=== PATIENT | female | born 1975 | race Caucasian/White ===

== ENCOUNTER 2022-12-20 12:16 | Outpatient (OUT) | payer OTHER, SELFPAY ==
--- NOTE | 2022-12-20 12:50 | XR_ITS ---
The [address] [address] Patient Name: CHITRA MICHAELS MRN: [id number] date: 1975 Sex: F Assigned Patient Location: LAB Current Patient Location: LAB Accession/Order Number: [id number] Exam Date: 12/20/2022 12:55 Report Date: 12/20/2022 13:16 At the request of: ILIANA GONZALEZ Procedure: XR chest 2V EXAM: XR chest 2V HISTORY: Fever R50.9 COMPARISON: None. TECHNIQUE: PA and lateral views of the chest. FINDINGS: The cardiomediastinal silhouette is normal. No focal consolidation is identified. There is no pneumothorax. No pleural effusion is noted. The osseous structures are intact. XR/XR chest 2V IMPRESSION: No acute cardiopulmonary process. Electronically authenticated by: HAL NAVARRO Date: 12/20/2022 13:16
[2022-12-20 13:05] LABS: Erythrocyte Sedimentation Rate 106 mm/hr (<=20)
[2022-12-20 13:10] LABS: Basophils Absolute Auto 0.1 10^3/uL (0.0-0.1); Basophils Percent Auto 0.3 % (0.2-2.0); Eosinophils Absolute Auto 0.1 10^3/uL (0.0-0.7); Eosinophils Percent Auto 0.8 % (0.9-7.0); Hematocrit 32.3 % (36.0-48.0); Hemoglobin 9.8 g/dL (12.0-16.0); Immature Granulocytes Abs Auto 0.12 10^3/uL (0.00-0.03); Immature Granulocytes Pct Auto 0.7 % (0.0-0.5); Lymphocytes Percent Auto 6.1 % (20.5-60.0); Mean Corpuscular HGB Conc 30.3 g/dL (29.9-35.2); Mean Corpuscular Hemoglobin 22.4 pg (26.7-34.0); Mean Corpuscular Volume 73.9 fL (81.0-99.0); Mean Platelet Volume 9.6 fL (9.5-13.5); Monocytes Absolute Auto 1.1 10^3/uL (0.3-0.8); Monocytes Percent Auto 6.6 % (1.7-12.0); Neutrophils Absolute Auto 14.2 10^3/uL (1.4-6.5); Neutrophils Percent Auto 85.5 % (43.0-75.0); Platelet Count 597 10^3/uL (150-450); Red Blood Count 4.37 10^6/uL (4.20-5.40); Red Cell Distribution Width 14.6 % (11.0-15.0); White Blood Count 16.6 10^3/uL (4.0-11.0)
[2022-12-20 13:40] LABS: Anion Gap 16.2; BUN Creatinine Ratio 21.7; Calcium 9.7 mg/dL (8.5-10.1); Carbon Dioxide 26.9 mmol/L (21.0-32.0); Chloride 97 mmol/L (98-107); Estimated GFR (African America >60 (>=60); Estimated GFR (Non-African Ame >60 (>=60); Glucose 94 mg/dL (74-106); Potassium 4.1 mmol/L (3.5-5.1); Sodium 136 mmol/L (136-145)
== END 2022-12-20 12:17 | disposition home or self-care (01) ==
LOC: LAB 12:22
PROVIDERS: PCP Family Medicine; Visit Provider Family Medicine
DX: R50.9 Fever, unspecified (principal)
CPT/HCPCS: 36415; 71046; 80048; 85025; 85652; 87040; 87086; 87150; 87186

== ENCOUNTER 2023-01-19 06:28 | Outpatient (OUT) | payer OTHER, SELFPAY ==
[2023-01-19 07:47] LABS: Alanine Aminotransferase 28 U/L (14-59); Aspartate Amino Transferase 16 U/L (15-37); Chol HDL Ratio 7.3; Cholesterol 226 mg/dL (<=200); HDL Cholesterol 31 mg/dL (40-60); Triglycerides 197 mg/dL (<=150); VLDL CHOLESTEROL 39.4 mg/dL
== END 2023-01-19 06:29 | disposition home or self-care (01) ==
LOC: LAB 06:31
PROVIDERS: PCP Family Medicine; Visit Provider Internal Medicine Cardiovascular Disease
DX: E78.5 Hyperlipidemia, unspecified (principal)
CPT/HCPCS: 36415; 80061; 84450; 84460

== ENCOUNTER 2023-02-08 19:51 | Outpatient (REF) | payer OTHER, SELFPAY ==
[2023-02-13 17:09] LABS: Age Gdln ACOG Testing Note (.); HPV Aptima Negative (Negative); IGP, Aptima HPV, rfx 16/18,45 Note (.)
== END 2023-02-08 19:52 | disposition home or self-care (01) ==
LOC: LAB 19:51
PROVIDERS: PCP Family Medicine; Visit Provider Obstetrics & Gynecology
DX: Z01.419 Encounter for gynecological examination (general) (routine) without abnormal findings (principal)
CPT/HCPCS: 87624; G0145

== ENCOUNTER 2024-02-14 20:20 | Outpatient (REF) | payer OTHER, SELFPAY ==
--- OUTSIDE RECORDS SUMMARY | 2024-02-14 20:24 | XMS_ITS | CCD ---
Author Organization [facility] Care Team Providers Care Varnish Dipper Name Role Phone ILIANA GONZALEZ Primary Care Physician [phone] Janeth Champion Unavailable BIANCA Champion Attending Provider DR ILIANA GONZALEZ Primary Care Unavailable BASIA, DR LANDERS Attending Unavailable BASIA, DR LANDERS Consulting Unavailable DR VIJAY MEDLEY Admitting Unavailable Iliana Gonzalez Unavailable Iliana Gonzalez Unavailable Unavailable Unavailable MD ILIANA GONZALEZ Primary Care Unava ilable MD ILIANA GONZALEZ Primary Care Unava ilable Austen, Dr. Emmy Woodson Referring Maggie vailable Austen, Dr. Emmy Woodson Attending Maggie MD ILIANA Casanova Primary Care Unava ilIliana Bergeron MD Primary Care Provider ILIANA GONZALEZ Attending Unavailable ILIANA GONZALEZ Admitting Unavailable PepperEmmy Admitting Unavailable Emmy Pepper Attending Unavailable ILINAA GONZALEZ Attending Unavailable ILIANA GONZALEZ Admitting Unavailable FLORA ELIZALDE Referring Unavailable FLORA ELIZALDE Admitting Unavailable FLORA ELIZALDE Attending Unavailable FLORA ELIZALDE Admitting Unavailable FLORA ELIZALDE Attending Unavailable FLORA ELIZALDE Referring Unavailable Emmy Pepper Admitting Unavailable Emmy Pepper Consulting Unavailable Emmy Pepper Attending Unavailable Austen Booth Referring Unavailable MD Emmy Pepper Consulting Unavailable Pepper, Booth Consulting Unavailable Pepper, Booth Consulting Unavailable Pepper, Booth Consulting Unavailable Pepper, Booth Consulting Unavailable Pepper, Booth Consulting Unavailable Pepper, Booth Consulting Unavailable Pepper, Booth Consulting Unavailable Pepper, Booth Consulting Unavailable FLORA ELIZALDE Referring Unavailable FLORA ELIZALDE Admitting Unavailable FLORA ELIZALDE Attending Unavailable REFERRAL, SELF Admitting Unavailable REFERRAL, SELF Attending Unavailable REFERRAL, SELF Referring Unavailable ILIANA GONZALEZ Consulting Unavailable MD ILIANA GONZALEZ Unavailable JACINDA CHILDS Attending Unavailable PepperEmmy Attending Unavailable Pepper, Emmy Admitting Unavailable ILIANA GONZALEZ Attending Unavailable ILIANA GONZALEZ Admitting Unavailable Iliana Gonzalez MD Primary Care Provider [phone] PEPPEREMMY RASMUSSEN Attending Unavailable ILIANA GONZALEZ Primary Care Unavailable PEPPEREMMY RASMUSSEN Attending Unavailable PEPPEREMMY M Referring Unavailable ILIANA GONZALEZ Primary Care Unavailable Iliana Gonzalez MD Primary Care Provider [phone] David Mayo MD Unavailable ILIANA GONZALEZ Admitting Unavailable ILIANA GONZALEZ Attending Unavailable YANELI ELIZALDE Admitting Unavailable YANELI ELIZALDE Attending Unavailable YANELI ELIZALDE Referring Unavailable Chinyere Domínguez Attending Unavailable REFERRAL, SELF Admitting Unavailable REFERRAL, SELF Attending Unavailable REFERRAL, SELF Referring Unavailable ILIANA GONZALEZ Consulting Unavailable MD ILIANA GONZALEZ Consulting Unavailable ILIANA GONZALEZ Admitting Unavailable ILIANA GONZALEZ Attending Unavailable YANELI ELIZALDE Referring Unavailable Jarred Argueta Admitting Unavailable Jarred Argueta Attending Unavailable ILIANA GONZALEZ Admitting Unavailable ILIANA GONZALEZ Attending Unavailable Dorothybosnicole, Kiah Walker Attending Unavailable NILLFab Attending Unavailable NILLFab Attending Unavailable ILIANA GONZALEZ Referring Unavailable Demboske, Kiah Walker Attending Unavailable Demboske, Kiah Walker Attending Unavailable Demboske, Kiah Walker Attending Unavailable ILIANA GONZALEZ Referring Unavailable NILL, Fab R Admitting Unavailable NILL, Fab Toscano Attending Unavailable NILLFab R Referring Unavailable MD Jarred Argueta Attending Unavailable MD Jarred Argueta Admitting Unavailable YANELI ELIZALDE Attending Unavailable LOWE, YANELI Attending Unavailable BASIAVIJAY Attending Unavailable LOWE, YANELI Referring Unavailable LOWE, YANELI Attending Unavailable LOWE, YANELI Attending Unavailable Demboske, Kiah Walker Attending Unavailable Demboske, Kiah Walker Admitting Unavailable Demboske, Kiah Denise Attending Unavailable Demboske, Kiah Denise Admitting Unavailable Allergies Allergy Classification Reported Allergen(s) Allergy Type Date of Onset Reaction(s) Facility (20 sources) busPIRone; Translations: [buspirone] Drug Allergy 08-08-19 18 Anxiety (finding), Anxiety [facility] (20 sources) Clarithromycin; Translations: [clarithromycin] Drug Allergy 08-23-19 13 Nausea (finding), Nausea Only, GI intolerance, Nausea/vomitin g, Weal (disorder) [facility] (20 sources) Latex; Translations: [Latex] Drug allergy 08-23-19 13 Anaphylaxis (disorder), Anaphylaxis [facility] (20 sources) Meperidine; Translations: [meperidine] Drug Allergy 08-23-19 13 Nausea (finding), GI intolerance, Weal (disorder) [facility] (20 sources) Morphine; Translations: [morphine] Drug Allergy 08-23-19 13 Nausea (finding), Nausea Only, Other, Weal (disorder) [facility] (1 source) busPIRone Drug Allergy [facility] (1 source) Clarithromycin Drug Allergy 08-23-19 13 [facility] (1 source) Meperidine Drug Allergy 08-23-19 13 [facility] (1 source) Morphine Drug Allergy 08-23-19 13 [facility] (14 sources) Metoclopramide Drug Allergy 12-16-19 14 Unknown [facility] Other (1 source) Allergies Reconciled Propensity to adverse reactions Unknown [facility] Other (14 sources) Avonex *PSYCHOTHERAPEUTI C AND NEUROLOGICAL AGENTS Propensity to adverse reactions 08-08-19 18 Unknown [facility] Other (14 sources) Biaxin *MACROLIDES* Propensity to adverse reactions 12-08-19 17 Unknown [facility] Other (1 source) patient allergy list reviewed by nurse or physicia Propensity to adverse reactions 10-13-19 15 Comment:Done [facility] Other (2 sources) Morphine Drug Allergy 12-08-19 17 Unknown [facility] Other (3 sources) Interferon beta-1a; Translations: [INTERFERON BETA-1A] Drug Allergy 02-22-20 16 Other, GI intolerance, Unknown, GI Upset [facility] Work Phone: (3 sources) Meperidine; Translations: [MEPERIDINE (PF)] Drug Allergy 08-23-19 13 Nausea/vomitin g [facility] Work Phone: (6 sources) Avonex *PSYCHOTHERAPEUTI C AND Allergy to substance 06-20-19 24 [facility] (7 sources) Clarithromycin Allergy to substance 08-23-19 13 GI intolerance, Nausea Only, Unknown [facility] (7 sources) Meperidine Drug Allergy 08-11-19 23 GI intolerance, Nausea Only [facility] (7 sources) Interferon Beta-1a Allergy to substance 02-22-20 16 GI intolerance, Other [facility] Medications Current Medications Medication Drug Class(es) Dates Sig (Normalized) Sig (Original) 0.5 ML tirzepatide 10 MG/ML Auto-Injector [Mounjaro] (5 sources) Start: 04-28-2022 Mounjaro 5 MG/0.5ML as directed Subcutaneous weekly for 28 days Apr, Active 0.5 ML tirzepatide 20 MG/ML Auto-Injector [Mounjaro] (3 sources) inject 5 mg by subcutaneous injection every week Mounjaro 10 MG/0.5ML INJECT 5MG (1 PEN) UNDER THE SKIN ONCE WEEKLY for 28 days Active 0.5 ML tirzepatide 25 MG/ML Auto-Injector [Mounjaro] (10 sources) inject 5 mg by subcutaneous injection every week Mounjaro 12.5 MG/0.5ML INJECT 5MG (1 PEN) UNDER THE SKIN ONCE WEEKLY for 90 days Active 0.5 ML tirzepatide 30 MG/ML Auto-Injector [Mounjaro] (1 source) inject 5 mg by subcutaneous injection every week Mounjaro 15 MG/0.5ML INJECT 5MG (1 PEN) UNDER THE SKIN ONCE WEEKLY for 90 days Active 0.5 ML tirzepatide 5 MG/ML Auto-Injector [Mounjaro] (3 sources) Start: 04-28-2022 Mounjaro 2.5 MG/0.5ML as directed Subcutaneous weekly for 28 days Apr, Active 3 ML insulin glargine-yfgn 100 UNT/ML Pen Injector [Semglee] (20 sources) Start: 11-18-2021 inject 50 [IU] by subcutaneous injection at bedtime Semglee (Prefilled Pen) 100 units/mL subcutaneous solution 50 unit(s), SubCutaneous, Bedtime, Blood glucose Start Date: 11/18/21 Status: Ordered inject 50 [IU] by granados bcutaneous injection once daily Semglee (yfgn) 100 UNIT/ML INJECT 50 UNITS UNDER THE SKIN ONCE DAILY for 90 days Active inject 50 [IU] by granados bcutaneous injection once daily Semglee (yfgn) 100 UNIT/ML INJECT 50 UNITS UNDER THE SKIN ONCE DAILY for 28 Active inject 50 [IU] by granados bcutaneous injection once daily Semglee (yfgn) 100 UNIT/ML INJECT 50 UNITS UNDER THE SKIN ONCE DAILY for 30 Active Acidophilus Probiotic Blend (20 sources) Start: 08-18-2020 take 1 capsule by mouth once daily Acidophilus Probiotic Blend 1 cap(s), Oral, Daily, Refill(s) 0, Prophylaxis Start Date: 08/18/20 Status: Ordered [id number] 200 actuat albuterol 0.09 mg/actuat metered dose inhaler (20 sources) beta2-Adrenerg ic Agonist Start: 10-11-2023 take 1 puff(s) by inhalation every four to six hours Albuterol Sulfate Active 2 PUFF INHALATION EVERY 4-6 HOURS 8.5 October 11, 2023 12:00am Start: 11-16-2022 take 2 puff(s) by in halation every four hours as needed Albuterol Sulfate HFA 108 (90 Base) MCG/ACT 2 puffs Inhalation every 4 hrs, as needed for 30 days Nov, Active Start: 11-16-2022 take 2 puff(s) by in halation every four hours as needed Albuterol Sulfate HFA 108 (90 Base) MCG/ACT 2 puffs Inhalation every 4 hrs, as needed for 30 days Nov, Active Start: 11-16-2022 take 2 puff(s) by in halation every four hours as needed Albuterol Sulfate HFA 108 (90 Base) MCG/ACT 2 puffs Inhalation every 4 hrs, as needed for 30 days Nov, Active Start: 11-18-2021 take 2 puff(s) by in halation every six hours Albuterol (Eqv-ProAir HFA) 2 puff(s), Inhalation, q6hr Shortness of breath or wheezing Start Date: 11/18/21 Status: Ordered ALPRAZolam 1 mg oral tablet (20 sources) Benzodiazepine Start: 07-27-2022 End: 06-07-2023 ALPRAZolam (Xanax) 1 MG tablet 07/27/2022 Active Start: 08-17-2020 End: 11-26-2023 take 1 tablet by mouth twice daily as needed for anxiety alprazolam 1 mg Tab 1 mg = 1 tab(s), Oral, BID, PRN for anxiety, Refills(s) 0, Anxiety Start Date: 08/17/20 Status: Ordered Start: 08-17-2020 End: 05-02-2023 take 1 tablet by mouth every six hours as needed for anxiety alprazolam 1 mg Tab 1 mg = 1 tab(s), Oral, q6hr, PRN for anxiety, Refills(s) 0, Anxiety Start Date: 08/17/20 Status: Ordered ALPRAZolam (Nellie vam) 1 mg disintegrating tablet Take 1 tablet (1 mg) by mouth if needed for anxiety. Active Xanax 1 MG 1 tab let Orally QID PRN, usually twice a day Active amphetamine aspartate 2.5 mg / amphetamine sulfate 2.5 mg / dextroamphetamine saccharate 2.5 mg / dextroamphetamine sulfate 2.5 mg oral tablet (20 sources) Central Nervous System Stimulant Start: 06-20-2023 End: 03-07-2024 take 1 tablet by mouth twice daily amphetamine-dextroamphetamine 10 mg oral tablet 10 mg, 1 tab(s), Oral, BID, Refill(s) 0 Start Date: 01/02/24 Status: Ordered take 1 capsule by mo uth once daily in the morning amphetamine-dextroamphetamine XR (Addera ll XR) 10 mg 24 hr capsule Take 1 capsule (10 mg) by mouth once daily in the morning. Do not crush or chew. Active take 1 tablet by mercedes th every twelve hours Adderall 10 MG 1 tablet Orally Twice a d ay Active take 1 tablet by mercedes th once daily Adderall 10 MG Oral Tablet TAKE 1 TABLET DAILY. Quantity: 0 Refills: 0 Ordered: 26-Jul-2022 DO Active atorvastatin 10 mg oral tablet (20 sources) HMG-CoA Reductase Inhibitor Start: 08-18-2020 take 1 tablet by mouth once daily atorvastatin 10 mg Tab 10 mg = 1 tab(s), Oral, Daily, High cholesterol Start Date: 08/18/20 Status: Ordered take 1 tablet by mouth once iesha y Atorvastatin Calcium 40 MG TAKE ONE TABLET BY MOUTH EVERY DAY for 90 Active benzonatate 200 mg oral capsule (3 sources) Non-narcotic Antitussive Start: 10-11-2023 Benzonatate Active 200 MG PO 2-3 TIMES PER DAY October 11, 2023 12:00am carvedilol 25 mg oral tablet (20 sources) alpha-Adrenergic Sena, beta-Adrenergic Sena Start: 07-02-2023 End: 10-09-2023 take 1 tablet by mouth twice daily Carvedilol Active 0 .ROUTE .COMPLEX 180 October 09, 2023 9:53am TAKE ONE TABLET BY MOUTH TWICE A DAY Start: 08-17-2020 End: 07-02-2023 take 1 tablet by mouth twice daily carvedilol 25 mg Tab 25 mg = 1 tab(s), Oral, BID, Refills(s) 0, High blood pressure Start Date: 08/17/20 Status: Ordered cefdinir 300 mg oral capsule (3 sources) Cephalosporin Antibacterial Start: 10-11-2023 take 300 mg by mouth twice daily Cefdinir Active 300 MG PO Twice daily October 11, 2023 12:00am ciprofloxacin 250 mg oral tablet (10 sources) Quinolone Antimicrobial Start: 12-25-2022 take 1 tablet by mouth every twelve hours Ciprofloxacin HCl 250 MG 1 tablet Orally every 12 hrs for 5 day(s) Dec, Active Continuous Blood Gluc Sensor (FreeStyle Daysi 14 Day Sensor) misc (7 sources) Start: 03-01-2022 Continuous Blood Gluc Sensor (FreeStyle Daysi 14 Day Sensor) [facility] 03/01/2022 Active cyanocobalamin/thia mine HCl (VITAMIN X74-OSYWLUG B1 IM) (1 source) inject 1 dose by intramuscular injection every 30 days cyanocobalamin/thi amine HCl (VITAMIN E44-XYIDATG B1 IM) Inject 1 Dose into the muscle every 30 (thirty) days. Active ergocalciferol 1.25 mg oral capsule (20 sources) Provitamin D2 Compound Start: 06-08-2022 take 1 capsule by mouth every week ergocalciferol (Vitamin D2) 1.25 MG (25909 UT) capsule Indications: Multiple sclerosis (CMS/HCC) TAKE 1 CAPSULE BY MOUTH ONCE WEEKLY 12 capsule 3 10/09/2023 Active Start: 08-17-2020 ergocalciferol 50,000 intl units Cap 50,000 International_Unit = 1 cap(s), Oral, Sunday, Refills(s) 0, Prophylaxis Start Date: 08/17/20 Status: Ordered Start: 08-17-2020 ergocalciferol 50,000 intl units Cap 50,000 International_Unit = 1 cap(s), Oral, Sunday, Refills(s) 0, Prophylaxis Start Date: 08/17/20 Status: Ordered Start: 08-17-2020 ergocalciferol 50,000 intl units Cap 50,000 International_Unit = 1 cap(s), Oral, Sunday, Refills(s) 0, Prophylaxis Start Date: 08/17/20 Status: Ordered 1 ml evolocumab 140 mg/ml auto-injector (11 sources) PCSK9 Inhibitor Start: 05-01-2022 inject 140 mg by subcutaneous injection every other week Repatha SureClick 140 MG/ML as directed Subcutaneous every 2 weeks for 28 days Apr, Active famotidine 20 mg oral tablet (20 sources) Histamine-2 Receptor Antagonist Start: 06-20-2023 End: 06-25-2023 take 1 tablet by mouth twice daily as needed Famotidine Discontinued 1 TAB PO Twice daily June 20, 2023 12:00am June 25, 2023 10:42am FreeTextSi TABLET Orally Twice a day prn; Note: Source Status: Not-Taking\PRN; Provider: Lisa Omer ( ) Start: 11-16-2020 take 1 tablet by mercedes th once daily as needed for gastroesophageal reflux disease famotidine (Pepcid) 20 MG tablet Indications: Multiple sclerosis (CMS/HCC) Take 1 tablet (20 mg) by mouth Daily as needed for heartburn for up to 1 day 1 tablet 07/19/2023 Active take 1 tablet by mercedes th twice daily as needed Famotidine 20 MG 1 TABLET Orally Twice a day prn Not-Taking/PRN Fiber (15 sources) take 2 tablets by mouth three times daily as needed Fiber 625 MG 2 tablets as needed Orally Three times a day Active Fish Oils (11 sources) take 1 capsule by mouth once daily Fish Oil 1200 MG 1 capsule Orally Once a day Active fluconazole 150 mg oral tablet (20 sources) Azole Antifungal Start: 09-10-2023 End: 09-24-2023 Fluconazole Active 150 MG PO Q3D September 24, 2023 9:51am Start: 05-22-2023 End: 06-25-2023 Fluconazole Discontinued 150 MG PO Q3D May 22, 2023 12:00am June 25, 2023 10:42am Start: 03-24-2022 take 1 tablet by mercedes th once as needed Fluconazole 150 MG 1 tablet Orally once for 10 day(s) Mar, Not-Taking/PRN FreeStyle Daysi 14 Day Sensor - (13 sources) FreeStyle Daysi 14 Day Sensor - USE DIRECTED for 28 Active Vascepa (20 sources) Start: 01-02-2024 take 2 tablets by mouth twice daily Vascepa = 2 tab(s), Oral, BID, Refills(s) 0 Start Date: 01/02/24 Status: Ordered Start: 07-26-2022 Icosapent Ethy l (Vascepa) 1 g capsule 07/26/2022 Active Start: 07-26-2022 take 2 tablets by mo uth twice daily Icosapent Ethyl Active GM PO June 20, 2023 12:00am FreeTextSi tablets twice a day; Note: Source Status: Taking; Provider: Lisa Omer ( ) take 2 capsules by m outh every twelve hours Icosapent Ethyl 1 GM 2 tablets twice a day Active Insulin Glargine (20 sources) Insulin Analog Lantus Active Insulin Glargine-Yfgn (Semglee(Insulin Glarg-Yfgn)Pen) 100 unit/mL (3 mL) insulin pen (6 sources) Start: 06-20-2023 Insulin Glargi ne-Yfgn (Semglee(Insulin Glarg-Yfgn)Pen) 100 unit/mL (3 mL) insulin pen Active UNIT SUBCUT June 20, 2023 12:00am FreeTextSig: INJECT 50 UNITS UNDER THE SKIN ONCE DAILY; Note: Source Status: Refill; Refills: 3; Provider: Lias Gr 3 ml insulin lispro 100 unt/ml pen injector (20 sources) Insulin Analog Start: 02-26-2022 HumaLOG KWIKPE N 100 UNIT/ML injection 02/26/2022 Active Start: 11-18-2021 Humalog SubCut aneous, TIDAC, Blood glucose Start Date: 11/18/21 Status: Ordered HumaLOG KwikPen 100 UNIT/ML INJECT PER SLIDING SCALE DIRECTED (150-200: 2 UNITS, 201-250: 5 UNITS, 251-300: 8 UNITS, 301-350: 10 UNITS) for 30 Active Humalog U100 1 u nit for every 5 CHO eaten sc with meals Active Insulin Lispro (Humalog Kwikpen Insulin) 100 unit/mL insulin pen (6 sources) Start: 06-20-2023 Insulin Lispro (Humalog Kwikpen Insulin) 100 unit/mL insulin pen Active 1 sliding scale dose SUBCUT June 20, 2023 12:00am FreeTextSig: INJECT PER SLIDING SCALE DIRECTED (150-200: 2 UNITS, 201-250: 5 UNITS, 251-300: 8 UNITS, 301-350: 10 UNITS); Note: Source Status: Start; Refills: 3; Qty: 15 Milliliter; Provider: Lisa Omer ( ) lactobacillus acidophilus [id number] unt oral capsule (1 source) take 1 capsule by mouth once daily Lactobacillus acidophilus (Probacap) 10 billion cell capsule Take 1 capsule by mouth once daily. Active Lactobacillus Combination No.9 (Adult 50 Plus Probiotic) 4 billion cell capsule (6 sources) Start: 06-20-2023 take 4 capsules by mouth once daily Lactobacillus Combination No.9 (Adult 50 Plus Probiotic) 4 billion cell capsule Active 4000 MMU CELLS PO Daily June 20, 2023 12:00am linagliptin 5 mg oral tablet (20 sources) Dipeptidyl Peptidase 4 Inhibitor Start: 08-17-2020 End: 08-07-2023 Tradjenta 5 MG tablet 08/07/2022 Active losartan potassium 50 mg oral tablet (20 sources) Angiotensin 2 Receptor Sena Start: 07-31-2023 take 1 tablet by mouth once daily Losartan Active 0 .ROUTE .COMPLEX 90 July 31, 2023 2:00pm TAKE ONE TABLET BY MOUTH EVERY DAY Start: 10-17-2022 End: 07-31-2023 take 1 tablet by mouth once daily Losartan Discontinued 50 MG PO Daily June 20, 2023 12:00am July 31, 2023 2:00pm FreeTextSi tablet Orally Once a day; Note: Source Status: Taking; Refills: 3; Qty: 90 Tablet; Provider: Lisa Gr Start: 04-18-2022 losartan (Coza ar) 100 MG tablet 04/18/2022 Active Start: 08-17-2020 take 0.5 tablet by m outh once daily losartan 100 mg Tab 0.5 tab, Oral, Daily, Refills(s) 0, High blood pressure Start Date: 08/17/20 Status: Ordered 24 hr metFORMIN hydrochloride 500 mg extended release oral tablet (20 sources) Biguanide Start: 07-02-2023 End: 10-09-2023 take 2 tablets by mouth twice daily Metformin Active 0 .ROUTE .COMPLEX 360 October 09, 2023 9:53am TAKE TWO TABLETS BY MOUTH TWICE A DAY Start: 07-03-2022 metFORMIN XR ( Glucophage-XR) 500 MG 24 hr tablet 07/03/2022 Active Start: 07-03-2022 End: 07-02-2023 take 2 tablets by mouth twice daily Metformin Discontinued MG PO June 20, 2023 12:00am July 02, 2023 1:07pm FreeTextSig: TAKE TWO TABLETS BY MOUTH TWICE A DAY; Note: Source Status: Taking; Refills: 3; Qty: 360 Tablet; Provider: Lisa Omer ( ) Start: 08-17-2020 MetFORMIN (Eqv -Glucophage XR) 500 mg oral tablet, extended release 1,000 mg = 2 tab(s), Oral, BID, Refills(s) 0, High blood sugar Start Date: 08/17/20 Status: Ordered take 2 tablets by [facility] twice daily metFORMIN HCl ER 500 MG TAKE TWO TABLETS BY MOUTH TWICE A DAY for 90 Active take 2 tablets by [facility] every twenty-four hours metFORMIN HCl ER 500 MG 2 tablet with evening meal Orally Once a day Active Mounjaro (7 sources) Start: 01-02-2024 Mounjaro Refil ls(s) 0 Start Date: 01/02/24 Status: Ordered mounjaro 15 mg/0.5ml solution pen-injector (2 sources) inject 5 mg by subcutaneous injection every week Mounjaro 15 MG/0.5ML INJECT 5MG (1 PEN) UNDER THE SKIN ONCE WEEKLY for 90 days Active Mounjaro 2.5 MG/0.5ML solution pen-injector (7 sources) Start: 05-01-2022 inject 12.5 mg by subcutaneous injection every week Mounjaro 2.5 MG/0.5ML solution pen-injector Inject 12.5 mg under the skin 1 (one) time per week 05/01/2022 Active Nirmatrelvir-Ritonavi r (Paxlovid) 300 mg (150 mg x 2)-100 mg tablets,dose pack (3 sources) Start: 10-11-2023 Nirmatrelvir-R itonavir (Paxlovid) 300 mg (150 mg x 2)-100 mg tablets,dose pack Active 0 PO .COMPLEX October 11, 2023 12:00am take TWO 150 mg tablets of nirmatrelvir with ONE 100 mg tablet of ritonavir twice daily for 5 days PO 10 ml ocrelizumab 30 mg/ml injection (20 sources) Start: 06-20-2023 Ocrelizumab (O crevus) 30 mg/mL solution Active MG IV June 20, 2023 12:00am Medication Name: Ocrevus; Note: Source Status: Taking; Provider: Lisa Omer ( ) Start: 11-01-2020 Ocrevus 300 mg , IntraVesical, q6mo, MS, Other (see comment) Start Date: 11/01/20 Status: Ordered Ocrevus (20 sources) Start: 11-01-2020 Ocrevus 300 mg , IntraVesical, q6mo, MS, Other (see comment) Start Date: 11/01/20 Status: Ordered Ocrevus Active PARoxetine hydrochloride 30 mg oral tablet (20 sources) Serotonin Reuptake Inhibitor Start: 06-20-2023 take 1 tablet by mouth once daily Paxil 30 mg Tab 30 mg = 1 tab(s), Oral, Daily, Refills(s) 0 Start Date: 01/07/24 Status: Ordered Start: 08-06-2022 PARoxetine (Pa xil) 20 MG tablet Take 30 mg by mouth in the morning. 08/06/2022 Active Start: 08-17-2020 End: 01-22-2023 take 1 tablet by mouth once daily paroxetine 20 mg Tab 20 mg = 1 tab(s), Oral, Daily, Refills(s) 0, Depression Start Date: 08/17/20 Status: Ordered Start: 08-17-2020 take 1 tablet by mercedes th once daily paroxetine 20 mg Tab 20 mg = 1 tab(s), Oral, Daily, Refills(s) 0, Depression Start Date: 08/17/20 Status: Ordered probiotic (20 sources) probiotic Active Prochlorperazine (20 sources) Phenothiazine Start: 05-02-2023 take 1 tablet by mouth three times daily as needed Prochlorperazine Maleate Active 0 .ROUTE .COMPLEX 90 May 02, 2023 10:46am TAKE ONE TABLET BY MOUTH THREE TIMES A DAY NEEDED Start: 11-18-2021 End: 05-02-2023 take 1 tablet by mouth three times daily as needed for nausea Compazine 10 mg oral tablet 10 mg = 1 tab(s), Oral, TID, PRN Nausea/Vomiting Start Date: 11/18/21 Status: Ordered Compazine 10 MG TABS q6m prn with infusions Quantity: 0 Refills: 0 Ordered: 26-Jul-2022 DO Active promethazine hydrochloride 25 mg oral tablet (20 sources) Phenothiazine Start: 06-20-2023 take 1 tablet by mouth every twelve hours as needed Promethazine Active 25 MG PO Every 12 hours June 20, 2023 12:00am FreeTextSi tablet as needed Orally every 12 hrs; Note: Source Status: Taking; Provider: Lisa Gr Start: 08-17-2020 take 1 tablet by mercedes th every six hours as needed for nausea promethazine 25 mg Tab 25 mg = 1 tab(s), Oral, q6hr, PRN as needed for nausea/vomiting, Refills(s) 0, Nausea/Vomiting Start Date: 08/17/20 Status: Ordered take 1 tablet by mercedes th every twelve hours Promethazine HCl 25 MG 1 tablet as needed Orally every 12 hrs for 30 days Active rosuvastatin calcium 40 mg oral tablet (20 sources) HMG-CoA Reductase Inhibitor Start: 01-02-2024 take 1 tablet by mouth once daily rosuvastatin 40 mg Tab 40 mg = 1 tab(s), Oral, Daily, Refills(s) 0 Start Date: 01/02/24 Status: Ordered Start: 08-04-2023 take 40 mg by mouth once daily Rosuvastatin Active 40 MG PO Daily August 04, 2023 2:09pm Start: 01-22-2023 End: 01-22-2024 take 20 mg by mouth once daily Rosuvastatin Discontinu ed 20 MG PO Daily June 25, 2023 12:00am August 04, 2023 2:10pm Rybelsus (12 sources) Rybelsus Active semaglutide 3 mg oral tablet (17 sources) Start: 11-18-2021 take 1 tablet by mouth once daily semaglutide 3 mg oral tablet 3 mg = 1 tab(s), Oral, Daily, Blood glucose Start Date: 11/18/21 Status: Ordered Start: 10-11-2020 take 1 tablet by mouth once da meli Rybelsus 7 mg oral tablet 7 mg = 1 tab(s), Oral, Daily Start Date: 10/11/20 Status: Ordered semglee (yfgn) 100 unit/ml solution pen-injector (2 sources) inject 50 [IU] by subcutaneous injection once daily Semglee (yfgn) 100 UNIT/ML INJECT 50 UNITS UNDER THE SKIN ONCE DAILY for 90 days Active Semglee, yfgn, 100 UNIT/ML pen (7 sources) Start: 08-03-2022 Semglee, yfgn, 100 UNIT/ML pen 08/03/2022 Active Semglee,insulin glarg-yfgn,Pen 100 unit/mL (3 mL) Pen (2 sources) Start: 08-03-2022 Semglee,insulin glarg-yfgn,Pen 100 unit/mL (3 mL) Pen 08/03/2022 Active Start: 08-03-2022 Semglee,insuli n glarg-yfgn,Pen 100 unit/mL (3 mL) Pen SITagliptin 100 mg oral tablet (16 sources) Dipeptidyl Peptidase 4 Inhibitor Start: 01-02-2024 take 1 tablet by mouth once daily Januvia 100 mg Tab 100 mg = 1 tab(s), Oral, Daily, Refills(s) 0 Start Date: 01/02/24 Status: Ordered Start: 05-07-2023 End: 11-26-2023 take 1 tablet by mouth once daily Sitagliptin Phosphate (Januvia) 100 mg tablet Active 100 MG PO Daily November 26, 2023 4:18pm tacrolimus 0.001 mg/mg topical ointment (20 sources) Calcineurin Inhibitor Immunosuppressant Start: 06-20-2023 Tacrolimus Active APPLIC TOPICAL June 20, 2023 12:00am FreeTextSi application twice a day PRN; Note: Source Status: Taking; Provider: Lisa Omer ( ) Start: 10-05-2022 tacrolimus (Pr otopic) 0.1 % ointment Indications: Other atopic dermatitis Apply to affected areas bid prn when flared for 30 days 60 g 11 10/05/2022 Active temazepam 30 mg oral capsule (20 sources) Benzodiazepine Start: 08-17-2020 End: 12-10-2023 take 1 capsule by mouth once daily at bedtime as needed for sleep temazepam 30 mg Cap 30 mg = 1 cap(s), Oral, Once a day (at bedtime), PRN for sleep, Refills(s) 0 Start Date: 08/17/20 Status: Ordered Tirzepatide (11 sources) Start: 07-31-2023 inject 15 mg by subcutaneous injection every week Tirzepatide (Mounjaro) 15 mg/0.5 mL pen injector Active 0 .ROUTE .COMPLEX July 31, 2023 1:59pm INJECT 15 MG UNDER THE SKIN ONCE WEEKLY Start: 06-20-2023 End: 07-31-2023 inject 5 mg by subcutaneous injection every week Tirzepatide Discontinued 15 MG SUBCUT every week June 20, 2023 12:00am July 31, 2023 2:00pm FreeTextSig: INJECT 5MG (1 PEN) UNDER THE SKIN ONCE WEEKLY; Note: Source Status: Refill; Refills: 1; Provider: Lisa Gr Start: 06-20-2023 inject 5 mg by subcu taneous injection every week Tirzepatide Active 15 MG SUBCUT every week June 20, 2023 12:00am FreeTextSig: INJECT 5MG (1 PEN) UNDER THE SKIN ONCE WEEKLY; Note: Source Status: Refill; Refills: 1; Provider: Lisa Gr tirzepatide (Mounjaro) 15 mg/0.5 mL pen injector (1 source) tirzepatide (Mounjaro) 15 mg/0.5 mL pen injector Inject 15 mg under the skin every 7 days. Active tiZANidine 4 mg oral tablet (20 sources) Central alpha-2 Adrenergic Agonist Start: 4 End: 4 take 1 tablet by mouth in the morning, then take 1 tablet by mouth in the evening, then take 1 tablet by mouth at bedtime tiZANidine (Zanaflex) 4 MG tablet Indications: Cervical spondylosis Take 1 tablet (4 mg) by mouth in the morning and 1 tablet (4 mg) in the evening and 1 tablet (4 mg) before bedtime. 270 tablet 11/26/2023 02/24/2024 Active Start: 05-02-2022 take 1 tablet by mercedes th every eight hours as needed tiZANidine (Zanaflex) 4 mg tablet Take 1 tablet (4 mg) by mouth every 8 hours if needed. 05/02/2022 Active Start: 05-02-2022 take 2 mg by mouth e very eight hours as needed tiZANidine (Zanaflex) 4 mg tablet Take 0.5 tablets (2 mg) by mouth every 8 hours if needed. 0 05/02/2022 Active Start: 08-17-2020 take 1 tablet by mercedes th three times daily tiZANidine 4 mg Tab 4 mg = 1 tab(s), Oral, TID, Refills(s) 0, Muscle pain Start Date: 08/17/20 Status: Ordered take 1 tablet by mercedes th every twelve hours tiZANidine HCl 4 MG 1 tablet Orally twice a day Active triamcinolone acetonide 5 mg/ml topical cream (13 sources) Corticosteroid Start: 07-05-2022 triamcinolone (Kenalog) 0.5 % cream APPLY 1 application TO THE AFFECTED AREA(S) TWICE DAILY FOR 7 DAYS (EXTERNALLY) 07/05/2022 Active Start: 07-05-2022 Triamcinolone Acetonide 0.5 % 1 application Externally Twice a day for 7 days July, Active valACYclovir 1000 mg oral tablet (4 sources) Herpesvirus Nucleoside Analog DNA Polymerase Inhibitor, Herpes Simplex Virus Nucleoside Analog DNA Polymerase Inhibitor, Herpes Zoster Virus Nucleoside Analog DNA Polymerase Inhibitor Start: 08-04-2023 take 1000 mg by mouth three times daily Valacyclovir Active 1000 MG PO Three times daily 22 09August 04, 2023 12:00am Vitamin B-12 1000 mcg/mL injectable solution (20 sources) Start: 11-18-2021 inject 1000 ug by subcutaneous injection every month Vitamin B-12 1000 mcg/mL injectable solution 1,000 mcg = 1 mL, SubCutaneous, qMonth, Prophylaxis Start Date: 11/18/21 Status: Ordered vitamin B12 (20 sources) Vitamin B12 Start: 10-09-2023 inject 1 mL by intramuscular injection every month Cyanocobalamin (Vitamin B-12) Active 0 .ROUTE .COMPLEX 1 October 09, 2023 9:53am INJECT 1ML INTRAMUSCULARLY MONTHLY Start: 06-20-2023 End: 10-09-2023 inject 1 mL by intramuscular injection every month Cyanocobalamin (Vitamin B-12) Discontinued 1000 MCG SUBCUT every month June 20, 2023 12:00am October 09, 2023 9:53am FreeTextSig: INJECT 1ML INTRAMUSCULARLY MONTHLY; Note: Source Status: Taking; Refills: 5; Qty: 1 Milliliter; Provider: Lisa Omer ( ) Start: 08-06-2022 cyanocobalamin (Vitamin B-12) 1000 MCG/ML injection 08/06/2022 Active inject 1 mL by intra muscular injection every month Cyanocobalamin 1000 MCG/ML INJECT 1ML INTRAMUSCULARLY MONTHLY for 30 Active inject 1 mL by intra muscular injection every month Cyanocobalamin 1000 MCG/ML INJECT 1ML INTRAMUSCULARLY MONTHLY for 30 Active Vitamin Deficien cy System-B12 1000 MCG/ML Injection Kit weekly Quantity: 0 Refills: 0 Ordered: 26-Jul-2022 DO Active Vitamin B12 Acti ve Completed/Discontinued Medications Medication Drug Class(es) Dates Sig (Normalized) Sig (Original) calcium polycarbophil 625 mg oral tablet (15 sources) Start: 06-20-2023 End: 06-25-2023 take 2 tablets by mouth three times daily as needed Calcium Polycarbophil (Fiber (Calcium Polycarbophil)) 625 mg tablet Discontinued MG PO June 20, 2023 12:00am June 25, 2023 10:41am FreeTextSi tablets as needed Orally Three times a day; Note: Source Status: Taking; Provider: Lisa Omer ( ) take 2 tablets by mouth every ei ght hours Fiber 625 MG 2 tablets as needed Orally Three times a day Active chlorthalidone 25 mg oral tablet (20 sources) Thiazide-like Diuretic Start: 06-20-2023 End: 06-25-2023 take 1 tablet by mouth once daily at mealtime Chlorthalidone Discontinued 25 MG PO Daily June 20, 2023 12:00am June 25, 2023 10:41am FreeTextSi tablet in the morning with food Orally Once a day; Note: Source Status: Not-Taking\PRN; Provider: Lisa Omer ( ) take 1 tablet by mercedes th every twenty-four hours Chlorthalidone 25 MG 1 tablet in the morning with food Orally Once a day Not-Taking/PRN cholecalciferol 1.25 mg oral capsule (2 sources) Vitamin D take 1 capsule by mouth every week Vitamin D3 1.25 MG (13987 UT) Oral Capsule TAKE 1 CAPSULE BY MOUTH WEEKLY Quantity: 0 Refills: 0 Ordered: 26-Jul-2022 DO Active cloNIDine hydrochloride 0.1 mg oral tablet (20 sources) Central alpha-2 Adrenergic Agonist Start: 06-20-19 End: 06-25-19 take 1 tablet by mouth three times daily as needed Clonidine Hcl Discontinued 0.1 MG PO Three times daily June 20, 2023 12:00am June 25, 2023 10:41am FreeTextSi tablet Orally THREE TIMES A DAY prn; Note: Source Status: Not-Taking\PRNPRN; Provider: Lisa Omer ( ) take 1 tablet by mercedes three times daily as needed cloNIDine HCl 0.1 MG 1 tablet Orally THR EE TIMES A DAY prn PRN Not-Taking/PRN doxycycline monohydrate 100 mg oral capsule (20 sources) Tetracycline-class Drug Start: 06-20-2023 End: 06-25-2023 take 1 capsule by mouth every twelve hours Doxycycline Monohydrate Discontinued 100 MG PO Every 12 hours June 20, 2023 12:00am June 25, 2023 10:42am FreeTextSi capsule Orally every 12 hrs; Note: Source Status: Not-Taking\PRN; Qty: 20 Capsule; Provider: Jaycee Hand Start: 10-17-2021 take 1 capsule by mo [facility] every twelve hours Doxycycline Monohydrate 100 MG 1 capsule Orally every 12 hrs for 10 days Oct, Not-Taking/PRN fenofibrate 145 mg oral tablet (20 sources) Peroxisome Proliferator Receptor alpha Agonist Start: 06-20-2023 End: 06-25-2023 take 1 tablet by mouth every other day at mealtime Fenofibrate Nanocrystallized Discontinued MG PO June 20, 2023 12:00am June 25, 2023 10:42am FreeTextSi tablet with food Orally every other day; Note: Source Status: Taking; Provider: Lisa Omer ( ) Start: 08-17-2020 End: 01-22-2023 take 1 tablet by mouth once daily fenofibrate 145 mg Tab 145 mg = 1 tab(s), Oral, Daily, Refills(s) 0, High cholesterol Start Date: 08/17/20 Status: Ordered take 1 tablet by mercedes every other day at mealtime Fenofibrate 145 MG 1 tablet with food Orally every other day Active glimepiride 4 mg oral tablet (20 sources) Sulfonylurea Start: 06-20-2023 End: 06-25-2023 take 1 tablet by mouth twice daily Glimepiride Discontinued 4 MG PO Twice daily June 20, 2023 12:00am June 25, 2023 10:42am FreeTextSi tablet Orally TWICE A DAY; Note: Source Status: Not-Taking\PRN; Provider: Lisa Omer ( ) take 1 tablet by mercedes th every twelve hours Glimepiride 4 MG 1 tablet Orally TWICE A DAY Not-Taking/PRN Insulin Lispro (Humalog U-100 Insulin) 100 unit/mL solution (6 sources) Start: 06-20-2023 End: 06-25-2023 Insulin Lispro (Humalog U-100 Insulin) 100 unit/mL solution Discontinued 1 sliding scale dose SUBCUT June 20, 2023 12:00am June 25, 2023 10:43am FreeTextSi unit for every 5 CHO eaten sc with meals; Note: Source Status: Taking; Provider: Lisa Omer ( ) levonorgestrel 0.324870 mg/hr intrauterine system (20 sources) Progestin, Progestin-containing Intrauterine Device Start: 08-18-2020 Mirena 52 mg intrauteral device 52 mg = 1 EA, IntraUteral, Once, X 1 dose(s), # 1 EA, Refills(s) 0, control/menstrual regulation Start Date: 08/18/20 Status: Ordered levonorgestrel ( Mirena) 21 mcg/24 hr (8 yrs) 52 mg IUD 52 mg by intrauterine route 1 time. Active Mirena (52 MG) 2 0 MCG/24HR as directed Intrauterine Active Mounjaro 5 mg/0.5 mL pen injector (1 source) Start: 09-21-2022 End: 01-22-2023 Mounjaro 5 mg/0.5 mL pen injector Mounjaro 5 MG/0.5ML Subcutaneous Solution Pen-injector (2 sources) Mounjaro 5 MG/0. 5ML Subcutaneous Solution Pen-injector weekly Quantity: 0 Refills: 0 Ordered: 26-Jul-2022 DO Active mupirocin 0.02 mg/mg topical ointment (20 sources) RNA Synthetase Inhibitor Antibacterial Start: 06-20-2023 End: 06-25-2023 Mupirocin Discontinued 1 APPLIC TOPICAL Twice daily June 20, 2023 12:00am June 25, 2023 10:44am FreeTextSi application to affected area Externally 2 times a day; Note: Source Status: Not-Taking\PRN; Provider: Jaycee Hand Start: 10-17-2021 Mupirocin 2 % 1 application to affected area Externally 2 times a day for 7 days Oct, Not-Taking/PRN Semglee (yfgn) 100 UNIT/ML Subcutaneous Solution Pen-injector (2 sources) inject 50 [IU] by subcutaneous injection once daily Semglee (yfgn) 100 UNIT/ML Subcutaneous Solution Pen-injector 50 units daily Quantity: 0 Refills: 0 Ordered: 26-Jul-2022 DO Active tirzepatide (Mounjaro) 12.5 mg/0.5 mL pen injector (2 sources) End: 08-07-2023 tirzepatide (Mounjaro) 12.5 mg/0.5 mL pen injector Inject 12.5 mg under the skin every 7 days. 08/07/2023 Discontinued (Dose adjustment) tirzepatide (Mercedes njaro) 12.5 mg/0.5 mL pen injector Inject 12.5 mg under the skin every 7 days. 0 Active Problems Active Problems Problem Classification Problem Date Documented Da te Episodic/Chronic Administrative/social admission (1 source) Counseling procedure with explicit context; Translations: [Dietary counseling and surveillance] Episodic Anxiety disorders (20 sources) Mixed anxiety and depressive disorder; Translations: [Generalized anxiety disorder] Onset: 7 10-19-2020 Chronic Attention-deficit, conduct, and disruptive behavior disorders (7 sources) Attention deficit hyperactivity disorder 01-02-2024 Chronic Blindness and vision defects (2 sources) Eye / vision finding; Translations: [Unspecified visual disturbance] 02-04-2024 Episodic Cardiac dysrhythmias (11 sources) Inappropriate sinus tachycardia; Translations: [Inappropriate sinus tachycardia] Onset: 3 01-22-2023 Chronic Cardiac dysrhythmias (2 sources) Sinus tachycardia; Translations: [Other specified cardiac dysrhythmias] Episodic Chronic kidney disease (20 sources) Chronic kidney disease stage 2; Translations: [Chronic kidney disease, stage 2 (mild)] Chronic Contraceptive and procreative management (1 source) Surveillance of intrauterine device contraception; Translations: [Encounter for routine checking of intrauterine contraceptive device] Episodic Deficiency and other anemia (8 sources) Pernicious anemia; Translations: [Vitamin B12 deficiency anemia due to intrinsic factor deficiency] 01-02-2024 Episodic Deficiency and other anemia (9 sources) Iron deficiency anemia; Translations: [Iron deficiency anemia, unspecified] Onset: 4 Episodic Diabetes mellitus with complications (20 sources) Hyperglycemia due to type 2 diabetes mellitus; Translations: [Type 2 diabetes mellitus with hyperglycemia] Resolved: 3 Chronic Diabetes mellitus without complication (20 sources) Diabetes mellitus; Translations: [Type 2 diabetes mellitus] Onset: 3 Resolved: 4 10-19-2020 Chronic Diseases of white blood cells (2 sources) Leukocytosis; Translations: [Elevated white blood cell count, unspecified] Onset: 3 01-19-2023 Chronic Disorders of lipid metabolism (20 sources) Hypertriglyceridemia; Translations: [Pure hyperglyceridemia] Onset: 6 Chronic Esophageal disorders (8 sources) Gastroesophageal reflux disease; Translations: [Gastroesophageal reflux disease without esophagitis] Onset: 8 01-02-2024 Chronic Essential hypertension (20 sources) Hypertensive disorder; Translations: [Benign essential hypertension] Onset: 8 10-19-2020 Chronic Gastritis and duodenitis (1 source) Chronic gastritis; Translations: [Unspecified chronic gastritis without bleeding] Onset: 4 Chronic Headache; including migraine (17 sources) Migraine without aura, not refractory ; Translations: [Migraine, unspecified, not intractable, without status migrainosus] Onset: 4 06-10-2023 Chronic Hypertension with complications and secondary hypertension (20 sources) Chronic kidney disease due to hypertension; Translations: [Hypertensive chronic kidney disease with stage 1 through stage 4 chronic kidney disease, or unspecified chronic kidney disease] 01-02-2024 Chronic Immunity disorders (11 sources) Disorder of immune function; Translations: [Disorder involving the immune mechanism, unspecified] Chronic Immunizations and screening for infectious disease (1 source) Encounter for screening for human papillomavirus (HPV); Translations: [ENC SCREENING HUMAN PAPILLOMAVIRUS] Onset: 2 Episodic Miscellaneous mental health disorders (20 sources) Primary insomnia; Translations: [Primary insomnia] Chronic Mood disorders (9 sources) Depressive disorder; Translations: [Depression] Onset: 3 01-19-2023 Chronic Multiple sclerosis (20 sources) Multiple sclerosis; Translations: [Multiple sclerosis] Onset: 3 10-19-2020 Chronic Nausea and vomiting (15 sources) Nausea and vomiting; Translations: [Nausea with vomiting, unspecified] Onset: 4 Episodic Nutritional deficiencies (20 sources) Vitamin D deficiency; Translations: [Vitamin D deficiency, unspecified] Onset: 4 06-10-2023 Chronic Osteoarthritis (1 source) Osteoarthritis; Translations: [Unspecified osteoarthritis, unspecified site] Chronic Other aftercare (20 sources) Long-term current use of insulin; Translations: [detention (current) use of insulin] Episodic Other aftercare (1 source) Long-term current use of oral hypoglycemic medication; Translations: [detention (current) use of oral hypoglycemic drugs] Episodic Other circulatory disease (1 source) Elevated blood-pressure reading without diagnosis of hypertension; Translations: [Elevated blood-pressure reading, without diagnosis of hypertension] Episodic Other endocrine disorders (7 sources) Disorder of adrenal gland; Translations: [Disorder of adrenal gland, unspecified] Onset: 4 06-10-2023 Chronic Other endocrine disorders (7 sources) Mass of left adrenal gland Onset: 9 01-02-2024 Chronic Other female genital disorders (1 source) Disorder of female genital organs; Translations: [Unspecified condition associated with female genital organs and menstrual cycle] Episodic Other gastrointestinal disorders (12 sources) Food intolerance; Translations: [Food intolerance] Chronic Other non-traumatic joint disorders (1 source) Joint pain; Translations: [Pain in unspecified joint] Episodic Other nutritional; endocrine; and metabolic disorders (20 sources) Hypercalcemia; Translations: [Hypercalcemia] Chronic Other nutritional; endocrine; and metabolic disorders (1 source) Hypercalcemia; Translations: [Hypercalcemia] Chronic Other nutritional; endocrine; and metabolic disorders (3 sources) Obese class I; Translations: [Body mass index (BMI) 34.0-34.9, adult] Chronic Other nutritional; endocrine; and metabolic disorders (1 source) Hypomagnesemia; Translations: [Hypomagnesemia] Onset: 9 Chronic Other nutritional; endocrine; and metabolic disorders (16 sources) Body mass index 30+ - obesity; Translations: [Body mass index 31.0-31.9, adult] Onset: 7 08-07-2023 Chronic Other nutritional; endocrine; and metabolic disorders (2 sources) Body mass index (BMI) 30.0-30.9, adult; Translations: [Body mass index (BMI) 30.0-30.9, adult] Onset: 4 Chronic Other nutritional; endocrine; and metabolic disorders (7 sources) Obesity caused by energy imbalance 01-02-2024 Chronic Other nutritional; endocrine; and metabolic disorders (1 source) Overweight; Translations: [Overweight] 01-22-2023 Episodic Other screening for suspected conditions (not mental disorders or infectious disease) (6 sources) Encounter for screening for malignant neoplasm of cervix; Translations: [Electrocardiogram abnormal] Onset: 2 Episodic Other skin disorders (1 source) Disorder of the skin and subcutaneous tissue, unspecified Episodic Other skin disorders (6 sources) Loss of hair; Translations: [Nonscarring hair loss, unspecified] 06-25-2023 Episodic Other skin disorders (2 sources) Nonscarring hair loss, unspecified; Translations: [Alopecia, unspecified] 06-25-2023 Episodic Other upper respiratory infections (1 source) Chronic sinusitis; Translations: [Chronic sinusitis, unspecified] Chronic Residual codes; unclassified (7 sources) Hypersomnia; Translations: [Hypersomnia, unspecified] Onset: 4 06-10-2023 Chronic Residual codes; unclassified (18 sources) Obstructive sleep apnea syndrome; Translations: [Obstructive sleep apnea (adult) (pediatric)] Onset: 4 06-10-2023 Chronic Residual codes; unclassified (20 sources) Insomnia; Translations: [Insomnia, unspecified] Onset: 4 10-19-2020 Episodic Screening and history of mental health and substance abuse codes (4 sources) Ex-smoker; Translations: [Personal history of nicotine dependence] Onset: 4 08-07-2023 Episodic Spondylosis; intervertebral disc disorders; other back problems (18 sources) Degeneration of cervical intervertebral disc; Translations: [Other cervical disc degeneration, unspecified cervical region] Onset: 6 01-19-2023 Chronic Syncope (2 sources) Syncope; Translations: [Syncope and collapse] 12-05-2023 Episodic Thyroid disorders (10 sources) Hypothyroidism; Translations: [Hypothyroidism, unspecified] Onset: 5 01-19-2023 Chronic Unclassified (1 source) Acute candidiasis of vulva and vagina; Translations: [Acute candidiasis of vulva and vagina] Unclassified (1 source) Inappropriate sinus tachycardia, so stated ([facility] Translations: [Inappropriate sinus tachycardia, so stated ([facility] Onset: 3 Unclassified (1 source) Inappropriate sinus tachycardia, so stated; Translations: [Inappropriate sinus tachycardia, so stated] Onset: 3 Urinary tract infections (1 source) Urinary tract infectious disease; Translations: [Urinary tract infection, site not specified] Episodic Viral infection (16 sources) Condyloma acuminatum of the anogenital region; Translations: [Anogenital (venereal) warts] 08-04-2023 Episodic Viral infection (1 source) Disease caused by 2019-nCoV; Translations: [COVID-19] Past or Other Problems Problem Classification Problem Date Documented Date Episodic/Chronic Acute bronchitis (1 source) Acute bronchitis; Translations: [Acute bronchitis] Onset: 08-24-2014 Episodic Calculus of urinary tract (2 sources) Kidney stone; Translations: [Calculus of kidney] Onset: 01-19-2023 01-19-2023 Episodic Conditions associated with dizziness or vertigo (1 source) Dizziness and giddiness; Translations: [Dizziness and giddiness] Onset: 09-23-2015 Episodic Diabetes mellitus without complication (1 source) Hyperglycemia; Translations: [Hyperglycemia, unspecified] Onset: 01-12-2015 Episodic Genitourinary symptoms and ill-defined conditions (1 source) Dysuria; Translations: [Dysuria] Onset: 01-29-2013 Episodic Malaise and fatigue (11 sources) Fatigue; Translations: [Other fatigue] Onset: 06-10-2023 12-04-2023 Episodic Other connective tissue disease (7 sources) Finding of back; Translations: [Other symptoms and signs involving the musculoskeletal system] Onset: 06-10-2023 06-10-2023 Episodic Other lower respiratory disease (1 source) Cough; Translations: [Cough, unspecified] Onset: 08-24-2014 Episodic Other nervous system disorders (7 sources) Tremor; Translations: [Tremor, unspecified] Onset: 06-10-2023 06-10-2023 Episodic Other nervous system disorders (7 sources) Skin sensation disturbance; Translations: [Unspecified disturbances of skin sensation] Onset: 06-10-2023 06-10-2023 Episodic Other nutritional; endocrine; and metabolic disorders (5 sources) Obesity; Translations: [Obesity, unspecified] Onset: 12-15-2013 Resolved: 08-07-2023 01-19-2023 Chronic Other skin disorders (1 source) Follicular disorder, unspecified Onset: 10-17-2021 Resolved: 10-17-2021 Episodic Other upper respiratory infections (1 source) Acute sinusitis; Translations: [Acute sinusitis, unspecified] Onset: 07-25-2013 Episodic Otitis media and related conditions (1 source) Acute suppurative otitis media without spontaneous rupture of ear drum; Translations: [Acute suppurative otitis media without spontaneous rupture of eardrum] Onset: 07-25-2013 Episodic Residual codes; unclassified (1 source) Sleep disorder; Translations: [Persistent disorder of initiating or maintaining sleep] Onset: 02-28-2017 Episodic Residual codes; unclassified (9 sources) Memory impairment; Translations: [Other amnesia] Onset: 06-10-2023 06-10-2023 Episodic Sprains and strains (1 source) Neck sprain; Translations: [Neck sprain and strain] Onset: 10-12-2014 Episodic Unclassified (2 sources) Never smoked tobacco; Translations: [Never a smoker] Unclassified (1 source) Inappropriate sinus tachycardia, so stated ([facility]); Translations: [Inappropriate sinus tachycardia, so stated (CMS-HCC)] Onset: 08-07-2023 Unclassified (1 source) Inappropriate sinus tachycardia, so stated; Translations: [Inappropriate sinus tachycardia, so stated] Onset: 01-22-2023 Results Test Name Value Interpretation Reference Range Facility CBC w/ Auto Diffon 4 Basophils/100 WBC (Bld) 1.5 % Normal 0.0-2.0 [facility] Comment on above: Performed By: #### [id number] #### [facility] [address] [place] [address] [id number] Basophils/Leukocytes Auto (Bld) [Pure # fraction] 0.2 E9/L Normal 0.0-0.2 [facility] Comment on above: Performed By: #### [id number] #### [facility] [address] [place] [address] [id number] Eosinophils (Bld) [#/Vol] 0.5 E9/L Normal 0.0-0.5 [facility] Comment on above: Performed By: #### 2 [id number] #### [facility] [address] [place] [address] Eosinophils/100 WBC (Bld) 4.6 % Normal 0.0-8.0 [facility] Comment on above: Performed By: #### 2 [id number] #### [facility] [address] [place] [address] [id number] Erythrocyte distribution width (RBC) [Ratio] 23.4 % High 10.9-14.2 [facility] Comment on above: Performed By: #### 2 [id number] #### [facility] [address] [place] [address] Hematocrit (Bld) [Volume fraction] 39.2 % Normal 34.0-46.0 [facility] Comment on above: Performed By: #### 2 [id number] #### [facility] [address] [place] [address] 16880 Hemoglobin (Bld) [Mass/Vol] 13.1 g/dL Normal 12.0-16.0 [facility] Comment on above: Performed By: #### 2 [id number] #### [facility] [address] [place] [address] Lymphocytes (Bld) [#/Vol] 1.4 E9/L Normal 1.0-4.0 [facility] Comment on above: Performed By: #### 2 [id number] #### [facility] [address] [place] [address] 64745 Lymphocytes/100 WBC (Bld) 13.8 % Low 14.0-50.0 [facility] Comment on above: Performed By: #### 2 [id number] #### [facility] [address] [place] [address] MCH (RBC) [Entitic mass] 27.2 pg Normal 27.0-34.0 [facility] Comment on above: Performed By: #### 2 [id number] #### [facility] [address] [place] [address] MCHC (RBC) [Mass/Vol] 33.5 g/dL Normal 31.4-36.0 [facility] Comment on above: Performed By: #### 2 [id number] #### [facility] [address] [place] [address] MCV (RBC) [Entitic vol] 81.2 fL Normal 80.0-100.0 [facility] Comment on above: Performed By: #### 2 [id number] #### [facility] [address] [place] [address] Monocytes (Bld) [#/Vol] 0.8 E9/L Normal 0.2-1.0 [facility] Comment on above: Performed By: #### 2 [id number] #### [facility] [address] [place] [address] Neutrophils (Bld) [#/Vol] 7.5 E9/L Normal 2.0-7.5 [facility] Comment on above: Performed By: #### 2 [id number] #### [facility] [address] [place] [address] Neutrophils/100 WBC (Bld) 72.7 % Normal 36.0-75.0 [facility] Comment on above: Performed By: #### 2 [id number] #### [facility] [address] [place] [address] Platelet mean volume (Bld) [Entitic vol] 8.0 fL Normal 6.4-10.8 [facility] Comment on above: Performed By: #### 2 [id number] #### [facility] [address] [place] [address] Platelets (Bld) [#/Vol] 275.0 E9/L Normal 150. 0-500. 0 [facility] Comment on above: Performed By: #### 2 [id number] #### [facility] [address] [place] [address] RBC (Bld) [#/Vol] 4.8 E12/L Normal 4.3-5.9 [facility] Comment on above: Performed By: #### 2 [id number] #### [facility] [address] [place] [address] WBC corrected for nucl RBC Auto (Bld) [#/Vol] 10.3 E9/L Normal 4.0-11.0 [facility] Comment on above: Performed By: #### 2 [id number] #### [facility] [address] [place] [address] CHEMISTRYOrdered By: SYSTEM SYSTEM on 02-09-2024 Albumin [Mass/Vol] 4.3 g/dL Normal 3.3 - 5.0 gm/dL [facility] Albumin/Globulin [Mass ratio] 1.7 {ratio} Normal 1.1 - 2.2 [facility] ALP [Catalytic activity/Vol] 56 [iU]/d Normal 21 - 98 Int._Unit/ L [facility] ALT No additional P-5'-P [Catalytic activity/Vol] 29 [iU]/d Normal 6 - 46 Int._Unit/ L [facility] Anion gap [Moles/Vol] 11 mmol/L Normal 6 - 16 mEq/L [facility] AST [Catalytic activity/Vol] 22 [iU]/d Normal 5 - 43 Int._Unit/ L [facility] Bilirubin [Mass/Vol] 0.4 mg/dL Normal 0.0 - 1 .1 mg/dL [facility] Calcium [Mass/Vol] 9.1 mg/dL Normal 8.9 - 11. 1 mg/dL [facility] Chloride [Moles/Vol] 103 mmol/L Normal 101 - 1 11 mmol/L [facility] CO2 [Moles/Vol] 26 mmol/L Normal 21 - 31 mmol/L [facility] Creatinine [Mass/Vol] 0.7 mg/dL Normal 0.5 - 1.3 mg/dL [facility] eGFR 108 mL/min/1.73 m2 Normal >=59mL/mi n /1.73 m2 [facility] Ferritin [Mass/Vol] 241 ng/mL Normal 11 - 307 ng/mL [facility] Globulin (S) [Mass/Vol] 2.5 g/dL Normal 1.4 - 4.0 gm/dL [facility] Glucose [Mass/Vol] 150 mg/dL Normal 55 - 199 mg/dL [facility] Iron [Mass/Vol] 94 ug/dL Normal 35 - 153 mcg/dL [facility] Iron binding capacity [Mass/Vol] 409 ug/dL High 250 - 400 mcg/dL [facility] Iron saturation [Mass fraction] 23 % Normal 20 - 50 % [facility] Potassium [Moles/Vol] 4.5 mmol/L Normal 3.5 - 5.3 mmol/L [facility] Protein [Mass/Vol] 6.8 g/dL Normal 6.0 - 7.8 gm/dL [facility] Sodium [Moles/Vol] 135 mmol/L Normal 135 - 145 mmol/L [facility] Transferrin [Mass/Vol] 292 mg/dL Normal 200 - 370 mg/dL [facility] Urea nitrogen [Mass/Vol] 17 mg/dL Normal 5 - 21 mg/dL [facility] Urea nitrogen/Creatinine [Mass ratio] 24 mg/mg High 10 - 20 [facility] CMPon 02-09-2024 Albumin [Mass/Vol] 4.3 g/dL Normal 3.3-5.0 [facility] Comment on above: Performed By: #### 2 [id number] #### [facility] [address] [place] [address] Albumin/Globulin (S) [Mass conc ratio] 1.7 Normal 1.1-2.2 [facility] Comment on above: Performed By: #### 2 [id number] #### [facility] [address] [place] [address] ALP [Catalytic activity/Vol] 56 Int._Unit/L Normal 21-98 [facility] Comment on above: Performed By: #### 2 [id number] #### [facility] [address] [place] [address] ALT No additional P-5'-P [Catalytic activity/Vol] 29 Int._Unit/L Normal 6-46 [facility] Comment on above: Performed By: #### 2 [id number] #### [facility] [address] [place] [address] Anion gap [Moles/Vol] 11 mmol/L Normal 6-16 [facility] Comment on above: Performed By: #### 2 [id number] #### [facility] [address] [place] [address] AST [Catalytic activity/Vol] 22 Int._Unit/L Normal 5-43 [facility] Comment on above: Performed By: #### 2 [id number] #### [facility] [address] [place] [address] Bilirubin [Mass/Vol] 0.4 mg/dL Normal 0.0-1.1 [facility] Comment on above: Performed By: #### 2 [id number] #### [facility] [address] [place] [address] Calcium [Mass/Vol] 9.1 mg/dL Normal 8.9-11.1 [facility] Comment on above: Performed By: #### 2 [id number] #### [facility] [address] [place] [address] Chloride [Moles/Vol] 103 mmol/L Normal 101-111 [facility] Comment on above: Performed By: #### 2 [id number] #### [facility] [address] [place] [address] CO2 [Moles/Vol] 26 mmol/L Normal 21-31 [facility] Comment on above: Performed By: #### 2 [id number] #### [facility] [address] [place] [address] Creatinine [Mass/Vol] 0.7 mg/dL Normal 0.5-1.3 [facility] Comment on above: Performed By: #### 2 [id number] #### [facility] [address] [place] [address] Globulin (S) [Mass/Vol] 2.5 g/dL Normal 1.4-4.0 [facility] Comment on above: Performed By: #### 2 [id number] #### [facility] [address] [place] [address] Glucose [Mass/Vol] 150 mg/dL Normal 55-199 [facility] Comment on above: Performed By: #### 2 [id number] #### [facility] [address] [place] [address] Potassium [Moles/Vol] 4.5 mmol/L Normal 3.5-5.3 [facility] Comment on above: Performed By: #### 2 [id number] #### [facility] [address] [place] [address] Protein [Mass/Vol] 6.8 g/dL Normal 6.0-7.8 [facility] Comment on above: Performed By: #### 2 [id number] #### [facility] [address] [place] [address] Sodium [Moles/Vol] 135 mmol/L Normal 135-145 [facility] Comment on above: Performed By: #### 2 [id number] #### [facility] [address] [place] [address] Urea nitrogen [Mass/Vol] 17 mg/dL Normal 5-21 [facility] Comment on above: Performed By: #### 2 838219 #### [facility] [address] [place] [address] Urea nitrogen/Creatinine [Mass ratio] 24 No Units High 10-20 [facility] Comment on above: Performed By: #### 2 [id number] #### [facility] [address] [place] [address] Ferritinon 02-09-2024 Ferritin [Mass/Vol] 241 ng/mL Normal 11-307 [facility] Comment on above: Performed By: #### 2 [id number] #### [facility] [address] [place] [address] HEMATOLOGYOrdered By: SYSTEM SYSTEM on 02-09-2024 Basophils/100 WBC (Bld) 1.5 % Normal 0.0 - 2.0 % [facility] Basophils/Leukocytes Auto (Bld) [Pure # fraction] 0.2 E9/L Normal 0.0 - 0.2 E9/L [facility] Eosinophils (Bld) [#/Vol] 0.5 E9/L Normal 0.0 - 0.5 E9/L [facility] Eosinophils/100 WBC (Bld) 4.6 % Normal 0.0 - 8.0 % [facility] Erythrocyte distribution width (RBC) [Ratio] 23.4 % High 10.9 - 14.2 % [facility] Hematocrit (Bld) [Volume fraction] 39.2 % Normal 34.0 - 46.0 % [facility] Hemoglobin (Bld) [Mass/Vol] 13.1 g/dL Normal 12.0 - 16.0 gm/dL [facility] Lymphocytes (Bld) [#/Vol] 1.4 E9/L Normal 1.0 - 4.0 E9/L [facility] Lymphocytes/100 WBC (Bld) 13.8 % Low 14.0 - 50.0 % [facility] MCH (RBC) [Entitic mass] 27.2 pg Normal 27. 0 - 34.0 pg [facility] MCHC (RBC) [Mass/Vol] 33.5 g/dL Normal 31.4 - 36.0 gm/dL [facility] MCV (RBC) [Entitic vol] 81.2 fL Normal 80.0 - 100.0 fL [facility] Monocytes (Bld) [#/Vol] 0.8 E9/L Normal 0.2 - 1.0 E9/L [facility] Monocytes/100 WBC (Bld) 7.4 % Normal 4.0 - 14.0 % [facility] Neutrophils (Bld) [#/Vol] 7.5 E9/L Normal 2.0 - 7.5 E9/L [facility] Neutrophils/100 WBC (Bld) 72.7 % Normal 36.0 - 75.0 % [facility] Platelet mean volume (Bld) [Entitic vol] 8.0 fL Normal 6.4 - 10.8 fL [facility] Platelets (Bld) [#/Vol] 275.0 E9/L Normal 150. 0 - 500.0 E9/L [facility] RBC (Bld) [#/Vol] 4.8 E12/L Normal 4.3 - 5.9 E12/L [facility] WBC corrected for nucl RBC Auto (Bld) [#/Vol] 10.3 E9/L Normal 4.0 - 11.0 E9/L [facility] Ironon 02-09-2024 Iron [Mass/Vol] 94 microgram/dL Normal 35-153 [facility] Comment on above: Performed By: #### 2 [id number] #### [facility] [address] [place] [address] Iron Saturationon 02-09-2024 Iron binding capacity [Mass/Vol] 409 microgram/dL High 250-400 [facility] Comment on above: Performed By: #### 2 [id number] #### [facility] [address] [place] [address] Iron saturation [Mass fraction] 23 % Normal 20-50 [facility] Comment on above: Performed By: #### 2 [id number] #### [facility] [address] [place] [address] Transferrinon 02-09-2024 Transferrin [Mass/Vol] 292 mg/dL Normal 200-370 [facility] Comment on above: Performed By: #### 2 [id number] #### [facility] [address] [place] [address] eGFRon 02-09-2024 eGFR 108 mL/min/1.73 m2 Normal >=59 [facility] Comment on above: Performed By: #### 1 [id number] #### [facility] [address] [place] [address] Ambulatory Visit Summaryon 1 03-24-2023 Ambulatory Visit Summary Ambulatory Visi t Summary SAMRA LINDER :1975 Visit Date:01/23/2024 Ambulatory Visit Instructions Your Care Team Attending Physician - JADE GOMEZ, Fab Toscano Primary Care Physician - LISA GOMEZ, ILIANA This Is Your Medications List albuterol (Albuterol (Eqv-ProAir HFA)) alprazolam (alprazolam 1 mg Tab) amphetamine-dextroampheta mine (amphetamine-dextroamphet amine 10 mg oral tablet) carvedilol (carvedilol 25 mg Tab) cyanocobalamin (Vitamin B-12 1000 mcg/mL injectable solution) ergocalciferol (ergocalciferol 50,000 intl units Cap) icosapent (Vascepa) insulin glargine (Semglee (Prefilled Pen) 100 units/mL subcutaneous solution) insulin lispro (Humalog) lactobacillus acidophilus (Acidophilus Probiotic Blend) levonorgestrel (Mirena 52 mg intrauteral device) losartan (losartan 100 mg Tab) metformin (MetFORMIN (Eqv-Glucophage XR) 500 mg oral tablet, extended release) ocrelizumab (Ocrevus) paroxetine (Paxil 30 mg Tab) prochlorperazine (Compazine 10 mg oral tablet) rosuvastatin (rosuvastatin 40 mg Tab) sitagliptin (Januvia 100 mg Tab) temazepam (temazepam 30 mg Cap) tirzepatide (Mounjaro) tizanidine (tiZANidine 4 mg Tab) Procedures Performed Colonoscopy (01/14/2024), Esophagogastroduodenoscop y (01/14/2024), Cholecystectomy, Colonoscopy, EGD - esophagogastroduodenoscop y, Insertion of intrauterine contraceptive device, Kidney stone. What to do next Scheduled Follow-Up Appointments 2023 3:40 PM EST With: Michael BAINS, Kiah Walker Where: [facility] Medications What How Much When Instructions Unchanged albuterol (Albuterol (Eqv-ProAir HFA)) 2 Puffs Inhalation Every 6 hours as needed for Shortness of breath or wheezing Unchanged alprazolam (alprazolam 1 mg Tab) 1 Tablets By Mouth 2 times a day as needed for for anxiety Unchanged amphetamine-dextroampheta mine (amphetamine-dextroamphet amine 10 mg oral tablet) 1 Tablets By Mouth 2 times a day Unchanged carvedilol (carvedilol 25 mg Tab) 1 Tablets By Mouth 2 times a day Unchanged cyanocobalamin (Vitamin B-12 1000 mcg/ mL injectable solution) 1 Milliliter Subcutaneous Once a month Unchanged ergocalciferol (ergocalciferol 50,000 intl units Cap) 1 Capsules By Mouth Sunday Unchanged icosapent (Vascepa) 2 Tablets By Mouth 2 times a day Unchanged insulin glargine (Semglee (Prefilled Pen) 100 units/ mL subcutaneous solution) 50 Units Subcutaneous At bedtime Unchanged insulin lispro (Humalog) Subcutaneous Before meals Unchanged lactobacillus acidophilus (Acidophilus Probiotic Blend) 1 Capsules By Mouth Every day Unchanged levonorgestrel (Mirena 52 mg intrauteral device) 1 Each Intrauteral Once Duration: 1 Doses Unchanged losartan (losartan 100 mg Tab) 0.5 tab By Mouth Every day Unchanged metformin (MetFORMIN (Eqv-Glucophage XR) 500 mg oral tablet, extended release) 2 Tablets By Mouth 2 times a day Unchanged ocrelizumab (Ocrevus) 300 Milligram Intravesical Every 6 months MS Unchanged paroxetine (Paxil 30 mg Tab) 1 Tablets By Mouth Every day Unchanged prochlorperazine (Compazine 10 mg oral tablet) 1 Tablets By Mouth 3 times a day as needed for Nausea/Vomiting Unchanged rosuvastatin (rosuvastatin 40 mg Tab) 1 Tablets By Mouth Every day Unchanged sitagliptin (Januvia 100 mg Tab) 1 Tablets By Mouth Every day Unchanged temazepam (temazepam 30 mg Cap) 1 Capsules By Mouth Once a day (at bedtime) as needed for for sleep Unchanged tirzepatide (Mounjaro) Unchanged tizanidine (tiZANidine 4 mg Tab) 1 Tablets By Mouth 3 times a day Allergies Biaxin (Hives) BuSpar (Anxiety) Demerol (Hives) Latex (Anaphylaxis) morphine (Hives) Problems Ongoing - Any problem that you are currently receiving treatment for. ADHD (attention deficit hyperactivity disorder) BMI 31.0-31.9,adult Cervical spondylosis Chronic kidney disease due to hypertension.. Diabetes Essential hypertension Gastroesophageal reflux disease Hypercholesterolemia Hypertriglyceridemia Hypothyroidism Iron deficiency anemia Mass of left adrenal gland Migraine Mixed anxiety and depressive disorder Multiple sclerosis Obesity due to excess calories Obstructive sleep apnea syndrome Pernicious anemia Supraventricular tachycardia Vitamin D deficiency Patient Survey You may receive a survey via text or e-mail asking about your office visit. Please share your experience with us by completing your survey. We appreciate your feedback and thank you for choosing us for your care. Normal [facility] General Surgery Office/Clini c Noteon 01-23-2024 General Surgery Office/Clinic Note General Surgery Office/Clinic Note Chief Complaint post operative follow up HPI Staff 9 day post operative follow up post EGD with antral biopsies and colonoscopy. History of Present Illness f/u EGD and colonoscopy due to iron deficiency anemia; EGD with chronic gastritis on antral biopsy, negative for H pylori; no ulcerations; normal colon; patient getting iron infusions from Hematology; no abd pain or blood in stools. Review of Systems PHQ Score Initial Depression Screen Score: 0 SCORE ROS - Provider Constitutional: no fever, no sweats, no weight loss. Eyes: no glasses, no blurred vision, no visual loss. ENMT: no dentures, no hoarseness, no swallowing difficulties, no hearing loss, no ear infection(s), no nose bleeds. Cardiovascular: normal blood pressure, no chest pain, regular heartbeat, no heart murmur. Respiratory: no shortness of breath, no cough, no asthma, no wheezing. Gastrointestinal: no nausea, no vomiting, no diarrhea, no constipation, no blood in stool, no change in bowel habits, no abdominal pain, no hepatitis. Genitourinary: no kidney stones, no urine infection, no dysuria. Musculoskeletal: no pain, no weakness. Skin: no changing moles, no rash, no skin lumps. Neurologic: no seizures, no epilepsy, no headache. Psychiatric: no emotional or psychiatric problem. Heme/Lymph: no bleeding problems, no anemia, no blood clots, no transfusions. Allergy/Immunologic: no swollen lymph nodes/glands, no IV drug abuse. Other: Additional ROS info: Except as noted in the above Review of Systems and in the History of Present Illness, all other systems have been reviewed and are negative or noncontributory. Assessment/Plan 1. Iron deficiency anemia (D50.9: Iron deficiency anemia, unspecified) no source identified on EGD/colonoscopy; f/u with Hematology as scheduled, call sooner if problems/questions. Follow-up No qualifying data available Problem List/Past Medical History Ongoing ADHD (attention deficit hyperactivity disorder) BMI 31.0-31.9,adult Cervical spondylosis Chronic kidney disease due to hypertension.. Diabetes Essential hypertension Gastroesophageal reflux disease Hypercholesterolemia Hypertriglyceridemia Hypothyroidism Iron deficiency anemia Mass of left adrenal gland Migraine Mixed anxiety and depressive disorder Multiple sclerosis Obesity due to excess calories Obstructive sleep apnea syndrome Pernicious anemia Supraventricular tachycardia Vitamin D deficiency Historical No qualifying data Procedure/Surgical History Colonoscopy (01/14/2024), Esophagogastroduodenoscop y (01/14/2024), Cholecystectomy, Colonoscopy, EGD - esophagogastroduodenoscop y, Insertion of intrauterine contraceptive device, Kidney stone. Medications Acidophilus Probiotic Blend, 1 cap(s), Oral, Daily Albuterol (Eqv-ProAir HFA), 2 puff(s), Inhalation, q6hr, PRN, Not taking: pt states she used it during covid alprazolam 1 mg Tab, 1 mg= 1 tab(s), Oral, BID, PRN amphetamine-dextroampheta mine 10 mg oral tablet, 10 mg= 1 tab(s), Oral, BID carvedilol 25 mg Tab, 25 mg= 1 tab(s), Oral, BID Compazine 10 mg oral tablet, 10 mg= 1 tab(s), Oral, TID, PRN, Not taking ergocalciferol 50,000 intl units Cap, [address]4726 International_Unit= 1 cap(s), Oral, Sunday Humalog, SubCutaneous, TIDAC, Not taking: pt states she took it 6 months ago while she was getting steriods Januvia 100 mg Tab, 100 mg= 1 tab(s), Oral, Daily losartan 100 mg Tab, 0.5 tab, Oral, Daily MetFORMIN (Eqv-Glucophage XR) 500 mg oral tablet, extended release, 1000 mg= 2 tab(s), Oral, BID Mirena 52 mg intrauteral device, 52 mg= 1 EA, IntraUteral, Once Mounjaro Ocrevus, 300 mg, IntraVesical, q6mo Paxil 30 mg Tab, 30 mg= 1 tab(s), Oral, Daily rosuvastatin 40 mg Tab, 40 mg= 1 tab(s), Oral, Daily Semglee (Prefilled Pen) 100 units/mL subcutaneous solution, 50 unit(s), SubCutaneous, Bedtime Sodium Chloride 0.9% IV Suha 100 mL 100 mL, 100 mL, IV Sodium Chloride 0.9% IV Suha 500 mL 500 mL, 500 mL, IV temazepam 30 mg Cap, 30 mg= 1 cap(s), Oral, Once a day (at bedtime), PRN tiZANidine 4 mg Tab, 4 mg= 1 tab(s), Oral, TID Vascepa, 2 tab(s), Oral, BID Vitamin B-12 1000 mcg/mL injectable solution, 1000 mcg= 1 mL, SubCutaneous, qMonth Zero Hour, None, Day of Tx Zero Hour, None, Day of Tx Allergies Biaxin (Hives) BuSpar (Anxiety) Demerol (Hives) Latex (Anaphylaxis) morphine (Hives) Social History Alcohol Never., 01/07/2024 Substance Abuse Never., 01/07/2024 Tobacco Former smoker, quit more than 30 days ago Tobacco Use:. Never Smokeless Tobacco Use:. Cigarettes, 01/07/2024 Family History Acute myocardial infarction: Father. Diabetes mellitus type 2: Mother, Father and Sister. Heart disease: Father. Hypertension: Father. Primary malignant neoplasm of prostate: Father. TIA: Mother. Immunizations Vaccine Date Status Comments influenza virus vaccine, inactivated 12/31/2023 Recorded SARS-CoV-2 (COVID-19) (more content not included)... Normal [facility] Comment on above: Result Comment: Elec tronically Signed By: JADE GOMEZ, Fab Toscano\.br\Date and Time Signed: 01/23/24 16:15 EST Surgical Pathology Reporton 01-18-2024 Surgical Pathology Report [facility] [address] [place] [address]- Surgical Pathology Report Collected Date/Time: 01/14/2024 09:17 EST Pathologist: Anthony GOMEZ PhD, Katharine Ovalle Received Date/Time: 01/14/2024 11:44 EST JADE GOMEZ, Fab HANSEN MD, Fab Boo Surgical Pathology Report - 01/18/2024 13:23 EST - Auth (Verified) Final Diagnosis ANTRUM, BIOPSY: - GASTRIC ANTRAL MUCOSA WITH MILD CHRONIC GASTRITIS AND HYPERPLASTIC REGENERATIVE CHANGES. - NO INTESTINAL METAPLASIA. - NO H. PYLORI MICROORGANISMS IDENTIFIED WITH IMMUNOSTAIN. (Electronic Signature) Katharine Cruz MD PhD 01/18/2024 13:23 Clinical Information Iron deficiency anemia Pre-Op Diagnosis: Iron deficiency anemia Procedure: EGD Post-Op Diagnosis: Antral gastritis Specimen(s) Received Antral biopsy Gross Description Received in formalin labeled with patient name, number, and antral biopsy are two fragments of castro/pink tissue each measuring 0.3 cm. Specimen is entirely submitted in one cassette. (DC) DC:[place] Microscopic Description Microscopic examination performed unless gross only specified. The use of one or more reagents in the above tests is regulated as an analyte specific reagent (ASR). The test or tests are ordered following initial H&E microscopic examination. The performance characteristics were determined by the Laboratory of [facility]. They have not been cleared or approved by the [place] Food and Drug Administration. The FDA has determined that such clearance or approval is not necessary. These tests are used for clinical purposes. They should not be regarded as investigational or for research. Appropriate positive and negative controls are performed and are acceptable. Normal [facility] Comment on above: Performed By: #### [id number] #### [facility] [address] [place] [address] Main OR Intraoperative Recor don 01-16-2024 Main OR Intraoperative Record Main OR Intraoperative Record IntraOp Document Type FT Summary Primary Physician: Fab HANSEN MD Finalized Date/Time: 01/16/24 12:40:40 Pt. Name: SAMRA LINDER/Sex: 1975 Female Med Rec #: [id number] Physician: Fab HANSEN MD Financial #: [id number] Pt. Type: O Room/Bed: / Admit/Disch: 01/14/24 08:03:44 - 01/14/24 23:59:59 Institution: Case Times FT Entry 1 Patient Times In Room 01/14/24 09:08:00 Out Room 01/14/24 09:37:00 Procedure Times Start 01/14/24 09:12:00 Stop 01/14/24 09:35:00 Anesthesia Times Start 01/14/24 09:08:00 Stop 01/14/24 09:37:00 Time at [facility] 01/14/24 09:25:00 Last Modified By: Jennifer Lopez RN 01/14/24 09:38:17 General Comments: EGD end time at 0916./JASON PRUITT Colonosopy start time at 0917./JASON PRUITT 01/16/24 Chart opened to review and send charges [facility]FA Case Attendance FT Entry 1 Entry 2 Entry 3 Case Attendee Blake EISENBERG, PRINT SUPPORT SPECIALIST, Queen JADE GOMEZ, Gregorio Lala Role Performed PRINT SUPPORT SPECIALIST Surgeon - Primary Scrub - Primary Time In 01/14/24 09:08:00 01/14/24 09:08:00 01/14/24 09:08:00 Time Out 01/14/24 09:37:00 01/14/24 09:37:00 01/14/24 09:37:00 Procedure EGD AND COLONOSCOPY(.) EGD AND COLONOSCOPY(.) EGD AND COLONOSCOPY(.) Comments Dr. Gilbert is supervising Last Modified By: Bobby HARP, Jessy Lopez RN, Jennifer Recio RN 01/16/24 12:40:05 01/14/24 09:38:18 01/14/24 09:38:18 Entry 4 Case Attendee Jennifer Lopez RN Role Performed Balloon Tester - Primary Time In 01/14/24 09:08:00 Time Out 01/14/24 09:37:00 Procedure EGD AND COLONOSCOPY(.) Comments Last Modified By: Jennifer Lopez RN 01/14/24 09:38:18 Perioperative Protocols FT Pre-Care Text: Implements protective measures prior to operative or invasive procedure, confirms identity before the operative or invasive procedure, verifies operative procedure, surgical site, and laterality Entry 1 Procedure(s) EGD AND COLONOSCOPY(.) Patient Identity Birthday, ID Band Verified (select at Check, Patient least 2): Participation Consents / H and P Anesthesia Consent, Operative Site N/A Verified Surgery/Procedure Marking Verified Consent, Transfusion Consent Surgical Site No Laterality Verified n/a Verified Procedure Verified Yes Correct Patient Yes Position Verified Availability Equipment, Medication Prep Dry n/a Verified (If Applicable) PreOp Antibiotic No Time Out Blake EISENBERG, DENNIS, JADE Ku MD, Peewee Hall Micala E, Jennifer Lopez RN Time Out Complete 01/14/24 09:09:00 Outcomes Met? Yes Last Modified By: Jennifer Lopez RN 01/14/24 09:14:04 Post-Care Text: The patient is free from signs and symptoms of injury caused by extraneous objects Allergy Information FT Pre-Care Text: Verifies allergies Entry 1 Allergies Reviewed? Yes Allergies Reviewed Self/Patient With Outcomes Met? Yes Last Modified By: Jennifer Lopez RN 01/14/24 09:14:27 Post-Care Text: The patient received appropriate medication(s) safely administered during the perioperative period Surgical Procedures FT Entry 1 Procedure Description Procedure EGD AND COLONOSCOPY Modifiers . Surgeon Description EGD with antrum biopsy. Colonoscopy Primary Procedure Yes Primary Surgeon Fab HANSEN MD Start 01/14/24 09:12:00 Stop 01/14/24 09:35:00 Anesthesia Type General Surgical Service General Wound Class 2 - Clean-Contaminated Last Modified By: Jennifer Lopez RN 01/14/24 09:36:13 General Case Data FT Pre-Care Text: Classifies surgical wound, implements aseptic technique, initiates traffic control Entry 1 Case Information OR ENDO 2 FT Case Level Level 2 Wound Class 2 - Clean-Contaminated Specialty General ASA Class 3 Preop Diagnosis Iron deficiency anemia Postop Same As Preop No Postop Diagnosis EGD- Mild antral Outcomes Met? Yes gastritis. Colonoscopy- Normal. Last Modified By: Jennifer Lopez RN 01/14/24 09:36:10 Post-Care Text: The patient is free from signs and symptoms of infection Skin Assessment (Pre Procedure) FT Pre-Care Text: Implements protective measures to prevent skin/ tissue injury due to thermal or mechanical sources Evaluates for signs and symptoms of physical injury to skin and tissue Entry 1 Skin Integrity Intact, [place], Warm, & Skin Abnormality No Dry Outcomes Met? Yes Last Modified By: Jennifer Lopez RN 01/14/24 09:15:56 Post-Care Text: The patient is free from signs and symptoms of injury caused by extraneous objects Patient Positioning FT Pre-Care Text: Identifies physical alterations that require additional precautions for procedure-specific positioning, verifies presence of prosthetics or corrective devices, positions the patient, evaluates the patient for signs and symptoms of injury as a result of positioning Entry 1 Procedure EGD AND COLONOSCOPY(.) Body Position Lateral, right side up (more content not included)... Normal [facility] Discharge Instructionson Discharge Instructions Discharge Instruc tions SAMRA LINDER :1975 Visit Date:01/14/2024 Inpatient Discharge Instructions Your Care Team Admitting Physician - Fab HANSEN MD Referring Physician - Fab HANSEN MD Reason for Your Visit IRON DEFICIENCY ANEMIA Your Diagnosis Anemia, iron deficiency Antral gastritis Tests Performed Pathology Tissue Exam -- Results Pending -- Please visit your patient portal for your results or contact your primary care physician. This Is Your Medications List albuterol (Albuterol (Eqv-ProAir HFA)) alprazolam (alprazolam 1 mg Tab) amphetamine-dextroampheta mine (amphetamine-dextroamphet amine 10 mg oral tablet) carvedilol (carvedilol 25 mg Tab) cyanocobalamin (Vitamin B-12 1000 mcg/mL injectable solution) ergocalciferol (ergocalciferol 50,000 intl units Cap) icosapent (Vascepa) insulin glargine (Semglee (Prefilled Pen) 100 units/mL subcutaneous solution) insulin lispro (Humalog) lactobacillus acidophilus (Acidophilus Probiotic Blend) levonorgestrel (Mirena 52 mg intrauteral device) losartan (losartan 100 mg Tab) metformin (MetFORMIN (Eqv-Glucophage XR) 500 mg oral tablet, extended release) ocrelizumab (Ocrevus) paroxetine (Paxil 30 mg Tab) prochlorperazine (Compazine 10 mg oral tablet) rosuvastatin (rosuvastatin 40 mg Tab) sitagliptin (Januvia 100 mg Tab) temazepam (temazepam 30 mg Cap) tirzepatide (Mounjaro) tizanidine (tiZANidine 4 mg Tab) Procedure History Colonoscopy (01/14/2024), Esophagogastroduodenoscop y (01/14/2024), Cholecystectomy, Colonoscopy, EGD - esophagogastroduodenoscop y, Insertion of intrauterine contraceptive device, Kidney stone. What to do next Instructions From Your Doctor Event Name Event Result Discharge Activity Resume normal activities in 24 hours, Arrange for a responsible adult supervision for 24 hours Discharge Restrictions No driving for 24 hrs, Do not operate machinery or tools, Do not make important decisions for 24 hours, Do not drink alcoholic beverages for 24 hours Discharge Diet(s) Regular Call Your Doctor For Persistent or heavy bleeding, Temperature above 101.5 degrees, Severe pain at the operative site, Persistent vomiting Discharge Instructions Discharge Instructions Previously Scheduled Follow-Up Appointments Sunday 1:30 PM EST With: Where: [facility] 2023 3:40 PM EST With: [facility], Kiah Walker Where: [facility] New Follow Up Appointments after Discharge Follow Up with Fab HANSEN When: Within 7 to 10 days Where: [facility] Gael Ulloa, [facility] [address] [phone]- Business (1) Medications What How Much When Instructions Next Dose Unchanged albuterol (Albuterol (Eqv-ProAir HFA)) 2 Puffs Inhalation Every 6 hours as needed for Shortness of breath or wheezing Unchanged alprazolam (alprazolam 1 mg Tab) 1 Tablets By Mouth 2 times a day as needed for for anxiety Unchanged amphetamine-dextroampheta mine (amphetamine-dextroamphet amine 10 mg oral tablet) 1 Tablets By Mouth 2 times a day Unchanged carvedilol (carvedilol 25 mg Tab) 1 Tablets By Mouth 2 times a day Unchanged cyanocobalamin (Vitamin B-12 1000 mcg/ mL injectable solution) 1 Milliliter Subcutaneous Once a month Unchanged ergocalciferol (ergocalciferol 50,000 intl units Cap) 1 Capsules By Mouth Sunday Unchanged icosapent (Vascepa) 2 Tablets By Mouth 2 times a day Unchanged insulin glargine (Semglee (Prefilled Pen) 100 units/ mL subcutaneous solution) 50 Units Subcutaneous At bedtime Unchanged insulin lispro (Humalog) Subcutaneous Before meals Unchanged lactobacillus acidophilus (Acidophilus Probiotic Blend) 1 Capsules By Mouth Every day Unchanged levonorgestrel (Mirena 52 mg intrauteral device) 1 Each Intrauteral Once Duration: 1 Doses Unchanged losartan (losartan 100 mg Tab) 0.5 tab By Mouth Every day Unchanged metformin (MetFORMIN (Eqv-Glucophage XR) 500 mg oral tablet, extended release) 2 Tablets By Mouth 2 times a day Unchanged ocrelizumab (Ocrevus) 300 Milligram Intravesical Every 6 months MS Unchanged paroxetine (Paxil 30 mg Tab) 1 Tablets By Mouth Every day Unchanged prochlorperazine (Compazine 10 mg oral tablet) 1 Tablets By Mouth 3 times a day as needed for Nausea/Vomiting Unchanged rosuvastatin (rosuvastatin 40 mg Tab) 1 Tablets By Mouth Every day Unchanged sitagliptin (Januvia 100 mg Tab) 1 Tablets By Mouth Every day Unchanged temazepam (temazepam 30 mg Cap) 1 Capsules By Mouth Once a day (at bedtime) as needed for for sleep Unchanged tirzepatide (Mounjaro) Unchanged tizanidine (tiZANidine 4 mg Tab) 1 Tablets By Mouth 3 times a day Test Results No qualifying data available. Allergies Biaxin (Hives) BuSpar (Anxiety) Demerol (Hives) Latex (Anaphylaxis) morphine (Hives) Problems Ongoing - Any problem that you are currently receiving treatment for. ADHD (attention deficit hyperact (more content not included)... Normal [facility] Comment on above: Result Comment: Elec tronically Signed By: Hira GOMEZ, Zandra Prado\.br\Date and Time Signed: 01/14/24 09:44 EST EGDon 01-14-2024 Esophagogastroduodenosco py EGD Patient: SAMRA LINDER Age: 48 years Sex: Female : 1975 Associated Diagnoses: None Author: Fab HANSEN MD Pre-Procedure Procedure Date 01/14/2024 09:50:00 . Procedure Type: Esophagogastroduodenoscop y with biopsy. Procedure provider Performed by Fab HANSEN MD. Referred by ILIANA GONZALEZ MD. Current history and physical Documented on chart. Informed Consent After discussing the rationale, risks and benefits, and alternatives to this procedure, the patient provided signed consent for the procedure. Pre-procedure diagnosis: Diagnostic: anemia. ASA Classification: Class III. . Monitoring: See anesthesia record. . Procedure The procedure was performed in the hospital. See anesthesia record for sedation given during procedure. The patient was positioned starting in the left lateral decubitus position. Endoscope type used was an adult-size, introduced orally, advanced to the 2nd portion of the duodenum. No difficulty was encountered during the procedure. Views were excellent. Gastric biopsies were taken of the antrum. The patient tolerated the procedure well. Findings Examination of the esophagus revealed a normal esophagus. The squamocolumnar junction appeared irregular and was located 35 cm from incisors. Gastritis was identified at the antrum. The affected area was erythematous and linear, circumferential. The gastritis is mildly severe. Multiple biopsies were collected. Examination of the duodenum revealed a normal duodenum. Images Procedure images: antral gastritis [id number] ge junction distal esophagus . Post-Procedure Complications: none. Estimated blood loss: 1 milliliters. Specimens: sent to pathology. Devices/ implants: none left in place. Impression and Plan EGD: Diagnosis: Antral gastritis ([id number] K29.50, Discharge, Medical). Course: Progressing as expected. Education and Follow-up: Counseled: Family. Normal [facility] Comment on above: Other Comment: Adriana katz Attachment - attachment storage system not supported [id number] Can be viewed in source system Missing Attachment - attachment storage system not supported [id number] Can be viewed in source system Missing Attachment - attachment storage system not supported [id number] Can be viewed in source system Missing Attachment - attachment storage system not supported [id number] Can be viewed in source system Missing Attachment - attachment storage system not supported [id number] Can be viewed in source system Missing Attachment - attachment storage system not supported [id number] Can be viewed in source system Inpatient Patient Summaryon 01-14-2024 Inpatient Patient Summary Inpatient Patient Summary [place] [id number] [facility] Clinical Discharge Instructions PERSON INFORMATION Name: SAMRA LINDER PHYSICIANS Admitting Physician: Fab HANSEN MD Attending Physician: Fab HANSEN MD PCP: ILIANA GONZALEZ MD Discharge Diagnosis: Anemia, iron deficiency; Antral gastritis Comment: PATIENT EDUCATION INFORMATION Instructions: Medication Leaflets: Follow up: With: Address: When: Fab HANSEN [address], [address], [place] [address] Business (1) Within 7 to 10 days Type Location Start Finish State ONC Injectafer (FT) FT.ONCOLOGY 01/18/2024 1:30 PM 01/18/2024 2:30 PM Confirmed ONC Office Visit 20 (FT) FT.ONCOLOGY 02/14/2024 3:40 PM 02/14/2024 4:00 PM Confirmed MEDICATION LIST Medications to Continue with No Changes Other Medications albuterol (Albuterol (Eqv-ProAir HFA)) 2 Puffs Inhalation every 6 hours as needed Shortness of breath or wheezing. alprazolam (alprazolam 1 mg Tab) 1 Tablets By Mouth 2 times a day as needed for anxiety. amphetamine-dextroampheta mine (amphetamine-dextroamphet amine 10 mg oral tablet) 1 Tablets By Mouth 2 times a day. carvedilol (carvedilol 25 mg Tab) 1 Tablets By Mouth 2 times a day. cyanocobalamin (Vitamin B-12 1000 mcg/mL injectable solution) 1 Milliliter Subcutaneous once a month. ergocalciferol (ergocalciferol 50,000 intl units Cap) 1 Capsules By Mouth Sunday. icosapent (Vascepa) 2 Tablets By Mouth 2 times a day. insulin glargine (Semglee (Prefilled Pen) 100 units/mL subcutaneous solution) 50 Units Subcutaneous at bedtime. insulin lispro (Humalog) Subcutaneous before meals., sliding scale lactobacillus acidophilus (Acidophilus Probiotic Blend) 1 Capsules By Mouth every day. levonorgestrel (Mirena 52 mg intrauteral device) 1 Each Intrauteral Once for 1 Doses. losartan (losartan 100 mg Tab) 0.5 tab By Mouth every day. metformin (MetFORMIN (Eqv-Glucophage XR) 500 mg oral tablet, extended release) 2 Tablets By Mouth 2 times a day. ocrelizumab (Ocrevus) 300 Milligram Intravesical every 6 months. MS. paroxetine (Paxil 30 mg Tab) 1 Tablets By Mouth every day. prochlorperazine (Compazine 10 mg oral tablet) 1 Tablets By Mouth 3 times a day as needed Nausea/Vomiting. rosuvastatin (rosuvastatin 40 mg Tab) 1 Tablets By Mouth every day. sitagliptin (Januvia 100 mg Tab) 1 Tablets By Mouth every day. temazepam (temazepam 30 mg Cap) 1 Capsules By Mouth once a day (at bedtime) as needed for sleep. tirzepatide (Mounjaro) tizanidine (tiZANidine 4 mg Tab) 1 Tablets By Mouth 3 times a day. Comment: [facility] Main OR PACU II Recordon Main OR PACU II Record Main OR PACU II R ecord PACU Phase II Document Type FT Summary Primary Physician: Fab HANSEN MD Finalized Date/Time: 01/14/24 10:33:47 Pt. Name: SAMRA LINDER Bang/Sex: 1975 Female Med Rec #: [id number] Physician: Fab HANSEN MD Financial #: [id number] Pt. Type: O Room/Bed: / Admit/Disch: 01/14/24 08:03:44 - Institution: Case Times PACU II FT Pre-Care Text: Identifies barriers to communication and implements measures to provide psychological support and determines knowledge level Develops individualized plan of care, and ensures continuity of care Maintains patient's dignity and privacy, and maintains patient confidentiality Identifies and reports philosophical, cultural, and spiritual beliefs and values Identifies individual values and wishes concerning care administers prescribed antibiotic therapy and immunizing agents as ordered, Evaluates postoperative tissue perfusion Implements thermoregulation measures, and monitors body temperature Evaluates postoperative respiratory status Evaluates postoperative cardiac status Evaluates postoperative neurological status Assesses pain control, collaborated in initiating patient-controlled analgesia and implements alternative methods of pain control Verifies allergies, administers prescribed medications and solutions, evaluates response to medications Entry 1 In PACU II 01/14/24 09:39:00 Discharge from PACU 01/14/24 10:30:00 II Outcomes Met? Yes Last Modified By: Hira GOMEZ, Zandra Prado 01/14/24 10:33:42 Post-Care Text: The patient demonstrates knowledge of the expected response to the operative or invasive procedure The patient's care is consistent with the individualized perioperative plan of care The patient's right to privacy is maintained The patient's value system, lifestyle, ethnicity, and culture are considered, respected, and incorporated into the perioperative plan of care The patient participates in decisions affecting his or her perioperative plan of care. The patient is free from signs and symptoms of infection The patient has wound/tissue perfusion consistent with or improved from baseline levels established preoperatively The patient is at or returning to normothermia at the conclusion of the immediate postoperative period The patient's respiratory function is consistent with or improved from baseline levels established preoperatively The patient's cardiovascular status is consistent with or improved from baseline levels established preoperatively The patient's neurological status is consistent with or improved from baseline levels established preoperatively The patient demonstrates and/or reports adequate pain control throughout the perioperative period The patient received appropriate medication(s), safely administered during the perioperative period Finalized By: Zandra Iniguez RN Document Signatures Signed By: Zandra Iniguez RN 01/14/24 10:33 Normal [facility] Main OR Preoperative Recordo n 01-14-2024 Main OR Preoperative Record Main OR Preoperative Record Holding Area Document Type FT Summary Primary Physician: Fab HANSEN MD Finalized Date/Time: 01/14/24 08:59:03 Pt. Name: SAMRA LINDER Bang/Sex: 1975 Female Med Rec #: [id number] Physician: Fab HANSEN MD Financial #: [id number] Pt. Type: O Room/Bed: / Admit/Disch: 01/14/24 08:03:44 - Institution: Case Times Holding FT Pre-Care Text: Verifies consent for planned procedure, identifies individual values and wishes concerning care, includes family members in perioperative teaching Secures patient's records' belongings, and valuables, maintains patient's dignity and privacy, and maintains patient confidentiality Entry 1 In Holding 01/14/24 08:27:00 Outcomes Met? Yes Last Modified By: Zandra Iniguez RN 01/14/24 08:33:34 Post-Care Text: The patient participates in decisions affecting his or her perioperative plan of care The patient's right to privacy is maintained Surgery Checklist FT Entry 1 Patient Birthday, ID Band Procedure History and Physical, Identification: Check, Patient Verification: Surgical Consent, With Participation Patient NPO after Midnight: No Date/Time: 01/14/24 03:00:00 Results Reviewed clear/yellow bowel Personal Items: Jewelry Comments: results Personal Items nose ring Limitations: n/a Comment: Complaints of Pain: No Pain Comment: n/a Operative Site n/a Marking: Does Patient Smoke No Patient states Yes Comment - Adult mom Zamzam postop adult Supervision supervision available Case Cancelled in No Holding Area see comments below for reason Last Modified By: Zandra Iniguez RN 01/14/24 08:58:38 [place] Comments: [place] [address]/14/24, clear results, Npo after 29901/14/24 Finalized By: Zandra Iniguez RN Document Signatures Signed By: Zandra Iniguez RN 01/14/24 08:58 Zandra Iniguez RN 01/14/24 08:37 Zandra Iniguez RN 01/14/24 08:59 Normal [facility] Outpatient Surgery Discharge Instructionon 01-14-2024 Outpatient Surgery Discharge Instruction Outpatient Surgery Discharge Instruction [place] [id number] Patient Discharge Instructions PERSON INFORMATION Name: SAMRA LINDER Date of : 1975 Current Date: 01/14/2024 09:38:22 PHYSICIANS Admitting Physician: Fab HANSEN MD Discharge Diagnosis: Anemia, iron deficiency; Antral gastritis SAMRA LINDER has been given the following list of follow-up instructions, prescriptions, and patient education materials: PATIENT FOLLOW-UP INFORMATION Diet: Regular Discharge Activity: Resume normal activities in 24 hours, Arrange for a responsible adult supervision for 24 hours Discharge Restrictions: No driving for 24 hrs, Do not operate machinery or tools, Do not make important decisions for 24 hours, Do not drink alcoholic beverages for 24 hours Call Your Doctor For: Persistent or heavy bleeding, Temperature above 101.5 degrees, Severe pain at the operative site, Persistent vomiting IF UNABLE TO CONTACT YOUR PHYSICIAN AND YOU FEEL IT IS AN EMERGENCY, GO TO THE NEAREST EMERGENCY ROOM OR CALL 911 I, XENIA, SAMRALAVELL LARA, have received the attached patient education materials/instructions and have verbalized understanding: May we do a follow up call? Yes No I was present when discharge instructions were given Patient Signature ___ Date Clinican/Nurse Signature Date Follow up: With: Address: When: Fab Ulloa, [address], [facility] [address] [place] [id number] Business (1) Within 7 to 10 days Type Location Start Finish State ONC Injectafer (FT) FT.ONCOLOGY 01/18/2024 1:30 PM 01/18/2024 2:30 PM Confirmed ONC Office Visit 20 (FT) FT.ONCOLOGY 02/14/2024 3:40 PM 02/14/2024 4:00 PM Confirmed Pharmacy Information: You may receive a survey from [employer] asking you to rate your care experience. Your feedback is important and will help us understand what we do well and how we can improve the quality of care we provide to you, your loved ones and our community. It???s an honor to serve you. Thank you for choosing [facility] HERE ARE THE MEDICATION CHANGES THAT OCCURRED DURING YOUR HOSPITAL STAY Medications to Continue with No Changes Other Medications albuterol (Albuterol (Eqv-ProAir HFA)) 2 Puffs Inhalation every 6 hours as needed Shortness of breath or wheezing. alprazolam (alprazolam 1 mg Tab) 1 Tablets By Mouth 2 times a day as needed for anxiety. amphetamine-dextroampheta mine (amphetamine-dextroamphet amine 10 mg oral tablet) 1 Tablets By Mouth 2 times a day. carvedilol (carvedilol 25 mg Tab) 1 Tablets By Mouth 2 times a day. cyanocobalamin (Vitamin B-12 1000 mcg/mL injectable solution) 1 Milliliter Subcutaneous once a month. ergocalciferol (ergocalciferol 50,000 intl units Cap) 1 Capsules By Mouth Sunday. icosapent (Vascepa) 2 Tablets By Mouth 2 times a day. insulin glargine (Semglee (Prefilled Pen) 100 units/mL subcutaneous solution) 50 Units Subcutaneous at bedtime. insulin lispro (Humalog) Subcutaneous before meals., sliding scale lactobacillus acidophilus (Acidophilus Probiotic Blend) 1 Capsules By Mouth every day. levonorgestrel (Mirena 52 mg intrauteral device) 1 Each Intrauteral Once for 1 Doses. losartan (losartan 100 mg Tab) 0.5 tab By Mouth every day. metformin (MetFORMIN (Eqv-Glucophage XR) 500 mg oral tablet, extended release) 2 Tablets By Mouth 2 times a day. ocrelizumab (Ocrevus) 300 Milligram Intravesical every 6 months. MS. paroxetine (Paxil 30 mg Tab) 1 Tablets By Mouth every day. prochlorperazine (Compazine 10 mg oral tablet) 1 Tablets By Mouth 3 times a day as needed Nausea/Vomiting. rosuvastatin (rosuvastatin 40 mg Tab) 1 Tablets By Mouth every day. sitagliptin (Januvia 100 mg Tab) 1 Tablets By Mouth every day. temazepam (temazepam 30 mg Cap) 1 Capsules By Mouth once a day (at bedtime) as needed for sleep. tirzepatide (Mounjaro) tizanidine (tiZANidine 4 mg Tab) 1 Tablets By Mouth 3 times a day. PATIENT EDUCATION INFORMATION Instructions: Medication Leaflets: Normal [facility] Reminderson 01-14-2024 Reminders Reminders From: Aislinn Brown LPN To: GSN - Clinical; Sent: 01/14/2024 13:46:01 EST Show up: 12/13/2033 07:00:00 EDT Subject: colonoscopy recall Due Date/Time: 01/13/2034 07:00:00 EST Reminder/Recall Patient due for screening colonoscopy 01/13/2034. Normal [facility] Ambulatory Visit Summaryon 1 03-08-2023 Ambulatory Visit Summary Ambulatory Visi t Summary SAMRA LINDER :1975 Visit Date:01/07/2024 Ambulatory Visit Instructions Your Diagnosis Iron deficiency anemia, unspecified Gastroesophageal reflux disease Your Care Team Attending Physician - JADE GOMEZ, Fab Toscano Primary Care Physician - ILIANA GONZALEZ MD Referring Physician - LISA GOMEZ, ILIANA This Is Your Medications List Contact prescribing physician if questions or concerns albuterol (Albuterol (Eqv-ProAir HFA)) alprazolam (alprazolam 1 mg Tab) amphetamine-dextroampheta mine (amphetamine-dextroamphet amine 10 mg oral tablet) carvedilol (carvedilol 25 mg Tab) cyanocobalamin (Vitamin B-12 1000 mcg/mL injectable solution) ergocalciferol (ergocalciferol 50,000 intl units Cap) icosapent (Vascepa) insulin glargine (Semglee (Prefilled Pen) 100 units/mL subcutaneous solution) insulin lispro (Humalog) lactobacillus acidophilus (Acidophilus Probiotic Blend) levonorgestrel (Mirena 52 mg intrauteral device) losartan (losartan 100 mg Tab) metformin (MetFORMIN (Eqv-Glucophage XR) 500 mg oral tablet, extended release) ocrelizumab (Ocrevus) paroxetine (Paxil 30 mg Tab) prochlorperazine (Compazine 10 mg oral tablet) rosuvastatin (rosuvastatin 40 mg Tab) sitagliptin (Januvia 100 mg Tab) temazepam (temazepam 30 mg Cap) tirzepatide (Mounjaro) tizanidine (tiZANidine 4 mg Tab) Procedures Performed Cholecystectomy, Colonoscopy, EGD - esophagogastroduodenoscop y, Insertion of intrauterine contraceptive device, Kidney stone. Discharge Vitals Heart Rate (Peripheral) 111 Respiratory Rate 16 Blood Pressure 148/92 Height 163 cm Height 64 in Weight 83.6 kg Weight 183.92 lb BMI 31.47 What to do next Scheduled Follow-Up Appointments Sunday 1:30 PM EST With: Where: [facility] Sunday 1:30 PM EST With: Where: [facility] 2023 3:40 PM EST With: Michael BAINS, Kiah Walker Where: [facility] Medications What How Much When Instructions Unchanged albuterol (Albuterol (Eqv-ProAir HFA)) 2 Puffs Inhalation Every 6 hours as needed for Shortness of breath or wheezing Contact prescribing physician if questions or concerns Unchanged alprazolam (alprazolam 1 mg Tab) 1 Tablets By Mouth 2 times a day as needed for for anxiety Contact prescribing physician if questions or concerns Unchanged amphetamine-dextroampheta mine (amphetamine-dextroamphet amine 10 mg oral tablet) 1 Tablets By Mouth 2 times a day Contact prescribing physician if questions or concerns Unchanged carvedilol (carvedilol 25 mg Tab) 1 Tablets By Mouth 2 times a day Contact prescribing physician if questions or concerns Unchanged cyanocobalamin (Vitamin B-12 1000 mcg/ mL injectable solution) 1 Milliliter Subcutaneous Once a month Contact prescribing physician if questions or concerns Unchanged ergocalciferol (ergocalciferol 50,000 intl units Cap) 1 Capsules By Mouth Sunday Contact prescribing physician if questions or concerns Unchanged icosapent (Vascepa) 2 Tablets By Mouth 2 times a day Contact prescribing physician if questions or concerns Unchanged insulin glargine (Semglee (Prefilled Pen) 100 units/ mL subcutaneous solution) 50 Units Subcutaneous At bedtime Contact prescribing physician if questions or concerns Unchanged insulin lispro (Humalog) Subcutaneous Before meals Contact prescribing physician if questions or concerns Unchanged lactobacillus acidophilus (Acidophilus Probiotic Blend) 1 Capsules By Mouth Every day Contact prescribing physician if questions or concerns Unchanged levonorgestrel (Mirena 52 mg intrauteral device) 1 Each Intrauteral Once Duration: 1 Doses Contact prescribing physician if questions or concerns Unchanged losartan (losartan 100 mg Tab) 0.5 tab By Mouth Every day Contact prescribing physician if questions or concerns Unchanged metformin (MetFORMIN (Eqv-Glucophage XR) 500 mg oral tablet, extended release) 2 Tablets By Mouth 2 times a day Contact prescribing physician if questions or concerns Unchanged ocrelizumab (Ocrevus) 300 Milligram Intravesical Every 6 months MS Contact prescribing physician if questions or concerns Unchanged paroxetine (Paxil 30 mg Tab) 1 Tablets By Mouth Every day Contact prescribing physician if questions or concerns Unchanged prochlorperazine (Compazine 10 mg oral tablet) 1 Tablets By Mouth 3 times a day as needed for Nausea/Vomiting Contact prescribing physician if questions or concerns Unchanged rosuvastatin (rosuvastatin 40 mg Tab) 1 Tablets By Mouth Every day Contact prescribing physician if questions or concerns Unchanged sitagliptin (Januvia 100 mg Tab) 1 Tablets By Mouth Every day Contact prescribing physician if questions or concerns Unchanged temazepam (temazepam 30 mg Cap) 1 Capsules By Mouth Once a day (at bedtime) as needed for for sleep Contact prescribing physician if questions or concerns Unchanged tirzepatide (Mounjaro) Co (more content not included)... Normal [facility] CBC w/ Auto Diffon 4 Basophils/100 WBC (Bld) 0.7 % Normal 0.0-2.0 [facility] Comment on above: Performed By: #### 2 [id number] ####[address] [place] [address] Basophils/Leukocytes Auto (Bld) [Pure # fraction] 0.1 E9/L Normal 0.0-0.2 [facility] Comment on above: Performed By: #### 2 167895 ####[address] [address] Eosinophils (Bld) [#/Vol] 0.6 E9/L High 0.0-0.5 [facility] Comment on above: Performed By: #### 2 031511 ####[address] [address] Eosinophils/100 WBC (Bld) 4.2 % Normal 0.0-8.0 [facility] Comment on above: Performed By: #### 2 755482 ####[address] [address] Erythrocyte distribution width (RBC) [Ratio] 16.5 % High 10.9-14.2 [facility] Comment on above: Performed By: #### 2 798241 ####[address] [address] Hematocrit (Bld) [Volume fraction] 34.7 % Normal 34.0-46.0 [facility] Comment on above: Performed By: #### 2 749762 ####[address] [address] Hemoglobin (Bld) [Mass/Vol] 10.8 g/dL Low 12.0-16.0 [facility] Comment on above: Performed By: #### 2 682276 ####[facility] [address] [place] [address] Hypochromia Auto Ql (Bld) PRESENT Invalid Interpretation Code [facility] Comment on above: Performed By: #### 2 [id number] ####[address] [address] Lymphocytes (Bld) [#/Vol] 1.5 E9/L Normal 1.0-4.0 [facility] Comment on above: Performed By: #### 2 079525 ####[address] [address] Lymphocytes/100 WBC (Bld) 10.0 % Low 14.0-50.0 [facility] Comment on above: Performed By: #### 2 740613 ####[address] [address] MCH (RBC) [Entitic mass] 23.1 pg Low 27.0-34.0 [facility] Comment on above: Performed By: #### 2 096954 ####[address] [address] MCHC (RBC) [Mass/Vol] 31.1 g/dL Low 31.4-36.0 [facility] Comment on above: Performed By: #### 2 169137 ####[address] [address] MCV (RBC) [Entitic vol] 74.3 fL Low 80.0-100.0 [facility] Comment on above: Performed By: #### 2 674060 ####[address] [address] Microcytes Ql (Bld) PRESENT Invalid Interpretation Code [facility] Comment on above: Performed By: #### 2 268031 ####[address] [address] Monocytes (Bld) [#/Vol] 0.9 E9/L Normal 0.2-1.0 [facility] Comment on above: Performed By: #### 2 089446 ####[facility] [address] [place] [address] Neutrophils (Bld) [#/Vol] 11.6 E9/L High 2.0-7.5 [facility] Comment on above: Performed By: #### 2 424533 ####[facility] [address] [place] [address] Neutrophils/100 WBC (Bld) 79.1 % High 36.0-75.0 [facility] Comment on above: Performed By: #### 2 666878 ####[facility] [address] [place] [address] Ovalocytes LM Ql (Bld) PRESENT Invalid Interpretation Code [facility] Comment on above: Performed By: #### 2 940886 ####[address] [address] Platelet 411.0 E9/L Normal 150.0-500. 0 [facility] Comment on above: Performed By: #### 2 121966 ####[facility] [address] [place] [address] Platelet mean volume (Bld) [Entitic vol] 8.4 fL Normal 6.4-10.8 [facility] Comment on above: Performed By: #### 2 906819 ####[address] [address] RBC (Bld) [#/Vol] 4.7 E12/L Normal 4.3-5.9 [facility] Comment on above: Performed By: #### 2 061933 ####[facility] [address] [place] [address] RBC size Nom (Bld) SEE MORPHOLOGY Invalid Interpretation Code [facility] Comment on above: Performed By: #### 2 691869 ####[address] [place] [address] WBC corrected for nucl RBC Auto (Bld) [#/Vol] 14.6 E9/L High 4.0-11.0 [facility] Comment on above: Performed By: #### 2 877848 ####[facility] [address] [place] [address] CHEMISTRYOrdered By: SYSTEM SYSTEM on 12-27-2023 Albumin [Mass/Vol] 4.4 g/dL Normal 3.3 - 5.0 gm/dL [facility] Albumin/Globulin [Mass ratio] 1.6 {ratio} Normal 1.1 - 2.2 [facility] ALP [Catalytic activity/Vol] 55 [iU]/d Normal 21 - 98 Int._Unit/ L [facility] ALT No additional P-5'-P [Catalytic activity/Vol] 23 [iU]/d Normal 6 - 46 Int._Unit/ L [facility] Anion gap [Moles/Vol] 13 mmol/L Normal 6 - 16 mEq/L [facility] AST [Catalytic activity/Vol] 21 [iU]/d Normal 5 - 43 Int._Unit/ L [facility] Bilirubin [Mass/Vol] 0.4 mg/dL Normal 0.0 - 1 .1 mg/dL [facility] Calcium [Mass/Vol] 9.7 mg/dL Normal 8.9 - 11. 1 mg/dL [facility] Chloride [Moles/Vol] 102 mmol/L Normal 101 - 1 11 mmol/L [facility] CO2 [Moles/Vol] 24 mmol/L Normal 21 - 31 mmol/L [facility] Cobalamin (Vitamin B12) [Mass/Vol] 634 pg/mL Normal 50 - 1500 pg/mL [facility] Creatinine [Mass/Vol] 0.8 mg/dL Normal 0.5 - 1.3 mg/dL [facility] eGFR 92 mL/min/1.73 m2 Normal >=59mL/min /1.73 m2 [facility] Ferritin [Mass/Vol] 6 ng/mL Low 11 - 307 ng/mL [facility] Folate [Mass/Vol] ng/mL Normal >=6.7ng/mL [facility] Globulin (S) [Mass/Vol] 2.7 g/dL Normal 1.4 - 4.0 gm/dL [facility] Glucose [Mass/Vol] 141 mg/dL Normal 55 - 199 mg/dL [facility] Iron [Mass/Vol] 33 ug/dL Low 35 - 153 mcg/dL [facility] Iron binding capacity [Mass/Vol] 568 ug/dL High 250 - 400 mcg/dL [facility] Iron saturation [Mass fraction] 6 % Low 20 - 50 % [facility] Potassium [Moles/Vol] 4.7 mmol/L Normal 3.5 - 5.3 mmol/L [facility] Protein [Mass/Vol] 7.1 g/dL Normal 6.0 - 7.8 gm/dL [facility] Sodium [Moles/Vol] 134 mmol/L Low 135 - 145 mmol/L [facility] Transferrin [Mass/Vol] 406 mg/dL High 200 - 370 mg/dL [facility] Urea nitrogen [Mass/Vol] 25 mg/dL High 5 - 21 mg/dL [facility] Urea nitrogen/Creatinine [Mass ratio] 31 mg/mg High 10 - 20 [facility] CMPon 12-27-2023 Albumin [Mass/Vol] 4.4 g/dL Normal 3.3-5.0 [facility] Comment on above: Performed By: #### 2 [id number] #### [facility] [address] [place] [address] Albumin/Globulin (S) [Mass conc ratio] 1.6 Normal 1.1-2.2 [facility] Comment on above: Performed By: #### 2 045965 #### [facility] [address] [place] [address] ALP [Catalytic activity/Vol] 55 Int._Unit/L Normal 21-98 [facility] Comment on above: Performed By: #### 2 717244 #### [facility] [address] [place] [address] ALT No additional P-5'-P [Catalytic activity/Vol] 23 Int._Unit/L Normal 6-46 [facility] Comment on above: Performed By: #### 2 292590 #### [facility] [address] [place] [address] AST [Catalytic activity/Vol] 21 Int._Unit/L Normal 5-43 [facility] Comment on above: Performed By: #### 2 898777 #### [facility] [address] [place] [address] Bilirubin [Mass/Vol] 0.4 mg/dL Normal 0.0-1.1 [facility] Comment on above: Performed By: #### 2 148377 #### [facility] [address] [facility] [place] [address] Globulin (S) [Mass/Vol] 2.7 g/dL Normal 1.4-4.0 [facility] Comment on above: Performed By: #### 2 958827 #### [facility] [address] [place] [address] Protein [Mass/Vol] 7.1 g/dL Normal 6.0-7.8 [facility] Comment on above: Performed By: #### 2 452237 #### [facility] [address] [place] [address] Anion gap [Moles/Vol] 13 mmol/L Normal 6-16 [facility] Comment on above: Performed By: #### 2 331997 #### [facility] [address] [place] [address] Calcium [Mass/Vol] 9.7 mg/dL Normal 8.9-11.1 [facility] Comment on above: Performed By: #### 2 946875 #### [facility] [address] [place] [address] Chloride [Moles/Vol] 102 mmol/L Normal 101-111 [facility] Comment on above: Performed By: #### 2 639825 #### [facility] [address] [place] [address] CO2 [Moles/Vol] 24 mmol/L Normal 21-31 [facility] Comment on above: Performed By: #### 2 160634 #### [facility] [address] [place] [address] Creatinine [Mass/Vol] 0.8 mg/dL Normal 0.5-1.3 [facility] Comment on above: Performed By: #### 2 427320 #### [facility] [address] [place] [address] Glucose [Mass/Vol] 141 mg/dL Normal 55-199 [facility] Comment on above: Performed By: #### 2 178520 #### [facility] [address] [place] [address] Potassium [Moles/Vol] 4.7 mmol/L Normal 3.5-5.3 [facility] Comment on above: Performed By: #### 2 607205 #### [facility] [address] [place] [address] Sodium [Moles/Vol] 134 mmol/L Low 135-145 [facility] Comment on above: Performed By: #### 2 896877 #### [facility] [address] [place] [address] Urea nitrogen [Mass/Vol] 25 mg/dL High 5-21 [facility] Comment on above: Performed By: #### 2 336654 #### [facility] [address] [place] [address] Urea nitrogen/Creatinine [Mass ratio] 31 No Units High 10-20 [facility] Comment on above: Performed By: #### 2 862346 #### [facility] [address] [place] [address] Ferritinon 12-27-2023 Ferritin [Mass/Vol] 6 ng/mL Low 11-307 [facility] Comment on above: Performed By: #### 2 918916 #### [facility] [address] [place] [address] Folateon 12-27-2023 Folate [Mass/Vol] ng/mL Normal >=6.7 [facility] Comment on above: Performed By: #### 2 084980 #### [facility] [address] [place] [address] HEMATOLOGYOrdered By: SYSTEM SYSTEM on 12-27-2023 Basophils/100 WBC (Bld) 0.7 % Normal 0.0 - 2.0 % [facility] Basophils/Leukocytes Auto (Bld) [Pure # fraction] 0.1 E9/L Normal 0.0 - 0.2 E9/L [facility] Eosinophils (Bld) [#/Vol] 0.6 E9/L High 0.0 - 0.5 E9/L [facility] Eosinophils/100 WBC (Bld) 4.2 % Normal 0.0 - 8.0 % [facility] Erythrocyte distribution width (RBC) [Ratio] 16.5 % High 10.9 - 14.2 % [facility] Hematocrit (Bld) [Volume fraction] 34.7 % Normal 34.0 - 46.0 % [facility] Hemoglobin (Bld) [Mass/Vol] 10.8 g/dL Low 12.0 - 16.0 gm/dL [facility] Hypochromia Auto Ql (Bld) PRESENT *NA* (12/27/23 8:27 AM) Invalid Interpretation Code [facility] Lymphocytes (Bld) [#/Vol] 1.5 E9/L Normal 1.0 - 4.0 E9/L [facility] Lymphocytes/100 WBC (Bld) 10.0 % Low 14.0 - 50.0 % [facility] MCH (RBC) [Entitic mass] 23.1 pg Low 27. 0 - 34.0 pg [facility] MCHC (RBC) [Mass/Vol] 31.1 g/dL Low 31.4 - 36.0 gm/dL [facility] MCV (RBC) [Entitic vol] 74.3 fL Low 80.0 - 100.0 fL [facility] Microcytes Ql (Bld) PRESENT *NA* (12/27/23 8:27 AM) Invalid Interpretation Code [facility] Monocytes (Bld) [#/Vol] 0.9 E9/L Normal 0.2 - 1.0 E9/L [facility] Monocytes/100 WBC (Bld) 6.0 % Normal 4.0 - 14.0 % [facility] Neutrophils (Bld) [#/Vol] 11.6 E9/L High 2.0 - 7.5 E9/L [facility] Neutrophils/100 WBC (Bld) 79.1 % High 36.0 - 75.0 % [facility] Ovalocytes LM Ql (Bld) PRESENT *NA* (12/27/23 8:27 AM) Invalid Interpretation Code [facility] Platelet 411.0 E9/L Normal 150.0 - 500.0 E9/L [facility] Platelet mean volume (Bld) [Entitic vol] 8.4 fL Normal 6.4 - 10.8 fL [facility] RBC (Bld) [#/Vol] 4.7 E12/L Normal 4.3 - 5.9 E12/L [facility] RBC size Nom (Bld) SEE MORPHOLOGY *NA* (12/27/23 8:27 AM) Invalid Interpretation Code [facility] WBC corrected for nucl RBC Auto (Bld) [#/Vol] 14.6 E9/L High 4.0 - 11.0 E9/L [facility] Ironon 12-27-2023 Iron [Mass/Vol] 33 microgram/dL Low 35-153 [facility] Comment on above: Performed By: #### 2 [id number] #### [facility] [address] [place] [address] Iron Saturationon 12-27-2023 Iron binding capacity [Mass/Vol] 568 microgram/dL High 250-400 [facility] Comment on above: Performed By: #### 2 380344 #### [facility] [address] [place] [address] Iron saturation [Mass fraction] 6 % Low 20-50 [facility] Comment on above: Performed By: #### 2 [id number] #### [facility] [address] [place] [address] Transferrinon 12-27-2023 Transferrin [Mass/Vol] 406 mg/dL High 200-370 [facility] Comment on above: Performed By: #### 2 [id number] #### [facility] [address] [place] [address] Vit B12on 12-27-2023 Cobalamin (Vitamin B12) [Mass/Vol] 634 pg/mL Normal 50-1500 [facility] Comment on above: Performed By: #### 2 190163 #### [facility] [address] [place] [address] eGFRon 12-27-2023 eGFR 92 mL/min/1.73 m2 Normal >=59 [facility] Comment on above: Performed By: #### 1 [id number] #### [facility] [address] [place] [address] Automated basophil countOrde red By: SYSTEM SYSTEM on 12-10-2023 Basophils/100 WBC (Bld) 0.8 % 0.0-2.0 [facility] Automated blood monocyte cou ntOrdered By: SYSTEM SYSTEM on 12-10-2023 Monocytes/100 WBC (Bld) 5.6 % 4.0-14.0 [facility] Basophils/100 WBC Auto (Bld) on 12-10-2023 Basophils/100 WBC (Bld) 0.1 E9/L 0.0-0.2 [facility] CBC w/ Auto Diffon Basophils/100 WBC (Bld) 0.8 % Normal 0.0-2.0 [facility] Comment on above: Performed By: #### 2 071631 #### [facility] [address] [place] [address] Basophils/Leukocytes Auto (Bld) [Pure # fraction] 0.1 E9/L Normal 0.0-0.2 [facility] Comment on above: Performed By: #### 2 [id number] #### [facility] [address] [place] [address] Elliptocytes LM Ql (Bld) PRESENT Invalid Interpretation Code [facility] Comment on above: Performed By: #### 2 110924 #### [facility] [address] [place] [address] Eosinophils (Bld) [#/Vol] 0.5 E9/L Normal 0.0-0.5 [facility] Comment on above: Performed By: #### 2 195676 #### [facility] [address] [place] [address] Eosinophils/100 WBC (Bld) 4.9 % Normal 0.0-8.0 [facility] Comment on above: Performed By: #### 2 651454 #### [facility] [address] [place] [address] Erythrocyte distribution width (RBC) [Ratio] 17.0 % High 10.9-14.2 [facility] Comment on above: Performed By: #### 2 645652 #### [facility] [address] [place] [address] Hematocrit (Bld) [Volume fraction] 35.8 % Normal 34.0-46.0 [facility] Comment on above: Performed By: #### 2 601577 #### [facility] [address] [place] [address] Hemoglobin (Bld) [Mass/Vol] 11.2 g/dL Low 12.0-16.0 [facility] Comment on above: Performed By: #### 2 146237 #### [facility] [address] [place] [address] Lymphocytes (Bld) [#/Vol] 1.3 E9/L Normal 1.0-4.0 [facility] Comment on above: Performed By: #### 2 028531 #### [facility] [address] [place] [address] Lymphocytes/100 WBC (Bld) 11.7 % Low 14.0-50.0 [facility] Comment on above: Performed By: #### 2 667854 #### [facility] [address] [place] [address] MCH (RBC) [Entitic mass] 23.2 pg Low 27.0-34.0 [facility] Comment on above: Performed By: #### 2 559845 #### [facility] [address] [place] [address] MCHC (RBC) [Mass/Vol] 31.4 g/dL Normal 31.4-36.0 [facility] Comment on above: Performed By: #### 2 870643 #### [facility] [address] [place] [address] MCV (RBC) [Entitic vol] 74.0 fL Low 80.0-100.0 [facility] Comment on above: Performed By: #### 2 695377 #### [facility] [address] [place] [address] Microcytes Ql (Bld) PRESENT Invalid Interpretation Code [facility] Comment on above: Performed By: #### 2 120451 #### [facility] [address] [place] [address] Monocytes (Bld) [#/Vol] 0.6 E9/L Normal 0.2-1.0 [facility] Comment on above: Performed By: #### 2 997796 #### [facility] [address] [place] [address] Neutrophils (Bld) [#/Vol] 8.6 E9/L High 2.0-7.5 [facility] Comment on above: Performed By: #### 2 472009 #### [facility] [address] [place] [address] Neutrophils/100 WBC (Bld) 77.0 % High 36.0-75.0 [facility] Comment on above: Performed By: #### 2 984263 #### [facility] [address] [place] [address] Platelet mean volume (Bld) [Entitic vol] 8.4 fL Normal 6.4-10.8 [facility] Comment on above: Performed By: #### 2 569192 #### [facility] [address] [place] [address] Platelets (Bld) [#/Vol] 377.0 E9/L Normal 150. 0-500. 0 [facility] Comment on above: Performed By: #### 2 626851 #### [facility] [address] [place] [address] RBC (Bld) [#/Vol] 4.8 E12/L Normal 4.3-5.9 [facility] Comment on above: Performed By: #### 2 950980 #### [facility] [address] [place] [address] RBC size Nom (Bld) SEE MORPHOLOGY Invalid Interpretation Code [facility] Comment on above: Performed By: #### 2 [id number] #### [facility] [address] [place] [address] WBC corrected for nucl RBC Auto (Bld) [#/Vol] 11.2 E9/L High 4.0-11.0 [facility] Comment on above: Performed By: #### 2 [id number] #### [facility] [address] [place] [address] CHEMISTRYOrdered By: SYSTEM SYSTEM on 12-10-2023 25-hydroxyvitamin D3 [Mass/Vol] 60.0 ng/mL Normal 30.0 - 100.0 ng/mL [facility] ALP [Catalytic activity/Vol] 56 [iU]/d Normal 21 - 98 Int._Unit/ L [facility] ALT No additional P-5'-P [Catalytic activity/Vol] 21 [iU]/d Normal 6 - 46 Int._Unit/ L [facility] AST [Catalytic activity/Vol] 19 [iU]/d Normal 5 - 43 Int._Unit/ L [facility] eGFR 112 mL/min/1.73 m2 Normal >=59mL/mi n /1.73 m2 [facility] Iron [Mass/Vol] 24 ug/dL Low 35 - 153 mcg/dL [facility] Iron binding capacity [Mass/Vol] 514 ug/dL High 250 - 400 mcg/dL [facility] Transferrin [Mass/Vol] 367 mg/dL Normal 200 - 370 mg/dL [facility] Urea nitrogen/Creatinine [Mass ratio] 28 mg/mg High 10 - 20 [facility] CMPon 12-10-2023 Albumin [Mass/Vol] 4.2 g/dL Normal 3.3-5.0 [facility] Comment on above: Performed By: #### 2 544113 #### [facility] [address] [place] [address] Albumin/Globulin (S) [Mass conc ratio] 1.6 Normal 1.1-2.2 [facility] Comment on above: Performed By: #### 2 151223 #### [facility] [address] [place] [address] ALP [Catalytic activity/Vol] 56 Int._Unit/L Normal 21-98 [facility] Comment on above: Performed By: #### 2 133734 #### [facility] [address] [place] [address] ALT No additional P-5'-P [Catalytic activity/Vol] 21 Int._Unit/L Normal 6-46 [facility] Comment on above: Performed By: #### 2 289839 #### [facility] [address] [place] [address] AST [Catalytic activity/Vol] 19 Int._Unit/L Normal 5-43 [facility] Comment on above: Performed By: #### 2 884438 #### [facility] [address] [place] [address] Bilirubin [Mass/Vol] 0.3 mg/dL Normal 0.0-1.1 [facility] Comment on above: Performed By: #### 2 318455 #### [facility] [address] [place] [address] Globulin (S) [Mass/Vol] 2.7 g/dL Normal 1.4-4.0 [facility] Comment on above: Performed By: #### 2 058487 #### [facility] [address] [place] [address] Protein [Mass/Vol] 6.9 g/dL Normal 6.0-7.8 [facility] Comment on above: Performed By: #### 2 014498 #### [facility] [address] [place] [address] Anion gap [Moles/Vol] 13 mmol/L Normal 6-16 [facility] Comment on above: Performed By: #### 2 210205 #### [facility] [address] [place] [address] Calcium [Mass/Vol] 8.8 mg/dL Low 8.9-11.1 [facility] Comment on above: Performed By: #### 2 020580 #### [facility] [address] [place] [address] Chloride [Moles/Vol] 105 mmol/L Normal 101-111 [facility] Comment on above: Performed By: #### 2 583186 #### [facility] [address] [place] [address] CO2 [Moles/Vol] 24 mmol/L Normal 21-31 [facility] Comment on above: Performed By: #### 2 149122 #### [facility] [address] [place] [address] Creatinine [Mass/Vol] 0.6 mg/dL Normal 0.5-1.3 [facility] Comment on above: Performed By: #### 2 781900 #### [facility] [address] [place] [address] Glucose [Mass/Vol] 151 mg/dL Normal 55-199 [facility] Comment on above: Performed By: #### 2 551407 #### [facility] [address] [place] [address] Potassium [Moles/Vol] 4.5 mmol/L Normal 3.5-5.3 [facility] Comment on above: Performed By: #### 2 752433 #### [facility] [address] [place] [address] Sodium [Moles/Vol] 137 mmol/L Normal 135-145 [facility] Comment on above: Performed By: #### 2 [id number] #### [facility] [address] [place] [address] Urea nitrogen [Mass/Vol] 17 mg/dL Normal 5-21 [facility] Comment on above: Performed By: #### 2 [id number] #### [facility] [address] [place] [address] Urea nitrogen/Creatinine [Mass ratio] 28 No Units High 10-20 [facility] Comment on above: Performed By: #### 2 [id number] #### [facility] [address] [place] [address] Eosinophils/100 leukocytes i n Blood by Manual countOrdered By: SYSTEM SYSTEM on 12-10-2023 Eosinophils/100 WBC (Bld) 4.9 % 0.0-8.0 Remisol Heme Erythrocyte distribution wid th [Ratio] by Automated countOrdered By: SYSTEM SYSTEM on 12-10-2023 Erythrocyte distribution width (RBC) [Ratio] 17.0 % High 10.9-14.2 Rem[facility] Heme Erythrocytes [#/volume] in B lood by Automated countOrdered By: SYSTEM SYSTEM on 12-10-2023 RBC (Bld) [#/Vol] 4.8 E12/L 4.3-5.9 Remisol Heme Estimated glomerular filtrat ion rate (GFR) non- Americanon 12-10-2023 GFR/1.73 sq M.predicted among non-blacks MDRD (S/P/Bld) [Vol rate/Area] 112 mL/min/1.73 m2 >=59 [facility] HEMATOLOGYOrdered By: SYSTEM SYSTEM on 12-10-2023 Basophils/Leukocytes Auto (Bld) [Pure # fraction] 0.1 E9/L Normal 0.0 - 0.2 E9/L Rem[facility] Heme Elliptocytes LM Ql (Bld) PRESENT *NA* (12/10/23 8:47 AM) Invalid Interpretation Code Remisol Heme Eosinophils (Bld) [#/Vol] 0.5 E9/L Normal 0.0 - 0.5 E9/L [facility]e Lymphocytes (Bld) [#/Vol] 1.3 E9/L Normal 1.0 - 4.0 E9/L [facility] Heme Microcytes Ql (Bld) PRESENT *NA* (12/10/23 8:47 AM) Invalid Interpretation Code Rem[facility] Heme Monocytes (Bld) [#/Vol] 0.6 E9/L Normal 0.2 - 1.0 E9/L [facility] Heme RBC size Nom (Bld) SEE MORPHOLOGY *NA* (12/10/23 8:47 AM) Invalid Interpretation Code Rem[facility] Heme Hematocrit [Volume Fraction] of Blood by Automated countOrdered By: SYSTEM SYSTEM on 12-10-2023 Hematocrit (Bld) [Volume fraction] 35.8 % 34.0-46.0 [facility]e Hemoglobin [Mass/volume] in BloodOrdered By: SYSTEM SYSTEM on 12-10-2023 Hemoglobin (Bld) [Mass/Vol] 11.2 g/dL Low 12.0-16.0 [facility] Heme [id number] 12-10-2023 HbA1c (Bld) [Mass fraction] 7.5 % High <=5.9 [facility] Comment on above: Performed By: #### 7 [id number] #### [facility] [address] [place] [address] Ironon 12-10-2023 Iron [Mass/Vol] 24 microgram/dL Low 35-153 Fish er [facility] Comment on above: Performed By: #### 2 [id number] #### [facility] [address] [place] [address] Laboratory - Chemistry and C hemistry - challengeOrdered By: Zwipe SYSTEM on 12-10-2023 Albumin [Mass/Vol] 4.2 g/dL 3.3-5.0 Remiso l Chem Bilirubin [Mass/Vol] 0.3 mg/dL 0.0-1.1 Prosper su[facility] Chem Calcium [Mass/Vol] 8.8 mg/dL Low 8.9-11.1 Remiso l Chem Chloride [Moles/Vol] 105 mmol/L 101-111 Prosper [facility] Chem CO2 [Moles/Vol] 24 mmol/L 21-31 [facility] Cobalamin (Vitamin B12) [Mass/Vol] 444 pg/mL 50-1500 [facility] Chem Creatinine [Mass/Vol] 0.6 mg/dL 0.5-1.3 Rem isol Chem Glucose [Mass/Vol] 151 mg/dL 55-199 Remiso l Chem Magnesium [Mass/Vol] 1.5 mg/dL 1.3-2.4 Prosper suha Chem Potassium [Moles/Vol] 4.5 mmol/L 3.5-5.3 Rem isol Chem Protein [Mass/Vol] 6.9 g/dL 6.0-7.8 Remiso l Chem Sodium [Moles/Vol] 137 mmol/L 135-145 Remiso l Chem TSH Qn 0.93 m[IU]/L 0.34-5.60 [facility] Chem Urea nitrogen [Mass/Vol] 17 mg/dL 5-21 [facility] Laboratory - Hematology and Cell countsOrdered By: Krystin Licona on 12-10-2023 HbA1c (Bld) [Mass fraction] 7.5 % High <=5.9 [facility]SS Laboratory - Hematology and Cell countsOrdered By: SYSTEM SYSTEM on 12-10-2023 Neutrophils/100 WBC (Bld) 77.0 % High 36.0-75.0 [facility] Heme Leukocytes [#/volume] correc magdalena for nucleated erythrocytes in Blood by Automated counOrdered By: SYSTEM SYSTEM on 12-10-2023 WBC corrected for nucl RBC Auto (Bld) [#/Vol] 11.2 E9/L High 4.0-11.0 [facility]e Lymphocytes [#/volume] in Bl ood by Automated countOrdered By: SYSTEM SYSTEM on 12-10-2023 Lymphocytes/100 WBC (Bld) 11.7 % Low 14.0-50.0 [facility] Heme MCH [Entitic mass] by Automa magdalena countOrdered By: SYSTEM SYSTEM on 12-10-2023 MCH (RBC) [Entitic mass] 23.2 pg Low 27.0-34.0 [facility] Heme MCHC [Mass/volume] by Automa magdalena countOrdered By: SYSTEM SYSTEM on 12-10-2023 MCHC (RBC) [Mass/Vol] 31.4 g/dL 31.4-36.0 Rem isol Heme MCV [Entitic volume] by Auto mated countOrdered By: SYSTEM SYSTEM on 12-10-2023 MCV (RBC) [Entitic vol] 74.0 fL Low 80.0-100.0 R emisol Heme Magnesiumon 12-10-2023 Magnesium [Mass/Vol] 1.5 mg/dL Normal 1.3-2.4 Fish [facility] Comment on above: Performed By: #### 2 [id number] #### Arora [facility] [address] [place] [address] Microcytes LM Ql (Bld)on Microcytes Ql (Bld) [place] Neutrophils [#/volume] in Bl ood by Automated countOrdered By: SYSTEM SYSTEM on 12-10-2023 Neutrophils (Bld) [#/Vol] 8.6 E9/L High 2.0-7.5 [facility] Heme No Panel Informationon 10-07 -2024 25-Hydroxy Vitamin D Total 60.0 ng/mL 30.0-100.0 [facility] Alanine Aminotransferase (ALT/SGPT) 21 Int._Unit/L 6-46 [facility] Alkaline Phosphatase 56 Int._Unit/L 21-98 [facility] Aspartate Amino Transf (AST/SGOT) 19 Int._Unit/L 5-43 [facility] BUN/Creatinine Ratio 28 No Units High 10-20 [facility] Elliptocytes PRESENT [facility] Eosinophils # (Auto) 0.5 E9/L 0.0-0.5 [facility] Lymphocytes # (Manual) 1.3 E9/L 1.0-4.0 [facility] RBC Size SEE MORPHOLOGY [facility] Platelet mean volume [Entiti c volume] in Blood by Automated countOrdered By: SYSTEM SYSTEM on 12-10-2023 Platelet mean volume (Bld) [Entitic vol] 8.4 fL 6.4-10.8 [facility] Platelets [#/volume] in Bloo d by Automated countOrdered By: SYSTEM SYSTEM on 12-10-2023 Platelets (Bld) [#/Vol] 377.0 E9/L 150. 0-500. 0 [facility] Serum globulin measurement b y calculation (mass/volume)Ordered By: SYSTEM SYSTEM on 12-10-2023 Globulin (S) [Mass/Vol] 2.7 g/dL 1.4-4.0 R emisol Chem Serum or plasma albumin/glob ulin mass ratioOrdered By: SYSTEM SYSTEM on 12-10-2023 Albumin/Globulin [Mass ratio] 1.6 {ratio} 1.1-2.2 Rem[facility] Chem Serum or plasma anion gap de terminationOrdered By: SYSTEM SYSTEM on 12-10-2023 Anion gap [Moles/Vol] 13 mmol/L 6-16 Rem isol Chem TIBC Calculatedon 12-10-2023 Iron binding capacity [Mass/Vol] 514 microgram/dL High 250-400 [facility] Comment on above: Performed By: #### 1 [id number] #### [facility] [address] [place] [address] Transferrin [Mass/Vol] 367 mg/dL Normal 200-370 [facility] Comment on above: Performed By: #### 1 [id number] #### [facility] [address] [place] [address] TSHon 12-10-2023 TSH Qn 0.93 m[IU]/L Normal 0.34-5.60 [facility] Comment on above: Performed By: #### 2 [id number] #### [facility] [address] [place] [address] Vit B12on 12-10-2023 Cobalamin (Vitamin B12) [Mass/Vol] 444 pg/mL Normal 50-1500 [facility] Comment on above: Performed By: #### 2 [id number] #### [facility] [address] [place] [address] Vitamin D 25 Hydroxyon 12-09 25-hydroxyvitamin D3 [Mass/Vol] 60.0 ng/mL Normal 30.0-100.0 [facility] Comment on above: Performed By: #### 5 [id number] #### [facility] [address] [place] [address] eGFRon 12-10-2023 eGFR 112 mL/min/1.73 m2 Normal >=59 [facility] Comment on above: Performed By: #### 1 [id number] #### [facility] [address] [place] [address] MA Mamm Screen w/CAD if perf and 3D Bilon 11-02-2023 MA Mamm Screen w/CAD if perf and 3D Heath Exam Date/Time: 11/01/2023 08:54 EDT Reason for Exam: SCREENING Report IMPRESSION: BIRADS 1 NEGATIVE, NORMAL INTERVAL FOLLOW-UP. CLINICAL HISTORY: SCREENING COMPARISON: Priors dating back to 2018. RESULT: Digital mammography and 3D tomosynthesis of bilateral breasts was performed. Category B - Scattered areas of fibroglandular density. There is no suspicious mass, asymmetry, architectural distortion, or calcification. Vascular calcifications: Absent. CAD analysis was performed and used in the interpretation. Dense Breast: No Follow-up: 12 MONTH RECALL. Board Certified Radiologists. Accredited by the ACR and FDA. MAMMOGRAPHY IS VERY IMPORTANT TO YOUR HEALTH. THE [place] [employer] GUIDELINES RECOMMEND THAT WOMEN 40 YEARS OF AGE AND OLDER SHOULD HAVE A MAMMOGRAM EVERY YEAR. A REMINDER LETTER WILL BE SENT AT THE APPROPRIATE TIME. THIS FACILITY UTILIZES A REMINDER SYSTEM TO ENSURE ALL PATIENTS RECEIVE REMINDER NOTIFICATIONS AT THE APPROPRIATE TIME BASED ON THE RECOMMENDATIONS OF THIS EXAM. THIS INCLUDES REMINDERS FOR ROUTINE SCREENING MAMMOGRAMS, DIAGNOSTIC MAMMOGRAMS IN WHICH THE PATIENT IS ASKED TO RETURN FOR ADDITIONAL VIEWS, OR OTHER BREAST IMAGING INTERVENTIONS WHEN APPROPRIATE. THE PATIENT WILL BE PLACED IN THE APPROPRIATE REMINDER SYSTEM INCLUDING A REMINDER AT THE APPROPRIATE TIME FOR ANY PENDING ADDITIONAL VIEWS. Ordering Provider: REFERRAL, SELF FINAL REPORT Dictated: 11/02/2023 2:29 pm Paul Hernandez MD Signed (Electronic Signature): 11/02/2023 2:29 pm Signed by: Paul Hernandez MD Transcribed by: CHRISTIAN Technologist: [facility] Assessment: BI-RADS Category 1-Negative Recommendation: Normal interval follow-up Normal [facility] MRI Brain w/ + w/o Contrasto n 10-03-2023 MRI Brain w/ + w/o Contrast Exam Date/Time: 09/28/2023 19:30 EDT Reason for Exam: G35 Report IMPRESSION: NO ACUTE INTRACRANIAL PROCESS IDENTIFIED. STABLE MULTIPLE SCLEROSIS PLAQUES FROM 09/29/2022. EXAM: MRI Brain w/ + w/o Contrast DATE: 09/28/2023 4:36 PM CLINICAL HISTORY: G35. COMPARISON: 09/29/2022 TECHNIQUE: Multiplanar MR imaging of the head was performed before and after intravenous administration of approximately 6.5 mL of Vueway gadolinium contrast. FINDINGS: Acute Change: There is no evidence of restricted diffusion to suggest an acute infarct. Hemorrhage: No evidence of intracranial hemorrhage. Mass Lesion/ Mass Effect: No evidence of an intracranial mass or extra-axial fluid collection. No significant mass effect. There is no abnormal enhancement identified. Chronic Change: Predominantly periventricular supratentorial white matter lesions consistent with multiple sclerosis plaques, not significantly changed from 09/29/2022. Parenchyma: Mild cerebral volume loss, unchanged. Ventricles: Normal caliber and morphology. Skull Base: Hypothalamic and pituitary region are grossly normal. Craniocervical junction is normal. No significant marrow replacement process. Vasculature: Major intracranial arterial structures, and dural venous sinuses show typical flow void, suggesting patency. Other: Paranasal sinuses and mastoid air cells are essentially clear. The orbits are unremarkable. The extracranial soft tissues are unremarkable. Report Ordering Provider: , FINAL REPORT Dictated: 10/03/2023 10:47 am Sekou Blank MD Signed (Electronic Signature): 10/03/2023 10:47 am Signed by: Sekou Blank MD Transcribed by: CHRISTIAN Technologist: SURESH Technical Comments Vueway Contrast amount in ml's: 6.5 Normal Arora [facility] MRI Spine Cervical w/ + w/o Contraston 10-03-2023 MRI Spine Cervical w/ + w/o Contrast Exam Date/Time: 09/28/2023 19:30 EDT Reason for Exam: G35 Report IMPRESSION: INCREASING DEGENERATIVE DISC DISEASE C5-6 FROM 10/20/2020, WITH MILD TO MODERATE CENTRAL SPINAL STENOSIS, LEFT LATERAL RECESS AND NEURAL FORAMINAL NARROWING. STABLE SMALL VAGUE SPINAL CORD LESIONS AT C5-6. NO ABNORMAL ENHANCEMENT OR OTHER SIGNIFICANT CHANGES IDENTIFIED. CLINICAL HISTORY: G35. COMPARISON: 10/20/2020 TECHNIQUE: Multiplanar MR imaging of the cervical spine was performed before and after intravenous administration of approximately 6.5 mL Vueway gadolinium contrast. FINDINGS: The spine is visualized from the craniovertebral junction through the T1-2 level. Alignment: Mild reversal of the normal cervical lordosis with of the lower levels. Bone marrow signal/fracture: Unremarkable. There is no abnormal enhancement identified. Spinal cord: Up to approximately 3 to 4 mm vague increased T2 signal lesions within the spinal cord at the C5-6 levels probably have not significantly changed from the prior study (images 20 and 23 - T2 axial series 10). The remainder of the visualized spinal cord is normal in signal and caliber. There is no abnormal enhancement identified. Paraspinal soft tissues: Paraspinal soft tissues are unremarkable. There is no abnormal enhancement identified. Craniovertebral junction: Visualized posterior fossa structures and craniovertebral junction are unremarkable. C2-3: Mild hypertrophic facet changes. No central spinal stenosis or neural foraminal narrowing. C3-4: Mild hypertrophic facet changes. No central spinal stenosis or neural foraminal narrowing. C4-5: Mild hypertrophic facet changes. No central spinal stenosis or neural foraminal narrowing. C5-6: Moderate posterolateral endplate osteophytosis with associated broad-based disc protrusion, which results in mild to moderate central spinal stenosis, left lateral recess and neural foraminal narrowing. Report C6-7: Small broad-based central to right subarticular disc protrusion, as mild right lateral recess narrowing. C7-T1 and T1-2: Unremarkable. Ordering Provider: , FINAL REPORT Dictated: 10/03/2023 11:00 am Sekou Blank MD Signed (Electronic Signature): 10/03/2023 11:00 am Signed by: Sekou Blank MD Transcribed by: CHRISTIAN Technologist: SURESH Technical Comments Vueway Contrast amount in ml's: 6.5 Normal [facility] MRI Spine Thoracic w/ + w/o Contraston 10-03-2023 MRI Spine Thoracic w/ + w/o Contrast Exam Date/Time: 09/28/2023 19:30 EDT Reason for Exam: G35 Report IMPRESSION: ESSENTIALLY NEGATIVE THORACIC SPINE MRI. EXAM: MRI Spine Thoracic w/ + w/o Contrast DATE: 09/28/2023 4:36 PM CLINICAL HISTORY: G35. COMPARISON: None available. TECHNIQUE: Multiplanar MR imaging of the thoracic spine was performed before and after intravenous administration of approximately 6.5 mm Vueway gadolinium contrast. FINDINGS: The thoracic spinal cord and conus medullaris are normal in caliber, signal, and position. There is no abnormal enhancement identified. Minimal chronic probably developmental anterior wedging of the T11 vertebral body is noted, with a very small central bone island. The remaining vertebral body heights, alignment, intervertebral disc, facet joints, visualized bone marrow signal and paraspinous soft tissues are otherwise unremarkable. Ordering Provider: , FINAL REPORT Dictated: 10/03/2023 11:08 am Sekou Blank MD Signed (Electronic Signature): 10/03/2023 11:08 am Signed by: Sekou Blank MD Transcribed by: CHRISTIAN Technologist: SURESH Technical Comments Vueway Contrast amount in ml's: 6.5 Normal [facility] CHEMISTRYOrdered By: SYSTEM SYSTEM on 09-28-2023 eGFR 108 mL/min/1.73 m2 Normal >=59mL/mi n /1.73 m2 Rem[facility] Chem Estimated glomerular filtrat ion rate (GFR) non- Americanon 09-28-2023 GFR/1.73 sq M.predicted among non-blacks MDRD (S/P/Bld) [Vol rate/Area] 108 mL/min/1.73 m2 >=59 [facility] Laboratory - Chemistry and C hemistry - challengeOrdered By: SYSTEM SYSTEM on 09-28-2023 Creatinine [Mass/Vol] 0.7 mg/dL 0.5-1.3 Rem isol Chem eGFRon 09-28-2023 eGFR 108 mL/min/1.73 m2 Normal >=59 [facility] Comment on above: Order Comment: Order added by Discern Expert. Performed By: #### 1 [id number] #### [facility] [address] [place] [address] Tatyana 08-03-2023 ALT No additional P-5'-P [Catalytic activity/Vol] 22 Int._Unit/L Normal 6-46 [facility] Comment on above: Performed By: #### 2 [id number] #### [facility] [address] [place] [address] Shira 08-03-2023 AST [Catalytic activity/Vol] 19 Int._Unit/L Normal 5-43 [facility] Comment on above: Performed By: #### 2 [id number] #### [facility] [address] [place] [address] CHEMISTRYOrdered By: SYSTEM SYSTEM on 08-03-2023 ALT No additional P-5'-P [Catalytic activity/Vol] 22 [iU]/d Normal 6 - 46 Int._Unit/ L [facility] Chem AST [Catalytic activity/Vol] 19 [iU]/d Normal 5 - 43 Int._Unit/ L [facility] Cholesterol [Mass/Vol] 90 mg/dL Low 120 - 200 mg/dL [facility] Cholesterol in HDL [Mass/Vol] 29 mg/dL Invalid Interpretation Code [facility] Comment on above: Result Comment: '>= 60 LOW RISK' '<= 40 HIGH RISK' Cholesterol in LDL [Mass/Vol] 43 mg/dL Normal <=129mg/dL [facility] Cholesterol in VLDL [Mass/Vol] 23 mg/dL Normal 7 - 40 mg/dL [facility] Triglyceride [Mass/Vol] 117 mg/dL Normal <=149mg/dL R emisol Chem Laboratory - Chemistry and C hemistry - challengeOrdered By: SYSTEM SYSTEM on 08-03-2023 TSH Qn 1.39 m[IU]/L 0.34-5.60 [facility] Chem Lipid Panelon 08-03-2023 Cholesterol [Mass/Vol] 90 mg/dL Low 120-200 Fi [facility] Comment on above: Performed By: #### 2 [id number] #### [facility] [address] [place] [address] Cholesterol in HDL [Mass/Vol] 29 mg/dL Invalid Interpretation Code [facility] Comment on above: Result Comment: '>= 60 LOW RISK' '<= 40 HIGH RISK' Performed By: #### 2 [id number] #### [facility] [address] [place] [address] Cholesterol in LDL [Mass/Vol] 43 mg/dL Normal <=129 [facility] Comment on above: Performed By: #### 2 [id number] #### [facility] [address] [place] [address] Cholesterol in VLDL [Mass/Vol] 23 mg/dL Normal 7-40 [facility] Comment on above: Performed By: #### 2 [id number] #### [facility] [address] [place] [address] Triglyceride [Mass/Vol] 117 mg/dL Normal <=149 [facility] Comment on above: Performed By: #### 2 [id number] #### [facility] [address] [place] [address] Nurse Consultation Noteon Nurse Consultation Note Reason for Visit Lab Draw Assessment/Plan 1. High cholesterol (E78.00: Pure hypercholesterolemia, unspecified) Medications Acidophilus Probiotic Blend, 1 cap(s), Oral, Daily Albuterol (Eqv-ProAir HFA), 2 puff(s), Inhalation, q6hr, PRN, Not taking alprazolam 1 mg Tab, 1 mg= 1 tab(s), Oral, q6hr, PRN atorvastatin 10 mg Tab, 10 mg= 1 tab(s), Oral, Daily carvedilol 25 mg Tab, 25 mg= 1 tab(s), Oral, BID Compazine 10 mg oral tablet, 10 mg= 1 tab(s), Oral, TID, PRN ergocalciferol 50,000 intl units Cap, 41137 International_Unit= 1 cap(s), Oral, Sunday famotidine 20 mg Tab, 20 mg= 1 tab(s), Oral, Daily fenofibrate 145 mg Tab, 145 mg= 1 tab(s), Oral, Daily Humalog, SubCutaneous, TIDAC losartan 100 mg Tab, 0.5 tab, Oral, Daily MetFORMIN (Eqv-Glucophage XR) 500 mg oral tablet, extended release, 1000 mg= 2 tab(s), Oral, BID Mirena 52 mg intrauteral device, 52 mg= 1 EA, IntraUteral, Once Ocrevus, 300 mg, IntraVesical, q6mo paroxetine 20 mg Tab, 20 mg= 1 tab(s), Oral, Daily semaglutide 3 mg oral tablet, 3 mg= 1 tab(s), Oral, Daily Semglee (Prefilled Pen) 100 units/mL subcutaneous solution, 50 unit(s), SubCutaneous, Bedtime Sodium Chloride 0.9% IV Suha 100 mL 100 mL, 100 mL, IV Sodium Chloride 0.9% IV Suha 500 mL 500 mL, 500 mL, IV temazepam 30 mg Cap, 30 mg= 1 cap(s), Oral, Once a day (at bedtime), PRN tiZANidine 4 mg Tab, 4 mg= 1 tab(s), Oral, TID Tradjenta 5 mg oral tablet, 5 mg= 1 tab(s), Oral, Daily Vitamin B-12 1000 mcg/mL injectable solution, 1000 mcg= 1 mL, SubCutaneous, qMonth Allergies Biaxin (Nausea) BuSpar (Anxiety) Demerol (Nausea) Latex (Anaphylaxis) morphine (Nausea) Immunizations Vaccine Date Status Comments SARS-CoV-2 (COVID-19) [id number] 12/27/2021 Given Prophylaxis influenza virus vaccine, inactivated 12/27/2021 Given Prophylaxis SARS-CoV-2 (COVID-19) mRNA-1273 vaccine 01/05/2021 Given influenza virus vaccine, inactivated 12/08/2020 Given Prophylaxis [facility] Physician Orderon 08-03-2023 Physician Order [id number]#1.00TIFF [facility] Physician Order [id number]#1.00TIFF [facility] TSH With T4fr Reflexon 08-02 TSH Qn 1.39 m[IU]/L Normal 0.34-5.60 [facility] Comment on above: Performed By: #### 1 [id number] #### [facility] [address] [place] [address] Physician Orderon 05-21-2023 Physician Order [id number]#1.00TIFF [facility] Consent for Treatmenton 05-03 Consent for Treatment [id number]#1.00TIFF [facility] Physician Orderon 04-30-2023 Physician Order [id number]#1.00TIFF [facility] Physician Orderon 11-20-2022 Physician Order [id number]#1.00CD:1 27 [facility] Consent for Treatmenton 11-03 Consent for Treatment [id number]#1.00CD:12 7 [facility] MA Mamm Screen w/CAD if perf and 3D Bilon 11-15-2022 MA Mamm Screen w/CAD if perf and 3D Heath Exam Date/Time: 11/15/2022 08:14 EDT Reason for Exam: SCREENING Report IMPRESSION: BIRADS 1 NEGATIVE, NORMAL INTERVAL FOLLOW-UP.12 MONTH RECALL. CLINICAL HISTORY: SCREENING. COMPARISON: 11/18/2021. COMMENT: Routine views and tomosynthesis views of both breasts were obtained. There are scattered areas of fibroglandular density. No dominant breast mass nor neoplastic calcifications are identified in either breast. There has been no significant change from the previous exam. The examination was reviewed with Computer Aided Detection. Breast Density: No Mammography is very important to your health. The current [employer] and National [employer] guidelines recommends annual mammography beginning at age 40. This facility utilizes a reminder system to ensure all patients receive reminder notifications at the appropriate time based on the recommendations of this exam. Board Certified Radiologists. Accredited by the ACR and FDA. Ordering Provider: REFERRAL, SELF FINAL REPORT Dictated: 11/15/2022 1:15 pm Kirk Pacheco M.D. Signed (Electronic Signature): 11/15/2022 1:15 pm Signed by: Kirk Pacheco M.D. Transcribed by: CHRISTIAN Technologist: BRIDGETT Assessment: BI-RADS Category 1-Negative Recommendation: Normal interval follow-up [facility] Insurance Correspondenceon 0 11-01-2022 Insurance Correspondence [id number]#1.00CD:1 27 [facility] Physician Orderon 11-01-2022 Physician Order [id number]#1.00CD:1 27 [facility] CHEMISTRYOrdered By: SYSTEM SYSTEM on 10-09-2022 Cholesterol [Mass/Vol] 289 mg/dL High 120 - 200 mg/dL [facility] Remisol Cholesterol in HDL [Mass/Vol] 36 mg/dL Invalid Interpretation Code [facility] Remisol Cholesterol in LDL [Mass/Vol] 209 mg/dL High <=129mg/dL [facility] Remisol Cholesterol in VLDL [Mass/Vol] 58 mg/dL High 7 - 40 mg/dL [facility] Remisol Triglyceride [Mass/Vol] 290 mg/dL High <=149mg/dL [facility] Remisol CHEMISTRYOrdered By: Krystin Licona on 10-09-2022 HbA1c (Bld) [Mass fraction] 6.8 % High <=5.9% [facility]SS Consent for Treatmenton Consent for Treatment [id number]#1.00CD:12 7 Normal [facility] [id number] 10-09-2022 HbA1c (Bld) [Mass fraction] 6.8 % High <=5.9 [facility] Comment on above: Performed By: #### 7 [id number] ####[facility] [id number] [place] [address] Lipid Panelon 10-09-2022 Cholesterol [Mass/Vol] 289 mg/dL High 120-200 [facility] Comment on above: Performed By: #### 7 [id number], [id number] ####[facility] [address] [place] [address] Cholesterol in HDL [Mass/Vol] 36 mg/dL Invalid Interpretation Code [facility] Comment on above: Result Comment: HDL > or equal to 60 mg/dL: Low cardiovascular risk HDL < 40 mg/dL : High cardiovascular risk Performed By: #### 7 [id number], [id number] ####[facility] [address] [place] [address] Cholesterol in LDL [Mass/Vol] 209 mg/dL High <=129 [facility] Comment on above: Performed By: #### 7 [id number], [id number] ####[facility] [address] [place] [place] [address] Cholesterol in VLDL [Mass/Vol] 58 mg/dL High 7-40 [facility] Comment on above: Performed By: #### 7 [id number], [id number] ####[facility] [address] [place] [place] [address] Triglyceride [Mass/Vol] 290 mg/dL High <=149 [facility] Comment on above: Performed By: #### 7 [id number], [id number] ####[facility] [address] [place] [address] Physician Orderon 10-09-2022 Physician Order [id number]:1 27 Normal [facility] MRA Head w/o Contraston 09-04 MRA Head w/o Contrast Exam Date/Time: 09/29/2022 13:21 EDT Reason for Exam: G35, H53.9 Report IMPRESSION: FINDINGS CONSISTENT WITH DEVELOPMENTAL ASYMMETRY IN SIZE OF SOME OF THE INTRACRANIAL ARTERIES. CLINICAL HISTORY: G35, H53.9. History of MS. Loss of peripheral vision. COMMENT: Unenhanced images were obtained. The distal vertebral arteries bilaterally, the basilar artery, and superior cerebellar arteries bilaterally are unremarkable. The P1 segment of the right posterior cerebral artery is a small diameter vessel, but is patent. Blood supply to the P2 segment of the right posterior cerebral artery also appears to be from the anterior circulation via the right posterior communicating artery. The left posterior cerebral artery is unremarkable. The distal internal carotid arteries bilaterally are unremarkable. The A1 segment of the right anterior cerebral artery is quite small, with some but limited flow demonstrated. The A1 segment of the left anterior cerebral artery is a moderately large vessel and supplies A2 segments of left and right anterior cerebral arteries (the right via the anterior communicating artery). More peripheral anterior cerebral artery branches bilaterally are unremarkable. Visualized central portions of right and left middle cerebral arteries are unremarkable. Other than the developmental variants, the intracranial arteries are unremarkable, without significant stenosis, occlusion, or aneurysm. Ordering Provider: , FINAL REPORT Dictated: 10/02/2022 4:18 pm Kirk Pacheco M.D. Signed (Electronic Signature): 10/02/2022 4:18 pm Signed by: Kirk Pacheco M.D. Transcribed by: CHRISTIAN Technologist: LARRY Technical Comments None Normal [facility] MRA Neck w/o Contraston 09-04 MRA Neck w/o Contrast Exam Date/Time: 09/29/2022 13:21 EDT Reason for Exam: G35, H53.9 Report IMPRESSION: NEGATIVE MRA NECK STUDY. CLINICAL HISTORY: G35, H53.9. COMMENT: Unenhanced images were obtained. The proximal portions of the common carotid arteries and vertebral arteries in the upper chest are not adequately assessed on this study. The common carotid arteries, carotid bifurcations, and internal and external carotid arteries bilaterally in the neck are normal in appearance. The visualized portions of both vertebral arteries in the neck are normal in appearance. No significant stenosis, no occlusion, nor dissection is evident. Estimation of carotid stenosis is based on NASCET criteria. Ordering Provider: , FINAL REPORT Dictated: 10/02/2022 4:25 pm Kirk Pacheco M.D. Signed (Electronic Signature): 10/02/2022 4:25 pm Signed by: Kirk Pacheco M.D. Transcribed by: CHRISTIAN Technologist: LARRY Technical Comments None Normal [facility] MRI Brain w/ + w/o Contrasto n 10-02-2022 MRI Brain w/ + w/o Contrast Exam Date/Time: 09/29/2022 13:21 EDT Reason for Exam: G35, H53.9 Report IMPRESSION: SIGNAL INTENSITY CHANGES CONSISTENT WITH THE CLINICAL HISTORY OF MULTIPLE SCLEROSIS. NO SIGNIFICANT CHANGE IS NOTED WHEN COMPARED TO THE PRIOR EXAM. CLINICAL HISTORY: G35, H53.9. History of MS. Loss of peripheral vision. COMPARISON: 12/09/2021. COMMENT: Unenhanced and intravenous contrast enhanced images were obtained. The lateral ventricles, sylvian fissures, and cortical sulci bilaterally are mildly dilated. There is no mass effect nor midline shift. On T2 weighted and FLAIR images, there are areas of abnormal signal intensity (mainly increased signal intensity) involving cerebral white matter bilaterally, including focal areas of increased signal intensity of periventricular right matter oriented perpendicular to long axes of the lateral ventricles. No contrast-enhancing lesion nor abnormal contrast enhancement within the brain is noted. There is no evidence of recent infarction on the diffusion weighted images. No mass lesion is evident. There has been no significant change when compared to the prior exam. Ordering Provider: , FINAL REPORT Dictated: 10/02/2022 4:06 pm Kirk Pacheco M.D. Signed (Electronic Signature): 10/02/2022 4:06 pm Signed by: Kirk Pacheco M.D. Transcribed by: CHRISTIAN Technologist: LARRY Technical Comments MultiHance Contrast amount in ml's: 17 Normal [facility] Consent for Treatmenton 09-03 Consent for Treatment [id number]#1.00CD:12 7 Normal [facility] Creatinineon 09-29-2022 Creatinine [Mass/Vol] 0.6 mg/dL Normal 0.5-1.3 [facility] Comment on above: Performed By: #### 1 [id number], [id number] ####[facility] [address] [place] [address] RAD - MRI Screening Formon 0 09-29-2022 RAD - MRI Screening Form [id number]#1.00CD:1 27 Normal [facility] eGFRon 09-29-2022 GFR/1.73 sq M.predicted among non-blacks MDRD (S/P/Bld) [Vol rate/Area] 113 mL/min/1.73 m2 Normal >=59 [facility] Comment on above: Order Comment: Order added by Discern Expert. Result Comment: Manager Intranet yisel kidney disease could be indicated at eGFR's of less than 60 mL/min/1.73m2. Kidney failure is indicated at less than 15 mL/min/1.73m2. Performed By: #### 1 [id number], [id number] ####[facility] [address] [place] [address] Physician Orderon 09-25-2022 Physician Order [id number]#1.00CD:12 7 Normal [facility] Physician Order [id number]#1.00CD:12 7 Normal [facility] Physician Order [id number]#1.00CD:12 7 [facility] Consent for Treatmenton 08-04 Consent for Treatment [id number]#[id number]:12 7 Normal [facility] No Panel Informationon 08-30 Normal [facility] Heart-Sandu alok 250 DO Work Phone: PAP ACOG PANEL 2: 30 to 65on 02-07-2022 . . Normal [facility] Comment on above: Result Comment: Perf ormed at: WB Performed By: #### 4 [id number] #### [facility] [address] [place] [address] Dr. Katharine Cruz Age Gdln ACOG Testing 30-65 Normal [facility] Comment on above: Performed By: #### 4 [id number] #### [facility] [address] [place] [address] Dr. Katharine Cruz DIAGNOSIS: Comment Normal [facility] Comment on above: Result Comment: NEGA TIVE FOR INTRAEPITHELIAL LESION OR MALIGNANCY. Performed at: WB Performed By: #### 4 [id number] #### [facility] [address] [place] [address] Dr. Katharine Cruz HPV Aptima Negative Normal Negative [facility] Comment on above: Result Comment: This nucleic acid amplification test detects fourteen high-risk HPV types (16,18,31,33,35,39,45,51,52,56,58,59,66,68) without differentiation. Performed at: =G Performed By: #### 4 [id number] #### [facility] [address] [place] [address] Dr. Katharine Cruz HPV Genotype Reflex Comment Normal [facility] Comment on above: Result Comment: Crit eria not met, HPV Genotype not performed. Performed at: WB Performed By: #### 4 [id number] #### [facility] [address] [place] [address] Dr. Katharine Cruz Methodology: Comment [facility] Comment on above: Result Comment: This liquid based ThinPrep(R) pap test was screened with the use of an image guided system. Performed at: WB Performed By: #### 4 [id number] #### [facility] [address] [place] [address] Dr. Katharine Cruz Note: Comment Normal [facility] Comment on above: Result Comment: The Pap smear is a screening test designed to aid in the detection of premalignant and malignant conditions of the uterine cervix. It is not a diagnostic procedure and should not be used as the sole means of detecting cervical cancer. Both false-positive and false-negative reports do occur. . Performed at: WB Performed By: #### 4 [id number] #### [facility] [address] [place] [address] Dr. Katharine Cruz Performed by: Comment Normal [facility] Comment on above: Result Comment: Beverly Saenz, Water Tender (ASCP) Performed at: WB Performed By: #### 4 [id number] #### [facility] [address] [id number] [address] Katharine Cruz Specimen adequacy: Comment Normal [facility] Comment on above: Result Comment: Sati sfactory for evaluation. Endocervical and/or squamous metaplastic cells (endocervical component) are present. Performed at: WB Performed By: #### 4 [id number] #### [facility] [address] [address] [address] Katharine Cruz CHEMISTRYOrdered By: SYSTEM SYSTEM on 12-14-2021 Albumin [Mass/Vol] 3.9 g/dL Normal 3.3 - 5.0 gm/dL [facility] Albumin/Globulin [Mass ratio] 1.2 {ratio} Normal 1.1 - 2.2 [facility] ALP [Catalytic activity/Vol] 46 [iU]/d Normal 21 - 98 Int._Unit/ L [facility] ALT No additional P-5'-P [Catalytic activity/Vol] 38 [iU]/d Normal 6 - 46 Int._Unit/ L [facility] Anion gap [Moles/Vol] 18 mmol/L High 6 - 16 mEq/L [facility] AST [Catalytic activity/Vol] 41 [iU]/d Normal 5 - 43 Int._Unit/ L [facility] Bilirubin [Mass/Vol] 0.5 mg/dL Normal 0.0 - 1 .1 mg/dL [facility] Calcium [Mass/Vol] 9.5 mg/dL Normal 8.9 - 11. 1 mg/dL [facility] Chloride [Moles/Vol] 99 mmol/L Low 101 - 1 11 mmol/L [facility] Cholesterol [Mass/Vol] 250 mg/dL High 120 - 200 mg/dL [facility] Cholesterol in HDL [Mass/Vol] 29 mg/dL Invalid Interpretation Code [facility] Cholesterol in LDL [Mass/Vol] 117 mg/dL Normal <=129mg/dL [facility] Cholesterol in VLDL [Mass/Vol] Unable to Calculate mg/dL Invalid Interpretation Code 7 - 40 mg/dL [facility] Comment on above: Result Comment: 'Maggie ble to report. Trig >400 mg/dl' CO2 [Moles/Vol] 25 mmol/L Normal 21 - 31 mmol/L [facility] Creatinine [Mass/Vol] 1.1 mg/dL Normal 0.5 - 1.3 mg/dL [facility] GFR/1.73 sq M.predicted among blacks MDRD (S/P/Bld) [Vol rate/Area] mL/min/1.73 m2 Normal >=59mL/min /1.73 m2 [facility] Chem S GFR/1.73 sq M.predicted among non-blacks MDRD (S/P/Bld) [Vol rate/Area] 54 mL/min/1.73 m2 Low >=59mL/min /1.73 m2 [facility] Chem S Globulin (S) [Mass/Vol] 3.2 g/dL Normal 1.4 - 4.0 gm/dL [facility] Glucose [Mass/Vol] 179 mg/dL Normal 55 - 199 mg/dL [facility] Potassium [Moles/Vol] 3.7 mmol/L Normal 3.5 - 5.3 mmol/L [facility] Protein [Mass/Vol] 7.1 g/dL Normal 6.0 - 7.8 gm/dL [facility] Sodium [Moles/Vol] 138 mmol/L Normal 135 - 145 mmol/L [facility] Triglyceride [Mass/Vol] 838 mg/dL High <=149mg/dL F [facility] TSH Qn 3.44 m[IU]/L Normal 0.34 - 5.60 mcIU/mL [facility] Urea nitrogen [Mass/Vol] 18 mg/dL Normal 5 - 21 mg/dL [facility] Urea nitrogen/Creatinine [Mass ratio] 16 mg/mg Normal 10 - 20 [facility] CHEMISTRYOrdered By: Beto Kelley on 12-14-2021 HbA1c (Bld) [Mass fraction] 9.6 % High <=5.9% [facility] HEMATOLOGYOrdered By: SYSTEM SYSTEM on 12-14-2021 Basophils/100 WBC (Bld) 1.2 % Normal 0.0 - 2.0 % [facility] Basophils/Leukocytes Auto (Bld) [Pure # fraction] 0.1 E9/L Normal 0.0 - 0.2 E9/L [facility] Eosinophils/100 WBC (Bld) 4.5 % Normal 0.0 - 8.0 % [facility] Eosinophils/Leukocytes Auto (Bld) [Pure # fraction] 0.4 E9/L Normal 0.0 - 0.5 E9/L [facility] Lymphocytes/100 WBC (Bld) 12.5 % Low 14.0 - 50.0 % [facility] Lymphocytes/Leukocytes Auto (Bld) [Pure # fraction] 1.0 E9/L Normal 1.0 - 4.0 E9/L [facility] Monocytes/100 WBC (Bld) 5.0 % Normal 4.0 - 14.0 % [facility] Monocytes/Leukocytes Auto (Bld) [Pure # fraction] 0.4 E9/L Normal 0.2 - 1.0 E9/L [facility] Neutrophils/100 WBC (Bld) 76.8 % High 36.0 - 75.0 % [facility] Neutrophils/Leukocytes Auto (Bld) [Pure # fraction] 6.1 E9/L Normal 2.0 - 7.5 E9/L [facility] HEMATOLOGYOrdered By: Sisi Hill on 12-14-2021 Erythrocyte distribution width (RBC) [Ratio] 15.5 % High 10.9 - 14.2 % [facility] Hematocrit (Bld) [Volume fraction] 33.3 % Low 34.0 - 46.0 % [facility] Hemoglobin (Bld) [Mass/Vol] 10.9 g/dL Low 12.0 - 16.0 gm/dL [facility] MCH (RBC) [Entitic mass] 23.4 pg Low 27. 0 - 34.0 pg [facility] MCHC (RBC) [Mass/Vol] 32.7 g/dL Normal 31.4 - 36.0 gm/dL [facility] MCV (RBC) [Entitic vol] 71.6 fL Low 80.0 - 100.0 fL [facility] Microcytes Ql (Bld) Present (12/14/21 6:33 AM) Normal [facility] Morphology Cl (Bld) [Interp] See Morphology (12/14/21 6:33 AM) Normal [facility] Platelet mean volume (Bld) [Entitic vol] 8.1 fL Normal 6.4 - 10.8 fL [facility] Platelets (Bld) [#/Vol] 394.0 E9/L Normal 150. 0 - 500.0 E9/L [facility] RBC (Bld) [#/Vol] 4.7 E12/L Normal 4.3 - 5.9 E12/L [facility] WBC corrected for nucl RBC Auto (Bld) [#/Vol] 7.9 E9/L Normal 4.0 - 11.0 E9/L [facility] CHEMISTRYOrdered By: SYSTEM SYSTEM on 12-09-2021 Creatinine [Mass/Vol] 1.0 mg/dL Normal 0.5 - 1.3 mg/dL [facility] GFR/1.73 sq M.predicted among blacks MDRD (S/P/Bld) [Vol rate/Area] mL/min/1.73 m2 Normal >=59mL/min /1.73 m2 [facility] Chem S GFR/1.73 sq M.predicted among non-blacks MDRD (S/P/Bld) [Vol rate/Area] 60 mL/min/1.73 m2 Normal >=59mL/min /1.73 m2 [facility] Chem S Urea nitrogen [Mass/Vol] 20 mg/dL Normal 5 - 21 mg/dL [facility] Bacteria identified Anaer cx Nom (Unsp spec)Ordered By: JANETH CHAMPION on 11-03-2021 Anaerobic Culture Prevotella bivia F [facility] Bacteria identified Aer cx N om (Unsp spec)Ordered By: JANETH CHAMPION on 10-20-2021 Aerobic Culture Strep. agalactiae Grp B [facility] ABO and Rh group post transf usion reaction Nom (Bld)Ordered By: JANETH CHAMPION on 10-18-2021 Microscopic observation Gram stain Nom (Unsp spec) [facility] ANTIMICROBIAL SUSCEPT-ANAERO BEon 10-17-2021 FINAL REPORT SEE NOTE Normal [facility] Comment on above: Order Comment: Speci men Type: MICROBIAL ISOLATE Ordering Facility: [facility] Address: [address] [place] [id number] Result Comment: Prev otella bivia Organism identified by client INTERPRETIVE INFORMATION: Anaerobe Susceptibility Panel Units = ug/mL ANAMIC Meropenem 0.12 None Ampicillin/Sulbactam 4/2 None Piperacillin/Tazobactam <=1/4 None Penicillin 32 None Metronidazole 16 None Clindamycin >=32 None Interpretive Information See Note At the present time there are no CLSI guidelines for performance and/or interpretation of susceptibility testing for anaerobes other than Bacteroides fragilis group by the broth microdilution method. Unable to provide interpretation for SARAH values. Susceptibility performed by non-standardized methodology. Interpret results with caution. Performed by [facility], [address] [place] [id number] [email or web address], Steve Connell MD, PHD, Lab. Director Performed By: #### S [facility] #### [facility] CLIA [id number] [address] [place] [address] Aerobic Cultureon 10-17-2021 Aerobic Culture Reason for Exam Folliculitis Vulva ORGANISM: Strep. agalactiae Grp B (O:B) Quantity of Growth Heavy Growth Reason for Exam Folliculitis Vulva ORGANISM: Prevotella bivia (O:PREBIV) Comments Sent to [facility] for Testing Quantity of Growth Moderate Growth Beta lactamase - Positive Identification performed at [facility] Lab Minimum inhibitory concentration (ug/ml) Meropenem 0.12 None Ampicillin/Sulbactam 4/2 None Piperacillin/Tazobactam <=1/4 None Penicillin 32 None Metronidazole 16 None Clindamycin >=32 None Interpretive information: See Note Note: At the present time there are no CLSI guidelines for performance and/or interpretation of susceptibility testing for anaerobes other than Bacteroides fragilis group by the broth microdilution method. Unable to provide interpretation for the SARAH values. Susceptibility performed by non-standardized methology. Interpret results with caution. Testing performed [facility] Reason for Exam Folliculitis Vulva Gram Stain Result 2+ Gram Positive Cocci in Chains 1+ White Blood Cells 1+ Gram Positive Bacilli PERFORMED BY: [facility] [address] [place] [address] PATHOLOGIST CHICKEN PICKER SADIE WILKERSON M.D. Normal [facility] Comment on above: Performed By: #### G S, AERC #### [facility] [address] [place] [address] Bacterial susceptibility hartman el SARAH (Isol)on 10-17-2021 BLACT Positive Normal [facility] Comment on above: Order Comment: Speci men Type: MICROBIAL ISOLATE Ordering Facility: [facility] Address: [address] [place] [address] Performed By: #### 5 0545-3 #### [facility] CLIA [id number] [address] [place] [address] [place] CULTURE, ORGANISM SARAH RESULT [id number] Abnormal [facility] Comment on above: Order Comment: Speci men Type: MICROBIAL ISOLATE Ordering Facility: [facility] Address: [address] [place] [address] Result Comment: Prev otella bivia Performed By: #### 5 0545-3 #### [facility] CLIA [id number] [address] [place] [address] [place] Gram Stainon 10-17-2021 Microscopic observation Gram stain Nom (Unsp spec) Reason for Exam Folliculitis Vulva Gram Stain Result 2+ Gram Positive Cocci in Chains 1+ White Blood Cells 1+ Gram Positive Bacilli PERFORMED BY: [place] [address] PATHOLOGIST CHICKEN PICKER SADIE WILKERSON M.D. [facility] Comment on above: Performed By: #### G S, AERC #### [facility] [address] [place] [address] Microorganism identified Cx Nom (Unsp spec)on 10-17-2021 CULTURE, ORGANISM ID ANAEROBE [id number] Abnormal [facility] Comment on above: Order Comment: Speci men Type: MICROBIAL ISOLATE Ordering Facility: [facility] Address: [address] [place] [address] Result Comment: Prev otella bivia Performed By: #### 1 1475-1 #### [facility] CLIA [id number] [address] [id number] [place] CHEMISTRYOrdered By: Chava styles on 08-04-2021 HbA1c (Bld) [Mass fraction] 12.3 % High <=5.9% [facility] CHEMISTRYOrdered By: SYSTEM SYSTEM on 08-04-2021 Albumin [Mass/Vol] 3.9 g/dL Normal 3.3 - 5.0 gm/dL [facility] Albumin/Globulin [Mass ratio] 1.1 {ratio} Normal 1.1 - 2.2 [facility] ALP [Catalytic activity/Vol] 52 [iU]/d Normal 21 - 98 Int._Unit/ L [facility] ALT No additional P-5'-P [Catalytic activity/Vol] 35 [iU]/d Normal 6 - 46 Int._Unit/ L [facility] Anion gap [Moles/Vol] 14 mmol/L Normal 6 - 16 mEq/L [facility] AST [Catalytic activity/Vol] 37 [iU]/d Normal 5 - 43 Int._Unit/ L [facility] Bilirubin [Mass/Vol] 0.5 mg/dL Normal 0.0 - 1 .1 mg/dL [facility] Calcium [Mass/Vol] 9.2 mg/dL Normal 8.9 - 11. 1 mg/dL [facility] Chloride [Moles/Vol] 98 mmol/L Low 101 - 1 11 mmol/L [facility] CO2 [Moles/Vol] 25 mmol/L Normal 21 - 31 mmol/L [facility] Cobalamin (Vitamin B12) [Mass/Vol] 388 pg/mL Normal 50 - 1500 pg/mL [facility] Creatinine [Mass/Vol] 0.7 mg/dL Normal 0.5 - 1.3 mg/dL [facility] GFR/1.73 sq M.predicted among blacks MDRD (S/P/Bld) [Vol rate/Area] mL/min/1.73 m2 Normal >=59mL/min /1.73 m2 [facility] GFR/1.73 sq M.predicted among non-blacks MDRD (S/P/Bld) [Vol rate/Area] mL/min/1.73 m2 Normal >=59mL/min /1.73 m2 [facility] Chem S Globulin (S) [Mass/Vol] 3.5 g/dL Normal 1.4 - 4.0 gm/dL [facility] Glucose [Mass/Vol] 224 mg/dL High 55 - 199 mg/dL [facility] Potassium [Moles/Vol] 3.7 mmol/L Normal 3.5 - 5.3 mmol/L [facility] Protein [Mass/Vol] 7.4 g/dL Normal 6.0 - 7.8 gm/dL [facility] Sodium [Moles/Vol] 133 mmol/L Low 135 - 145 mmol/L [facility] Urea nitrogen [Mass/Vol] 20 mg/dL Normal 5 - 21 mg/dL [facility] Urea nitrogen/Creatinine [Mass ratio] 29 mg/mg High 10 - 20 [facility] HEMATOLOGYOrdered By: Naila underwood on 08-04-2021 Anisocytosis Ql (Bld) Present (08/04/21 4:42 PM) Normal [facility] Erythrocyte distribution width (RBC) [Ratio] 16.5 % High 10.9 - 14.2 % [facility] Hematocrit (Bld) [Volume fraction] 35.2 % Normal 34.0 - 46.0 % [facility] Hemoglobin (Bld) [Mass/Vol] 11.0 g/dL Low 12.0 - 16.0 gm/dL [facility] Hypochromia Auto Ql (Bld) Present (08/04/21 4:42 PM) Normal [facility] MCH (RBC) [Entitic mass] 22.8 pg Low 27. 0 - 34.0 pg [facility] MCHC (RBC) [Mass/Vol] 31.2 g/dL Low 31.4 - 36.0 gm/dL [facility] MCV (RBC) [Entitic vol] 73.2 fL Low 80.0 - 100.0 fL [facility] Microcytes Ql (Bld) Present (08/04/21 4:42 PM) Normal [facility] Morphology Cl (Bld) [Interp] See Morphology (08/04/21 4:42 PM) Normal [facility] Platelet mean volume (Bld) [Entitic vol] 8.7 fL Normal 6.4 - 10.8 fL [facility] Platelets (Bld) [#/Vol] 358.0 E9/L Normal 150. 0 - 500.0 E9/L [facility] RBC (Bld) [#/Vol] 4.8 E12/L Normal 4.3 - 5.9 E12/L [facility] WBC corrected for nucl RBC Auto (Bld) [#/Vol] 9.7 E9/L Normal 4.0 - 11.0 E9/L [facility] Comment on above: Result Comment: Marino gr reviewed by jlp. HEMATOLOGYOrdered By: SYSTEM SYSTEM on 08-04-2021 Basophils/100 WBC (Bld) 0.8 % Normal 0.0 - 2.0 % [facility] Basophils/Leukocytes Auto (Bld) [Pure # fraction] 0.1 E9/L Normal 0.0 - 0.2 E9/L [facility] Eosinophils/100 WBC (Bld) 5.2 % Normal 0.0 - 8.0 % [facility] Eosinophils/Leukocytes Auto (Bld) [Pure # fraction] 0.5 E9/L Normal 0.0 - 0.5 E9/L [facility] Lymphocytes/100 WBC (Bld) 10.8 % Low 14.0 - 50.0 % [facility] Lymphocytes/Leukocytes Auto (Bld) [Pure # fraction] 1.0 E9/L Normal 1.0 - 4.0 E9/L [facility] Monocytes/100 WBC (Bld) 5.7 % Normal 4.0 - 14.0 % [facility] Monocytes/Leukocytes Auto (Bld) [Pure # fraction] 0.6 E9/L Normal 0.2 - 1.0 E9/L [facility] Neutrophils/100 WBC (Bld) 77.5 % High 36.0 - 75.0 % [facility] Neutrophils/Leukocytes Auto (Bld) [Pure # fraction] 7.5 E9/L Normal 2.0 - 7.5 E9/L [facility] NM PET CT SKULL-MID THIGH WI TH NETSPOT-INITIALon 08-19-[address] SKULL-MID THIGH WITH NETSPOT-INITIAL [facility] Department of Radiology [address] [place] [address] Patient Name: SAMRA LINDER : 1975 Sex: F Age: Race: White Pt. 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 hepatic steatosis 4.963 mCi Ga68 NETSPOT at 11:12 RT AC QUESTION FOR THE RADIOLOGIST: , Appointment Date: 08/19/2018 , Appointment Date: 08/19/2018 , , , Ordering Provider - ZOHAIB DELGADO MD , PROTOCOL: The patient was injected intravenously with 4.963 millicuries of gallium 68-Dotatate. PET scan and CT data was acquired from the base of the skull to the upper thighs approximately 1 hour following tracer administration. Images were reconstructed in orthogonal projections. Multiplanar reformats were utilized. Attenuation corrected images were constructed using CT data. Fused images were reviewed. RADIOPHARMACEUTICAL: FDG/ 4-40 mCi, 4.963 Millicuries, Intravenous COMPARISON: Abdominal MR April 10, 2018 FINDINGS: Physiologic activity is noted in the spleen, adrenals, liver, salivary glands and tract. Activity in the adrenals appears symmetrical. Additional findings on CT include evidence for cholecystectomy. IMPRESSION: Physiologic activity present in both adrenal glands with no unilaterally increased activity to suggest a neuroendocrine tumor. Electronically signed by:Bobbi Henderson. Transcribed by: [email or web address], User Resident: Electronically Signed by: BOBBI HENDERSON @ 08/19/2018 02:19 PM Normal [facility] Comment on above: Order Comment: , Gabriel ointment Date: 08/19/2018 , Appointment Date: 08/19/2018 , , , Ordering Provider - ZOHAIB DELGADO MD , Vital Signs Date Time Vital Sign Value Performing Clinician Facility 01-29-2024 12:34-0500 Body height 157.5 cm [employer] Work Phone: [facility] 01-29-2024 12:34-0500 Body mass index (BMI) [Ratio] 33.47 kg/m2 [employer] Work Phone: [facility] 01-29-2024 12:34-0500 Body weight 83.01 kg [employer] Work Phone: [facility] 01-29-2024 12:34-0500 Diastolic blood pressure 82 mm[Hg] Yaneli Gameyolae PA Work Phone: [facility] 01-29-2024 12:34-0500 Systolic blood pressure 126 mm[Hg] Yaneli Gameyolae PA Work Phone: [phone] [place] [address] 01-18-2024 13:32-0500 Blood Pressure Location Kiah Rodriguez [facility] 01-18-2024 13:32-0500 Body temperature 97.34 [degF] Kiah Rodriguez [facility] 01-18-2024 13:32-0500 Diastolic blood pressure 93 mm[Hg] Kiah Rodriguez [facility] 01-18-2024 13:32-0500 Heart rate 94 /min Kiah Rodriguez [facility] 01-18-2024 13:32-0500 Mean blood pressure 114 mm[Hg] Kiah Rodriguez [facility] 01-18-2024 13:32-0500 Respiratory rate 16 /min Kiah Rodriguez [facility] 01-18-2024 13:32-0500 SaO2% (BldA) [Mass fraction] 100 % Kiah Rodriguez [facility] 01-18-2024 13:32-0500 Systolic blood pressure 155 mm[Hg] Kiah Rodriguez [facility] 01-14-2024 10:25-0500 Diastolic blood pressure 89 mm[Hg] Fab NILL [facility] 01-14-2024 10:25-0500 Heart rate 92 /min Fab NILL [facility] 01-14-2024 10:25-0500 Respiratory rate 17 /min Fab NILL [facility] 01-14-2024 10:25-0500 SaO2% (BldA) [Mass fraction] 97 % Fab NILL [facility] 01-14-2024 10:25-0500 Systolic blood pressure 125 mm[Hg] Fab NILL [facility] 01-14-2024 10:15-0500 Diastolic blood pressure 92 mm[Hg] Fab NILL [facility] 01-14-2024 10:15-0500 Heart rate 93 /min Fab NILL [facility] 01-14-2024 10:15-0500 Respiratory rate 15 /min Fab NILL [facility] 01-14-2024 10:15-0500 SaO2% (BldA) [Mass fraction] 97 % Fab NILL [facility] 01-14-2024 10:15-0500 Systolic blood pressure 130 mm[Hg] Fab NILL [facility] 01-14-2024 10:00-0500 Diastolic blood pressure 71 mm[Hg] Fab NILL [facility] 01-14-2024 10:00-0500 Heart rate 89 /min Fab NILL [facility] 01-14-2024 10:00-0500 Respiratory rate 16 /min Fab NILL [facility] 01-14-2024 10:00-0500 SaO2% (BldA) [Mass fraction] 96 % Fab NILL [facility] 01-14-2024 10:00-0500 Systolic blood pressure 115 mm[Hg] Fab NILL [facility] 01-14-2024 09:39-0500 Body temperature 97.88 [degF] Fab NILL [facility] 01-11-2024 13:00-0500 Blood Pressure Location Kiah Rodriguez [facility] 01-11-2024 13:00-0500 Body temperature 98.06 [degF] Kiah Rodriguez [facility] 01-11-2024 13:00-0500 Diastolic blood pressure 85 mm[Hg] Kiah Rodriguez [facility] 01-11-2024 13:00-0500 Heart rate 108 /min Kiah Rodriguez [facility] 01-11-2024 13:00-0500 Mean blood pressure 97 mm[Hg] Kiah Rodriguez [facility] 01-11-2024 13:00-0500 Respiratory rate 18 /min Kiah Rodriguez [facility] 01-11-2024 13:00-0500 SaO2% (BldA) [Mass fraction] 100 % Kiah Rodriguez [facility] 01-11-2024 13:00-0500 Systolic blood pressure 122 mm[Hg] Kiah Rodriguez [facility] 01-07-2024 14:25-0500 Blood Pressure Location Fab NILL [facility] 01-07-2024 14:25-0500 Diastolic blood pressure 92 mm[Hg] Fab NILL [facility] 01-07-2024 14:25-0500 Heart rate 111 /min Fab NILL [facility] 01-07-2024 14:25-0500 Respiratory rate 16 /min Fab NILL [facility] 01-07-2024 14:25-0500 Systolic blood pressure 148 mm[Hg] Fab NILL [facility] 01-03-2024 13:17-0400 Body temperature 98.42 [degF] Kiah Rodriguez [facility] 01-03-2024 13:17-0400 Diastolic blood pressure 89 mm[Hg] Kiah Rodriguez [facility] 01-03-2024 13:17-0400 Heart rate 95 /min Kiah Rodriguez [facility] 01-03-2024 13:17-0400 Mean blood pressure 105 mm[Hg] Kiah Rodriguez [facility] 01-03-2024 13:17-0400 Respiratory rate 16 /min Kiah Rodriguez [facility] 01-03-2024 13:17-0400 SaO2% (BldA) [Mass fraction] 97 % Kiah Rodriguez [facility] 01-03-2024 13:17-0400 Systolic blood pressure 136 mm[Hg] Kiah Rodriguez [facility] 12-20-2023 14:54-0400 Body height 157.48 cm [facility] 12-20-2023 14:54-0400 Body mass index (BMI) [Ratio] 33 kg/m2 [facility] 12-20-2023 14:54-0400 Body weight 82.1 kg [facility] 12-20-2023 14:54-0400 Diastolic blood pressure 72 mm[Hg] [facility] 12-20-2023 14:54-0400 Heart rate 109 /min [facility] 12-20-2023 14:54-0400 Systolic blood pressure 113 mm[Hg] [facility] 12-04-2023 11:05-0400 Body height 157.5 cm Yaneli HINES Work Phone: [facility] 12-04-2023 11:05-0400 Body mass index (BMI) [Ratio] 32.19 kg/m2 Yaneli HINES Work Phone: [facility] 12-04-2023 11:05-0400 Body weight 79.83 kg Yaneli Lowe PA Work Phone: [facility] 12-04-2023 11:05-0400 Diastolic blood pressure 88 mm[Hg] Yaneli Lowe PA Work Phone: [facility] 12-04-2023 11:05-0400 Systolic blood pressure 138 mm[Hg] Yaneli Lowe PA Work Phone: [facility] 12-04-2023 08:38-0400 Body height 157.48 cm [facility] 12-04-2023 08:38-0400 Body mass index (BMI) [Ratio] 31.8 kg/m2 [facility] 12-04-2023 08:38-0400 Body weight 78.92 kg [facility] 12-04-2023 08:38-0400 Diastolic blood pressure 85 mm[Hg] [facility] 12-04-2023 08:38-0400 Heart rate 112 /min [facility] 12-04-2023 08:38-0400 Systolic blood pressure 135 mm[Hg] [facility] 11-16-2023 13:23-0400 Heart rate 94 /min YANELI LOWE [facility] 11-16-2023 13:23-0400 SaO2% (BldA) [Mass fraction] 98 % YANELI LOWE [facility] 11-16-2023 13:22-0400 Blood Pressure Location YANELI LOWE [facility] 11-16-2023 13:22-0400 Diastolic blood pressure 76 mm[Hg] YANELI LOWE [facility] 11-16-2023 13:22-0400 Mean blood pressure 91 mm[Hg] YANELI LOWE [facility] 11-16-2023 13:22-0400 Systolic blood pressure 119 mm[Hg] YANELI LOWE [facility] 11-16-2023 13:22-0400 Respiratory rate 16 /min YANELI LOWE [facility] 11-16-2023 12:17-0400 Heart rate 98 /min YANELI LOWE [facility] 11-16-2023 12:17-0400 SaO2% (BldA) [Mass fraction] 96 % YANELI LOWE [facility] 11-16-2023 12:17-0400 Respiratory rate 15 /min YANELI LOWE [facility] 11-16-2023 12:17-0400 Diastolic blood pressure 59 mm[Hg] YANELI LOWE [facility] 11-16-2023 12:17-0400 Mean blood pressure 73 mm[Hg] YANELI LOWE [facility] 11-16-2023 12:17-0400 Systolic blood pressure 101 mm[Hg] YANELI LOWE [facility] 11-16-2023 10:05-0400 Heart rate 109 /min YANELI LOWE [facility] 11-16-2023 10:05-0400 SaO2% (BldA) [Mass fraction] 100 % YANELI LOWE [facility] 11-16-2023 10:05-0400 Respiratory rate 20 /min YANELI LOWE [facility] 11-16-2023 10:04-0400 Body temperature 97.52 [degF] YANELI LOWE [facility] 11-16-2023 10:03-0400 Blood Pressure Location YANELI LOWE [facility] 11-16-2023 10:03-0400 Diastolic blood pressure 76 mm[Hg] YANELI SANTIAGOE [facility] 11-16-2023 10:03-0400 Mean blood pressure 90 mm[Hg] YANELI LOWE [facility] 11-16-2023 10:03-0400 Systolic blood pressure 117 mm[Hg] YANELI LOWE [facility] 09-24-2023 09:28-0400 Body height 157.48 cm [facility] 09-24-2023 09:28-0400 Body mass index (BMI) [Ratio] 29 kg/m2 [facility] 09-24-2023 09:28-0400 Body weight 72.12 kg [facility] 09-24-2023 09:28-0400 Diastolic blood pressure 69 mm[Hg] [facility] 09-24-2023 09:28-0400 Heart rate 103 /min [facility] 09-24-2023 09:28-0400 Systolic blood pressure 101 mm[Hg] [facility] 08-07-2023 15:39-0400 Heart rate 92 /min Emmy Pepper MD Work Phone: [facility] 08-07-2023 15:24-0400 Body height 157.5 cm Emmy Pepper MD Work Phone: [facility] 08-07-2023 15:24-0400 Body mass index (BMI) [Ratio] 30 kg/m2 Emmy Pepper MD Work Phone: [facility] 08-07-2023 15:24-0400 Body weight 74.39 kg Emmy Pepper MD Work Phone: [facility] 08-07-2023 15:24-0400 Diastolic blood pressure 62 mm[Hg] Emmy Pepper MD Work Phone: [facility] 08-07-2023 15:24-0400 Systolic blood pressure 100 mm[Hg] Emmy Pepper MD Work Phone: [facility] 08-04-2023 13:58-0400 Body height 157.48 cm [facility] 08-04-2023 13:58-0400 Body mass index (BMI) [Ratio] 29.8 kg/m2 [facility] 08-04-2023 13:58-0400 Body temperature 98.7 [degF] [facility] 08-04-2023 13:58-0400 Body weight 73.93 kg [facility] 08-04-2023 13:58-0400 Diastolic blood pressure 72 mm[Hg] [facility] 08-04-2023 13:58-0400 Heart rate 102 /min [facility] 08-04-2023 13:58-0400 SaO2% (BldA) [Mass fraction] 99 % [facility] 08-04-2023 13:58-0400 Systolic blood pressure 114 mm[Hg] [facility] 06-25-2023 10:29-0400 Body height 157.48 cm [facility] 06-25-2023 10:29-0400 Body mass index (BMI) [Ratio] 31.1 kg/m2 [facility] 06-25-2023 10:29-0400 Body weight 77.16 kg [facility] 06-25-2023 10:29-0400 Diastolic blood pressure 70 mm[Hg] [facility] 06-25-2023 10:29-0400 Heart rate 88 /min [facility] 06-25-2023 10:29-0400 Systolic blood pressure 107 mm[Hg] [facility] 05-18-2023 12:39-0400 Heart rate 94 /min YANELI ELIZALDE [facility] 05-18-2023 12:39-0400 SaO2% (BldA) [Mass fraction] 100 % YANELI PAMELAE [facility] 05-18-2023 12:39-0400 Diastolic blood pressure 80 mm[Hg] YANELI LOWE [facility] 05-18-2023 12:39-0400 Mean blood pressure 96 mm[Hg] YANELI LOWE [facility] 05-18-2023 12:39-0400 Systolic blood pressure 128 mm[Hg] YANELI LOWE [facility] 05-18-2023 11:37-0400 Heart rate 101 /min YANELI LOWE [facility] 05-18-2023 11:37-0400 SaO2% (BldA) [Mass fraction] 97 % YANELI LOWE [facility] 05-18-2023 11:36-0400 Respiratory rate 16 /min YANELI LOWE [facility] 05-18-2023 11:36-0400 Diastolic blood pressure 81 mm[Hg] YANELI LOWE [facility] 05-18-2023 11:36-0400 Mean blood pressure 96 mm[Hg] YANELI LOWE [facility] 05-18-2023 11:36-0400 Systolic blood pressure 126 mm[Hg] YANELI LOWE [facility] 05-18-2023 09:11-0400 Respiratory rate 20 /min YANELI LOWE [facility] 05-18-2023 09:11-0400 Body temperature 97.88 [degF] YANELI LOWE [facility] 05-18-2023 09:11-0400 Blood Pressure Location YANEIL LOWE [facility] 01-22-2023 14:23-0500 Diastolic blood pressure 86 mm[Hg] Emmy Pepper MD Work Phone: [facility] 01-22-2023 14:23-0500 Systolic blood pressure 120 mm[Hg] Emmy Pepper MD Work Phone: [facility] 01-22-2023 14:05-0500 Body height 157.5 cm Emmy Pepper MD Work Phone: [facility] 01-22-2023 14:05-0500 Body mass index (BMI) [Ratio] 29.26 kg/m2 Emmy Pepper MD Work Phone: [facility] 01-22-2023 14:05-0500 Body weight 72.58 kg Emmy Pepper MD Work Phone: [facility] 01-22-2023 14:05-0500 Heart rate 98 /min Emmy Pepper MD Work Phone: [facility] 11-17-2022 15:40-0400 Heart rate 120 /min YANELI LOWE [facility] 11-17-2022 15:40-0400 SaO2% (BldA) [Mass fraction] 98 % YANELI LOWE [facility] 11-17-2022 15:39-0400 Diastolic blood pressure 66 mm[Hg] YANELI LOWE [facility] 11-17-2022 15:39-0400 Mean blood pressure 78 mm[Hg] YANELI LOWE [facility] 11-17-2022 15:39-0400 Systolic blood pressure 101 mm[Hg] YANELI LOWE [facility] 11-17-2022 10:01-0400 Heart rate 95 /min YANELI LOWE [facility] 11-17-2022 10:01-0400 SaO2% (BldA) [Mass fraction] 99 % YANELI LOWE [facility] 11-17-2022 10:01-0400 Respiratory rate 20 /min YANELI LOWE [facility] 11-17-2022 10:00-0400 Blood Pressure Location YANELI LOWE [facility] 11-17-2022 10:00-0400 Diastolic blood pressure 78 mm[Hg] YANELI LOWE [facility] 11-17-2022 10:00-0400 Mean blood pressure 93 mm[Hg] YANELI LOWE [facility] 11-17-2022 10:00-0400 Systolic blood pressure 124 mm[Hg] YANELI LOWE [facility] 11-17-2022 10:00-0400 Body temperature 97.88 [degF] YANELI LOWE [facility] 10-30-2022 14:00-0400 Body height 157.48 cm Iliana Gonzalez Other [facility] [employer] Other 10-30-2022 14:00-0400 Body mass index (BMI) [Ratio] 31.27 kg/m2 Iliana Gonzalez Other [facility] [employer] Other 10-30-2022 14:00-0400 Body weight 77.57 kg Iliana Gonzalez Other [facility] [employer] Other 10-30-2022 14:00-0400 Diastolic blood pressure 78 mm[Hg] Iliana Gonzalez Other [facility] [employer] Other 10-30-2022 14:00-0400 Systolic blood pressure 122 mm[Hg] Iliana Gonzalez Other [facility] [employer] Other 08-30-2022 00:00-0400 60 1 Iliana Gonzalez Work Phone: [facility] 250 DO Work Phone: Comment on above: [id number] 11-18-2021 14:33-0400 Blood Pressure Location David Maldonadodict [facility] 11-18-2021 14:33-0400 Body temperature 98.24 [degF] David Arapaho [facility] 11-18-2021 14:33-0400 BP/Pulse Patient Position David Arapaho [facility] 11-18-2021 14:33-0400 Diastolic blood pressure 77 mm[Hg] David Arapaho [facility] 11-18-2021 14:33-0400 Heart rate 116 /min David Arapaho [facility] 11-18-2021 14:33-0400 Mean blood pressure 91 mm[Hg] David Arapaho [facility] 11-18-2021 14:33-0400 Respiratory rate 18 /min David Maldonadodict [facility] 11-18-2021 14:33-0400 SaO2% (BldA) [Mass fraction] 95 % David Arapaho [facility] 11-18-2021 14:33-0400 Systolic blood pressure 118 mm[Hg] David Arapaho [facility] 11-18-2021 13:41-0400 Blood Pressure Location David Maldonadodict [facility] 11-18-2021 13:41-0400 Body temperature 97.88 [degF] David Arapaho [facility] 11-18-2021 13:41-0400 BP/Pulse Patient Position David Arapaho [facility] 11-18-2021 13:41-0400 Diastolic blood pressure 61 mm[Hg] David Arapaho [facility] 11-18-2021 13:41-0400 Heart rate 109 /min David Arapaho [facility] 11-18-2021 13:41-0400 Mean blood pressure 73 mm[Hg] David Arapaho [facility] 11-18-2021 13:41-0400 Respiratory rate 18 /min Davidmarya MaldonadoArapaho [facility] 11-18-2021 13:41-0400 SaO2% (BldA) [Mass fraction] 96 % David Arapaho [facility] 11-18-2021 13:41-0400 Systolic blood pressure 95 mm[Hg] David Arapaho [facility] 11-18-2021 12:10-0400 Blood Pressure Location David Maldonadodict [facility] 11-18-2021 12:10-0400 Body temperature 97.7 [degF] David Maldonadodict [facility] 11-18-2021 12:10-0400 BP/Pulse Patient Position Davidmarya MaldonadoArapaho [facility] 11-18-2021 12:10-0400 Diastolic blood pressure 65 mm[Hg] David Maldonadodict [facility] 11-18-2021 12:10-0400 Heart rate 100 /min David Arapaho [facility] 11-18-2021 12:10-0400 Mean blood pressure 77 mm[Hg] David Arapaho [facility] 11-18-2021 12:10-0400 Respiratory rate 18 /min David Maldonadodict [facility] 11-18-2021 12:10-0400 SaO2% (BldA) [Mass fraction] 96 % David Mayo [facility] 11-18-2021 12:10-0400 Systolic blood pressure 100 mm[Hg] David Mayo [facility] 10-17-2021 10:15-0400 Body height 157.48 cm Janeth Limaault Other [employer] Other 10-17-2021 10:15-0400 Body mass index (BMI) [Ratio] 33.83 kg/m2 Janeth Limaault Other [employer] Other 10-17-2021 10:15-0400 Body temperature 98 [degF] Janeth Jaycee Other [employer] Other 10-17-2021 10:15-0400 Body weight 83.92 kg Janeth Champion Other [employer] Other 10-17-2021 10:15-0400 Diastolic blood pressure 80 mm[Hg] Janeth Limaault Other [employer] Other 10-17-2021 10:15-0400 Respiratory rate 18 /min Janeth Jaycee Other [employer] Other 10-17-2021 10:15-0400 SaO2% (BldA) [Mass fraction] 99 % Janeth Jaycee Other [employer] Other 10-17-2021 10:15-0400 Systolic blood pressure 124 mm[Hg] Janeth Jaycee Other [employer] Other 09-02-2021 14:02-0400 Body temperature 98.78 [degF] ILIANA GONZALEZ [facility] 09-02-2021 14:02-0400 Diastolic blood pressure 73 mm[Hg] ILIANA GONZALEZ [facility] 09-02-2021 14:02-0400 Heart rate 100 /min ILIANA GONZALEZ [facility] 09-02-2021 14:02-0400 Mean blood pressure 85 mm[Hg] ILIANA GONZALEZ [facility] 09-02-2021 14:02-0400 Respiratory rate 18 /min ILIANA GONZALEZ [facility] 09-02-2021 14:02-0400 SaO2% (BldA) [Mass fraction] 95 % ILIANA GONZALEZ [facility] 09-02-2021 14:02-0400 Systolic blood pressure 109 mm[Hg] ILIANA GONZALEZ [facility] 09-02-2021 12:52-0400 Blood Pressure Location ILIANA GONZALEZ [facility] 09-02-2021 12:52-0400 Body temperature 98.6 [degF] ILIANA GONZALEZ [facility] 09-02-2021 12:52-0400 BP/Pulse Patient Position ILIANA GONZALEZ [facility] 09-02-2021 12:52-0400 Diastolic blood pressure 78 mm[Hg] ILIANA GONZALEZ [facility] 09-02-2021 12:52-0400 Heart rate 102 /min ILIANA GONZALEZ [facility] 09-02-2021 12:52-0400 Mean blood pressure 91 mm[Hg] ILIANA GONZALEZ [facility] 09-02-2021 12:52-0400 Respiratory rate 18 /min ILIANA LISA [facility] 09-02-2021 12:52-0400 SaO2% (BldA) [Mass fraction] 98 % ILIANA LISA [facility] 09-02-2021 12:52-0400 Systolic blood pressure 118 mm[Hg] ILIANA LISA [facility] Encounters Encounter Date Encounter Type Care Provider Facility Start: 02-09-2024 End: 02-09-2024 ambulatory Kiah Rodriguez Facility[facility] Start: 02-09-2024 End: 02-09-2024 Patient encounter procedure Kiah Rodriguez [facility] Start: 02-05-2024 End: 02-06-2024 Refill Teofilo Payton [facility] Comment on above: Multiple sclerosis ( CMS/HCC) Start: 01-29-2024 End: 01-29-2024 ambulatory YANELI ELIZALDE Not Available Start: 01-29-2024 End: 01-29-2024 Office outpatient visit 15 minutes Yaneli HINES Work Phone: [facility] Comment on above: Anxiety (Primary Dx) ; Multiple sclerosis (CMS/HCC); Visual changes; TISH (obstructive sleep apnea); Insomnia, unspecified type; Memory change Start: 01-23-2024 End: 01-23-2024 ambulatory Fab Everton JADE Facility:[facility] Start: 01-23-2024 End: 01-23-2024 Patient encounter procedure Fab Everton JADE [facility] Start: 01-18-2024 End: 01-18-2024 ambulatory Kiah Rodriguez Facility:[facility] Start: 01-18-2024 End: 01-18-2024 Patient encounter procedure Kiah Rodriguez [facility] Start: 01-14-2024 End: 01-14-2024 ambulatory Fab R NILL Facility:[facility] Start: 01-14-2024 End: 01-14-2024 Patient encounter procedure Fab R NILL [facility] Start: 01-11-2024 End: 01-11-2024 ambulatory Kiah Rodriguez Facility:[facility] Start: 01-11-2024 End: 01-11-2024 Patient encounter procedure Kiah Rodriguez [facility] Start: 01-10-2024 End: 01-10-2024 Ref[address] Teofilo [facility] Comment on above: Multiple sclerosis ( [facility] Start: 01-07-2024 End: 01-07-2024 ambulatory Fab R NILL Facility: [facility] Start: 01-07-2024 End: 01-07-2024 Patient encounter procedure Fab R NILL [facility] Start: 01-03-2024 End: 01-03-2024 ambulatory Kiah Rodriguez Facility[facility] Start: 01-03-2024 End: 01-03-2024 Patient encounter procedure Kiah Rodriguez [facility] Start: 12-28-2023 ambulatory Fab NILL Facility:[facility] Start: 12-28-2023 ambulatory Fab NILL Facility:[facility] Start: 12-27-2023 End: 12-27-2023 Lab Drop off Jarred Argueta [facility] Start: 12-27-2023 End: 12-27-2023 ambulatory Kiah Rodriguez Facility[facility] Karen castrejon Start: 12-21-2023 ambulatory Jarred Argueta Facility:[facility] Start: 12-20-2023 End: 12-20-2023 ambulatory [facility] Work Phone: Start: 12-20-2023 End: 12-20-2023 Patient encounter procedure [facility] Work Phone: Start: 12-10-2023 Non-patient / Non-visit [facility] Work Phone: Start: 12-10-2023 End: 12-10-2023 Lab Drop off ILIANA GONZALEZ [facility] Start: 12-10-2023 End: 12-10-2023 ambulatory Chinyere Domínguez Facility:[facility] Clifton lucía Start: 12-04-2023 End: 12-04-2023 Bamboo flowsheet Yaneli Lowe PA Work Phone: [employer] [address] Start: 12-04-2023 End: 12-04-2023 Bamboo flowsheet Yaneli Lowe PA Work Phone: [employer] [address] Start: 12-04-2023 End: 12-04-2023 Office outpatient visit 25 minutes Yaneli Lowe PA Work Phone: [address] [address] Comment on above: Cervical spondylosis (Primary Dx); Multiple sclerosis (CMS/HCC); Other migraine without status migrainosus, not intractable (CMS/HCC); TISH (obstructive sleep apnea); Anxiety; Syncope, unspecified syncope type Start: 12-04-2023 End: 12-04-2023 ambulatory YANELI LOWE Not Available Start: 12-04-2023 Patient encounter status [facility] Start: 12-04-2023 End: 12-04-2023 ambulatory [facility] Work Phone: Start: 12-04-2023 End: 12-04-2023 Encounter for general adult medical examination without abnormal findings [facility] Start: 12-04-2023 End: 12-04-2023 Patient encounter procedure [facility] Work Phone: Start: 11-16-2023 End: 11-16-2023 ambulatory YANELI ELIZALDE Facility:[facility] Start: 11-16-2023 End: 11-16-2023 Patient encounter procedure YANELI ELIZALDE [facility] Start: 11-01-2023 End: 11-01-2023 ambulatory SELF REFERRAL Facility:[facility] Start: 11-01-2023 End: 11-01-2023 Patient encounter procedure SELF REFERRAL [facility] Start: 10-26-2023 End: 10-26-2023 ambulatory [facility] Work Phone: Start: 10-26-2023 End: 10-26-2023 Patient encounter procedure [facility] Work Phone: Start: 09-28-2023 Non-patient / Non-visit [facility] Work Phone: Start: 09-28-2023 End: 09-28-2023 ambulatory ILIANA GONZALEZ Facility:[facility] Start: 09-28-2023 End: 09-28-2023 Patient encounter procedure ILIANA GONZALEZ [facility] Start: 09-27-2023 End: 09-27-2023 ambulatory YANELI LOWE Not Available Start: 09-24-2023 End: 09-24-2023 ambulatory [facility] Work Phone: Start: 09-24-2023 End: 09-24-2023 Patient encounter procedure [facility] Work Phone: Start: 09-18-2023 End: 09-18-2023 ambulatory YANELI LOWE Not Available Start: 08-07-2023 End: 08-07-2023 Office outpatient visit 25 minutes Emmy Pepper MD Work Phone: [facility] Comment on above: Dyslipidemia (Primar y Dx); Hypertension, unspecified type; Inappropriate sinus tachycardia (CMS-HCC); High cholesterol; BMI 30.0-30.9,adult; Former smoker Start: 08-07-2023 End: 08-07-2023 ambulatory [facility] Start: 08-04-2023 End: 08-04-2023 ambulatory [facility] Work Phone: Start: 08-04-2023 End: 08-04-2023 Patient encounter procedure [facility] Work Phone: Start: 08-03-2023 End: 08-03-2023 ambulatory ILIANA GONZALEZ Facility:[facility] Start: 08-03-2023 End: 08-03-2023 Lab Drop off ILIANA GONZALEZ [facility] Start: 08-03-2023 Non-patient / Non-visit [facility] [employer] Work Phone: Start: 08-03-2023 End: 08-03-2023 Lab Drop off [facility] Start: 08-03-2023 End: 08-03-2023 ambulatory JACINDA CHILDS Facility:[facility] Karen castrejon Start: 06-27-2023 End: 06-27-2023 ambulatory YANELI EVAN Not Available Start: 06-25-2023 End: 06-25-2023 ambulatory [facility] Work Phone: Start: 06-25-2023 End: 06-25-2023 Patient encounter procedure [facility] Work Phone: Start: 05-29-2023 End: 05-29-2023 ambulatory Iliana Gonzalez Other [facility] [employer] Other Start: 05-29-2023 Telephone encounter Iliana Gonzalez [facility] Start: 05-18-2023 End: 05-18-2023 ambulatory FLORA ELIZALDE Facility:[facility] Start: 05-18-2023 End: 05-18-2023 Patient encounter procedure YANELI ELIZALDE [facility] Start: 05-02-2023 Non-patient / Non-visit [facility] [employer] Work Phone: Start: 02-28-2023 End: 02-28-2023 ambulatory Iliana Gonzalez Other [employer] Other Start: 02-28-2023 Telephone encounter Iliana Lisa [facility] Start: 02-08-2023 End: 02-08-2023 ambulatory VIJAY SRTEETERZIO Not Available Start: 01-31-2023 End: 01-31-2023 ambulatory Iliana Gonzalez Other [employer] Other Start: 01-31-2023 Telephone encounter Iliana Gonzalez [facility] Start: 01-29-2023 End: 01-29-2023 ambulatory Iliana Lisa Other [employer] Other Start: 01-29-2023 Telephone encounter Iliana Gonzalez [facility] Start: 01-24-2023 End: 01-24-2023 ambulatory Iliana Lias Other [employer] Other Start: 01-24-2023 Telephone encounter Iliana Gonzalez [facility] Start: 01-22-2023 End: 01-22-2023 Office outpatient visit 25 minutes Emmy Pepper MD Work Phone: [facility] Comment on above: Hypertension, unspec ified type (Primary Dx); Inappropriate sinus tachycardia; High cholesterol; Diabetes mellitus type II, non insulin dependent (CMS/HCC); Overweight Start: 01-22-2023 End: 01-22-2023 ambulatory EMMY PEPPER [facility] Start: 01-17-2023 End: 01-17-2023 ambulatory Iliana Gonzalez Other [employer] Other Start: 01-17-2023 Telephone encounter Iliana Gonzalez [facility] Start: 01-12-2023 End: 01-12-2023 ambulatory Iliana Gonzalez Other [employer] Other Start: 01-12-2023 Telephone encounter Iliana Gonzalez [facility] Start: 12-27-2022 End: 12-27-2022 ambulatory Iliana Gonzalez Other [employer] Other Start: 12-27-2022 Telephone encounter Iliana Gonzalez [facility] Start: 12-25-2022 End: 12-25-2022 ambulatory Iliana Gonzalez Other [employer] Other Start: 12-25-2022 Telephone encounter Iliana Gonzalez [facility] Start: 11-28-2022 End: 11-28-2022 ambulatory Iliana Gonzalez Other [employer] Other Start: 11-28-2022 Telephone encounter Iliana Gonzalez [facility] Start: 11-17-2022 End: 11-17-2022 ambulatory FLORA ELIZALDE Facility:[facility] Start: 11-17-2022 End: 11-17-2022 Patient encounter procedure YANELI ELIZALDE [facility] Start: 11-16-2022 End: 11-16-2022 ambulatory Iliana Gonzalez Other [employer] Other Start: 11-16-2022 Telephone encounter Iliana Gonzalez [facility] Start: 11-15-2022 End: 11-15-2022 ambulatory SELF REFERRAL Facility:[facility] Start: 10-30-2022 End: 10-30-2022 ambulatory Iliana Gonzalez Other [employer] Other Start: 10-30-2022 Encounter for genera l adult medical examination without abnormal findings Iliana Gonzalez [facility] Start: 10-30-2022 Periodic preventive med est patient 40-64yrs Iliana Gonzalez [facility] Start: 10-10-2022 End: 10-10-2022 ambulatory Iliana Gonzalez Other [employer] Other Start: 10-10-2022 Telephone encounter Iliana Gonzalez [facility] Start: 10-09-2022 End: 10-09-2022 ambulatory ILIANA GONZALEZ Facility:[facility] Start: 10-09-2022 End: 10-09-2022 Patient encounter procedure ILIANA GONZALEZ [facility] Start: 09-29-2022 End: 09-29-2022 ambulatory FLORA ELIZALDE Facility:[facility] Start: 09-20-2022 End: 09-20-2022 ambulatory Iliana Gonzalez Other [employer] Other Start: 09-20-2022 Telephone encounter Iliana Gonzalez [facility] Start: 08-31-2022 Chart Update Iliana Gonzalez Work Phone: [facility] [address] DO Work Phone: Start: 08-30-2022 ambulatory MD ILIANA GONZALEZ Facility: Start: 08-30-2022 End: 08-30-2022 ambulatory Emmy Pepper Facility:[facility] Start: 08-01-2022 End: 08-01-2022 ambulatory Iliana Gonzalez Other [employer] Other Start: 08-01-2022 Telephone encounter Iliana Gonzalez [facility] Start: 07-26-2022 ambulatory MD ILIANA GONZALEZ Facility: Start: 07-26-2022 Office consultation new/estab patient 60 min Iliana Gonzalez Work Phone: [facility] Work Phone: Start: 07-14-2022 End: 07-14-2022 ambulatory Iliana Gonzalez Other [employer] Other Start: 07-14-2022 Telephone encounter Iliana Gonzalez [facility] Start: 07-05-2022 End: 07-05-2022 ambulatory Iliana Gonzalez Other [employer] Other Start: 07-05-2022 Telephone encounter Iliana Gonzalez [facility] Start: 07-03-2022 ambulatory MD ILIANA GONZALEZ Facility:[facility] Start: 06-20-2022 End: 06-20-2022 ambulatory Iliana Gonzalez Other [employer] Other Start: 06-20-2022 Telephone encounter Iliana Gonzalez [facility] Start: 06-02-2022 End: 06-02-2022 ambulatory Iliana Gonzalez Other [employer] Other Start: 06-02-2022 Telephone encounter Iliana Gonzalez [facility] Start: 05-29-2022 End: 05-29-2022 ambulatory Iliana Gonzalez Other [employer] Other Start: 05-29-2022 Telephone encounter Iliana Gonzalez [facility] Start: 03-24-2022 End: 03-24-2022 ambulatory Iliana Gonzalez Other [employer] Other Start: 03-24-2022 Telephone encounter Iliana Gonzalez [facility] Start: 01-31-2022 End: 01-31-[address] ILIANA GONZALEZ Facility: Start: 01-24-2022 Adult health examination Keyla Gonzalez Other [employer] Other Start: 01-24-2022 Gynecological examination normal Iliana Gonzalez Other [employer] Other Start: 12-14-2021 End: 12-14-2021 Patient encounter procedure ILIANA GONZALEZ [facility] Start: 12-09-2021 End: 12-09-2021 Patient encounter procedure YANELI ELIZALDE [facility] Start: 11-18-2021 End: 11-18-2021 Patient encounter procedure David Gael [facility] Start: 10-17-2021 End: 10-17-2021 ambulatory Janeth Champion Other [employer] Other Start: 10-17-2021 Office outpatient vi sit 15 minutes Janeth Champion [facility] Start: 10-17-2021 End: 10-17-2021 Departed Referred NAIL MACHINE OPERATOR-C Janeth Champion Work Phone: [facility] [place] Start: 09-02-2021 End: 09-02-2021 Patient encounter procedure ILIANA GONZALEZ [facility] Start: 08-04-2021 End: 08-04-2021 Patient encounter procedure YANELI ELIZALDE [facility] Start: 06-06-2021 End: 09-11-2021 Recurring ILIANA BETH [facility] Procedures Date Procedure Procedure Detail Performing Clinician Start: 01-14-2024 Colonoscopy Yaneli HINES Work Phone: Start: 01-14-2024 Colonoscopy Fab HANSEN Start: 01-14-2024 Esophagogastroduodenoscopy Fab HANSEN Start: 11-20-2023 Alanine aminotransferase [Enzymatic activity/volume] in Serum or Plasma EMMY PEPPER Start: 01-22-2023 Aspartate aminotransferase [Enzymatic activity/volume] in Serum or Plasma EMMY PEPPER Start: 01-22-2023 Lipid panel EMMY PEPPER Start: 01-31-2022 Mammography Emmy Pepper MD Work Phone: Start: 12-15-2013 General examination of patient Iliana Jeny osorio Other Aerobic microbial culture FN P-C Janeth Champion Work Phone: Anaerobic microbial culture NAIL MACHINE OPERATOR-C Janeth Jaycee Work Phone: Cholecystectomy LORENZA Ovalle Colonoscopy Kiah Rodriguez Contraception care education Iliana Gonzalez Other Esophagogastroduodenoscopy Nereida Logannicole Insertion of intraut erine contraceptive device Kiah Rodriguez Insertion of intraut erine contraceptive device Iliana Gonzalez Other Investigation of tra nsfusion reaction NAIL MACHINE OPERATOR-Arnie MercadoJaneth Jaycee Work Phone: Kidney operation Iliana Gr Jeny osorio Work Phone: Comment on above: stent placement and removal; Kidney stone (disorder) PRISCA AGUILAR Comment on above: stent placement stent placement Laparoscopic cholecystectomy Iliana Gonzalez Work Phone: Screening for malign ant neoplasm of breast Iliana Gonzalez Other Total colonoscopy Iliana chen Work Phone: Plan of Treatment Date Care Activity Detail Author Start: 01-13-2034 Screening for malignant neoplasm of colon [facility] Start: 09-04-2027 Zoster Vaccines (1 of 2) Zoster Vaccines (1 of 2) [facility] Start: 05-21-2024 End: 05-21-2024 Patient encounter procedure 05/21/2024 11:00 AM EDT Office Visit [facility] [address] [place] [phone] Yaneli Elizalde PA [address] [place], [place] [id number] [facility] [address] Start: 03-13-2024 End: 03-13-2024 Patient encounter procedure 03/13/2024 10:30 AM EST Office Visit [facility] [address] [place] [phone] Emmy Pepper MD [address] [place] [address] [facility] Start: 02-14-2024 End: 02-14-2024 Patient encounter procedure 02/14/2024 8:30 AM EST Office Visit [facility] [address] [place] [phone] Vijay Medley DO [address] [place] [address] [facility] Start: 01-29-2024 End: 01-29-2024 Patient encounter procedure 01/29/2024 10:00 AM EST Office Visit [facility] [place] [facility] [address] [place] [phone] Yaneli Elizalde PA [address] [place], [facility] [address] Start: 12-04-2023 End: 12-03-2024 CBC W Auto Differential panel - Blood CBC and differential Lab Routine Multiple sclerosis (CMS/HCC) Expected: 12/04/2023 (Approximate), Expires: 12/03/2024 [facility] Work Phone: Comment on above: Expected: 12/04/2023 (Approximate), Expi res: 12/03/2024 Start: 12-04-2023 End: 12-03-2024 Comprehensive metabolic 2000 panel - Serum or Plasma Comprehensive metabolic panel Lab Routine Multiple sclerosis ([facility]) Expected: 12/04/2023 (Approximate), Expires: 12/03/2024 [facility] Comment on above: Expected: 12/04/2023 (Approximate), Expi res: 12/03/2024 Start: 12-04-2023 End: 12-03-2024 Iron + transferrin + TIBC Iron + transferrin + TIBC Lab Routine Multiple sclerosis ([facility]) Expected: 12/04/2023 (Approximate), Expires: 12/03/2024 [facility] Comment on above: Expected: 12/04/2023 (Approximate), Expi res: 12/03/2024 Start: 12-04-2023 End: 12-03-2024 Magnesium [Mass/volume] in Serum or Plasma Magnesium Lab Routine Multiple sclerosis ([facility]) Expected: 12/04/2023 (Approximate), Expires: 12/03/2024 [facility] Comment on above: Expected: 12/04/2023 (Approximate), Expi res: 12/03/2024 Start: 12-04-2023 End: 12-04-2023 Patient encounter procedure 12/04/2023 11:00 AM EDT Office Visit [facility] [address] [place] [phone] Yaneli Elizalde PA [address] [place] [phone] Arrived [facility] Comment on above: Arrived Start: 11-04-2023 Influenza vaccination Influenza Vaccine (#1) [facility] Start: 08-07-2023 End: 08-07-2023 Patient encounter procedure 08/07/2023 10:20 AM EDT Office Visit [facility] [address] [facility] [address] [place] [phone] Emmy Pepper MD [address] [facility] [address] [place] [address] [facility] Start: 06-25-2023 Patient referral [facility] Work Phone: Start: 04-24-2023 End: 01-23-2024 Aspartate aminotransferase [Enzymatic activity/volume] in Serum or Plasma by With P-5'-P Aspartate Aminotransferase Lab Routine High cholesterol Expected: 04/24/2023 (Approximate), Expires: 01/23/2024 [facility] Work Phone: Comment on above: Expected: 04/24/2023 (Approximate), Expi res: 01/23/2024 Start: 04-11-2023 COVID-19 Vaccine () COVID-19 Vaccine () [facility] Start: 03-24-2023 End: 01-23-2024 Alanine aminotransferase [Enzymatic activity/volume] in Serum or Plasma by With P-5'-P [place]ine Aminotransferase Lab Routine High cholesterol Expected: 03/24/2023 (Approximate), Expires: 01/23/2024 [facility] Work Phone: Comment on above: Expected: 03/24/2023 (Approximate), Expi res: 01/23/2024 Start: 03-24-2023 End: 01-23-2024 Lipid 1996 panel - Serum or Plasma Lipid Panel Lab Routine High cholesterol Expected: 03/24/2023 (Approximate), Expires: 01/23/2024 [facility] Service Area Work Phone: Comment on above: Expected: 03/24/2023 (Approximate), Expi res: 01/23/2024 Start: 01-31-2023 Screening for malignant neoplasm of breast Mammogram [facility] Start: 01-24-2023 FUV, Provider: Emmy Pepper, Status: Pen, Time: 9:50 AM FUV, Provider: Emmy Pepper, Status: Pen, Time: 9:[address] Work Phone: Start: 11-03-2022 Influenza vaccination Influenza Vaccine (#1) [facility] Start: 02-21-2022 COVID-19 Vaccine (4 - Moderna series) COVID-19 Vaccine (4 - Moderna series) [facility] Start: 09-04-2007 Screening for malignant neoplasm of cervix [facility] Start: 1998 Screening for malignant neoplasm of cervix [facility] Start: 10-22-1997 DTaP/Tdap/Td Vaccines (2 - Tdap) DTaP/Tdap/Td Vaccines (2 - Tdap) [facility] Start: 1996 Urine screening for protein Diabetes: Urine Protein Screening [facility] Start: 09-04-1995 Hepatitis C screening Hepatitis C Screening [facility] Start: 09-04-1987 Diabetic foot examination Diabetes: Foot Exam [facility] Start: 09-04-1987 Glaucoma screening Diabetes: Retinopathy Screening [facility] Start: 09-04-1983 Pneumococcal Vaccine: Pediatrics (0 to 5 Years) and At-Risk Patients (6 to 64 Years) (1 - PCV) Pneumococcal Vaccine: Pediatrics (0 to 5 Years) and At-Risk Patients (6 to 64 Years) (1 - PCV) [facility] Start: 09-04-1983 Pneumococcal Vaccine: Pediatrics (0 to 5 Years) and At-Risk Patients (6 to 64 Years) (1 of 2 - PCV) Pneumococcal Vaccine: Pediatrics (0 to 5 Years) and At-Risk Patients (6 to 64 Years) (1 of 2 - PCV) [facility] Start: 1977 Hemoglobin A1c measurement Diabetes: Hemoglobin A1C [facility] Start: 1977 HIV screening HIV Screening [facility] Start: 1977 Lipid panel Lipid Panel [facility] Start: 1977 Screening for malignant neoplasm of colon [facility] Start: 1977 Thyroid stimulating hormone measurement TSH Level [facility] Start: 1977 Yearly Adult Physical Yearly Adult Physical [facility] Patient referral [facility] Work Phone: [facility] Immunizations Immunization Date Immunization Notes Care Provider Wilbur donaldson 12-31-2023 influenza virus vaccine, unspecified formulation Kiah Rodriguez [facility] [place] 02-14-2023 influenza virus vaccine, unspecified formulation Yaneli HINES Work Phone: [facility] 12-27-2021 influenza virus vaccine, unspecified formulation ILIANA GONZALEZ [facility] Comment on above: Reason for Medicatio n: Prophylaxis 12-27-2021 influenza, injectabl e, quadrivalent, preservative free Iliana E Gonzalez Work Phone: [place] [address] DO Work Phone: 12-27-2021 Moderna COVID-19 Biv al Booster 50 MCG/0.5ML Intramuscular Suspension Iliana E Gonzalez Work Phone: [facility] Comment on above: Reason for Medicatio n: Prophylaxis 01-05-2021 COVID-19, mRNA, LNP- S, PF, 100 mcg or 50 mcg dose; Translations: [SARS-CoV-2 (COVID-19) mRNA-1273 vaccine] LORENZA AGUILAR [facility] 12-08-2020 influenza, injectabl e, quadrivalent, preservative free Iliana E Gonzalez Work Phone: [place] [address] DO Work Phone: 12-08-2020 influenza virus vaccine, unspecified formulation; Translations: [Fluzone PF Quadrivalent ] LORENZA AGUILAR [facility] Comment on above: Reason for Medicatio n: Prophylaxis Reason for Medicatio n: Prophylaxis 03-29-2020 Moderna COVID-19 Vaccine 100 MCG/0.5ML Intramuscular Suspension Iliana E Gonzalez Work Phone: [facility] 03-01-2020 Moderna COVID-19 Vaccine 100 MCG/0.5ML Intramuscular Suspension Iliana E Gonzalez Work Phone: [facility] 02-23-2020 Hepatitis B vaccine (recombinant), CpG adjuvanted Iliana E Gonzalez Work Phone: [facility] [address] DO Work Phone: 01-22-2020 Hepatitis B vaccine (recombinant), CpG adjuvanted Iliana Gonzalez Work Phone: [facility] 250 DO Work Phone: 12-29-2008 novel [id number], preservative-free, injectable Iliana Gonzalez Work Phone: [facility] [address] DO Work Phone: 11-19-1997 measles, mumps and rubella virus vaccine Iliana Gonzalez Work Phone: [place] [address] DO Work Phone: 10-21-1997 TD(adult) unspecifie d formulation Iliana Gonzalez Work Phone: [place] [address] DO Work Phone: Payers Date Payer Category Payer Private Health Insurance [employer] [id number] 2021 Unknown 2019 Unknown [id number] 1977 Unknown [id number] [id number]. 593 1977 Unknown [id number] 2.16.840.1.689186.3.579.2. 356 1977 Unknown [id number] 2.16.840.1.628698.3.579.2. 356 1977 Unknown [id number] 2.16.840.1.179107.3.579.2. 1977 Unknown [id number] 2.16.840.1.661037.3.579.2 1977 Unknown [id number] 2.16.840.1.557508.3.579.2 1977 Unknown [id number] 2.16.840.1.848145.3.579.2 1977 Unknown [id number] 2.16.840.1.177729.3.579.2 1977 Unknown [id number] 2.16.840.1.969668.3.579.2 1977 Unknown [id number] 2.16.840.1.317584.3.579.2 1977 Unknown [id number] 2.840.1.901333.3.579.2 1977 Unknown [id number] 2.16.840.1.297586.3.579.2 1977 Unknown [id number] 2.16.840.1.231555.3.579.2. 1243 1977 Unknown [id number] 2.16.840.1.626916.3.579.2. 1243 1977 Unknown [id number] 2.16840.1.891885.3.579.2 1975 Unknown [id number] 2.16.840.1.952283.3.579.2 1975 Unknown [id number] 2.16.840.1.208919.3.579.2 1975 Unknown [id number] 2.16.840.1.934101.3.579.2 1975 Unknown [id number] 2.16.840.1.762715.3.579.2 1975 Unknown [id number] 2.16.840.1.698970.3.579.2. 7 1975 Unknown [id number] 2.16.840.1.019654.3.579.2. 1975 Unknown [id number] 2.16.840.1.224149.3.579.2. 1975 Unknown [id number] 2.16.840.1.599474.3.579.2. 1975 Unknown [id number] 2.16.840.1.337984.3.579.2. 1975 Unknown [id number] 2.16.840.1.767440.3.579.2. 1975 Unknown [id number] 2.16.840.1.233780.3.579.2. 1975 Unknown [id number] 2.16.840.1.676647.3.579.2. 1258 1975 Unknown [id number] 2.16.840.1.742221.3.579.2. 1258 1975 Unknown [id number] 2.16.840.1.769068.3.579.2. 1258 1975 Unknown [id number] 2.16.840.1.846287.3.579.2. 1258 1975 Unknown [id number] 2.16.840.1.605902.3.579.2. 1258 1975 Unknown [id number] 2.16.840.1.752122.3.579.2. 1258 1975 Unknown [id number] 2.16.840.1.466291.3.579.2. 7 Self-pay Self Pay [id number] Unknown O [employer] [id number] Social History Date Type Detail Facility [facility] Comment on above: denies denies Start: 01-19-2023 End: 01-29-2024 Sex Assigned At Female [facility] Start: 1975 Sex Assigned At Female F [facility] Tobacco smoking status No Smoking Status Entered [facility] Start: 01-19-2023 End: 01-29-2024 Social alcohol use Social alcohol use -[facility] DO Work Phone: Start: 01-22-2023 End: 01-07-2024 Tobacco smoking status NHIS Ex-smoker [facility] Work Phone: Comment on above: denies History of tobacco use Current smoker [facility] Work Phone: History of tobacco use Cigarette Smoker [facility] Work Phone: Start: 08-10-2022 End: 01-22-2023 Tobacco use and exposure Smokeless tobacco non-user [facility] Work Phone: Start: 01-22-2023 End: 01-29-2024 Alcohol intake Current drinker of alcohol (finding) [facility] Work Phone: Start: 01-19-2023 Alcohol Comment social [facility] Work Phone: Start: 1975 Sex Assigned At Not on file [facility] Work Phone: Start: 01-12-2023 End: 08-07-2023 Exposure to SARS-CoV-2 (event) Not sure [facility] Start: 08-10-2022 Tobacco smoking status NHIS Never smoked tobacco [facility] How often to you hav e a drink containing alcohol? Monthly or less [facility] How many standard drinks containing alcohol do you have on a typical day? 1 or 2 [facility] How often do you hav e 6 or more drinks on 1 occasion? Never [facility] Start: 06-10-2023 Alcohol Comment caffeine: 1-2 cups per day [facility] Tobacco smoking status Never [facility] [place] Comment on above: denies NEGATED: Highlighted row [facility] Medical Equipment Procedure Code Equipment Code Equipment Origin al Text Equipment Identifier Dates Start: 08-15-2021 Functional Status Date Assessment Result Facility 01-23-2024 Functional Status N/A [facility] [place] 01-07-2024 Functional Status N/A [facility] Clinical Notes 08-04-2021 to 02-05-2024 Telephone Encounter - Teofilo Payton MA - 02/05/2024 1:49 PM ESTTelephone Encounter - Teofilo Payton MA - 02/05/2024 1:49 PM EST Note Date & Type Note Facility 02-05-2024 Telephone encounter Note [facility]arrs Reviewed. Due on 02/09/2024 [facility] 02-05-2024 Miscellaneous Notes Oarrs Reviewed. Due on 02/09/2024 documented in this encounter [facility] 01-14-2024 Note Progress Note-Huyen knox Patient: SAMRA LINDER Age: 48 years Sex: Female : 1975 Associated Diagnoses: None Author: Vladimir GOMEZ, Aleks Claudio Postoperative Information Postoperative disposition: Postoperative disposition: To PACU. Optimetrix number: Optimetrix number [id number]. Anesthetic utilized: General. Health Status Allergies: Allergic Reactions (Selected) Severity Not Documented Biaxin- Hives. Demerol- Hives. Latex- Anaphylaxis. Morphine- Hives. Nonallergic Reactions (Selected) Severity Not Documented BuSpar- Anxiety. Physical Examination Vital Signs 01/14/2024 10:25 EST Heart Rate Monitored 92 bpm Respiratory Rate 17 br/min Systolic Blood Pressure 125 mmHg Diastolic Blood Pressure 89 mmHg SpO2 97 % 01/14/2024 10:15 EST Heart Rate Monitored 93 bpm Respiratory Rate 15 br/min Systolic Blood Pressure 130 mmHg Diastolic Blood Pressure 92 mmHg HI SpO2 97 % 01/14/2024 10:00 EST Heart Rate Monitored 89 bpm Respiratory Rate 16 br/min Systolic Blood Pressure 115 mmHg Diastolic Blood Pressure 71 mmHg SpO2 96 % 01/14/2024 9:45 EST Heart Rate Monitored 103 bpm HI Respiratory Rate 17 br/min Systolic Blood Pressure 125 mmHg Diastolic Blood Pressure 77 mmHg SpO2 97 % 01/14/2024 9:39 EST Temperature Temporal Artery 36.6 DegC Heart Rate Monitored 105 bpm HI Respiratory Rate 15 br/min Systolic Blood Pressure 116 mmHg Diastolic Blood Pressure 55 mmHg LOW SpO2 98 % Pain Assessment: Controlled. General: Awake, Appropriate. Respiratory: Adequate air exchange. Cardiovascular: Stable. Neurological Assessment Anesthetic outcome No anesthetic complications noted. Adequate pain relief. Review / Management Condition: Stable. Plan Transfer/Discharge: Transfer/Discharge Discharge when meets criteria ( To home ). [facility] Comment on above: Result Comment: Elec tronically Signed By: Aleks Gilbert MD\.br\Date and Time Signed: 01/14/24 16:07 EST 01-14-2024 Evaluation + Plan note Extrac magdalena from: Title:ANES Post-operative Note---General Author: Aleks Gilbert MD Date:01/14/24 Plan Transfer/Discharge: Transfer/Discharge Discharge when meets criteria ( To home ). Extracted from: Title:ANES Pre-operative Note 2022 Author:Aleks Waldron Date:01/14/24 Plan [employer]esthesiologists (ASA) physical status classification: Class III. Anesthetic Preoperative Plan: Anesthesia General. Future Appointments Appointment Date:01/18/2024 01:30:00 PM Scheduled Provider: Location:.ONCOLOGY Appointment Type:ONC Injectafer (FT) Appointment Date:02/14/2024 03:40:00 PM Scheduled Provider:Kiah Masters Location:.ONCOLOGY Appointment Type:ONC Office Visit 20 (FT) Future Scheduled Tests Laboratory* CBC w/ Auto Diff 02/14/24 * Comprehensive Metabolic Panel 02/14/24 * Ferritin 02/14/24 * Iron Level 02/14/24 * Iron Percent Saturation 02/14/24 * Transferrin 02/14/24 [facility] 11-11-2024 Hospital Discharge instructions Patient Education 01/14/2024 09:43:47 Colonoscopy, Care After Surgery [facility] (CUSTOM) Colonoscopy Care After Surgery Please read the instructions outlined below and refer to this sheet in the next few weeks. These discharge instructions provide you with general information on caring for yourself after you leave thehospital. Your doctor may also give you specific instructions. While your treatment has been planned according to the most current medical practices available, unavoidable complications occasionally occur. If you have any problems or questions after discharge, please call your doctor. ACTIVITY You may resume your regular activity, but move at a slower pace for the next 24 hours. Take frequent rest periods for the next 24 hours. Walking will help get rid of the air and reduce the bloated feeling in your abdomen (belly). No driving for 24 hours (because of the anesthesia (medicine) used during the test). You may shower. Do not sign any important legal documents or operate any machinery for 24 hours (because of the anesthesia used during the test). NUTRITION Drink plenty of fluids. You may resume your normal diet as instructed by your doctor. Begin with a light meal and progress to your normal diet. Heavy or fried foods are harder to digestand may make you feel nauseated (sick to your stomach). Avoid alcoholic beverages for 24 hours or as instructed. MEDICATIONS You may resume your normal medications unless your doctor tells you otherwise. WHAT YOU CAN EXPECT TODAY Some feelings of bloating in the abdomen. Passage of more gas than usual. Spotting of blood in your stool or on the toilet paper. FOLLOW-UP Your doctor will discuss the results of your test with you. SEEK IMMEDIATE MEDICAL ATTENTION IF: There is more than a spotting of blood in your stool. There is abdominal distention (your abdomen is swollen). There is vomiting. You have a temperature over 101.5 F. There is abdominal pain or discomfort that is severe or gets worse throughout the day. 01/14/2024 09:43:43 Endoscopy, Care After Procedure [facility] Endoscopy Care After Procedure Please read the instructions outlined below and refer to this sheet in the next few weeks. These discharge instructions provide you with general information on caring for yourself after you leave thehospital. Your doctor may also give you specific instructions. While your treatment has been planned according to the most current medical practices available, unavoidable complications occasionally occur. If you have any problems or questions after discharge, please call your doctor. ACTIVITY You may resume your regular activity but move at a slower pace for the next 24 hours. Take frequent rest periods for the next 24 hours. Walking will help expel (get rid of) the air and reduce the bloated feeling in your abdomen. No driving for 24 hours (because of the anesthesia (medicine) used during the test). You may shower. Do not sign any important legal documents or operate any machinery for 24 hours (because of the anesthesia used during the test). NUTRITION Drink plenty of fluids. You may resume your normal diet. Begin with a light meal and progress to your normal diet. Avoid alcoholic beverages for 24 hours or as instructed by your caregiver. MEDICATIONS You may resume your normal medications unless your caregiver tells you otherwise. WHAT YOU CAN EXPECT TODAY You may experience abdominal discomfort such as a feeling of fullness or gas pains. FOLLOW-UP Your doctor will discuss the results of your test with you. SEEK IMMEDIATE MEDICAL ATTENTION IF ANY OF THE FOLLOWING OCCUR: Excessive nausea (feeling sick to your stomach) and/or vomiting. Severe abdominal pain and distention (swelling). Trouble swallowing. Temperature over 100 F (37.8 C). Rectal bleeding or vomiting of blood. Document Released: 10/03/2004 Document Re-Released: 08/13/2006 [employer] Patient Information [employer]. 01/14/2024 09:43:38 Gastritis, Adult Gastritis, Adult Gastritis is inflammation of the stomach. There are two kinds of gastritis: Acute gastritis. This kind develops suddenly. Chronic gastritis. This kind is much more common. It develops slowly and lasts for a long time. Gastritis happens when the lining of the stomach becomes weak or gets damaged. Without treatment, gastritis can lead to stomach bleeding and ulcers. What are the causes? This condition may be caused by: An infection. Drinking too much alcohol. Certain medicines. These include steroids, antibiotics, and some xbjz-cwn-oclfgya medicines, such as aspirin or ibuprofen. Having too much acid in the stomach. Having a disease of the stomach. Other causes may include: An allergic reaction. Some cancer treatments (radiation). Smoking cigarettes or the use of products that contain nicotine or tobacco. In some cases, the cause of this condition is not known. What increases the risk? Having a disease of the intestines. Having a disease in which the body's immune system attacks the body (autoimmune disease), such as Crohn's disease. Using aspirin or ibuprofen and other NSAIDs to treat other conditions, such as heart disease or chronic pain. Stress. What are the signs or symptoms? Symptoms of this condition include: Pain or a burning sensation in the upper abdomen. Nausea. Vomiting. An uncomfortable feeling of fullness after eating. Weight loss. Bad breath. Blood in your vomit or stool (feces). In some cases, there are no symptoms. How is this diagnosed? This condition may be diagnosed based on your medical history, a physical exam, and tests. Tests may include: Your medical history and a description of your symptoms. A physical exam. Tests. These can include: ?Blood tests. ?Stool tests. ?A test in which a thin, flexible instrument with a light and a camera is passed down the esophagusand into the stomach (upper endoscopy). ?A test in which a tissue sample is removed to look at it under a microscope (biopsy). How is this treated? This condition may be treated with medicines. The medicines that are used vary depending on the cause of the gastritis. If the condition is caused by a bacterial infection, you may be given antibiotic medicines. If the condition is caused by too much acid in the stomach, you may be given medicines called H2 blockers, proton pump inhibitors, or antacids. Treatment may also involve stopping the use of certain medicines such as aspirin or ibuprofen and other NSAIDs. Follow these instructions at home: Medicines Take lzqv-amq-ifqjndj and prescription medicines only as told by your health care provider. If you were prescribed an antibiotic medicine, take it as told by your health care provider. Do notstop taking the antibiotic even if you start to feel better. Alcohol use Do not drink alcohol if: ?Your health care provider tells you not to drink. ?You are , may be , or are planning to become . If you drink alcohol: ?Limit your use to: ?0 1 drink a day for women. ?0 2 drinks a day for men. ?Know how much alcohol is in your drink. In the [place] one drink equals one 12 oz bottle of beer (355 mL), one 5 oz glass of wine (148 mL), or one 1 oz glass of hard liquor (44 mL). General instructions Eat small, frequent meals instead of large meals. Avoid foods and drinks that make your symptoms worse. Talk with your health care provider about ways to manage stress, such as getting regular exercise or practicing deep breathing, meditation, or yoga. Do not use any products that contain nicotine or tobacco. These products include cigarettes, chewing tobacco, and vaping devices, such as e-cigarettes. If you need help quitting, ask your health careprovider. Drink enough fluid to keep your urine pale yellow. Keep all follow-up visits. This is important. Contact a health care provider if: Your symptoms get worse. Your abdominal pain gets worse. Your symptoms return after treatment. You have a fever. Get help right away if: You vomit blood or a substance that looks like coffee grounds. You have black or dark red stools. You are unable to keep fluids down. These symptoms may represent a serious problem that is an emergency. Do not wait to see if the symptoms will go away. Get medical help right away. Call your local emergency services (911 in the [place] Do not drive yourself to the hospital. Summary Gastritis is inflammation of the lining of the stomach that can occur suddenly (acute) or develop slowly over time (chronic). This condition is diagnosed with a medical history, a physical exam, or tests. This condition may be treated with medicines to treat infection or medicines to reduce the amount of acid in your stomach. Follow your health care provider's instructions about taking medicines, making changes to your diet, and knowing when to call for help. This information is not intended to replace advice given to you by your health care provider. Make sure you discuss any questions you have with your health care provider. Document Revised: 06/25/2021 Document Reviewed: 06/25/2021 [employer] Patient Education 2023 [employer]. Follow Up Care 01/07/2024 15:01:01 With:Fab HANSEN Address: [facility] [address], [address] [place] [id number]- Business (1) When:7 to 10 days [facility] 11-11-2024 NoteColonoscopy Procedure Report Patient: SAMRA LINDER Age: 48 years Sex: Female : 1975 Associated Diagnoses: None Author: Fab HANSEN MD Pre-Procedure Procedure Date 01/14/2024 09:45:00 . Procedure Type: Colonoscopy. Procedure provider Performed by Fab HANSEN MD. Referred by ILIANA GONZALEZ MD. Current history and physical Documented on chart. Colorectal neoplasm risk assessment Average risk. Informed Consent After discussing the rationale, risks and benefits, and alternatives to this procedure, the patient provided signed consent for the procedure. Pre-procedure diagnosis: Iron deficiency anemia, unexplained. ASA Classification: Class III. . Monitoring: See anesthesia record. . Procedure The procedure was performed in the hospital. See anesthesia record for sedation given during procedure. Rectal exam was performed and was normal. The patient was positioned starting in the left lateral decubitus position. Endoscope type used was an adult-size. The endoscope was lubricated then introduced through the anus. The scope was advanced to the cecum verified by photographing the appendiceal orifice, verified by photographing the ileocecal valve. No difficulties encountered during the procedure. The bowel preparation quality was good and was adequate (see polyps greater than or equal to 6 millimeters). The patient tolerated the procedure well. Images Procedure images: [id number] ileocecal valve [id number] ileocecal valve appendiceal orifice . Post-Procedure Complications: none. Estimated blood loss: none. Specimens: none. Devices/ implants: none left in place. Impression and Plan Diagnosis: Anemia, iron deficiency ([id number]-GD D50.9, Discharge, Medical). Course: Progressing as expected. Recommendations: Repeat colonoscopy:: In 10 years. Follow-up:: Await biopsy results in 3-5 days. Diet:: Regular diet. Medication resumption:: Continue current medications. Return to activities:: After 24 hours. Education and Follow-up: Counseled: [facility]Other Comment: Missing Attachment - attachment storage system not supported [id number] Can be viewed in source system Missing Attachment - attachment storage system not supported [id number] Can be viewed in source systemMissing Attachment - attachment storage system not supported [id number] Can be viewed in source systemMissing Attachment - attachment storage system not supported [id number] Can be viewed in source systemMissing Attachment - attachment storage system not supported [id number] Can be viewed in source systemMissing Attachment - attachment storage system not supported [id number] Can be viewed in source [id number] NotePatient Education - Text Colonoscopy Care After Surgery Please read the instructions outlined below and refer to this sheet in the next few weeks. These discharge instructions provide you with general information on caring for yourself after you leave thespital. Your doctor may also give you specific instructions. While your treatment has been planned according to the most current medical practices available, unavoidable complications occasionally occur. If you have any problems or questions after discharge, please call your doctor. ACTIVITY You may resume your regular activity, but move at a slower pace for the next 24 hours. Take frequent rest periods for the next 24 hours. Walking will help get rid of the air and reduce the bloated feeling in your abdomen (belly). No driving for 24 hours (because of the anesthesia (medicine) used during the test). You may shower. Do not sign any important legal documents or operate any machinery for 24 hours (because of the anesthesia used during the test). NUTRITION Drink plenty of fluids. You may resume your normal diet as instructed by your doctor. Begin with a light meal and progress to your normal diet. Heavy or fried foods are harder to digestand may make you feel nauseated (sick to your stomach). Avoid alcoholic beverages for 24 hours or as instructed. MEDICATIONS You may resume your normal medications unless your doctor tells you otherwise. WHAT YOU CAN EXPECT TODAY Some feelings of bloating in the abdomen. Passage of more gas than usual. Spotting of blood in your stool or on the toilet paper. FOLLOW-UP Your doctor will discuss the results of your test with you. SEEK IMMEDIATE MEDICAL ATTENTION IF: There is more than a spotting of blood in your stool. There is abdominal distention (your abdomen is swollen). There is vomiting. You have a temperature over 101.5 F. There is abdominal pain or discomfort that is severe or gets worse throughout the day. Endoscopy Care After Procedure Please read the instructions outlined below and refer to this sheet in the next few weeks. These discharge instructions provide you with general information [facility] Your doctor may also give you specific instructions. While your treatment has been planned according to the most current medical practices available, unavoidable complications occasionally occur. If you have any problems or questions after discharge, please call your doctor. ACTIVITY ??? You may resume your regular activity but move at a slower pace for the next 24 hours. ??? Take frequent rest periods for the next 24 hours. ??? Walking will help expel (get rid of) the air and reduce the bloated feeling in your abdomen. ??? No driving for 24 hours (because of the anesthesia (medicine) used during the test). ??? You may shower. ??? Do not sign any important legal documents or operate any machinery for 24 hours (because of theanesthesia used during the test). NUTRITION ??? Drink plenty of fluids. ??? You may resume your normal diet. ??? Begin with a light meal and progress to your normal diet. ??? Avoid alcoholic beverages for 24 hours or as instructed by your caregiver. MEDICATIONS ??? You may resume your normal medications unless your caregiver tells you otherwise. WHAT YOU CAN EXPECT TODAY ??? You may experience abdominal discomfort such as a feeling of fullness or ???gas??? pains. FOLLOW-UP ??? Your doctor will discuss the results of your test with you. seek immediate medical attention if any of the following occur: ??? Excessive nausea (feeling sick to your stomach) and/or vomiting. ??? Severe abdominal pain and distention (swelling). ??? Trouble swallowing. ??? Temperature over 100 F (37.8??? C). ??? Rectal bleeding or vomiting of blood. Document Released: 10/03/2004 Document Re-Released: 08/13/2006 [employer]??? Patient Information ???2009 [employer]. Infectious Disease Gastritis, Adult Gastritis is inflammation of the stomach. There are two kinds of gastritis: ??? Acute gastritis. This kind develops suddenly. ??? Chronic gastritis. This kind is much more common. It develops slowly and lasts for a long time. Gastritis happens when the lining of the stomach becomes weak or gets damaged. Without treatment, gastritis can lead to stomach bleeding and ulcers. What are the causes? This condition may be caused by: ??? An infection. ??? Drinking too much alcohol. ??? Certain medicines. These include steroids, antibiotics, and some peme-kpi-kcpyjbl medicines, such as aspirin or ibuprofen. ??? Having too much acid in the stomach. ??? Having a disease of the stomach. Other causes may include: ??? An allergic reaction. ??? Some cancer treatments (radiation). ??? Smoking cigarettes or the use of products that contain nicotine or tobacco. In some cases, the cause of this condition is not known. Wha (more content not included)...[facility]11[facility] Note Progress Note-Physician Patient: SAMRA LINDER Age: 48 years Sex: Female : 1975 Associated Diagnoses: None Author: Vladimir GOMEZ, Aleks Claudio Preoperative Information Anesthesia Preop Info: Time patient last ate or drank 01/14/2024 00:00:00. Anesthesia history: Patient history: None. Family history+: None. Informed consent: Signed by patient. Re-evaluation prior to induction: Initial evaluation reviewed: No significant change. Review of Systems Eye Ear/Nose/Mouth/Throat Respiratory: No shortness of breath, No cough. Cardiovascular: Syncope, syncope early 2023; denies cardiac symptoms or hx SVT, No chest pain, No palpitations, No tachycardia. Gastrointestinal: No heartburn. Musculoskeletal Neurologic Health Status Allergies: Allergic Reactions (Selected) Severity Not Documented Biaxin- Hives. Demerol- Hives. Latex- Anaphylaxis. Morphine- Hives. Nonallergic Reactions (Selected) Severity Not Documented BuSpar- Anxiety., Allergies (5) Active Severity Reaction BuSpar Anxiety Latex Anaphylaxis Biaxin Hives morphine Hives Demerol Hives Current medications: (Selected) Inpatient Medications Ordered Lactated Ringers IV Suha 1000 mL 1,000 mL: 1,000 mL, IV, 100 mL/hr, Routine, Start date 01/14/24 9:28:00 EST, 10 hour(s), Total volume (mL): 1,000, 83.6 kg, 1.95, m2 Sodium Chloride 0.9% IV Suha 100 mL 100 mL: 100 mL, IV, 20 mL/hr, Other (see comment), Routine, Start date 05/19/22 9:00:00 EDT, 5 hour(s), Total volume (mL): 100 Sodium Chloride 0.9% IV Suha 1000 mL 1,000 mL: 1,000 mL, IV, 20 mL/hr, Routine, Start date 01/14/24 6:37:00 EST, 50 hour(s), Total volume (mL): 1,000, 83.6 kg, 1.95, m2 Sodium Chloride 0.9% IV Suha 500 mL 500 mL: 500 mL, IV, 500 mL/hr, Routine, Start date 05/19/22 9:00:00 EDT, 1 hour(s), Total volume (mL): 500 Zero Hour: Day of Tx Future Sodium Chloride 0.9% Maintenance (DoT) 100 mL: 100 mL, IV, 20 mL/hr, for 12 hour(s), Stop date 01/19/24 1:29:00 EST, Routine, Start date 01/18/24 13:30:00 EST, 5 hour(s), Total volume (mL): 100, 81.3kg, 1.92, m2, Days 8 Zero Hour: Day of Tx ferric carboxymaltose (DoT): 750 mg = 15 mL, Injection, IV Push, Day of Tx, Routine, Start date 01/18/24, 90 mL/hr, Infuse over 10 minute(s) heparin lock flush 100 units/mL (DoT): 500 unit(s) = 5 mL, Soln-IV, IV Push, REGIMEN As Directed PRN Other (see comment) for 12 hour(s), Stop date 01/19/24 1:29:00 EST, Routine, Start date 01/18/24 13:30:00 EST, 0 Documented Medications Documented Acidophilus Probiotic Blend: 1 cap(s), Oral, Daily, Refill(s) 0, Prophylaxis Albuterol (Eqv-ProAir HFA): 2 puff(s), Inhalation, q6hr Shortness of breath or wheezing Compazine 10 mg oral tablet: 10 mg = 1 tab(s), Oral, TID, PRN Nausea/Vomiting Humalog: SubCutaneous, TIDAC, Blood glucose Januvia 100 mg Tab: 100 mg = 1 tab(s), Oral, Daily, Refills(s) 0 MetFORMIN (Eqv-Glucophage XR) 500 mg oral tablet, extended release: 1,000 mg = 2 tab(s), Oral, BID,Refills(s) 0, High blood sugar Mirena 52 mg intrauteral device: 52 mg = 1 EA, IntraUteral, Once, X 1 dose(s), # 1 EA, Refills(s) 0, control/menstrual regulation Mounjaro: Refills(s) 0 Ocrevus: 300 mg, IntraVesical, q6mo, MS, Other (see comment) Paxil 30 mg Tab: 30 mg = 1 tab(s), Oral, Daily, Refills(s) 0 Semglee (Prefilled Pen) 100 units/mL subcutaneous solution: 50 unit(s), SubCutaneous, Bedtime, Blood glucose Vascepa: = 2 tab(s), Oral, BID, Refills(s) 0 Vitamin B-12 1000 mcg/mL injectable solution: 1,000 mcg = 1 mL, SubCutaneous, qMonth, Prophylaxis alprazolam 1 mg Tab: 1 mg = 1 tab(s), Oral, BID, PRN for anxiety, Refills(s) 0, Anxiety amphetamine-dextroamphetamine 10 mg oral tablet: 10 mg, 1 tab(s), Oral, BID, Refill(s) 0 carvedilol 25 mg Tab: 25 mg = 1 tab(s), Oral, BID, Refills(s) 0, High blood pressure ergocalciferol 50,000 intl units Cap: 50,000 International_Unit = 1 cap(s), Oral, Sunday, Refills(s) 0, Prophylaxis losartan 100 mg Tab: 0.5 tab, Oral, Daily, Refills(s) 0, High blood pressure rosuvastatin 40 mg Tab: 40 mg = 1 tab(s), Oral, Daily, Refills(s) 0 temazepam 30 mg Cap: 30 mg = 1 cap(s), Oral, Once a day (at bedtime), PRN for sleep, Refills(s) 0 tiZANidine 4 mg Tab: 4 mg = 1 tab(s), Oral, TID, Refills(s) 0, Muscle pain, Home Medications (21) Active Acidophilus Probiotic Blend 1 cap(s), Oral, Daily Albuterol (Eqv-ProAir HFA) 2 puff(s), PRN, Inhalation, q6hr alprazolam 1 mg Tab 1 mg = 1 tab(s), PRN, Oral, BID amphetamine-dextroamphetamine 10 mg oral tablet 10 mg = 1 tab(s), Oral, BID carvedilol 25 mg Tab 25 mg = 1 tab(s), Oral, BID Compazine 10 mg oral tablet 10 mg = 1 tab(s), PRN, Oral, TID ergocalciferol 50,000 intl units Cap 50,000 International_Unit = 1 cap(s), Oral, Sunday Humalog , SubCutaneous, TIDAC Januvia 100 mg Tab 100 mg = 1 tab(s), Oral, Daily losartan 100 mg Tab 0.5 tab, Oral, Daily MetFORMIN (Eqv-Glucophage XR) 500 mg oral tablet, extended release 1,000 mg = 2 tab(s (more contentnot included)...[facility] HospitalComment on above: Result Comment: Electronically Signed By: Aleks Gilbert MD\Date and Time Signed: 01/14/24 09:31 [id number] NoteHistory and Physical Patient: SAMRA LINDER Age: 48 years Sex: Female : 1975 Associated Diagnoses: None Author: Fab HANSEN MD Subjective no change to H & PFProtestant HospitalComment on above:Result Comment: Electronically Signed By: Fab HANSEN MD\.jeny\Date and Time Signed: 01/14/24 09:07 [id number] Telephone encounter Note* Telephone Encounter - Teofilo Payton MA - 01/10/2024 10:42 AM EST OARRS Reviewed DUE NOW NOMS [id number] Miscellaneous Notes* Telephone Encounter - Teofilo Payton MA - 01/10/2024 10:42 AM EST OARRS Reviewed DUE NOW documented in this encounterMissouri Southern [id number] NoteGeneral Surgery Office/Clinic Note Chief Complaint consultation for anemia HPI Staff 48 year old female presents on consultation from Dr. Gonzalez for anemia. Labs completed 12/09- H/H 11.2 and 35.8, iron 24. Labs completed 1024- H/H 10.8 and 34.7, Iron 33, Ferritin 6. Patient with normal transferrin, TIBC, B12 and Folate. Previous colonoscopy completed- report could not be found. Denies abdominal or rectal pain. No rectal bleeding or change in bowel habits. Denies nausea or vomiting. No unexplained weight loss. Reports significant fatigue and SOB. History of Present Illness 48 yo female with h/o htn, DMII, hypercholesterolemia, CKD, hypothyroidism, multiple sclerosis, TISH, ADHD, cervical spondylosis, migraines, pernicious anemia, referred for iron deficiency anemia; recent h/h 10.8/34.7, low iron and ferritin; normal B12 and folate; no change in bms or blood in stools, no abd complaints; long h/o intermittent GERD, no dysphagia or early satiety; abd operations significant for cholecystectomy; last colonoscopy over 10 years ago, report unavailable; no asa or NSAID use; no tobacco use; no fmhx of GI malignancy or IBD. Review of Systems PHQ Score Initial Depression Screen Score: 0 SCORE ROS - Provider Constitutional: no fever, no sweats, no weight loss. Eyes: no glasses, no blurred vision, no visual loss. ENMT: no dentures, no hoarseness, no swallowing difficulties, no hearing loss, no ear infection(s),no nose bleeds. Cardiovascular: normal blood pressure, no chest pain, regular heartbeat, no heart murmur. Respiratory: no shortness of breath, no cough, no asthma, no wheezing. Gastrointestinal: no nausea, no vomiting, no diarrhea, no constipation, no blood in stool, no change in bowel habits, no abdominal pain, no hepatitis. Genitourinary: no kidney stones, no urine infection, no dysuria. Musculoskeletal: no pain, no weakness. Skin: no changing moles, no rash, no skin lumps. Neurologic: no seizures, no epilepsy, no headache. Psychiatric: no emotional or psychiatric problem. Heme/Lymph: no bleeding problems, no anemia, no blood clots, no transfusions. Allergy/Immunologic: no swollen lymph nodes/glands, no IV drug abuse. Other: Additional ROS info: Except as noted in the above Review of Systems and in the History of Present Illness, all other systems have been reviewed and are negative or noncontributory. Physical Exam Vitals & Measurements HR: 111(Peripheral) RR: 16 BP: 148/92 HT: 64 in HT: 163 cm WT: 83.6 kg WT: 183.92 lb BMI: 31.47 HEENT: normal conjunctiva, sclera clear, no scleral icterus, EOM intact, PERRLA, oral mucosa moist without lesions. Neck: trachea midline, no mass, symmetric, no thyromegaly or nodules, no adenopathy Respiratory: lungs CTA, respirations non labored. Cardiovascular: regular rate and rhythm, no murmur, no pedal edema or varicosities. Gastrointestinal: obese,soft, non distended, no tenderness, no masses, no palpable hernias, diastasis recti no, no hepatosplenomegaly; normal bs Lymphatic: no cervical adenopathy, no supraclavicular adenopathy. Musculoskeletal: normal gait, digits and nails without infection, nodes, cyanosis, clubbing. Skin: no rashes, no lesions, no ulcers, no subcutaneous nodules, induration. Psychiatric/Neuro: oriented to time, place, person, judgement normal, affect appropriate for age, insight intact, no focal deficits. Tests: labs reviewed,, review of old records completed , Discussed surgical options, risks, and possible complications with patient. Assessment/Plan 1. Iron deficiency anemia, unspecified (D50.9: Iron deficiency anemia, unspecified) plan EGD and colonoscopy under anesthesia for further evaluation, informed consent obtained. 2. Gastroesophageal reflux disease (K21.9: Gastro-esophageal reflux disease without esophagitis) see # 1 Follow-up No qualifying data available Problem List/Past Medical History Ongoing ADHD (attention deficit hyperactivity disorder) BMI 31.0-31.9,adult Cervical spondylosis Chronic kidney disease due to hypertension.. Diabetes Essential hypertension Gastroesophageal reflux disease Hypercholesterolemia Hypertriglyceridemia Hypothyroidism Iron deficiency anemia Mass of left adrenal gland Migraine Mixed anxiety and depressive disorder Multiple sclerosis Obesity due to excess calories Obstructive sleep apnea syndrome Pernicious anemia Supraventricular tachycardia Vitamin D deficiency Historical No qualifying data Procedure/Surgical History Cholecystectomy, Colonoscopy, EGD - esophagogastroduodenoscopy, Insertion of intrauterine contraceptive device, Kidney stone. Medications Acidophilus Probiotic Blend, 1 cap(s), Oral, Daily Albuterol (Eqv-ProAir HFA), 2 puff(s), Inhalation, q6hr, PRN alprazolam 1 mg Tab, 1 mg= 1 tab(s), Oral, BID, PRN amphetamine-dextroamphetamine 10 mg oral tablet, 10 mg= 1 tab(s), Oral, BID carvedilol 25 mg Tab, 25 mg= 1 tab(s), Oral, BID Compazine 10 mg (more content not included)...[facility] HospitalComment on above:Result Comment: Electronically Signed By: JADE GOMEZ, Fab Downey\Date and Time Signed: 01/07/24 15:06 [id number] NoteOncology Progress Note Chief Complaint New pt for iron def, no questions or concerns today. Diagnoses 1. Iron deficiency anemia (D50.9: Iron deficiency anemia, unspecified) 2. Leukocytosis (D72.829: Elevated white blood cell count, unspecified) 3. Malabsorption (K90.9: Intestinal malabsorption, unspecified) Orders: ferric carboxymaltose, 750 mg = 15 mL, Injection, IV Piggyback, Day of Tx, Routine, Start date 01/11/24, 460 mL/hr, Infuse over 15 minute(s), 01/11/24 8:45:00 EST ferric carboxymaltose, 750 mg = 15 mL, Injection, IV Piggyback, Day of Tx, Routine, Start date 01/18/24, 460 mL/hr, Infuse over 15 minute(s), 01/18/24 8:45:00 EST heparin flush, 500 unit(s) = 5 mL, Soln-IV, IV Push, REGIMEN As Directed PRN Other (see comment) for 12 hour(s), Stop date 01/12/24 1:29:00 EST, Routine, Start date 01/11/24 13:30:00 EST, 01/11/24 8:00:00 EST heparin flush, 500 unit(s) = 5 mL, Soln-IV, IV Push, REGIMEN As Directed PRN Other (see comment) for 12 hour(s), Stop date 01/19/24 1:29:00 EST, Routine, Start date 01/18/24 13:30:00 EST, 0, :00:00 EST Sodium Chloride 0.9% intravenous solution 250 mL, 250 mL, IV, 20 mL/hr, for 12 hour(s), Stop date 01/12/24 1:29:00 EST, Routine, Start date 01/11/24 13:30:00 EST, 12.5 hour(s), Total volume (mL): 250, 81.3 kg, 1.92, m2, Days 1 Sodium Chloride 0.9% intravenous solution 250 mL, 250 mL, IV, 20 mL/hr, for 12 hour(s), Stop date 01/19/24 1:29:00 EST, Routine, Start date 01/18/24 13:30:00 EST, 12.5 hour(s), Total volume (mL): 250, 81.3 kg, 1.92, m2, Days 8 Zero Hour, Day of Tx Zero Hour, Day of Tx Adult Chemotherapy Hypersensitivity Management Adult Chemotherapy Hypersensitivity Management Chemo Infusion Visit 60 Minutes Chemo Infusion Visit 60 Minutes Oncological History/ROS/PE/Assessment and Plan Samra is a 48yr old female with a history of ADHD, iron deficiency anemia, cervical spondylosis, CKD, diabetes, essential HTN, GERD, hypercholesterolemia, hypertriglyceridemia, hypothyroidism, leftadrenal gland mass, migraine, anxiety, depression, MS, TISH, pernicious anemia, SVT, and vitamin D deficiency. Surgical history includes cholecystectomy, IUD insertion, and kidney stone surgery. Medications include albuterol, alprazolam, amphetamine-dextroamphetamine, carvedilol, vitamin B12 injections, vitamin D, icosapent, Semglee, Humalog, acidophilus probiotic, Mirena, losartan, metformin, Ocrevus, paroxetine, Compazine, rosuvastatin, Januvia, temazepam, Mounjaro, and tizanidine. She denies any personal history of cancer. Family cancer history includes her father with prostate cancer. She is referred by Dr. Iliana Gonzalez for iron deficiency anemia. Recent labs reveal hemoglobin 10.8 with low MCV and MCH. Wbc count is elevated at 14.6 primarily neutrophils. Platelets WNL. Iron saturation is 6% with ferritin 6. B12 and folate ok. Initial Exam 01/03/24: has a lot of hair thinning is absolutely exhausted, cannot make it thru a day without taking a nap has gained weight again bc she is unable to go workout like she used to hiked 20mi in October, got covid on her trip and then since then really started noticing has dyspnea on exertion. Does get palpitations off and on, which this isn't really new for her and more anxiety related eating and drinking well. Has nausea more days than not, has vomiting maybe a few times per month. This is not new for her. Possibly more related to her anxiety denies s/s of bleeding. Sometimes stools can be loose more related to medications normal MS neuropathies, have not been any worse has occasional headaches, chronic for her she feels like her vision isn't great, but is told her vision is good. Things seem more blurry has muscle cramps, denies any real restless legs used to be hot all of the time, but now is cold quite a bit denies significant bone pain denies fevers, chills, night sweats, or unintentional weight loss craves grapes. Used to eat a lot of ice but cracked a tooth gets Ocrevus every 6 months for her MS, has been on it for about 3yrs now Physical Exam General: No acute distress. Eye: Pupils are equal, round and reactive to light, Normal conjunctiva. HENT: Normocephalic, Normal hearing. Respiratory: Lungs are CTA, Respirations are non-labored, Symmetrical chest wall expansion Cardiovascular: Normal rate and rhythm. No murmurs noted. No edema Gastrointestinal: Soft, Non-tender, Normal bowel sounds, no guarding Neurologic: Alert, Oriented, Normal sensory Cognition and Speech: Oriented, Speech clear and coherent, Functional cognition intact. Psychiatric: Cooperative, Appropriate mood & affect. Integumentary: Warm, Dry, No rash. Impression and Plan Iron deficiency anemia malabsorption intolerable to oral iron supplementation d/t severe nausea and vomiting planning screening endoscopy first week of January B12, folate ok at consult Given her malabsorption and intolerance to oral iron, we will plan to replete with IV iron. Follow-up wi (more content not included)...[facility] NoteNurse Consultation Note Reason for Visit Lab draw Medications Acidophilus Probiotic Blend, 1 cap(s), Oral, Daily Albuterol (Eqv-ProAir HFA), 2 puff(s), Inhalation, q6hr, PRN, Not taking alprazolam 1 mg Tab, 1 mg= 1 tab(s), Oral, q6hr, PRN atorvastatin 10 mg Tab, 10 mg= 1 tab(s), Oral, Daily carvedilol 25 mg Tab, 25 mg= 1 tab(s), Oral, BID Compazine 10 mg oral tablet, 10 mg= 1 tab(s), Oral, TID, PRN ergocalciferol 50,000 intl units Cap, 83408 International_Unit= 1 cap(s), Oral, Sunday famotidine 20 mg Tab, 20 mg= 1 tab(s), Oral, Daily fenofibrate 145 mg Tab, 145 mg= 1 tab(s), Oral, Daily Humalog, SubCutaneous, TIDAC losartan 100 mg Tab, 0.5 tab, Oral, Daily MetFORMIN (Eqv-Glucophage XR) 500 mg oral tablet, extended release, 1000 mg= 2 tab(s), Oral, BID Mirena 52 mg intrauteral device, 52 mg= 1 EA, IntraUteral, Once Ocrevus, 300 mg, IntraVesical, q6mo paroxetine 20 mg Tab, 20 mg= 1 tab(s), Oral, Daily semaglutide 3 mg oral tablet, 3 mg= 1 tab(s), Oral, Daily Semglee (Prefilled Pen) 100 units/mL subcutaneous solution, 50 unit(s), SubCutaneous, Bedtime Sodium Chloride 0.9% IV Suha 100 mL 100 mL, 100 mL, IV Sodium Chloride 0.9% IV Suha 500 mL 500 mL, 500 mL, IV temazepam 30 mg Cap, 30 mg= 1 cap(s), Oral, Once a day (at bedtime), PRN tiZANidine 4 mg Tab, 4 mg= 1 tab(s), Oral, TID Tradjenta 5 mg oral tablet, 5 mg= 1 tab(s), Oral, Daily Vitamin B-12 1000 mcg/mL injectable solution, 1000 mcg= 1 mL, SubCutaneous, qMonth Allergies Biaxin (Nausea) BuSpar (Anxiety) Demerol (Nausea) Latex (Anaphylaxis) morphine (Nausea) Immunizations Vaccine Date Status Comments SARS-CoV-2 (COVID-19) [id number] 12/27/2021 Given Prophylaxis influenza virus vaccine, inactivated 12/27/2021 Given Prophylaxis SARS-CoV-2 (COVID-19) mRNA-1273 vaccine 01/05/2021 Given influenza virus vaccine, inactivated 12/08/2020 [facility] Discharge instructions Follow Up Care 12/26/2023 13:34:24 With:Michael BAINS, Kiah Walker, ONC Address: [facility] [address] [place] [address] [place] [address]- [phone] When: Unknown Comments:IV ironcbc, cmp, iron studies in 6wksfollow-up in 6wks [facility] 10-07-2024 NoteNurse Consultation Note Reason for Visit Pt here for lab draw. Medications Acidophilus Probiotic Blend, 1 cap(s), Oral, Daily Albuterol (Eqv-ProAir HFA), 2 puff(s), Inhalation, q6hr, PRN, Not taking alprazolam 1 mg Tab, 1 mg= 1 tab(s), Oral, q6hr, PRN atorvastatin 10 mg Tab, 10 mg= 1 tab(s), Oral, Daily carvedilol 25 mg Tab, 25 mg= 1 tab(s), Oral, BID Compazine 10 mg oral tablet, 10 mg= 1 tab(s), Oral, TID, PRN ergocalciferol 50,000 intl units Cap, 05602 International_Unit= 1 cap(s), Oral, Sunday famotidine 20 mg Tab, 20 mg= 1 tab(s), Oral, Daily fenofibrate 145 mg Tab, 145 mg= 1 tab(s), Oral, Daily Humalog, SubCutaneous, TIDAC losartan 100 mg Tab, 0.5 tab, Oral, Daily MetFORMIN (Eqv-Glucophage XR) 500 mg oral tablet, extended release, 1000 mg= 2 tab(s), Oral, BID Mirena 52 mg intrauteral device, 52 mg= 1 EA, IntraUteral, Once Ocrevus, 300 mg, IntraVesical, q6mo paroxetine 20 mg Tab, 20 mg= 1 tab(s), Oral, Daily semaglutide 3 mg oral tablet, 3 mg= 1 tab(s), Oral, Daily Semglee (Prefilled Pen) 100 units/mL subcutaneous solution, 50 unit(s), SubCutaneous, Bedtime Sodium Chloride 0.9% IV Suha 100 mL 100 mL, 100 mL, IV Sodium Chloride 0.9% IV Suha 500 mL 500 mL, 500 mL, IV temazepam 30 mg Cap, 30 mg= 1 cap(s), Oral, Once a day (at bedtime), PRN tiZANidine 4 mg Tab, 4 mg= 1 tab(s), Oral, TID Tradjenta 5 mg oral tablet, 5 mg= 1 tab(s), Oral, Daily Vitamin B-12 1000 mcg/mL injectable solution, 1000 mcg= 1 mL, SubCutaneous, qMonth Allergies Biaxin (Nausea) BuSpar (Anxiety) Demerol (Nausea) Latex (Anaphylaxis) morphine (Nausea) Immunizations Vaccine Date Status Comments SARS-CoV-2 (COVID-19) [id number] 12/27/2021 Given Prophylaxis influenza virus vaccine, inactivated 12/27/2021 Given Prophylaxis SARS-CoV-2 (COVID-19) mRNA-1273 vaccine 01/05/2021 Given influenza virus vaccine, inactivated 12/08/2020 [facility]06[facility] History of Present illness Narrative* Emmy Pepper MD - 08/07/2023 3:00 PM EDT Subjective Samra Linder is a 47 y.o. female Chief Complaint Follow-up HPI Patient is in the office for follow-up for the problems noted below. Since her last visit she has had no cardiac events whatsoever. Recent lipid profile demonstrated excellent LDL cholesterol triglyceride and the whole lipid profile was on target while she is taken rosuvastatin and Vascepa with no side effects and with normal liver functions. Her MS is quiet at the present time managed by neurology. Examination reveals only borderline obesity. Medical therapy was reviewed and presently she has no side effects. Heart rate remains in the upper normal range on 25 mg twice daily of carvedilol. Blood pressure though is on the soft side. Assessment/recommendations: 1-severe combined mixed dyslipidemia. Successfully treated with a combination of rosuvastatin and Vascepa with normal LFTs 2-history of sinus tachycardia treated on beta-sena therapy and has been effectively under control, echocardiogram in 2022 was normal 3-diabetes on multiple medications managed by her PCP seems to be under control 4-essential hypertension, currently on losartan and Coreg under control 5-class I obesity, patient is making an effort to lose weight. 6-multiple sclerosis under the care of Dr. Mayo on twice yearly injections and seems to be stable. Review of Systems All other systems reviewed and are negative. Vitals: 08/07/23 1524 08/07/23 1539 BP: 100/62 BP Location: Left arm Patient Position: Sitting Pulse: 76 92 Weight: 74.4 kg (164 lb) Height: 1.575 m (5' 2 ) Objective Physical Exam Constitutional: Appearance: Normal appearance. HENT: Nose: Nose normal. Neck: Vascular: No carotid bruit. Cardiovascular: Rate and Rhythm: Normal rate. Pulses: Normal pulses. Heart sounds: Normal heart sounds. Pulmonary: Effort: Pulmonary effort is normal. Abdominal: General: Bowel sounds are normal. Palpations: Abdomen is soft. Musculoskeletal: General: Normal range of motion. Cervical back: Normal range of motion. Right lower leg: No edema. Left lower leg: No edema. Skin: General: Skin is warm and dry. Neurological: General: No focal deficit present. Mental Status: She is alert. Psychiatric: Mood and Affect: Mood normal. Behavior: Behavior normal. Thought Content: Thought content normal. Judgment: Judgment normal. Allergies Interferon beta-1a, Latex, Clarithromycin, Meperidine (pf), Morphine, and Buspirone Current Medications Current Outpatient Medications: ALPRAZolam (Niravam) 1 mg disintegrating tablet, Take 1 tablet (1 mg) by mouth if needed for anxiety., Disp: , Rfl: amphetamine-dextroamphetamine XR (Adderall XR) 10 mg 24 hr capsule, Take 1 capsule (10 mg) by mouthonce daily in the morning. Do not crush or chew., Disp: , Rfl: carvedilol (Coreg) 25 mg tablet, Take 1 tablet (25 mg) by mouth 2 times daily (morning and late afternoon)., Disp: , Rfl: cyanocobalamin/thiamine HCl (VITAMIN [id number] B1 IM), Inject 1 Dose into the muscle every 30 (thirty) days., Disp: , Rfl: ergocalciferol (Vitamin D-2) 1.25 MG (49270 UT) capsule, Take 1 capsule (50,000 Units) by mouth 1 (one) time per week., Disp: , Rfl: icosapent ethyL (Vascepa) 1 gram capsule, Take 2 capsules (2 g) by mouth 2 times daily (morning andlate afternoon)., Disp: , Rfl: Lactobacillus acidophilus (Probacap) 10 billion cell capsule, Take 1 capsule by mouth once daily., Disp: , Rfl: levonorgestrel (Mirena) 21 mcg/24 hr (8 yrs) 52 mg IUD, 52 mg by intrauterine route 1 time., Disp: , Rfl: losartan (Cozaar) 50 mg tablet, Take 1 tablet (50 mg) by mouth once daily., Disp: , Rfl: metFORMIN XR 500 mg 24 hr tablet, Take 2 tablets (1,000 mg) by mouth 2 times daily (morning and late afternoon)., Disp: , Rfl: ocrelizumab (Ocrevus) 30 mg/mL, Infuse 1 mL (30 mg total) into a venous catheter every 6 months., Disp: , Rfl: PARoxetine (Paxil) 30 mg tablet, Take 1 tablet (30 mg) by mouth once daily in the morning., Disp: ,Rfl: rosuvastatin (Crestor) 20 mg tablet, Take 1 tablet (20 mg) by mouth once daily., Disp: 90 tablet, Rfl: 3 Semglee,insulin glarg-yfgn,Pen 100 unit/mL (3 mL) Pen, , Disp: , Rfl: SITagliptin phosphate (Januvia) 100 mg tablet, Take 1 tablet (100 mg) by mouth once daily., Disp: ,Rfl: temazepam (RestoriL) 30 mg capsule, Take 1 capsule (30 mg) by mouth as needed at bedtime for sleep., Disp: , Rfl: tirzepatide (Mounjaro) 15 mg/0.5 mL pen injector, Inject 15 mg under the skin every 7 days., Disp: , Rfl: tiZANidine (Zanaflex) 4 mg tablet, Take 1 tablet (4 mg) by mouth every 8 hours if needed., Disp: , Rfl: Assessment/Plan 1. Hypertension, unspecified type Follow Up In Cardiology Follow Up In Cardiology 2. Inappropriate sinus tachycardia (CMS-HCC) Follow Up In Cardiology 3. High cholesterol Follow Up In Cardiology Follow Up In Cardiology 4. BMI 30.0-30.9,adult 5. Former smoker Scribe Attestation By signing my name below, IErica LPN , Scribe attest that this documentation has been prepared under the direction and in the presence of Emmy Pepper MD. Provider Attestation - Scribe documentation All medical record entries made by the Scribe were at my direction and personally dictated by me. Ihave reviewed the chart and agree that the record accurately reflects my personal performance of the history, physical exam, discussion and plan. [facility] Work Phone: 1(520) 428-212206-04-2024 Instructions* Patient Instructions* Erica Kapoor LPN - 08/07/2023 3:00 PM EDT Please bring all medicines, vitamins, and herbal supplements with you when you come to the office. Prescriptions will not be filled unless you are compliant with your follow up appointments or have a follow up appointment scheduled as per instruction of your physician. Refills should be requested at the time of your visit. BMI was above normal measurement. Current weight: 74.4 kg (164 lb) Weight change since last visit (-) denotes wt loss 4 lbs Weight loss needed to achieve BMI 25: 27.6 Lbs Weight loss needed to achieve BMI 30: 0.3 Lbs Provided instructions on dietary changes Provided instructions on exercise. [facility] Work Phone: [phone]) 382-678612-27-2023 Evaluation note* Encounter Date Diagnosis Assessment Notes Treatment Notes Treatment Clinical Notes Feb, Primary insomnia (ICD-10 - F51.01) [employer] Other 11-29-2023 Evaluation note* Encounter Date Diagnosis Assessment Notes Treatment Notes Treatment Clinical Notes Jan, Diabetes mellitus with chronic kidney disease (ICD-10 - E11.22) [employer] Other 11-27-2023 Evaluation note* Encounter Date Diagnosis Assessment Notes Treatment Notes Treatment Clinical Notes Jan, Primary insomnia (ICD-10 - F51.01) [employer] Other 11-22-2023 Evaluation note* Encounter Date Diagnosis Assessment Notes Treatment Notes Treatment Clinical Notes Jan, Diabetes mellitus with chronic kidney disease (ICD-10 - E11.22) [employer] Other 11-20-2023 History of Present illness Narrative* Emmy Pepper MD - 01/22/2023 2:00 PM EST Subjective Samra Linder is a 47 y.o. female Chief Complaint Follow-up HPI Patient is in the office for follow-up for the problems noted below. She lost 15 pounds since her last visit and her A1c is getting a lot better. She is exercising highly motivated. Her pressure is under control. Her recent lab data demonstrated improvement of the triglyceride below 200 mg/dL but LDL cholesterol at 158 mg/dL on no statin. Liver function test is normal. Assessment/recommendations: 1-severe combined mixed dyslipidemia. She was taken off of the atorvastatin previously due to elevated transaminases. Her triglyceride improved significantly on Vascepa which we will continue but thefibrate will be discontinued and in order to bring the LDL cholesterol down we will add rosuvastatin 20 mg daily and follow her labs. 2-history of sinus tachycardia treated on beta-sena therapy and has been effectively under control, echocardiogram in 2022 was normal 3-diabetes on multiple medications managed by her PCP seems to be under control 4-hypertension, currently on losartan and Coreg under control 5-overweight, she dropped 15 pounds from last visit, encourage the patient to lose weight with dietand exercise 6-multiple sclerosis under the care of Dr. Mayo on twice yearly injections and seems to be stable. Review of Systems All other systems reviewed and are negative. Visit Vitals BP 120/86 Pulse 98 Ht 1.575 m (5' 2 ) Wt 72.6 kg (160 lb) BMI 29.26 kg/m Smoking Status Former BSA 1.78 m Objective Physical Exam Constitutional: Appearance: Normal appearance. She is normal weight. HENT: Nose: Nose normal. Neck: Vascular: No carotid bruit. Cardiovascular: Rate and Rhythm: Normal rate. Pulses: Normal pulses. Heart sounds: Normal heart sounds. Pulmonary: Effort: Pulmonary effort is normal. Abdominal: General: Bowel sounds are normal. Palpations: Abdomen is soft. Genitourinary: Rectum: Normal. Musculoskeletal: General: Normal range of motion. Cervical back: Normal range of motion. Right lower leg: No edema. Left lower leg: No edema. Skin: General: Skin is warm and dry. Neurological: General: No focal deficit present. Mental Status: She is alert. Psychiatric: Mood and Affect: Mood normal. Behavior: Behavior normal. Thought Content: Thought content normal. Judgment: Judgment normal. Current Medications Current Outpatient Medications: carvedilol (Coreg) 25 mg tablet, Take 1 tablet (25 mg) by mouth 2 times a day with meals., Disp: , Rfl: ergocalciferol (Vitamin D-2) 1.25 MG (82871 UT) capsule, Take 1 capsule (50,000 Units) by mouth 1 (one) time per week., Disp: , Rfl: icosapent ethyL (Vascepa) 1 gram capsule, Take 2 capsules (2 g) by mouth 2 times a day with meals.,Disp: , Rfl: losartan (Cozaar) 50 mg tablet, Take 1 tablet (50 mg) by mouth once daily., Disp: , Rfl: metFORMIN XR 500 mg 24 hr tablet, Take 2 tablets (1,000 mg) by mouth 2 times a day with meals., Disp: , Rfl: PARoxetine (Paxil) 30 mg tablet, Take 1 tablet (30 mg) by mouth once daily in the morning., Disp: ,Rfl: Semglee,insulin glarg-yfgn,Pen 100 unit/mL (3 mL) Pen, , Disp: , Rfl: tirzepatide (Mounjaro) 12.5 mg/0.5 mL pen injector, Inject 12.5 mg under the skin every 7 days., Disp: , Rfl: tiZANidine (Zanaflex) 4 mg tablet, Take 0.5 tablets (2 mg) by mouth every 8 hours if needed., Disp:, Rfl: Tradjenta 5 mg tablet, Take 1 tablet (5 mg) by mouth once daily., Disp: , Rfl: rosuvastatin (Crestor) 20 mg tablet, Take 1 tablet (20 mg) by mouth once daily., Disp: 90 tablet, Rfl: 3 Assessment/Plan 1. Hypertension, unspecified type Follow Up In Cardiology 2. Inappropriate sinus tachycardia Follow Up In Cardiology 3. High cholesterol Lipid Panel Alanine Aminotransferase Aspartate Aminotransferase rosuvastatin (Crestor) 20 mg tablet Follow Up In Cardiology Lipid Panel Alanine Aminotransferase Aspartate Aminotransferase documented in this encounterL[facility] Work Phone: 1(296) 772-253411-20-2023 Instructions* Patient Instructions* Alejandrina Anaya LPN - 01/22/2023 2:00 PM EST Please bring all medicines, vitamins, and herbal supplements with you when you come to the office. Prescriptions will not be filled unless you are compliant with your follow up appointments or have a follow up appointment scheduled as per instruction of your physician. Refills should be requested at the time of your visit. Stop Tricor Start Crestor Follow up 6 m documented in [facility] encounterL[facility] Work Phone: [phone]) 627-136710-25-2023 Evaluation note* Encounter Date Diagnosis Assessment Notes Treatment Notes Treatment Clinical Notes Dec, Primary insomnia (ICD-10 - F51.01) [employer] Other 09-26-2023 Evaluation note* Encounter Date Diagnosis Assessment Notes Treatment Notes Treatment Clinical Notes Nov, Primary insomnia (ICD-10 - F51.01) [employer] Other 08-28-2023 Evaluation note* Encounter Date Diagnosis Assessment Notes Treatment Notes Treatment Clinical Notes Oct, Well adult exam (ICD-10 - Z00.00) We have discussed the necessity of following up with PCP regularly as well as specialists, as needed. Discussed F/U with dentistry and optometry at least yearly. Discussed all preventative measures/ cancer screenings as applicable to this patient. Emphasized the importance of a reduced fat, low carb diet to promote heart health and controlled blood sugars. Reviewed social history and ensured patient is safe within the home today. Pt denies any abuse of alcohol, nicotine, caffeine or recreational drugs. I have ensured patient is of stable mental and physical health today. We have discussed appropriate F/U schedule as well as blood work and vaccinations that apply. All questions answered and patient is sent home pleased, without concerns. Oct, Primary insomnia (ICD-10 - F51.01) Oct, Diabetes mellitus with chronic kidney disease (ICD-10 - E11.22) Oct, Nausea (ICD-10 - R11.0) [employer] Other 07-19-2023 Evaluation note* Encounter Date Diagnosis Assessment Notes Treatment Notes Treatment Clinical Notes Sep, Mixed hyperlipidemia (ICD-10 - E78.2) Sep, Type 2 diabetes mellitus with hyperglycemia, unspecified whether superintendent terminal insulin use (ICD-10 - E11.65) [employer] Other 06-29-2023 NoteEchocardiology Procedure Exam Date/Time Accession # Ordering Echo Transthoracic 08/30/2022 15:41 EDT [id number] Emmy Pepper MD Complete CPT code 73601 Reason for Exam (Echo Transthoracic Complete) Abnormal ECG R94.31, I10, R00.0 [place] [address] Adult Echocardiogram Report Name: SAMRA LINDER Study Date: 08/30/2022 03:07 PM BP: 119/83 mmHg Patient Location: [facility] HR: 81 : 1975 Gender: Female Height: 62 in Age: 46 yrs Ethnicity: [facility] Weight: 175 lb Reason For Study: Abnormal ECG R94.31, I10, R00.0 BSA: 1.8 m2 History: Hypertension, DM, Multiple Sclerosis Ordering Physician: Emmy Pepper Referring Physician: Emmy Pepper Performed By: Jennifer Ch, [facility] Interpretation Summary Ejection Fraction = 55-60%. Procedure A complete two-dimensional transthoracic echocardiogram was performed (2D, M- mode, spectral and color flow Doppler). Study quality is good. Left Ventricle The left ventricle is normal in size. mild left ventricular hypertrophy. Ejection Fraction = 55-60%. Normal diastolic function. No evidence of thrombus seen on this study. Left Atrium The left atrial size is normal. There is no atrial septal defect. Right Atrium Right atrial size is normal. Right Ventricle The right ventricular systolic function is normal. Echocardiology Report Aortic Valve The trileaflet aortic valve opening is normal. Mitral Valve The mitral valve is normal in structure and function. Tricuspid Valve Structurally normal tricuspid valve. There is trace tricuspid regurgitation. Pulmonic Valve The pulmonic valve is normal. Arteries The aortic root is normal in size. Normal ascending aorta. Venous The inferior vena cava is normal in size, and collapses normally with respiration. Effusion There is no pericardial effusion. There is no pleural effusion noted on this exam. MMode/2D Measurements & Calculations RVDd: 2.8 cm LVIDd: 4.3 cm FS: 31.4 % Ao root diam: 3.2 cm IVSd: 1.2 cm LVIDs: 3.0 cm EDV(Teich): 84.9 ml Ao root area: 7.8 cm2 LVPWd: 1.1 cm ESV(Teich): 34.4 ml LA dimension: 3.9 cm EF(Teich): 59.6 % asc Aorta Diam: 3.2 cm LVLd ap4: 7.8 cm EDV(MOD-sp2): 99.6 ml SV(MOD-sp4): 58.0 ml EDV(MOD-sp4): 95.4 ml ESV(MOD-sp2): 39.4 ml LVLs ap4: 6.4 cm EF(MOD-sp2): 60.4 % ESV(MOD-sp4): 37.4 ml EF(MOD-sp4): 60.8 % TAPSE: 2.1 cm IVC Diam: 1.6 cm RVIDd/LVIDd: 0.65 EF (MOD-bp): 60.7 % LA Vol Index: 27.6 ml/m2 Doppler Measurements & Calculations MV E max mickey: 81.9 cm/sec Ao V2 max: 177.4 cm/sec LV V1 max P.1 mmHg MV A max mickey: 63.8 cm/sec MV dec slope: 500.4 cm/sec2 Ao max P.6 mmHg LV V1 mean P.5 mmHg MV E/A: 1.3 MV dec time: 0.16 sec Ao V2 mean: 112.8 cm/sec LV V1 max: 132.9 cm/sec Lat Peak E' Mickey: 9.1 cm/sec Ao mean P.9 mmHg LV V1 mean: 83.0 cm/sec E/E' Lat: 9.0 Ao V2 VTI: 31.3 cm LV V1 VTI: 25.4 cm Med Peak E' Mickey: 5.7 cm/sec E/E' Med: 14.5 Echocardiology Report TR max mickey: 223.0 cm/sec RAP systole: 3.0 mmHg AV VR: 0.75 MV P1/2t-pr_phl: 48.0 msec TR max P.9 mmHg RVSP(TR): 22.9 mmHg FINAL REPORT Dictated: 08/30/2022 3:07 pm Kirk Griffin MD Signed (Electronic Signature): 08/31/2022 7:55 am Signed by: Kirk Griffin MD Transcribed by: [facility] Technologist: [facility]05-30-2023 Evaluation note* Encounter Date Diagnosis Assessment Notes Treatment Notes Treatment Clinical Notes July, Primary insomnia (ICD-10 - F51.01) [employer] Other 04-18-2023 Evaluation note* Encounter Date Diagnosis Assessment Notes Treatment Notes Treatment Clinical Notes Jun, Other hyperlipidemia (ICD-10 - E78.49) Jun, Hypertriglyceridemia (ICD-10 - E78.1) Jun, Skin lesion (ICD-10 - L98.9) [employer] Other 03-31-2023 Evaluation note* Encounter Date Diagnosis Assessment Notes Treatment Notes Treatment Clinical Notes May, Type 2 diabetes mellitus with hyperglycemia (ICD-10 - E11.65) [employer] Other 03-27-2023 Evaluation note* Encounter Date Diagnosis Assessment Notes Treatment Notes Treatment Clinical Notes May, Primary insomnia (ICD-10 - F51.01) [employer] Other 08-15-2022 Evaluation note* Encounter Date Diagnosis Assessment Notes Treatment Notes Treatment Clinical Notes Oct, Folliculitis (ICD-10 - L73.9) Use medications as directed. Culture was obtained and will be sent to lab. May use gently cleanser to area between daily application as instructed. Will call results of culture if one was obtained as medication changes are necessary. Follow up with primary care provider if no improvement of symptoms or if symptoms worsen. [employer] Other 06-02-2022 Evaluation + Plan note Diagnostic Tests Pending * [facility]malonic [facility] Appointment Date:01/03/2024 01:00:00 PM Scheduled Provider:Kiah Masters Location:.ONCOLOGY Appointment Type:ONC Office Visit New 40 (FT) [facility] Evaluation + Plan note Future Appointments Appointment Date:01/07/2024 02:20:00 PM Scheduled Provider:Fab HANSEN MD Location:[facility] Appointment Type: Appointment Date:02/14/2024 03:40:00 PM Scheduled Provider:Kiah Masters Location:FT.ONCOLOGY Appointment Type:ONC Office Visit 20 (FT) Future Scheduled Tests Laboratory* CBC w/ Auto Diff 02/14/24 * Comprehensive Metabolic Panel 02/14/24 * Ferritin 02/14/24 * Iron Level 02/14/24 * Iron Percent Saturation 02/14/24 * Transferrin 02/14/24 [facility] Evaluation + Plan note Future Appointments Appointment Date:01/11/2024 01:30:00 PM Scheduled [facility] Type:[facility] Injectafer (FT) Appointment Date:01/14/2024 09:00:00 AM Scheduled Provider: Location:[facility] Appointment Type:Surgery FT Appointment Date:01/18/2024 01:30:00 PM Scheduled Provider: [facility] Appoint[facility] Type:ONC Injectafer (FT) Appointment Date:02/14/2024 03:40:00 PM Scheduled Provider:Kiah Masters Location:FT.ONCOLOGY Appointment Type:ONC Office Visit 20 (FT) Future Scheduled Tests Laboratory* CBC w/ Auto Diff 02/14/24 * Comprehensive Metabolic Panel 02/14/24 * Ferritin 02/14/24 * Iron Level 02/14/24 * Iron Percent Saturation 02/14/24 * Transferrin 02/14/24 [facility] evaluation + Plan note Future Appointments Appointment Date:01/14/2024 09:00:00 AM Scheduled Provider: Location:[facility] Appointment Type:Surgery FT Appointment Date:01/18/2024 01:30:00 PM Scheduled Provider: [facility] Appointment Type:ONC Injectafer (FT) Appointment Date:02/14/2024 03:40:00 PM Scheduled Provider:Kiah Masters Location:.ONCOLOGY Appointment Type:ONC Office Visit 20 (FT) Future Scheduled Tests Laboratory* CBC w/ Auto Diff 02/14/24 * Comprehensive Metabolic Panel 02/14/24 * Ferritin 02/14/24 * Iron Level 02/14/24 * Iron Percent Saturation 02/14/24 * Transferrin 02/14/24 [facility] evaluation + Plan note Future Appointments Appointment Date:01/23/2024 04:00:00 PM Scheduled Provider:Fab HANSEN MD Location:[facility] Appointment Type: Post Op 15 Appointment Date:02/14/2024 03:40:00 PM Scheduled Provider:Kiah Masters Location:.ONCOLOGY Appointment Type:ONC Office Visit 20 (FT) Future Scheduled Tests Laboratory* CBC w/ Auto Diff 02/14/24 * Comprehensive Metabolic Panel 02/14/24 * Ferritin 02/14/24 * Iron Level 02/14/24 * Iron Percent Saturation 02/14/24 * Transferrin 02/14/24 [facility] evaluation + Plan note Future Appointments Appointment Date:02/14/2024 03:40:00 PM Scheduled Provider:Kiah Masters Location:.ONCOLOGY Appointment Type:ONC Office Visit 20 (FT) Future Scheduled Tests Laboratory* CBC w/ Auto Diff 02/14/24 * Comprehensive Metabolic Panel 02/14/24 * Ferritin 02/14/24 * Iron Level 02/14/24 * Iron Percent Saturation 02/14/24 * Transferrin 02/14/24 [facility] evaluation + Plan note Future Appointments Appointment Date:02/14/2024 03:40:00 PM Scheduled Provider:Michael BAINS, Kiah Walker Location:FT.ONCOLOGY Appointment Type:ONC Office Visit 20 (FT) [facility] evaluation noteNo assessment information available [facility] Work Phone: evaluation noteNo InformationNort [employer] Other Evznntbyxi note* Diagnosis Hypertension, unspecified type- Primary Inappropriate sinus tachycardia High cholesterol Pure hypercholesterolemia Diabetes mellitus type II, non insulin dependent (CMS/HCC) Type II or unspecified type diabetes mellitus without mention of complication, not stated as uncontrolled Overweight documented in this encounter [facility] Work Phone: Evaluation note* Diagnosis Onset Date Resolution Status Anxiety acute Hair loss acute [facility] Work Phone: Evaluation note* Diagnosis Dyslipidemia- Primary Other and unspecified hyperlipidemia Hypertension, unspecified type Inappropriate sinus tachycardia (CMS-HCC) High cholesterol Pure hypercholesterolemia BMI 30.0-30.9,adult Former smoker Personal history of tobacco use, presenting hazards to health documented in this encounter [facility] Work Phone: Evaluation note* Diagnosis Onset Date Resolution Status Shingles acute [facility] Work Phone: Evaluation note* Diagnosis Onset Date Resolution Status Shingles acute Anxiety acute Diabetes mellitus type II, controlled acute Multiple sclerosis acute Shingles acute COVID-19 acute Multiple sclerosis acute [facility] Work Phone: Evaluation note* Diagnosis Onset Date Resolution Status Anxiety acute Diabetes mellitus type II, controlled acute Multiple sclerosis acute Shingles acute COVID-19 acute Multiple sclerosis acute Anxiety acute Diabetes mellitus type II, controlled acute Fatigue acute Multiple sclerosis acute Wellness examination acute [facility] Work Phone: Evaluation note* Diagnosis Cervical spondylosis- Primary Cervical spondylosis without myelopathy Multiple sclerosis ([facility]/HCC) Multiple sclerosis Other migraine without status migrainosus, not intractable (CMS/HCC) TISH (obstructive sleep apnea) Obstructive sleep apnea (adult) (pediatric) Anxiety Anxiety state, unspecified Syncope, unspecified syncope type [facility] Multiple [facility] ([facility]/HCC) Multiple sclerosis [facility] Diagnosis Anxiety- Primary Anxiety state, unspecified Multiple sclerosis (CMS/HCC) Multiple sclerosis Visual changes TISH (obstructive sleep apnea) Obstructive sleep apnea (adult) (pediatric) Insomnia, unspecified type Memory change Memory loss [facility] Narrative - Reported* Type Description Date Medical History HYPERTENSION Medical History MIXED HYPERLIPIDEMIA Medical History VITAMIN D DEFICIENCY Medical History CHRONIC KIDNEY DISEASE STAGE 3 Medical History TYPE 2 DIABETES INDIRA ITUS WITH OTHER DIABETIC KIDNEY COMPLICATION Medical History BENIGN NEOPLASM OF LEFT ADRENAL GLAND Medical History CHRONIC KIDNEY DISEASE STAGE 4 Medical History MULTIPLE SCLEROSIS Medical History DM II Surgical History EGD X2 Surgical History GALL BLADDER REMOVED Surgical History KIDNEY STONES WITH STENT PLACEM ENT AND REMOVED Surgical History COLONOSCOPY Hospitalization History MULTIPLY SCLEROSIS Hospitalization History GALL BLADDER Hospitalization History HYPERTENSIVE CRISIS [employer] Other Hisccew general Narrative - Reported* Type Description Date Medical History HYPERTENSION Medical History MIXED HYPERLIPIDEMIA Medical History VITAMIN D DEFICIENCY Medical History CHRONIC KIDNEY DISEASE STAGE 3 Medical History TYPE 2 DIABETES INDIRA ITUS WITH OTHER DIABETIC KIDNEY COMPLICATION Medical History BENIGN NEOPLASM OF LEFT ADRENAL GLAND Medical History CHRONIC KIDNEY DISEASE STAGE 4 Medical History MULTIPLE SCLEROSIS Medical History DM II Surgical History EGD X2 Surgical History GALL BLADDER REMOVED Surgical History KIDNEY STONES WITH STENT PLACEM ENT AND REMOVED Surgical History COLONOSCOPY Hospitalization History MULTIPLE SCLEROSIS Hospitalization History GALL BLADDER Hospitalization History HYPERTENSIVE CRISIS [employer] Other Hospital course Narrative No data available for this section [facility] No data available for this section [facility] Discharge instructionsAmbulatory Orders* Referral to Psychiatry Time Frame: 06/25/23, Location: None [facility] Work Phone: Progress note No data available for this section [facility] (narrative)* Consultation (Routine) - Authorized Specialty Diagnoses / Procedures Referred By Contac t Referred To Contact Cardiology Diagnoses Hypertension, unspecified type Inappropriate sinus tachycardia High cholesterol Procedures Follow Up In Cardiology Emmy Pepper MD [address] [facility] 2, [place] [address] [place] [id number] Emmy Pepper MD [facility] [facility], [place] [address] [place] [address] Referral ID Status Reason Start Date Expiration Date V isits Requested Visits Authorized [id number] Authorized 01/22/2023 01/22/2024 1 1 [facility] Work Phone: Reason for referral (narrative)* Consultation (Routine) - Authorized Specialty Diagnoses / Procedures Referred By Contac t Referred To Contact Cardiology Diagnoses Hypertension, unspecified type High cholesterol Procedures Follow Up In Cardiology Emmy Pepper MD [facility], [place] [address] [place] [id number] Emmy Pepper MD [address] [place] [address] [address], [address] [address] Referral ID Status Reason Start Date Expiration Date V isits Requested Visits Authorized [id number] Authorized 08/07/2023 08/06/2024 1 1 [facility] Work Phone: Summary Purpose Family History Unknown Family Member Name Dates Details Family history of hypertensi on: Mother, Father(V17.49, Z82.49) Status:Active Family history of hyperlipid emia: Mother, Father, Sister(V18.19, Z83.438) Status:Active Family history of diabetes m ellitus: Mother, Father, Sister(V18.0, Z83.3) Status:Active History of PTCA: Father(V45. 82, Z98.61) Status:Active Family history of coronary a rtery disease: Father(V17.3, Z82.49) Status:Active Myocardial infarct, old: Fat her Status:Active Family history of aortic ane urysm: Father(V17.49, Z82.49) Status:Active Unknown Family Member Name Dates Details Family history of hypertensi on: Mother, Father(V17.49, Z82.49) Status:Active Family history of hyperlipid emia: Mother, Father, Sister(V18.19, Z83.438) Status:Active Family history of diabetes m ellitus: Mother, Father, Sister(V18.0, Z83.3) Status:Active History of PTCA: Father(V45. 82, Z98.61) Status:Active Family history of coronary a rtery disease: Father(V17.3, Z82.49) Status:Active Myocardial infarct, old: Fat her Status:Active Family history of aortic ane urysm: Father(V17.49, Z82.49) Status:Active Relationship Condition Age at Onset Recorded Date/T tony father Hypertension Unknown Diabetes mellitus Unknown Malignant neoplasm Unknown Heart disease Unknown Not Specified Diabetes mellitus Unknown sister Diabetes mellitus Unknown Relationship Condition Age at Onset Recorded Date/T tony father Hypertension Unknown Diabetes mellitus Unknown Malignant neoplasm Unknown Heart disease Unknown mother Diabetes mellitus Unknown sister Diabetes mellitus Unknown Advance Directives Advance Directive Response Recorded Date/ Time Advance Directives No October 23, 2019 10:51am Chief Complaint and Reason for Visit Chief Complaint Folliculitis L73.9 Chief Complaint Amb Documentation medication discussion Reason for Visit Anxiety Hair loss Chief Complaint medication discussio n possible shingles Reason for Visit Anxiety Hair loss Chief Complaint possible shingles 3 month follo wup Reason for Visit Shingles Chief Complaint possible shingles 3 month follo wup Covid + fever sinus congestion Reason for Visit Shingles Anxiety Diabetes mellitus type II, controlled Multiple sclerosis Shingles COVID-19 Multiple sclerosis Chief Complaint 3 month follo wup Covid + fever sinus congestion wellness Reason for Visit Anxiety Diabetes mellitus type II, controlled Multiple sclerosis Shingles COVID-19 Multiple sclerosis Anxiety Diabetes mellitus type II, controlled Fatigue Multiple sclerosis Wellness examination Chief Complaint 3 month follo wup Covid + fever sinus congestion wellness follow up Reason for Visit Anxiety Diabetes mellitus type II, controlled Multiple sclerosis Shingles COVID-19 Multiple sclerosis Anxiety Diabetes mellitus type II, controlled Fatigue Multiple sclerosis Wellness examination Reason for Referral Reason *07/10 Choleste rol concerns- interested in injections. - see phone note and last 2 OV notes. Diagnosis 1 Other hyperlipidemia (E78.49) Referral Organization [facility] Referring Provider First Name Iliana Referring Provider Last Name Lisa Referring Provider Specialty [facility] Referred Organization [facility] enter Referred Provider Emmy Pepper Referred Address [address],[place], [place],[address] Referred Provider Specialty Cardiac Surg konstantin Referral Priority Routine General Notes Tori Wilde 08:28:39 AM >received today, pt requested Dr. Pepper per note. Attachments made, referral faxed Reason *07/10 see phon e note Diagnosis 1 Skin lesion (L98.9) Referral Organization [facility] Referring Provider First Name Iliana Referring Provider Last Name Lisa Referring Provider Specialty [facility] Arieso Referred Organization [facility] Referred Provider Ester Desai Referred Address ,[place], [place],[address] Referred Provider Specialty Physician As sistant Referral Priority Routine General Notes Tori Wilde 08:30:17 AM >received today, attachments made, notes locked referral faxed P2P Additional Source Comments INFORMATION SOURCE (unrecogn ized section and content) DATE CREATED AUTHOR 06/12/2019 [facility] DATE CREATED AUTHOR AUTHOR'S ORGANIZ ATION 11/04/2021 [facility] DATE CREATED AUTHOR AUTHOR'S ORGANIZ ATION 11/04/2021 [facility] DATE CREATED AUTHOR AUTHOR'S ORGANIZ ATION 02/08/2022 [facility] DATE CREATED AUTHOR AUTHOR'S ORGANIZ ATION 09/16/2022 [facility] DATE CREATED AUTHOR AUTHOR'S ORGANIZ ATION 08/04/2023 [facility] DATE CREATED AUTHOR AUTHOR'S ORGANIZ ATION 09/20/2023 [facility] DATE CREATED AUTHOR AUTHOR'S ORGANIZ ATION 12/12/2023 [facility] DATE CREATED AUTHOR AUTHOR'S ORGANIZ ATION 12/28/2023 [facility] DATE CREATED AUTHOR AUTHOR'S ORGANIZ ATION 12/29/2023 [facility] DATE CREATED AUTHOR AUTHOR'S ORGANIZ ATION 01/21/2024 [facility] DATE CREATED AUTHOR AUTHOR'S ORGANIZ ATION 01/26/2024 [facility] DATE CREATED AUTHOR AUTHOR'S ORGANIZ ATION 02/01/2024 [facility] DATE CREATED AUTHOR AUTHOR'S ORGANIZ ATION 02/12/2024 [facility] Care Team (unrecognized sect ion and content) Personnel Name: ILIANA GONZALEZ MD Address: Address: [address] [place] [address] Team Status: Active Member Role Status Dates Iliana Gonzalez MD Primary Care Provider Active Team Status: Inactive Member Role Status Dates Iliana Gonzalez MD Primary Care Provide r, Attending Provider Active Start: September 24, 2023 End: September 24, 2023 Team Status: Active Member Role Status Dates Iliana Gonzalez MD Primary Care Provide r, Attending Provider Active Start: September 28, 2023 Team Status: Inactive Member Role Status Dates Iliana Gonzalez MD Primary Care Provide r, Attending Provider Active Start: October 26, 2023 End: October 26, 2023 Team Status: Inactive Member Role Status Dates Iliana Gonzalez MD Primary Care Provide r, Attending Provider Active Start: December 04, 2023 End: December 04, 2023 Team Status: Active Member Role Status Dates Iliana Gonzalez MD Primary Care Provide r, Attending Provider Active Start: August 03, 2023 Team Status: Inactive Member Role Status Dates Iliana Gonzalez MD Primary Care Provider Active Start: August 04, 2023 End: August 04, 2023 Funmilayo Nassar APRN Attending Provider Active Start: August 04, 2023 End: August 04, 2023 Team Status: Inactive Member Role Status Dates Iliana Gonzalez MD Primary Care Provide r, Attending Provider Active Start: June 25, 2023 End: June 25, 2023 Team Status: Inactive Member Role Status Dates BIANCA Moctezuma Attending Provider Active Varnish Dipper Relationship Specialty Start Date End Date Iliana Gonzalez MD [address] [place] [address] [address] [place] [address] PCP - General 07/03/22 Team Status: Active Member Role Status Dates Iliana Gonzalez MD Primary Care Provider Active Start: May 02, 2023 LEONIE Henao Attending Provider Active Start : May 02, 2023 Varnish Dipper Relationship Specialty Start Date End Date Iliana Gonzalez MD [address], [place] [id number] PCP - General 07/03/22 Varnish Dipper Relationship Specialty Start Date End Date Iliana Gonzalez MD [address] [place] [phone] PCP - General Family Medicine 02/08/23 David Mayo MD [address] [id number] Referring Physician Neurology 05/23/23 Varnish Dipper Relationship Specialty Start Date End Date Iliana Gonzalez MD [address] [place] [phone] PCP - General Family Medicine 02/08/23 David Mayo MD [address] [id number] Referring Physician Neurology 05/23/23 Team Status: Active Member Role Status Dates Iliana Gonzalez MD Primary Care Provide r, Attending Provider Active Start: December 10, 2023 Team Status: Inactive Member Role Status Dates Iliana Gonzalez MD Primary Care Provide r, Attending Provider Active Start: December 20, 2023 End: December 20, 2023 Varnish Dipper Relationship Specialty Start Date End Date Iliana Gonzalez MD [address] [place] [phone] PCP - General Family Medicine 02/08/23 David Mayo MD [address] [place] [address] Referring Physician Neurology 05/23/23 Varnish Dipper Relationship Specialty Start Date End Date Iliana Gonzalez MD [address] [facility] [place] [address] PCP - General Family Medicine 02/08/23 David Mayo MD [address] [place] [address] Referring Physician Neurology 05/23/23 REASON FOR VISIT (unrecogniz ed section and content) Reason Comments Follow-up 6m Reason Comments Follow-up 6 months Specialty Diagnoses / Procedures Referred By Contac t Referred To Contact Cardiology Diagnoses Hypertension, unspecified type Inappropriate sinus tachycardia ([facility]) High cholesterol Procedures Follow Up In Cardiology Emmy Pepper MD [address] [place] [address] 2, [place] [phone] Emmy Pepper MD [address] [place] [address] 2, [place] [id number] Referral ID Status Reason Start Date Expiration Date V isits Requested Visits Authorized [id number] Authorized 01/22/2023 01/22/2024 1 1 Reason Comments Multiple Sclerosis Goals (unrecognized section and content) Goals may be documented in a n alternate section FOR RECORDS PERTAINING TO PATIENTS WHO ARE OR HAVE BEEN ENROLLED IN A CHEMICAL DEPENDENCY/SUBSTANCEABUSE PROGRAM, SOME INFORMATION MAY BE OMITTED. This clinical summary was aggregated from multiple sources. Caution should be exercised in using it in the provision of clinical care. This summary normalizes information from multiple sources, and as a consequence, information in this document may materially change the coding, format and clinical context of patient data. In addition, data may be omitted in some cases. CLINICAL DECISIONS SHOULD BE BASED ON THE PRIMARY CLINICAL RECORDS. [facility]. provides no warranty or guarantee of the accuracy or completeness of information in this document.
== END 2024-02-14 20:21 | disposition home or self-care (01) ==
LOC: LAB 20:20
PROVIDERS: PCP Family Medicine; Visit Provider Obstetrics & Gynecology
DX: Z01.419 Encounter for gynecological examination (general) (routine) without abnormal findings (principal)
CPT/HCPCS: 87624; 88175

== ENCOUNTER 2024-03-18 11:02 | Outpatient (REF) | payer OTHER, SELFPAY | END 2024-03-18 11:03 | disposition home or self-care (01) | LOC: LAB 11:02 | PROVIDERS: PCP Family Medicine; Visit Provider Obstetrics & Gynecology | DX: A63.0 Anogenital (venereal) warts (principal) | CPT/HCPCS: 88305 ==

== ENCOUNTER 2024-09-15 12:22 | Outpatient (REF) | payer OTHER, SELFPAY ==
--- OUTSIDE RECORDS SUMMARY | 2024-09-04 04:00 | XMS_ITS ---
Author Organization [facility] Address [address] [place] [address] Care Team Providers Care Motion Picture Operator Name Role Phone Duran Janeth Primary Care Provider [phone] Cristiane Waite [phone] REASON FOR VISIT F/U Encounters Encounter Location Date Provider Diagnosis [facility] [address] [place] [address] 09/04/2024 Janeth Garzon Plan Of Treatment Next Appt Details Provider Name:Sergio Moura, 09/15/2024 04:30:00 PM, [address] [place], [address], Provider Name:Janeth Garzon , 09/19/2024 08:00:00 AM, [address] [place], [address], Provider Name:Janeth Garzon , 09/26/2024 08:00:00 AM, [place], [address], Provider Name:Janeth Garzon , 10/03/2024 08:00:00 AM, [place], [address], Progress Notes * CHITRA MICHAELS MDOB:1975 (49 yo F)Acc No.[id number]:09/04/2024 F/U - Patient Patient: CHITRA NAVARRETE Provider: CINDI Pendleton :1975 A ge:49 Y S ex:Female Date:09/04/2024 Address:[address] [place], [place] [id number] Subjective: * Chief Complaints: * 1 . F/U. Objective: Therapeutic Interventions: Assessment: Plan: * Images: Care Plan Details* * Electronic signature of CINDI Yi on 09/15/2024 at 09:18 AM EDT Sign off status: Pending * Provider: CINDI Pendleton Date: 09/04/2024 Generated for Simon katz/Zaria/Fredrick on: 09/15/2024 09:18 AM EDT
--- OUTSIDE RECORDS SUMMARY | 2024-09-10 10:00 | XMS_ITS | Encounter Summary ---
Author Organization [facility] Address [address] [place] [address] Care Team Providers Care Veterinary Toxicologist Name Role Phone Negra Condon MD Primary Care Provider [phone] David Mayo MD Unavailable [phone] Leonor Cordova Unavailable Reason for Visit * Reason Comments Skin Check Encounter Details Date Type Department Care Team (Late st Contact Info) Description 09/10/2024 10:00 AM EDT Office Visit [facility] [address] [place] [address] Ester Desai PA [address] [place] [address] Seborrheic keratosis (Primary Dx); Melanocytic nevus of trunk; Granuloma annulare; Inflamed seborrheic keratosis Social History Tobacco Use Types Packs/Day Years Used Date Smoking Tobacco: Never Smokeless Tobacco: Never Alcohol Use Standard Drinks/Week Comments Yes 0 (1 standard drink = 0.6 oz pur e alcohol) caffeine: 1-2 cups per day AUDIT-C Answer Date Recorded Q1: How often do you have a drink containing alc ohol? Monthly or less 06/10/2023 Q2: How many drinks containi ng alcohol do you have on a typical day when you are drinking? 1 or 2 06/10/2023 Q3: How often do you have si x or more drinks on one occasion? Never 06/10/2023 Comments Unknown Sex and Gender Information Value Date Recorded Sex Assigned at Not on file Legal Sex Female 11:39 PM EDT Gender Identity Not on file Sexual Orientation Not on file documented as of this encounter Progress Notes * FLORA Jauregui - 09/10/2024 10:00 AM EDT Skin Check Location: Patient requests a full body skin examination Dermatologic history: no history of skin cancer, no history of atypical moles Last visit: last skin check 2022 EP Established patient Lesions: Location: trunk, legs Duration: years Quality: itchy Modifying factors: aggravated by picking Associated symptoms: rough Treatments: none All pertinent medical history, medications, and allergies were reviewed. General Exam: alert, oriented to person, place, and time, normal affect, well appearing Unaccompanied Scalp, Examined Right leg Examined Head, Face Examined Left leg Examined Neck Examined Right foot Examined Chest Examined off Left foot Examined Back Examined Buttocks Examined Patient kept underwear on Abdomen Examined Digits,nails: Examined Right arm Examined Patient wearing nail uzbek, Denies dark streaks under finger nails, Denies darkstreaks on toenails Left arm Examined Lymphatics: Not examined Hands Examined Skin Exam 1. SEBORRHEIC KERATOSIS Generalized Stuck on verrucous, variably pigmented papules and plaques. Patient was counseled regarding these benign growths. Removal is normally not necessary, but they may be removed if they are symptomatic or for cosmetic reasons. 2. MELANOCYTIC NEVUS OF TRUNK Generalized Scattered benign appearing, regular brown to light brown melanocytic papules and macules with similar morphology Counseled regarding these benign growths. Rarely, a nevus can develop into malignant melanoma, so any changing nevi should be promptly re-evaluated. 3. GRANULOMA ANNULARE Left Dorsal Hand, Left Foot - Anterior, Left Lower Leg - Anterior, Right Foot - Anterior, Right Lower Leg - Anterior [place] indurated annular plaques with raised borders on the hands and thigh, flat on the feet and ankles, improved from last visit. Discussed that GA is a benign condition that often self-resolves in 1-2 years but in some patients can become a more chronic issue. Discussed the cause of this condition is unknown and treatment can be difficult. Discussed treatment options including topical steroids and ILK. No treatment necessaryat this time. 4. INFLAMED SEBORRHEIC KERATOSIS (14) Left Abdomen (side) - Lower, Left Abdomen (side) - Upper, Left Flank, Left Lower Back (2), Mid Back, Right Abdomen (side) - Upper (2), Right Flank (3), Right Lower Back (2), Right Upper Back Inflamed seborrheic keratoses: pink and brown stuck on verrucous scaly papule with surrounding erythema and bloody crust. The patient was informed that symptomatic seborrheic keratoses are benign growths that become inflamed, itchy, tender, traumatized, caught on clothing, or bleed. Symptomatic lesions can be treated with cryotherapy or curretage. Thicker lesions treated with cryotherapy may require more than one treatment. The patient was instructed to notify the office if abnormal redness or tenderness develops atthe treatment site. Cryotherapy today, see procedure note. Diagnosis: Inflamed seborrheic keratosis Indication: Inflamed Consent: Verbal consent was obtained and risks were discussed, including, but not limited to risks of scarring, darker or lead systems analyst pigmentary changes, recurrence, incomplete removal and infection. Method: Liquid nitrogen was used to treat the lesion(s) with two 5-10 second freeze-thaw cycles Number of lesions treated: 14 Post-procedure instructions: Instructions were given orally and in writing. The office will be contacted if the lesion fails to resolve despite treatment, or if a side effect develops such as abnormal crusting, scabbing, redness or tenderness Cryotherapy, skin lesion - Left Abdomen (side) - Lower, Left Abdomen (side) - Upper, Left Flank, Left Lower Back (2), Mid Back, Right Abdomen (side) - Upper (2), Right Flank (3), Right Lower Back (2), Right Upper Back Next Visit: 1 year documented in this encounter Plan of Treatment Upcoming Encounters Date Type Department Care Team (Late st Contact Info) Description 11/14/2024 12:20 PM EDT Office Visit [facility] [address] [place] [phone] Ester Desai PA [address] [place] [address] 03/25/2025 2:00 PM EST Procedure Visit [facility] OB [address] [place] [address] Vijay Medley DO [address] [place] [place], [place] [phone] 09/14/2025 3:20 PM EDT Office Visit [facility] [address] [place] [address] Ester Desai, PA [address] [place] [address] documented as of this encounter Procedures Procedure Name Priority Date/Time Associated Diagnosis Comments CRYOTHERAPY SKIN LESION Routine 09/11/19 10:12 AM EDT Inflamed seborrheic keratosis documented in this encounter Results * Cryotherapy, skin lesion (09/10/2024 10:12 AM EDT) Ester HINES DERM PROCEDURE ORDERABLES Fin al Result documented in this encounter Visit Diagnoses Diagnosis Seborrheic keratosis- Primary Melanocytic nevus of trunk Benign neoplasm of skin of trunk, except scrotum Granuloma annulare Other specified erythematous condition Inflamed seborrheic keratosis documented in this encounter Care Teams Veterinary Toxicologist Relationship Specialty Start Date End Date Negra Condon MD PCP - General Family Medicine 02/08/23 David Mayo MD Referring Physician Neurology 05/23/23 Leonor Cordova PA Physician Braille Typist Neurology 05/21/24 documented as of this encounter
--- OUTSIDE RECORDS SUMMARY | 2024-09-15 09:20 | XMS_ITS | Encounter Summary ---
Author Organization [facility] Address [address] [place] [address] Care Team Providers Care Country Printer Name Role Phone Negra Condon MD Primary Care Provider [phone] David Mayo MD Unavailable [phone] Leonor Cordova Unavailable Reason for Visit * Reason Comments Abnormal Pap Smear Pt present for a 6 m [facility] repeat pap smear Ascus HPV+. Pt had a Colposcopy done on 03/18/2024 w/Atypia consistent w/HPV. Encounter Details Date Type Department Care Team (Late st Contact Info) Description 09/15/2024 9:20 AM EDT Procedure Visit [facility] OB [address] [place] [address] Vijay Medley, DO [address] [place], [place] [phone] ASCUS with positive high risk HPV cervical; Pap smear to confirm normal after abnormal result Social History Tobacco Use Types Packs/Day Years [...] drinks on one occasion? Never 06/10/2023 Comments No Sex and Gender Information Value Date Recorded Sex Assigned at Not on file Legal Sex Female 11:39 PM EDT Gender Identity Not on file Sexual Orientation Not on file documented as of this encounter Last Filed Vital Signs Vital Sign Reading Time Taken Comments Blood Pressure 128/78 09/15/2024 9:34 AM EDT Pulse - - Temperature - - Respiratory Rate - - Oxygen Saturation - - Inhaled Oxygen Concentration - - Weight 87.1 kg (192 lb) 09/15/2024 9:34 AM EDT Height 160 cm (5' 3 ) 09/15/2024 9:34 AM EDT Body Mass Index 34.01 09/15/2024 9:34 AM EDT documented in this encounter Plan of Treatment Upcoming Encounters Date Type Department Care Team (Late st Contact Info) Description 11/14/2024 12:20 PM EDT Office Visit [facility] [address] [place] [address] Ester Desai PA [address] [place] [address] 03/25/2025 2:00 PM EST Procedure Visit [facility] OB [address] [place] [phone] Vijay Medley, DO [address] [place], [place] [phone] 09/14/2025 3:20 PM EDT Office Visit [facility] [address] [place] [phone] Ester Desai PA [address] [place] [address] Scheduled Orders Name Type Priority Associated Diagnoses Orde r Schedule THIN PREP TIS PAP AND HR HPV DNA Pathology and Cytology Routine ASCUS with positive high risk HPV cervical Pap smear to confirm normal after abnormal result Ordered: 09/15/2024 documented as of this encounter Visit Diagnoses Diagnosis ASCUS with positive high risk HPV cervical Pap smear to confirm normal after abnormal result Encounter for Papanicolaou cervical smear to confirm findings of recent normal smear following initial abnormal smear documented in this encounter Care Teams Country Printer Relationship Specialty Start Date End Date Negra Condon MD PCP - General Family Medicine 02/08/23 David Mayo MD Referring Physician Neurology 05/23/23 Leonor Cordova PA Physician Stock Turner Neurology 05/21/24 documented as of this encounter
--- OUTSIDE RECORDS SUMMARY | 2024-09-15 12:25 | XMS_ITS | Encounter Summary ---
Author Organization [facility] Address [address] [place] [address] Care Team Providers Care Director Radiation Oncology Name Role Phone Negra Condon MD Primary Care Provider [phone] David Mayo MD Unavailable [phone] Leonor Cordova Unavailable Encounter Details Date Type Department Care Team (Late st Contact Info) Description 07/14/2024 Results Follow-Up [facility] [address] [place] [address] Ester Desai PA [address] [place] [address] Social History Tobacco Use Types Packs/Day Years [...] on file documented as of this encounter Miscellaneous Notes * Result Encounter Note - FLORA Jauregui - 07/14/2024 3:42 PM EDT Biopsy confirmed GA which we discussed in the office and I believe I gave her an AAD handout. Can do ILK injections to any raised borders but cannot do it if they are flat. Most areas will fizzle outin 5 years. documented in this encounter Plan of Treatment Upcoming Encounters Date Type Department Care Team (Late st Contact Info) Description 11/14/2024 12:20 PM EDT Office Visit [facility] [address] [place] [address] Ester Desai PA [address] [place], [place] [phone] 03/25/2025 2:00 PM EST Procedure Visit [facility] OB [address] [place] [address] Vijay Medley, DO [address] [place] [address] 09/14/2025 3:20 PM EDT Office Visit [facility] [address] [place] [address] Ester Desai PA [address] [place] [address] documented as of this encounter Visit Diagnoses Not on filedocumented in this encounter Care Teams Director Radiation Oncology Relationship Specialty Start Date End Date Negra Condon MD PCP - General Family Medicine 02/08/23 David Mayo MD Referring Physician Neurology 05/23/23 Leonor Cordova PA Physician Slp Neurology 05/21/24 documented as of this encounter
--- OUTSIDE RECORDS SUMMARY | 2024-09-15 12:25 | XMS_ITS | Encounter Summary ---
Author Organization [facility] Address [address] [place] [address] Phone Care Team Providers Care Test And Balance Engineer Name Role Phone Negra Condon MD Primary Care Provider [phone] Encounter Details Date Type Department Care Team (Late st Contact Info) Description 04/02/2024 Scanned Document [facility] [address] [place] [phone] Scanning, Generic Provider Social History Tobacco Use Types Packs/Day Years Used Date Smoking Tobacco: Former Cigarettes Smokeless Tobacco: Never Alcohol Use Standard Drinks/Week Comments Yes 0 (1 standard drink = 0.6 oz pur e alcohol) social Comments Unknown Sex and Gender Information Value Date Recorded Sex Assigned at Not on file Legal Sex Female 11:14 AM EDT Gender Identity Not on file Sexual Orientation Not on file COVID-19 Exposure Response Date Recorded In the last 10 days, have yo u been in contact with someone who was confirmed or suspected to have Coronavirus/COVID-19? No / Unsure 03/13/2024 10:24 AM EST documented as of this encounter Plan of Treatment Upcoming Encounters Date Type Department Care Team (Late st Contact Info) Description 11/11/2024 9:20 AM EDT Office Visit [facility] [address] [facility] [address] [place] [address] Emmy Boyce MD [address] [facility] [address] [place] [address] documented as of this encounter Procedures Procedure Name Priority Date/Time Associated Diagnosis Comments ECHOCARDIOGRAM 04/02/2024 documented in this encounter Results * Echocardiogram (04/02/2024) Narrative 04/02/2024 Ordered by an unspecified provider. us Generic Provider Scanning CV ECHO PROCEDURES Fin al Result documented in this encounter Visit Diagnoses Not on filedocumented in this encounter Care Teams Test And Balance Engineer Relationship Specialty Start Date End Date Negra Condon MD [address] [place] [address] [address] [place] [address] PCP - General 07/03/22 documented as of this encounter
--- OUTSIDE RECORDS SUMMARY | 2024-09-15 12:25 | XMS_ITS | Encounter Summary ---
Author Organization [facility] Address [address] [place] [address] Phone Care Team Providers Care Hose Mender Name Role Phone Negra Condon MD Primary Care Provider [phone] Encounter Details Date Type Department Care Team (Late st Contact Info) Description 12/10/2023 Scanned Document [facility] [address] [place] [address] Scanning, Generic Provider Social History Tobacco Use [...] on file documented as of this encounter Plan of Treatment Upcoming Encounters Date Type Department Care Team (Late st Contact Info) Description 11/11/2024 9:20 AM EDT Office Visit [facility] [address] [facility] [address] [place] [address] Emmy Boyce MD [address] [facility] [address] [place], [place] [phone] documented as of this encounter Visit Diagnoses Not on filedocumented in this encounter Care Teams Hose Mender Relationship Specialty Start Date End Date Negra Condon MD [address] [place] [address] [place] [address] PCP - General 07/03/22 documented as of this encounter
--- OUTSIDE RECORDS SUMMARY | 2024-09-15 12:25 | XMS_ITS | Clinical Summary ---
Author Organization [facility] Address [address] [place] [address] Phone Care Team Providers Care Hot Bread Baker Name Role Phone Negra Condon MD Primary Care Provider Allergies Active Allergy Reactions Criticality Noted Date Comments Buspirone Anxiety Low 08/10/2022 Other Reaction(s): increased anxiety Clarithromycin Nausea Only,GI intolerance,Nausea/vomi ting Medium 08/22/2012 Interferon Beta-1a Other,GI intolerance,Unknown,GI Upset High 02/22/2016 hypokalemia Latex Anaphylaxis High 08/10/2022 Meperidine (Pf) Nausea/vomiting Medium 08/22/2012 Morphine Nausea Only,Other Medium 08/22/2012 Other Reaction(s): nausea and vomiting Medications carvedilol (Coreg) 25 mg tablet Take 1 tablet (25 mg) by mouth 2 times daily (morning and late afternoon). 07/04/19 Active ergocalciferol (Vitamin D-2) 1.25 MG (56280 UT) capsule Take 1 capsule (50,000 Units) by mouth 1 (one) time per week. 06/09/19 23 Active Semglee,insulin glarg-yfgn,Pen 100 unit/mL (3 mL) Pen 08/04/19 23 Active losartan (Cozaar) 50 mg tablet Take 1 tablet (50 mg) by mouth once daily. 10/18/19 23 Active metFORMIN XR 500 mg 24 hr tablet Take 2 tablets (1,000 mg) by mouth 2 times daily (morning and late afternoon). 07/04/19 Active tiZANidine (Zanaflex) 4 mg tablet Take 1 tablet (4 mg) by mouth every 8 hours if needed. 05/02/19 Active PARoxetine (Paxil) 30 mg tablet Take 1 tablet (30 mg) by mouth once daily in the morning. Active tirzepatide (Mounjaro) 15 mg/0.5 mL pen injector Inject 15 mg under the skin every 7 days. Active SITagliptin phosphate (Januvia) 100 mg tablet Take 1 tablet (100 mg) by mouth once daily. Active Lactobacillus acidophilus (Probacap) 10 billion cell capsule Take 1 capsule by mouth once daily. Active ocrelizumab (Ocrevus) 30 mg/mL Infuse 1 mL (30 mg total) into a venous catheter every 6 months. 06/20/19 24 Active temazepam (RestoriL) 30 mg capsule Take 1 capsule (30 mg) by mouth as needed at bedtime for sleep. Active ALPRAZolam (Niravam) 1 mg disintegrating tablet Dissolve 1 tablet (1 mg) in the mouth if needed for anxiety. Active amphetamine-dextro amphetamine XR (Adderall XR) 10 mg 24 hr capsule Take 1 capsule (10 mg) by mouth once daily in the morning. Do not crush or chew. Active cyanocobalamin/thi amine HCl (VITAMIN U20-JWZMPEZ B1 IM) Inject 1 Dose into the muscle every 30 (thirty) days. Active levonorgestrel (Mirena) 21 mcg/24 hr (8 yrs) 52 mg IUD 52 mg by intrauterine route 1 time. Active icosapent ethyL (Vascepa) 1 gram capsuleIndications :High cholesterol Take 2 capsules (2 g) by mouth 2 times daily (morning and late afternoon). 360 capsule 3 09/12/19 24 Active rosuvastatin (Crestor) 20 mg tabletIndications: High cholesterol Take 1 tablet (20 mg) by mouth once daily. 90 tablet 3 02/06/20 24 025 Active Additional Information Patient taking differently: 40 mgoral Daily, Reported on 03/13/2024 Active Problems Problem Noted Date Diagnosed Date BMI 33.0-33.9,adult 08/07/2023 Former smoker 08/07/2023 Diabetes mellitus type II, non insulin dependent (Multi) 01/22/2023 Anxiety 01/19/2023 Depression 01/19/2023 High cholesterol 01/19/2023 Hypertension 01/19/2023 Hypothyroid 01/19/2023 Inappropriate sinus tachycardia 01/19/2023 Kidney stone 01/19/2023 DDD (degenerative disc disease), cervical 12/20/ 2016 Multiple sclerosis (Multi) 12/02/2012 Leukocytosis 08/12/2012 Resolved Problems Problem Noted Date Diagnosed Date Resolved Date Diabetes mellitus (Multi) 01/19/2023 Obesity 01/19/2023 08/07/2023 Family History Medical History Relation Name Comments Aortic aneurysm Father Coronary artery disease Father Diabetes Father Heart attack Father Hyperlipidemia Father Hypertension Father PTCA Father Diabetes Mother Hyperlipidemia Mother Hypertension Mother Diabetes Sister Hyperlipidemia Sister Relation Name Status Comments Father Mother Sister Social History Tobacco Use Types Packs/Day Years Used Date Smoking Tobacco: Former Cigarettes Smokeless Tobacco: Never Tobacco Cessation:Counseling Given: Yes Alcohol Use Standard Drinks/Week Comments Yes 0 (1 standard drink = 0.6 oz pur e alcohol) social Comments Unknown Sex and Gender Information Value Date Recorded Sex Assigned at Not on file Legal Sex Female 11:14 AM EDT Gender Identity Not on file Sexual Orientation Not on file Last Filed Vital Signs Vital Sign Reading Time Taken Comments Blood Pressure 130/88 03/13/2024 11:02 AM EST Pulse 96 03/13/2024 11:02 AM EST Temperature - - Respiratory Rate - - Oxygen Saturation - - Inhaled Oxygen Concentration - - Weight 85.7 kg (189 lb) 03/13/2024 11:02 AM EST Height 160 cm (5' 3 ) 03/13/2024 11:02 AM EST Body Mass Index 33.48 03/13/2024 11:02 AM EST Plan of Treatment Upcoming Encounters Date Type Department Care Team (Late st Contact Info) Description 11/11/2024 9:20 AM EDT Office Visit [facility] [address] [facility] [address] [place] [address] Emmy Boyce MD [address] [facility] [address], [address] [place] [address] Health Maintenance Due Date Last Done Comments CT Colonography 1977 Diabetes: Hemoglobin A1C 1977 Diabetes: Urine Protein Screening 1977 FIT-DNA (Cologuard) 1977 FIT 1977 HIV Screening 1977 Lipid Panel 1977 Sigmoidoscopy 1977 TSH Level 1977 Diabetes: Retinopathy Screening 09/04/1987 Hepatitis C Screening 09/04/1995 Pneumococcal Vaccine: Pediatrics and At-Risk Adult Patients (1 of 2 - PCV) 1996 DTaP/Tdap/Td Vaccines (2 - Tdap) 10/22/1997 10/21/1997 HPV/Cotest 1998 Mammogram 01/31/2023 01/31/2022, 01/31/2022 COVID-19 Vaccine ( season) 2023 02/14/2023, 12/27/2021, 01/05/2021, Additional history exists Influenza Vaccine (#1) 2024 , 02/14/2023, 12/27/2021, Additional history exists Yearly Adult Physical 02/14/2025 02/14/2024, 023 Cervical Cancer Screening 02/13/2027 Pap Smear 02/13/2027 02/14/2024 Zoster Vaccines (1 of 2) 09/04/2027 Colonoscopy 01/13/2034 01/14/2024 Colorectal Cancer Screening 01/13/2034 MMR Vaccines Completed 11/19/1997 Hepatitis B Vaccines Completed 02/23/2020, 01/22/20 20 HIB Vaccines Aged Out No longer eligi ble based on patient's age to complete this topic HPV Vaccines (No Doses Required) Completed Hepatitis A Vaccines Aged Out No long er eligible based on patient's age to complete this topic IPV Vaccines Aged Out No longer eligi ble based on patient's age to complete this topic Meningococcal Vaccine Aged Out No lefty maximilian eligible based on patient's age to complete this topic Rotavirus Vaccines Aged Out No longer eligible based on patient's age to complete this topic Insurance [facility] Care Teams Hot Bread Baker Relationship Specialty Start Date End Date Negra Condon MD [address] [place] [address] [place] [address] PCP - General 07/03/22
--- OUTSIDE RECORDS SUMMARY | 2024-09-15 12:26 | XMS_ITS | Encounter Summary ---
Author Organization [facility] Address [facility] [place] [address] Care Team Providers Care Pattern Carrier Name Role Phone David Mayo MD Primary Care Provider [phone] Source Comments In the event this information is protected by the Federal Confidentiality of Alcohol and Drug AbusePatient Records regulations: The Federal rules restrict any use of the information to criminally investigate or prosecute any alcohol or drug abuse patient.[facility] Encounter Details Date Type Department Care Team (Late st Contact Info) Description 10/21/2021 Lab Requisition [facility] [address] [place], [place] [id number] Janeth Champion, CHARTERED FINANCIAL ANALYST [address] [place] [address] Social History Tobacco Use Types Packs/Day Years Used Date Smoking Tobacco: Former Cigarettes 1 12 0 12/02/1990 - 12/02/2002 Smokeless Tobacco: Never Alcohol Use Standard Drinks/Week Comments Yes 0 (1 standard drink = 0.6 oz pur e alcohol) frequent Comments No Sex and Gender Information Value Date Recorded Sex Assigned at Not on file Legal Sex Female 10:12 AM EST Gender Identity Not on file Sexual Orientation Not on file 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 Not on file Not on file documented as of this encounter Plan of Treatment Not on file documented as of this encounter Procedures Procedure Name Priority Date/Time Associated Diagnosis Comments ANTIMICROBIAL SUSCEPT-ANAEROBE Routine 10/17/2021 10:15 AM EDT ORGANISM SARAH Routine 10/17/2021 10:15 AM EDT ORGANISM ID ANAEROBE Routine 10/17/2021 10:15 AM EDT documented in this encounter Results * ANTIMICROBIAL SUSCEPT-ANAEROBE (10/17/2021 10:15 AM EDT) Final Report SEE NOTE 11/02/2021 2:47 PM EDT [facility] Comment: Prevotella bivia Organism identified by client INTERPRETIVE INFORMATION: [...] methodology. Interpret results with caution. Performed by [facility], [address] [place] [address] [email or web address], Steve Connell MD, PHD, Lab. Director Micro Specimen VULVAL STRUCTURE / Unknown 10/17/2021 10:15 AM EDT 10/28/2021 3:57 AM EDT Janeth Champion [facility] Final Resu lt [facility] [address] [place] [address] * (ABNORMAL) ORGANISM SARAH (10/17/2021 10:15 AM EDT) Culture, Organism SARAH Result Prevotella bivia(A) MINIMUM INHIBITORY CONCENTRATION ([place]) 11/04/2021 9:00 AM EDT [facility] Beta Lactamase Positive 11/04/2021 9:00 AM EDT [facility] Micro Specimen VULVAL STRUCTURE / Unknown 10/17/2021 10:15 AM EDT 10/21/2021 11:44 PM EDT Narrative [facility] - 11/04/2021 9:00 AM EDT Susceptibility results have been completed by [facility]. See [id number]. Janeth Champion [facility] Final Resu lt Performing Organization Address [facility] Co de Phone Number [facility] [address] [place] [address], [place] * (ABNORMAL) ORGANISM ID ANAEROBE (10/17/2021 10:15 AM EDT) Culture, Organism ID Anaerobe Prevotella bivia(A) 11/02/2021 9:01 AM EDT [facility] Micro Specimen VULVAL STRUCTURE / Unknown 10/17/2021 10:15 AM EDT 10/21/2021 11:44 PM EDT Janeth Champion [facility] Final Resu lt Performing Organization Address City/[facility] Co de Phone Number [facility] [address] [place] [address], documented in this encounter Visit Diagnoses Not on filedocumented in this encounter Care Teams Pattern Carrier Relationship Specialty Start Date End Date David Mayo MD PCP - General Neurology 01/20/11 documented as of this encounter
--- OUTSIDE RECORDS SUMMARY | 2024-09-15 12:26 | XMS_ITS | Encounter Summary ---
Author Organization [facility] Address [address] [place] [address] Care Team Providers Care Non Licensed Nuclear Equipment Operator Name Role Phone Negra Condon MD Primary Care Provider [phone] David Mayo MD Unavailable [phone] Leonor Cordova Unavailable Encounter Details Date Type Department Care Team ([facility] Contact Info) Description 02/29/2024 Orders Only [facility] [address] [facility] [place] [address] Arianna Wilkerson MA [address] [place] [address] Social History Tobacco Use Types Packs/Day Years [...] Upcoming Encounters Date Type Department Care Team ([facility] Contact Info) Description 11/14/2024 12:20 PM EDT Office Visit [facility] [address] [place] [address] Ester Desai, FLORA [address] [place] [address] 03/25/2025 2:00 PM EST Procedure Visit [facility] [address] [place] [address] Vijay Medley DO [address] [place] [address] 09/14/2025 3:20 PM EDT Office Visit [facility] [address] [place] [phone] Ester Desai PA [address] [place], [place] [phone] documented as of this encounter Procedures Procedure Name Priority Date/Time Associated Diagnosis Comments PAP SMEAR Routine 02/14/2024 12:00 AM EST documented in this encounter Results * Pap Smear (02/14/2024 12:00 AM EST) Swab Cervical swab / Unknown us Vijay Medley DO LAB CYTOLOGY ORDERABLES Final Re sult EXTERNAL LAB documented in this encounter Visit Diagnoses Not on filedocumented in this encounter Care Teams Non Licensed Nuclear Equipment Operator Relationship Specialty Start Date End Date Nerga Condon MD PCP - General Family Medicine 02/08/23 David Mayo MD Referring Physician Neurology 05/23/23 Leonor Cordova PA Physician Supervisor Payroll Neurology 05/21/24 documented as of this encounter
--- OUTSIDE RECORDS SUMMARY | 2024-09-15 12:26 | XMS_ITS | Encounter Summary ---
Author Organization [facility] Address [address] [place] [address] Care Team Providers Care Faucet Polisher Name Role Phone Negra Condon MD Primary Care Provider [phone] David Mayo MD Unavailable [phone] Leonor Cordova Unavailable Encounter Details Date Type Department Care Team ([facility] Contact Info) Description 09/10/2024 Bamboo flowsheet [facility] [address] [place] [address] Ester Desai PA [address] [facility] [address] [place] [address] Social History Tobacco Use Types Packs/Day Years [...] [facility] [address] [place] [address] Ester Desai PA [address] [place], [place] [phone] 03/25/2025 2:00 PM EST Procedure Visit [facility] [address] [place] [address] Vijay Medley, DO [address] [place] [address] 09/14/2025 3:20 PM EDT Office Visit [facility] [address] [place] [address] Ester Desai PA [address] [place], [place] [phone] documented as of this encounter Visit Diagnoses Not on filedocumented in this encounter Care Teams Faucet Polisher Relationship Specialty Start Date End Date Negra Condon MD PCP - General Family Medicine 02/08/23 David Mayo MD Referring Physician Neurology 05/23/23 Leonor Cordova PA Physician Acid Plant Helper Neurology 05/21/24 documented as of this encounter
--- OUTSIDE RECORDS SUMMARY | 2024-09-15 12:26 | XMS_ITS | Encounter Summary ---
Author Organization [facility] Address [address] [place] [address] Care Team Providers Care Oven Stripper Name Role Phone Negra Condon MD Primary Care Provider [phone] Daivd Mayo MD Unavailable [phone] Leonor Cordova Unavailable Encounter Details Date Type Department Care Team (Late Contact Info) Description 09/28/2023 Clinisync Result Encounter [facility] External Department Unsolicited Yaneli Elizalde PA [address] [place] [phone] Social History Tobacco Use Types Packs/Day Years [...] Upcoming Encounters Date Type Department Care Team ([facility] Contact Info) Description 11/14/2024 12:20 PM EDT Office Visit [facility] [address] [place] [address] Ester Desai PA [address] [place] [address] 03/25/2025 2:00 PM EST Procedure Visit [facility] [address] [facility] [place] [address] Vijay Medley, DO [address] [facility] [place] [address] 09/14/2025 3:20 PM EDT Office Visit [facility] [address] [place] [address] Ester Desai PA [address] [place] [address] documented as of this encounter Procedures Procedure Name Priority Date/Time Associated Diagnosis Comments MRI : CERVICAL WITH AND WITHOUT CONTRAST 09/28/2023 4:36 PM EDT documented in this encounter Results * MRI : CERVICAL WITH AND WITHOUT CONTRAST (09/28/2023 4:36 PM EDT) Anatomical Region Laterality Modality Radiographic Cindy ging 09/28/2023 4:36 PM EDT Narrative 10/03/2023 11:03 AM EDT Exam Date/Time: 09/28/2023 19:30 EDT Reason for [...] Comments [employer] Contrast amount in ml's: 6.5 Procedure Note Radiology, Radiologist, - 10/03/2023 Exam Date/Time: 09/28/2023 19:30 EDT Reason for Exam: G35 Report IMPRESSION: INCREASING DEGENERATIVE DISC DISEASE C5-6 FROM 10/20/2020, WITHMILD TO MODERATE CENTRAL SPINAL STENOSIS, LEFT LATERAL RECESS AND NEURAL FORAMINALNARROWING. STABLE SMALL VAGUE SPINAL CORD LESIONS AT C5-6. NO ABNORMAL ENHANCEMENT OROTHER SIGNIFICANT CHANGES IDENTIFIED. CLINICAL HISTORY: G35. COMPARISON: 10/20/2020 TECHNIQUE: Multiplanar MR imaging of the cervical spine was performedbefore and after intravenous administration of approximately 6.5 mL Vueway gadoliniumcontrast. FINDINGS: The spine is visualized from the craniovertebral junction through the T1-2level. Alignment: Mild reversal of the normal cervical lordosis with of the lowerlevels. Bone marrow signal/fracture: Unremarkable. There is no abnormalenhancement identified. Spinal cord: Up to approximately 3 to 4 mm vague increased T2 signallesions within the spinal cord at the C5-6 levels probably have not significantly changedfrom the prior study (images 20 and 23 - T2 axial series 10). The remainder of thevisualized spinal cord is normal in signal and caliber. There is no abnormalenhancement identified. Paraspinal soft tissues: Paraspinal soft tissues are unremarkable. Thereis no abnormal enhancement identified. Craniovertebral junction: Visualized posterior fossa structures andcraniovertebral junction are unremarkable. C2-3: Mild hypertrophic facet changes. No central spinal stenosis orneural foraminal narrowing. C3-4: Mild hypertrophic facet changes. No central spinal stenosis orneural foraminal narrowing. C4-5: Mild hypertrophic facet changes. No central spinal stenosis orneural foraminal narrowing. C5-6: Moderate posterolateral endplate osteophytosis with associatedbroad-based disc protrusion, which results in mild to moderate central spinal stenosis,left lateral recess and neural foraminal narrowing. Report C6-7: Small broad-based central to right subarticular disc protrusion, asmild right lateral recess narrowing. C7-T1 and T1-2: Unremarkable. Ordering Provider: , FINAL REPORT Dictated: 10/03/2023 11:00 am Sekou Blank MD Signed (Electronic Signature): 10/03/2023 11:00 am Signed by: Sekou Blank MD Transcribed by: CHRISTIAN Technologist: SURESH Technical Comments [employer] Contrast amount in ml's: 6.5 us Yaneli HINES IMG XR PROCEDURES Final Result documented in this encounter Visit Diagnoses Not on filedocumented in this encounter Care Teams Oven Stripper Relationship Specialty Start Date End Date Negra Condon MD PCP - General Family Medicine 02/08/23 David Mayo MD Referring Physician Neurology 05/23/23 Leonor Cordova PA Physician Technology Coach Neurology 05/21/24 documented as of this encounter
--- OUTSIDE RECORDS SUMMARY | 2024-09-15 12:26 | XMS_ITS | Encounter Summary ---
Author Organization [facility] Address [address] [place] [address] Care Team Providers Care Credit Card Specialist Name Role Phone Negra Condon MD Primary Care Provider [phone] David Mayo MD Unavailable [phone] Leonor Cordova Unavailable Encounter Details Date Type Department Care Team (Late Contact Info) Description 09/28/2023 Clinisync Result Encounter [facility] External Department Unsolicited Yaneli Elizalde PA [address] [place] [id number] Social History Tobacco Use Types Packs/Day Years [...] Upcoming Encounters Date Type Department Care Team ([facility] Contact Info) Description 11/14/2024 12:20 PM EDT Office Visit [facility] [address] [place] [address] Ester Desai PA [address] [place] [address] 03/25/2025 2:00 PM EST Procedure Visit [facility] [address] [place] [address] Vijay Medley, DO [address] [place] [address] 09/14/2025 3:20 PM EDT Office Visit [facility] [address] [place] [address] Ester Desai PA [address] [place] [address] documented as of this encounter Procedures Procedure Name Priority Date/Time Associated Diagnosis Comments MRI SPINE THORACIC W/ + W/O CONTRAST 09/28/2023 4:36 PM EDT documented in this encounter Results * MRI SPINE THORACIC W/ + W/O CONTRAST (09/28/2023 4:36 PM EDT) Anatomical Region Laterality Modality Other 09/28/2023 4:36 PM EDT Narrative 10/03/2023 11:11 AM EDT Exam Date/Time: 09/28/2023 19:30 EDT [...] in ml's: 6.5 Procedure Note Radiology, Radiologist, MD - 10/03/2023 Exam Date/Time: 09/28/2023 19:30 EDT Reason for Exam: G35 Report IMPRESSION: ESSENTIALLY NEGATIVE THORACIC SPINE MRI. EXAM: MRI Spine Thoracic w/ + w/o Contrast DATE: 09/28/2023 4:36 PM CLINICAL HISTORY: G35. COMPARISON: None available. TECHNIQUE: Multiplanar MR imaging of the thoracic spine was performedbefore and after intravenous administration of approximately 6.5 mm Vueway gadoliniumcontrast. FINDINGS: The thoracic spinal cord and conus medullaris are normal in caliber,signal, and position. There is no abnormal enhancement identified. Minimal chronic probably developmental anterior wedging of the [id number] body is noted, with a very small central bone island. The remaining vertebral bodyheights, alignment, intervertebral disc, facet joints, visualized bone marrowsignal and paraspinous soft tissues are otherwise unremarkable. Ordering Provider: , FINAL REPORT Dictated: 10/03/2023 11:08 am Sekou Blank MD Signed (Electronic Signature): 10/03/2023 11:08 am Signed by: Sekou Blank MD Transcribed by: CHRISTIAN Technologist: SURESH Technical Comments Vueway Contrast amount in ml's: 6.5 us [facility] Final Result documented in this encounter Visit Diagnoses Not on filedocumented in this encounter Care Teams Credit Card Specialist Relationship Specialty Start Date End Date Negra Condon MD PCP - General Family Medicine 02/08/23 David Mayo MD Referring Physician Neurology 05/23/23 Leonor Cordova PA Physician Animal Care Provider Neurology 05/21/24 documented as of this encounter
--- OUTSIDE RECORDS SUMMARY | 2024-09-15 12:26 | XMS_ITS | Encounter Summary ---
Author Organization [facility] Address [address] [place] [address] Care Team Providers Care Court Advocate Name Role Phone Negra Condon MD Primary Care Provider [phone] David Mayo MD Unavailable [phone] Leonor Cordova Unavailable Encounter Details Date Type Department Care Team (Late Contact Info) Description 03/24/2024 Abstract [facility] [address] [place] [phone] Vijay Medley, DO [address] [place], [place] [id number] Social History Tobacco Use Types Packs/Day Years [...] Encounters Date Type Department Care Team (Late Contact Info) Description 11/14/2024 12:20 PM EDT Office Visit [facility] [address] [place] [address] Ester Desai PA [address] [place] [address] 03/25/2025 2:00 PM EST Procedure Visit [facility] [address] [place] [address] Vijay Medley, DO [address] [place] [address] 09/14/2025 3:20 PM EDT Office Visit [facility] [address] [place] [address] Ester Desai PA [address] [place], [place] [id number] documented as of this encounter Visit Diagnoses Not on filedocumented in this encounter Care Teams Court Advocate Relationship Specialty Start Date End Date Negra Condon MD PCP - General Family Medicine 02/08/23 David Mayo MD Referring Physician Neurology 05/23/23 Leonor Cordova PA Physician Continuous Miner Operator Neurology 05/21/24 documented as of this encounter
--- OUTSIDE RECORDS SUMMARY | 2024-09-15 12:26 | XMS_ITS | Patient Health Record ---
Author Organization [facility] es Address [address] [facility] [place] [address] Care Team Providers Care Mud Trucker Name Role Phone DuranJaneth Primary Care Provider [phone] Cristiane Waite Unavailable [phone] Sergio Moura Unavailable [phone] Allergies Allergen (clinical drug ingredient) Drug/Non Drug Allergy documented on EMR Reaction Allergy Type Onset Date Status meperidine Demerol Unknown Drug Allergy Active buspirone Buspirone Unknown Drug Allergy Active fentanyl Fentanyl Unknown Drug Allergy Active Latex Latex anaphylaxis Allergy Active morphine Morphine Unknown Drug Allergy Active Reason For Referral Reason Pt is seeing a arlene e for mental health meds and would like an overall check due to still just not feeling better/numb. Pt has MS low iron and low serotonin(blood test results) Talked about Sergio as a provider. Diagnosis 1 Other specified epis odic mood disorder (F39) Diagnosis 2 PTSD (post-traumatic stress disorder) (F43.10) Referral Organization [facility] Referring Provider First Name Janeth Referring Provider Last Name Duran Referring Provider Speciality Licensed [facility] [employer] Referred Organization [facility] [place] Referred Provider Sergio Moura Referred Address [address] [place],[address], Referred Provider Specialty [facility]al [facility] Referral Priority Routine Medications Medication SIG (Take, Route, Frequency, Duration) Notes Start Date End Date Status metFORMIN HCl 1000 MG 2 tablets with a meal Orally twice a day Active Mirena Active Icosapent Ethyl 1 GM 2 capsules with meals Orally Twice a day Active Paliperidone ER 3 MG 1 tablet in the morning Orally Once a day; Duration: 30 day(s) 05/27/2024 Not-Taking Hair Skin & Nails Ac tive Coreg 25 MG 1 tablet with food Orally Twice a day Active Active Vitamin D 50 MCG (1999 UT) 1 tablet Orally Once a week Active Xanax 1 MG 1 tablet Orally three times a day as needed Active Vyvanse 40 MG 1 capsule in the morning Orally Once a day; Duration: 30 days 09/02/2024 Active Vitamin B12 1000 mcg once a month Active QUEtiapine Fumarate 100 MG 1 tablet Orally; Duration: 30 days 04/25/2024 Active Rosuvastatin Calcium 20 MG 1 tablet Orally Once a day Active Probiotic Active Ocrevus 300 MG/10ML as directed Intravenous every 6 months Active Restoril 30 MG 1 capsule at bedtime as needed Orally Once a day Active Lantus 100 UNIT/ML 50 units Subcutaneous daily Active Paxil 20 MG 1 tablet in the morning Orally Once a day; Duration: 30 days Active Cozaar 50 MG 1 tablet Orally Once a day Active Adderall 10 MG 1 tablet Orally once a day Not-Taking Zanaflex 4 MG 1 tablet Orally three times a day Active Vraylar 1.5 MG 1 capsule Orally Once a day; Duration: 30 days 04/25/2024 Active Mounjaro 15 MG/0.5ML as directed Subcutaneous Active Social History Tobacco Use: Social History Observation Description Date Details (start date - stop date) Never Smoker NA - NA AUDIT-C (Standard) Question Answer Notes Did you have a drink contain ing alcohol in the past year? Yes How often did you have a dri nk containing alcohol in the past year? Monthly or less (1 point) How many drinks did you have on a typical day when you were drinking in the past year? 1 or 2 drinks (0 point) How often did you have six o r more drinks on one occasion in the past year? Less than monthly (1 point) Points 2 Interpretation Negative Tobacco Control (Standard) Question Answer Notes Tobacco use: Nonsmoker Problems Problem Type SNOMED Code ICD Code Onset Dates Problem Status W/U Status Risk Notes Problem Posttraumatic stress disorder (25396154) PTSD (post-traumatic stress disorder) (F43.10) Active confirmed Problem Attention deficit hyperactivity disorder (045627325) Attention deficit hyperactivity disorder (ADHD), combined type (F90.2) Active confirmed Problem Episodic mood disorder (81333904571467) Other specified episodic mood disorder (F39) Active confirmed Vital Signs Heart Rate 9888 /min 07/16/2024 + Temperature 97.7 degrees Fahrenheit 04/25/2024 Oximetry 95 % 07/16/2024 + Blood pressure diastolic 89 mm Hg 07/16/2024 + Height 63 in 07/16/2024 + Blood pressure systolic 133 mm Hg 07/16/2024 + Weight 188 lbs 07/16/2024 + BMI 33.3 kg/m2 07/16/2024 + Encounters Encounter Location Date Provider Diagnosis [facility] [address] [place] [address] 08/01/2024 Janeth Duran PTSD (post-traumatic stress disorder) F43.10 [facility] [address] [place] [address] 08/15/2024 Janeth Duran PTSD (post-traumatic stress disorder) F43.10 [facility] [address] [place] [address] 08/22/2024 Janeth Garzon PTSD (post-traumatic stress disorder) F43.10 [facility] [address] [place] [address] 09/02/2024 Janeth Duran PTSD (post-traumatic stress disorder) F43.10 and Other specified episodic mood disorder F39 [facility] [address] [place] [address] 06/13/2024 Janeth Duran PTSD (post-traumatic stress disorder) F43.10 and Other specified episodic mood disorder F39 [facility] [address] [place] [address] 06/19/2024 Janeth Duran PTSD (post-traumatic stress disorder) F43.10 and Other specified episodic mood disorder F39 [facility] [address] [place] [address] 06/26/2024 Janeth Garzon PTSD (post-traumatic stress disorder) F43.10 [facility] [address] [place] [address] 07/04/2024 Janethmariaelena Garzon PTSD (post-traumatic stress disorder) F43.10 [facility] [address] [place] [address] 07/11/2024 Janethmariaelena Garzon PTSD (post-traumatic stress disorder) F43.10 and Other specified episodic mood disorder F39 [facility] [address] [place] [address] 07/25/2024 Janethmariaelena Garzon PTSD (post-traumatic stress disorder) F43.10 and Other specified episodic mood disorder F39 [facility] [address] [place] [address] 04/18/2024 Janeth Garzon PTSD (post-traumatic stress disorder) F43.10 and Other specified episodic mood disorder F39 [facility] [address] [place] [address] 05/02/2024 Janeth Garzon PTSD (post-traumatic stress disorder) F43.10 and Other specified episodic mood disorder F39 [facility] [address] [place] [address] 05/09/2024 Janeth Garzon PTSD (post-traumatic stress disorder) F43.10 [facility] [address] [place] [address] 05/23/2024 Janeth Garzon PTSD (post-traumatic stress disorder) F43.10 [facility] [address] [place] [address] 05/30/2024 Janeth Garzon PTSD (post-traumatic stress disorder) F43.10 and Other specified episodic mood disorder F39 [facility] [address] [place] [address] 06/05/2024 Janeth Garzon PTSD (post-traumatic stress disorder) F43.10 and Other specified episodic mood disorder F39 [facility] [address] [place] [address] 02/26/2024 Janethmariaelena Garzon PTSD (post-traumatic stress disorder) F43.10 [facility] [address] [place] [address] 03/04/2024 Janethmariaelena Garzon PTSD (post-traumatic stress disorder) F43.10 [facility] [address] [place] [address] 03/14/2024 Janeth Garzon PTSD (post-traumatic stress disorder) F43.10 [facility] [address] [place] [address] 03/28/2024 Janeth Garzon PTSD (post-traumatic stress disorder) F43.10 and Other specified episodic mood disorder F39 [facility] [address] [place] [address] 04/04/2024 Janeth Garzon PTSD (post-traumatic stress disorder) F43.10 and Other specified episodic mood disorder F39 [facility] [address] [place] [address] 04/11/2024 Janeth Garzon PTSD (post-traumatic stress disorder) F43.10 [facility] [address] [place] [address] 01/04/2024 Janeth Garzon Other specified episodic mood disorder F39 and PTSD (post-traumatic stress disorder) F43.10 [facility] [address] [place] [address] 01/11/2024 Janeth Garzon Other specified episodic mood disorder F39 [facility] [address] [place] [address] 01/21/2024 Janeth Garzon Other specified episodic mood disorder F39 [facility] [address] [place] [address] 01/28/2024 Janeth Garzon Other specified episodic mood disorder F39 and PTSD (post-traumatic stress disorder) F43.10 [facility] [address] [place] [address] 02/08/2024 Janeth Garzon PTSD (post-traumatic stress disorder) F43.10 [facility] [address] [place] [address] 02/15/2024 Janeth Garzon PTSD (post-traumatic stress disorder) F43.10 [facility] [address] [place] [address] 11/09/2023 Janeth Garzon Other specified episodic mood disorder F39 and PTSD (post-traumatic stress disorder) F43.10 [facility] [address] [place] [address] 11/16/2023 Janeth Garzon PTSD (post-traumatic stress disorder) F43.10 and Other specified episodic mood disorder F39 [facility] [address] [place] [address] 11/29/2023 Janeth Garzon PTSD (post-traumatic stress disorder) F43.10 and Other specified episodic mood disorder F39 [facility] [address] [place] [address] 12/07/2023 Janeth Garzon PTSD (post-traumatic stress disorder) F43.10 and Other specified episodic mood disorder F39 [facility] [address] [place] [address] 12/14/2023 Janeth Garzon PTSD (post-traumatic stress disorder) F43.10 [facility] [address] [place] [address] 12/21/2023 Janeth Garzon PTSD (post-traumatic stress disorder) F43.10 and Other specified episodic mood disorder F39 [facility] [address] [place] [address] 09/28/2023 Janeth Garzon PTSD (post-traumatic stress disorder) F43.10 and Other specified episodic mood disorder F39 [facility] [address] [place] [address] 10/26/2023 Janeht Garzon Other specified episodic mood disorder F39 and PTSD (post-traumatic stress disorder) F43.10 [facility] [address] [place] [address] 09/12/2024 Janeth Garzon [facility] [address] [place] [address] 10/12/2023 Janeth Garzon PTSD (post-traumatic stress disorder) F43.10 and Other specified episodic mood disorder F39 [facility] [address] [place] [address] 04/25/2024 Kip Soviak Other specified episodic mood disorder F39 [facility] [address] [place] [address] 05/21/2024 Kip Soviak Other specified episodic mood disorder F39 [facility] [address] [place] [address] 06/18/2024 Ki Soviak Other specified episodic mood disorder F39 and Attention deficit hyperactivity disorder (ADHD), combined type F90.2 [facility] [address] [place] [address] 07/16/2024 Ki Soviak Other specified episodic mood disorder F39 ; PTSD (post-traumatic stress disorder) F43.10 and Attention deficit hyperactivity disorder (ADHD), combined type F90.2 [facility] [place] [address] [place] [address] 05/21/2024 Ki Sovimiguel [address] [place] [address] 05/23/2024 [facility] [address] [place] [address] 05/30/2024 [facility] Soviak [facility] [address] [place] [address] 06/18/2024 Janeth [facility] [address] [place] [address] 07/29/2024 Ki Soviak Attention deficit hyperactivity disorder (ADHD), combined type F90.2 [facility] [address] [place] [address] 08/29/2024 [facility] Soviak Attention deficit hyperactivity disorder (ADHD), combined type F90.2 Assessments Encounter Date Diagnosis (ICD Code) Assessment Notes Treatment Notes Treatment Clinical Notes Section Notes 04/25/2024 Other specified episodic mood disorder (ICD-10 - F39) Patient will add Vraylar 1.5 mg to her current treatment plan. Samples provided for 1 month. Seroquel 25 mg taper dose added for increased sleep hygiene. Follow up in 30 days to discuss and evaluate. Patient verbally acknowledges understanding instructions including medication education and has no further questions comments or concerns at this time. Based on DSM V, this patient meets the criteria for the diagnosis of: _ . Bipolar 1 Disorder . Recommended treatment is: _ Recommended treatment for Bipolar disorder includes FDA approved and OFF label medications: second generation antipsychotics and mood stabilizers. Discussed life threatening side effect of Lamotrigine. Pt is to monitor for new skin rashes or sensation of a sunburn or itchiness or redness, mouth sores or sores in mucus membranes, and call provider immediately and or go to ER, and stop the medication. Second generation antipsychotic medications can cause headache, drowsiness, agitation, dizziness, nausea, or extrapyramidal symptoms such as tremors, muscle spasms, slowness of movement or jerking of muscles. . The patient verbalizes understanding with all questions answered thoroughly and is in agreement with treatment plan. . . Continue current treatment Tolerating meds well, compliant Call for problems . GOALS: . Maintain medication regimen _Improve mood stability _Improve anxiety control _Improve social and interpersonal functioning . Informed consent obtained: YES, we discussed the diagnosis/diagnos es, the treatment options, treatment(s) recommended vs. no treatment. We discussed risks and benefits of treatment options, treatment recommendations vs. no treatment. . Currently at low risk for self harm. Denies ongoing feelings of hopelessness. Denies ongoing suicidal ideation, intent or plan in session. . 05/02/2024 PTSD (post-traumatic stress disorder) (ICD-10 - F43.10) 06/05/2024 PTSD (post-traumatic stress disorder) (ICD-10 - F43.10) 06/18/2024 Attention deficit hyperactivity disorder (ADHD), combined type (ICD-10 - F90.2) Increase Vyvanse to 40 mg. OARRS reviewed . Informed consent obtained: YES, we discussed the diagnosis/diagnos es, the treatment options, treatment(s) recommended vs. no treatment. We discussed risks and benefits of treatment options, treatment recommendations vs. no treatment. . . Patient continues to meet criteria for attention deficit hyperactivity disorder. Pt does not meet criteria for bipolar disorder, major depressive disorder, or other persistent mood disorders. Will continue to monitor the patient for presentation of new symptoms or behaviors. . . FDA approved stimulant medication for this age group. Discussed/Denies adverse effects from medication including HTN, tachycardia, insomnia, irritability, headache, or decreased appetite. . . Discussed lifestyle/diet changes to help improve BMI. Recommend increasing activity, reducing portion sizes, limiting carbohydrates, increasing protein as appropriate. Discussed referral to museum guide if problem persists. . . Continue current treatment plan, tolerating meds well, compliant; call for problems . GOALS: Maintain medication regimen Maintain mood stability Maintain anxiety stability Maintain social and interpersonal functioning Maintain attention and hyperactivity . . Currently at low risk for self harm. Denies ongoing feelings of hopelessness. Denies ongoing suicidal ideation, intent or plan in session. . 06/18/2024 Other specified episodic mood disorder (ICD-10 - F39) Decrease Paxil to 20 mg. Informed consent obtained: YES, we discussed the diagnosis/diagnos es, the treatment options, treatment(s) recommendations vs. no treatment. We discussed risks and benefits of treatment options, treatment recommendations vs. no treatment. Currently at low risk for self harm. Denies ongoing feelings of hopelessness. Denies ongoing suicidal ideation, intent or plan in session. Pharmacological management: Alternative medication plans were discussed with the patient and or guardian. All relevant and serious adverse effects were discussed. Standard precautions and potential benefits were discussed. Patient/Guardian consented to begin medication/ continue treatment plan. questions answered satisfactorily, agreeable to treatment plan Cont current treatment Tolerating meds well, compliant Call for problems Follow up 3 months Patient/Guardian will call sooner if symptoms worsen. Patient understands to go to the ER if needed if symptoms become severe. Crisis intervention plan was discussed and agreed upon. Patient/Guardian will call 911 in case of emergency. Emergency contact information was provided to the patient/guardian. 06/19/2024 PTSD (post-traumatic stress disorder) (ICD-10 - F43.10) 06/26/2024 PTSD (post-traumatic stress disorder) (ICD-10 - F43.10) 07/04/2024 PTSD (post-traumatic stress disorder) (ICD-10 - F43.10) 07/11/2024 PTSD (post-traumatic stress disorder) (ICD-10 - F43.10) 06/13/2024 PTSD (post-traumatic stress disorder) (ICD-10 - F43.10) 07/16/2024 Other specified episodic mood disorder (ICD-10 - F39) Patient will continue current treatment plan. Patient verbally acknowledges understanding instructions including medication education and has no further questions comments or concerns at this time. . Follow in 3 Month . Recommended treatment for Bipolar disorder includes FDA approved and OFF label medications: second generation antipsychotics and mood stabilizers. Discussed life threatening side effect of Lamotrigine. Pt is to monitor for new skin rashes or sensation of a sunburn or itchiness or redness, mouth sores or sores in mucus membranes, and call provider immediately and or go to ER, and stop the medication. Second generation antipsychotic medications can cause headache, drowsiness, agitation, dizziness, nausea, or extrapyramidal symptoms such as tremors, muscle spasms, slowness of movement or jerking of muscles. . Stable . The patient verbalizes understanding with all questions answered thoroughly and is in agreement with treatment plan. . Continue current treatment. Call for problems . GOALS: . Maintain medication regimen . _Improve mood stability . _Improve anxiety control . _Improve social and interpersonal functioning . Patient/Guardian will call sooner if symptoms worsen. Patient understands to go to ER if needed if symptoms become severe. . Crisis Intervention plan was discussed and agreed upon. Patient/Guardian will call 911 in case of emergency. Emergency contact information was provided to the patient/guardian. . Pharmacological management: . Alternative medication plans were discussed with the patient/guardian. All relevant side effects and potential adverse effects were discussed with the patient/guardian. Standard cautions and potential benefits were discussed. Patient/Guardian consented to the start/continuatio n of the treatment. 07/25/2024 PTSD (post-traumatic stress disorder) (ICD-10 - F43.10) 01/28/2024 Other specified episodic mood disorder (ICD-10 - F39) 02/08/2024 PTSD (post-traumatic stress disorder) (ICD-10 - F43.10) 02/15/2024 PTSD (post-traumatic stress disorder) (ICD-10 - F43.10) 02/26/2024 PTSD (post-traumatic stress disorder) (ICD-10 - F43.10) 03/04/2024 PTSD (post-traumatic stress disorder) (ICD-10 - F43.10) 03/14/2024 PTSD (post-traumatic stress disorder) (ICD-10 - F43.10) 03/28/2024 PTSD (post-traumatic stress disorder) (ICD-10 - F43.10) 04/04/2024 PTSD (post-traumatic stress disorder) (ICD-10 - F43.10) 04/11/2024 PTSD (post-traumatic stress disorder) (ICD-10 - F43.10) 04/18/2024 PTSD (post-traumatic stress disorder) (ICD-10 - F43.10) 05/09/2024 PTSD (post-traumatic stress disorder) (ICD-10 - F43.10) 05/21/2024 Other specified episodic mood disorder (ICD-10 - F39) Informed consent obtained: YES, we discussed the diagnosis/diagnos es, the treatment options, treatment(s) recommendations vs. no treatment. We discussed risks and benefits of treatment options, treatment recommendations vs. no treatment. Currently at low risk for self harm. Denies ongoing feelings of hopelessness. Denies ongoing suicidal ideation, intent or plan in session. Pharmacological management: Alternative medication plans were discussed with the patient and or guardian. All relevant and serious adverse effects were discussed. Standard precautions and potential benefits were discussed. Patient/Guardian consented to begin medication/ continue treatment plan. questions answered satisfactorily, agreeable to treatment plan Cont current treatment Tolerating meds well, compliant Call for problems Follow up 3 months Patient/Guardian will call sooner if symptoms worsen. Patient understands to go to the ER if needed if symptoms become severe. Crisis intervention plan was discussed and agreed upon. Patient/Guardian will call 911 in case of emergency. Emergency contact information was provided to the patient/guardian. 05/23/2024 PTSD (post-traumatic stress disorder) (ICD-10 - F43.10) 05/30/2024 PTSD (post-traumatic stress disorder) (ICD-10 - F43.10) 09/28/2023 PTSD (post-traumatic stress disorder) (ICD-10 - F43.10) 10/12/2023 PTSD (post-traumatic stress disorder) (ICD-10 - F43.10) 10/26/2023 Other specified episodic mood disorder (ICD-10 - F39) 11/09/2023 Other specified episodic mood disorder (ICD-10 - F39) 11/16/2023 PTSD (post-traumatic stress disorder) (ICD-10 - F43.10) 11/29/2023 PTSD (post-traumatic stress disorder) (ICD-10 - F43.10) 12/07/2023 PTSD (post-traumatic stress disorder) (ICD-10 - F43.10) 12/14/2023 PTSD (post-traumatic stress disorder) (ICD-10 - F43.10) 12/21/2023 PTSD (post-traumatic stress disorder) (ICD-10 - F43.10) 01/04/2024 Other specified episodic mood disorder (ICD-10 - F39) 01/11/2024 Other specified episodic mood disorder (ICD-10 - F39) 01/21/2024 Other specified episodic mood disorder (ICD-10 - F39) 07/29/2024 Attention deficit hyperactivity disorder (ADHD), combined type (ICD-10 - F90.2) 08/01/2024 PTSD (post-traumatic stress disorder) (ICD-10 - F43.10) 08/15/2024 PTSD (post-traumatic stress disorder) (ICD-10 - F43.10) 08/22/2024 PTSD (post-traumatic stress disorder) (ICD-10 - F43.10) 08/29/2024 Attention deficit hyperactivity disorder (ADHD), combined type (ICD-10 - F90.2) 09/02/2024 PTSD (post-traumatic stress disorder) (ICD-10 - F43.10) 09/02/2024 Other specified episodic mood disorder (ICD-10 - F39) 01/28/2024 PTSD (post-traumatic stress disorder) (ICD-10 - F43.10) 12/21/2023 Other specified episodic mood disorder (ICD-10 - F39) 01/04/2024 PTSD (post-traumatic stress disorder) (ICD-10 - F43.10) 12/07/2023 Other specified episodic mood disorder (ICD-10 - F39) 11/29/2023 Other specified episodic mood disorder (ICD-10 - F39) 11/16/2023 Other specified episodic mood disorder (ICD-10 - F39) 11/09/2023 PTSD (post-traumatic stress disorder) (ICD-10 - F43.10) 10/12/2023 Other specified episodic mood disorder (ICD-10 - F39) 10/26/2023 PTSD (post-traumatic stress disorder) (ICD-10 - F43.10) 09/28/2023 Other specified episodic mood disorder (ICD-10 - F39) 05/30/2024 Other specified episodic mood disorder (ICD-10 - F39) 04/18/2024 Other specified episodic mood disorder (ICD-10 - F39) 04/04/2024 Other specified episodic mood disorder (ICD-10 - F39) 03/28/2024 Other specified episodic mood disorder (ICD-10 - F39) 07/25/2024 Other specified episodic mood disorder (ICD-10 - F39) 06/13/2024 Other specified episodic mood disorder (ICD-10 - F39) 07/11/2024 Other specified episodic mood disorder (ICD-10 - F39) 07/16/2024 PTSD (post-traumatic stress disorder) (ICD-10 - F43.10) Informed consent obtained: YES, we discussed the diagnosis/diagnose s, the treatment options, treatment(s) recommendations vs. no treatment. We discussed risks and benefits of treatment options, treatment recommendations vs. no treatment. Currently at low risk for self harm. Denies ongoing feelings of hopelessness. Denies ongoing suicidal ideation, intent or plan in session. Pharmacological management: Alternative medication plans were discussed with the patient and or guardian. All relevant and serious adverse effects were discussed. Standard precautions and potential benefits were discussed. Patient/Guardian consented to begin medication/ continue treatment plan. questions answered satisfactorily, agreeable to treatment plan Cont current treatment Tolerating meds well, compliant Call for problems Follow up 3 months Patient/Guardian will call sooner if symptoms worsen. Patient understands to go to the ER if needed if symptoms become severe. Crisis intervention plan was discussed and agreed upon. Patient/Guardian will call 911 in case of emergency. Emergency contact information was provided to the patient/guardian. 06/19/2024 Other specified episodic mood disorder (ICD-10 - F39) 06/05/2024 Other specified episodic mood disorder (ICD-10 - F39) 05/02/2024 Other specified episodic mood disorder (ICD-10 - F39) 07/16/2024 Attention deficit hyperactivity disorder (ADHD), combined type (ICD-10 - F90.2) . FDA approved stimulant medication for this age group. Discussed/Denies adverse effects from medication including HTN, tachycardia, insomnia, irritability, headache, or decreased appetite. . All relevant and serious adverse effects were discussed. Standard precautions and potential benefits were discussed. Patient/Guardian consented to begin medication/ continue treatment plan . Patient continues to meet criteria for attention deficit hyperactivity disorder. Pt does not meet criteria for bipolar disorder, major depressive disorder, or other persistent mood disorders. Will continue to monitor the patient for presentation of new symptoms or behaviors. . Continue current treatment; tolerating meds well, compliant; call for problems; questions answered satisfactorily, agreeable to treatment plan . GOALS: . Maintain medication regimen _Improve social and interpersonal functioning _Improve attention and or hyperactivity . follow up 3 months . Crisis Intervention plan was discussed and agreed upon. Patient/Guardian will call 911 in case of emergency. Emergency contact information was provided to the patient/guardian. . OARRS reviewed . Plan Of Treatment Next Appt Details Provider Name:Sergio Moura, 09/15/2024 04:30:00 PM, [address] [place], [address], Provider Name:Janeth Garzon , 09/19/2024 08:00:00 AM, [address], [place], [address], Provider Name:Janeth Garzon , 09/26/2024 08:00:00 AM, [address], [place], [address], Provider Name:Janeth Garzon , 10/03/2024 08:00:00 AM, [address], [place], [address], Insurance Providers Payer Name Payer Address Payer Phone Subscriber Number Group Number Insured Name Patient Relationship to Insured Coverage Start Date Coverage End Date [employer] Super[employer] [address] [address] [place] [phone] [id number] CHITRA MICHAELS Self - patient is the insured 4 Medical (General) History Medical History History ICD Code MS Diabetes Hypertension High Cholesterol Granuloma Annulare Surgical History Surgery Date(Month/Year) Cholecystectomy EGD x2 Colonoscopy Liver biopsy Hospitalization History Reason Date(Month/Year) MS (multiple times) Hypertension
--- OUTSIDE RECORDS SUMMARY | 2024-09-15 12:26 | XMS_ITS | Encounter Summary ---
Author Organization [facility] Address [address] [place] [address] Care Team Providers Care Dining Car Steward Name Role Phone Negra Condon MD Primary Care Provider [phone] David Mayo MD Unavailable [phone] Leonor Cordova Unavailable Encounter Details Date Type Department Care Team (Latest Contact Info) Description 09/10/2024 Travel Social History Tobacco Use Types Packs/Day Years [...] [facility] [address] [place] [phone] Ester Desai, PA [address] [place] [address] 03/25/2025 2:00 PM EST Procedure Visit [facility] [address] [place] [address] Vijay Medley, DO [address] [facility] [address] [place], [place] [id number] 09/14/2025 3:20 PM EDT Office Visit [facility] [address] [place] [address] Ester Desai PA [address] [facility] [address] [place] [address] documented as of this encounter Visit Diagnoses Not on filedocumented in this encounter Care Teams Dining Car Steward Relationship Specialty Start Date End Date Negra Condon MD PCP - General Family Medicine 02/08/23 David Mayo MD Referring Physician Neurology 05/23/23 Leonor Cordova PA Physician Hand Sander Neurology 05/21/24 documented as of this encounter
--- OUTSIDE RECORDS SUMMARY | 2024-09-15 12:26 | XMS_ITS | Encounter Summary ---
Author Organization [facility] Address [address] [place] [address] Care Team Providers Care Manufacturing Automation Engineer Name Role Phone Negra Condon MD Primary Care Provider [phone] David Mayo MD Unavailable Leonor Cordova Unavailable Encounter Details Date Type Department Care Team (Late Contact Info) Description 09/04/2022 Abstract [facility] [address] [facility] [address] [place] [address] Catie Casillas MD [address] [facility] [address] [place] [address] Social History Tobacco Use Types Packs/Day Years Used Date Smoking Tobacco: Never Smokeless Tobacco: Never Comments Unknown Sex and Gender Information Value [...] [facility] [address] [place] [address] Ester Desai PA [address] [place] [address] 03/25/2025 2:00 PM EST Procedure Visit [facility] [address] [place] [address] Vijay Medley, DO [address] [place] [address] 09/14/2025 3:20 PM EDT Office Visit [facility] [address] [place] [address] Ester Desai, PA [address] [place], [place] [id number] documented as of this encounter Visit Diagnoses Not on filedocumented in this encounter Care Teams Manufacturing Automation Engineer Relationship Specialty Start Date End Date Negra Condon MD PCP - General Family Medicine 02/08/23 David Mayo MD Referring Physician Neurology 05/23/23 Leonor Cordova PA Physician Transitional Kindergarten Teacher Neurology 05/21/24 documented as of this encounter
--- OUTSIDE RECORDS SUMMARY | 2024-09-15 12:26 | XMS_ITS | Encounter Summary ---
Author Organization [facility] Address [address] [place] [address] Care Team Providers Care Chain Builder Loom Control Name Role Phone Negra Condon MD Primary Care Provider [phone] David Mayo MD Unavailable [phone] Leonor Cordova Unavailable Encounter Details Date Type Department Care Team (Late st Contact Info) Description 09/15/2024 Bamboo flowsheet [facility] [address] [place] [address] Vijay Medley, DO [address] [place], [facility] Social History Tobacco Use Types Packs/Day Years [...] [facility] [address] [place] [address] Ester Desai PA [address] [place] [address] 03/25/2025 2:00 PM EST Procedure Visit [facility] [address] [place] [phone] Vijay Medley, DO [address] [place] [address] 09/14/2025 3:20 PM EDT Office Visit [facility] [address] [place] [address] Ester Desai PA [address] [place], [place] [id number] documented as of this encounter Visit Diagnoses Not on filedocumented in this encounter Care Teams Chain Builder Loom Control Relationship Specialty Start Date End Date Negra Condon MD PCP - General Family Medicine 02/08/23 David Mayo MD Referring Physician Neurology 05/23/23 Leonor Cordova PA Physician Finance Accounting Internship Neurology 05/21/24 documented as of this encounter
--- OUTSIDE RECORDS SUMMARY | 2024-09-15 12:26 | XMS_ITS | Encounter Summary ---
Author Organization [facility] Address [address] [place] [address] Care Team Providers Care Lens Fabricating Machine Tender Name Role Phone Negra Condon MD Primary Care Provider [phone] David Mayo MD Unavailable [phone] Leonor Cordova Unavailable Encounter Details Date Type Department Care Team (Late Contact Info) Description 03/17/2024 Abstract [facility] [address] [place] [phone] Vijay Medley, DO [address] [place], [place] [id number] Social History Tobacco Use Types Packs/Day Years [...] [facility] [address] [place] [address] Ester Desai PA [address] [place] [address] 03/25/2025 2:00 PM EST Procedure Visit [facility] [address] [place] [address] Vijay Medley, DO [address] [place] [address] 09/14/2025 3:20 PM EDT Office Visit [facility] [address] [place] [address] Ester Desai PA [address] [place], [place] [address] documented as of this encounter Visit Diagnoses Not on filedocumented in this encounter Care Teams Lens Fabricating Machine Tender Relationship Specialty Start Date End Date Negra Condon MD PCP - General Family Medicine 02/08/23 David Mayo MD Referring Physician Neurology 05/23/23 Leonor Cordova PA Physician Service Center Manager Neurology 05/21/24 documented as of this encounter
--- OUTSIDE RECORDS SUMMARY | 2024-09-15 12:26 | XMS_ITS | Encounter Summary ---
Author Organization [facility] Address [address] [place] [address] Care Team Providers Care Mastic Sprayer Name Role Phone Negra Condon MD Primary Care Provider [phone] David Mayo MD Unavailable [phone] Leonor Cordova Unavailable Encounter Details Date Type Department Care Team (Late Contact Info) Description 03/19/2024 Abstract [facility] [address] [place] [address] Missy Mann LPN Social History Tobacco Use Types Packs/Day Years [...] [facility] [address] [place] [address] Ester Desai PA [address] [place], [place] [id number] 03/25/2025 2:00 PM EST Procedure Visit [facility] [address] [facility] [address] [place] [address] Vijay Medley DO [address] [place] [address] 09/14/2025 3:20 PM EDT Office Visit [facility] [address] [place] [address] Ester Desai PA [address] [place], [place] [address] documented as of this encounter Visit Diagnoses Not on filedocumented in this encounter Care Teams Mastic Sprayer Relationship Specialty Start Date End Date Negra Condon MD PCP - General Family Medicine 02/08/23 David Mayo MD Referring Physician Neurology 05/23/23 Leonor Cordova PA Physician Offal Icer Poultry Neurology 05/21/24 documented as of this encounter
--- OUTSIDE RECORDS SUMMARY | 2024-09-15 12:26 | XMS_ITS | Clinical Summary ---
Author Organization [facility] Address [address] [place] [address] Care Team Providers Care Aerodynamics Professor Name Role Phone Negra Condon MD Primary Care Provider [phone] David Mayo MD Unavailable [phone] Leonor Cordova Unavailable Allergies Active Allergy Reactions Criticality Noted Date Comments Buspirone Anxiety Low 08/10/2022 Other Reaction(s): increased anxiety Other Reaction(s): Not available Other Reaction(s): Comment:increased anxiety, Not available Other Reaction(s): Unknown Clarithromycin GI intolerance,Nause a Only,Unknown Medium 08/22/2012 Other Reaction(s): Nausea/vomiting Other Reaction(s): Hives, Nausea/vomiting, Not available Fentanyl Unknown 09/10/2024 Interferon Beta-1a GI intolerance,Other High 016 hypokalemia Other Reaction(s): Other, Unknown Latex Anaphylaxis High 08/10/2022 Other Reaction(s): Not available Other Reaction(s): Hives Meperidine GI intolerance Medium 08/22/2012 Other Reaction(s): Nausea/vomiting Other Reaction(s): Hives Meperidine Hcl GI intolerance,Nause a Only 08/10/2022 Other Reaction(s): Not available Other Reaction(s): Hives, Not available Other Reaction(s): Unknown Morphine Nausea Only,Other Medium 08/22/2012 Other Reaction(s): nausea and vomiting Other Reaction(s): Other Other Reaction(s): Hives Other Reaction(s): Unknown Medications ALPRAZolam (Xanax) 1 MG tablet 07/28/19 23 Active carvedilol (Coreg) 25 MG tablet 07/04/19 23 Active Continuous Blood Gluc Sensor (FreeStyle Daysi 14 Day Sensor) [facility] 03/01/20 22 Active cyanocobalamin (Vitamin B-12) 1000 MCG/ML injection 08/07/19 23 Active Icosapent Ethyl (Vascepa) 1 g capsule 07/27/19 23 Active Semglee, yfgn, 100 UNIT/ML pen 08/04/19 23 Active HumaLOG KWIKPEN 100 UNIT/ML injection 02/27/20 22 Active Sure Comfort Pen Oxbow 31G X 5 MM [facility] 08/16/19 22 Active losartan (Cozaar) 100 MG tablet 04/18/19 23 Active metFORMIN XR (Glucophage-XR) 500 MG 24 hr tablet 07/04/19 23 Active PARoxetine (Paxil) 20 MG tablet Take 30 mg by mouth in the morning. 08/07/19 23 Active temazepam (Restoril) 30 MG capsule 08/02/19 23 Active ocrelizumab (Ocrevus) 300 MG/10ML solution Infuse into a venous catheter Active rosuvastatin (Crestor) 20 MG tablet Take 20 mg by mouth Daily Active ergocalciferol (Vitamin D2) 1.25 MG (41528 UT) capsuleIndicatio ns:Multiple sclerosis (HCC) TAKE 1 CAPSULE BY MOUTH ONCE WEEKLY 12 capsule 3 10/09/19 24 Active tiZANidine (Zanaflex) 4 MG tabletIndication s:Cervical spondylosis Take 1 tablet (4 mg) by mouth every 8 (eight) hours if needed for muscle spasms 270 tablet 2 03/10/19 25 Active Cariprazine HCl (Vraylar) 1.5 MG capsule Take 1.5 capsules by mouth Daily Active QUEtiapine (SEROquel) 25 MG tablet 25 mg 04/25/19 25 Active clobetasol (Temovate) 0.05 % ointmentIndicati ons:Other atopic dermatitis Apply 2g to affected areas on the legs, hands, and feet bid for 5 days on and 2 days off when flared. Avoid the face, armpits, and groin, 30 day supply 60 g 1 07/09/19 25 Active tacrolimus (Protopic) 0.1 % ointmentIndicati ons:Other atopic dermatitis Apply 2g to affected areas on the hands, arms, legs, and feet bid prn when flared for 30 days 60 g 11 07/09/19 25 Active Trulicity 0.75 MG/0.5ML solution auto-injector 08/15/19 25 Active Lantus SoloStar 100 UNIT/ML pen INJECT 50 UNITS SUBCUTANEOUSLY (UNDER THE SKIN) DAILY 08/19/19 25 Active Levonorgestrel (Mirena, 52 MG,) 20 MCG/DAY intrauterine device 52 mg by Intrauterine route Active Tradjenta 5 MG tablet 08/08/19 23 025 Discontin ued(Thera py completed ) Mounjaro 2.5 MG/0.5ML solution pen-injector Inject 12.5 mg under the skin 1 (one) time per week 05/01/19 025 Discontin ued(Thera py completed ) famotidine (Pepcid) 20 MG tabletIndication s:Multiple sclerosis (HCC) Take 1 tablet (20 mg) by mouth Daily as needed for heartburn for up to 1 day 1 tablet 07/19/19 24 025 Discontin ued(Thera py completed ) PARoxetine (Paxil) 30 MG tabletIndication s:Anxiety TAKE ONE TABLET BY MOUTH EVERY MORNING 90 tablet 1 05/13/19 25 025 Discontin ued(Thera py completed ) amphetamine-dext roamphetamine (Adderall) 10 MG tabletIndication s:Multiple sclerosis (HCC) Take 1 tablet (10 mg) by mouth in the morning. Due now. 30 tablet 05/14/19 025 Discontin ued(Thera py completed ) Active Problems Problem Noted Date Diagnosed Date Multiple sclerosis 06/10/2023 Insomnia 06/10/2023 Hypersomnia 06/10/2023 Anxiety 06/10/2023 Migraine 06/10/2023 Back symptoms 06/10/2023 Malaise and fatigue 06/10/2023 Tremor 06/10/2023 BMI 32.0-32.9,adult 06/10/2023 Cervical spondylosis with myelopathy 06/10/2023 Vitamin D deficiency 06/10/2023 Disturbance of skin sensation 06/10/2023 TISH (obstructive sleep apnea) 06/10/2023 Disorder of adrenal gland, unspecified Memory change 06/10/2023 Depression 06/10/2023 Encounters Date Type Department Care Team Description 09/15/2024 9:20 AM EDT Procedure Visit [facility] [address] [place] [address] Vijay Medley, ASCUS with positive high risk HPV cervical; Pap smear to confirm normal after abnormal result 09/15/2024 Bamboo flowsheet [facility] [address] [place] [address] Vijay Medley DO 09/10/2024 10:00 AM EDT Office Visit [facility] [address] [place] [address] Ester Desai PA Seborrheic keratosis (Primary Dx); Melanocytic nevus of trunk; Granuloma annulare; Inflamed seborrheic keratosis 09/10/2024 Bamboo flowsheet [facility] [address] [place] [address] Ester Desai PA 09/10/2024 Travel 07/22/2024 8:00 AM EDT Office Visit [facility] [address] [place] [address] Ester Desai PA Granuloma annulare (Primary Dx); Encounter for removal of sutures 07/22/2024 Bamboo flowsheet [facility] [address] [place] [address] Ester Desai PA 07/22/2024 Travel 07/14/2024 Results Follow-Up [facility] [address] [place] [address] Ester Desai PA 07/08/2024 8:20 AM EDT Office Visit [facility] [address] [place] [address] Ester Desai PA Other atopic dermatitis (Primary Dx); Rash and other nonspecific skin eruption; Inflamed seborrheic keratosis 07/08/2024 Telephone [facility] [address] [place] [address] Willow Madison LPN Prior Authorization (Protopic PA approval) 07/08/2024 Bamboo flowsheet [facility] [address] [place] [address] Ester Desai PA 07/08/2024 Travel from Last 3 Months Family History Medical History Relation Name Comments Abdominal aneurysm Father Cancer Father Diabetes Father Hyperlipidemia Father Hypertension Father Prostate cancer Father Diabetes Mother Hyperlipidemia Mother Hypertension Mother Diabetes Sister Melanoma Neg Hx Relation Name Status Comments Father Alive Mother Alive Sister Alive Social History Tobacco Use Types Packs/Day Years Used Date Smoking Tobacco: Never Smokeless Tobacco: Never Tobacco Cessation:Counseling Given: Not Answered Alcohol Use Standard Drinks/Week Comments Yes 0 [...] Mass Index 34.01 09/15/2024 9:34 AM EDT Plan of Treatment Upcoming Encounters Date Type Department Care Team (Late st Contact Info) Description 11/14/2024 12:20 PM EDT Office Visit [facility] [address] [place] [address] Ester Deasi PA [address] [place] [address] 03/25/2025 2:00 PM EST Procedure Visit [facility] [address] [facility] [place] [place] [address] Vijay Medley, DO [address] [facility] [place] [address] 09/14/2025 3:20 PM EDT Office Visit [facility] [address] [place] [address] Ester Desai PA [address] [place] [address] Health Maintenance Due Date Last Done Comments CT Colonography 1977 FIT-DNA 1977 FIT 1977 FOBT 1977 Sigmoidoscopy 1977 HPV/Cotest 09/04/2007 Mammogram 01/31/2023 01/31/2022, 01/31/2022 Cervical Cancer Screening 09/15/2024 Pap Smear 09/15/2024 02/14/2024 Influenza Vaccine (#1) 2024 , 02/14/2023, 12/27/2021, Additional history exists Colonoscopy 01/13/2034 01/14/2024 Colorectal Cancer Screening 01/13/2034 Procedures Procedure Name Priority Date/Time Associated Diagnosis Comments CRYOTHERAPY SKIN LESION Routine 09/11/19 10:12 AM EDT Inflamed seborrheic keratosis CRYOTHERAPY SKIN LESION Routine 07/09/19 8:18 AM EDT Inflamed seborrheic keratosis SKIN / NAIL BIOPSY Routine 07/08/2024 8: 13 AM EDT Rash and other nonspecific skin eruption DERMATOPATHOLOGY EXAM Routine 07/08/2024 12:00 AM EDT Rash and other nonspecific skin eruption PAP SMEAR Routine 02/14/2024 12:00 AM EST BI MAMMOGRAM SCREENING BILATERAL Routine 01/31/2022 12:00 PM EST Encounter for other screening for malignant neoplasm of breast Encounter for gynecological examination (general) (routine) without abnormal findings from Last 3 Months or Most Recently Relevant to Health Maintenance Results * Cryotherapy, skin lesion (09/10/2024 10:12 AM EDT) us Ester [facility] PROCEDURE ORDERABLES Fin al Result * Cryotherapy, skin lesion (07/08/2024 8:18 AM EDT) us Ester HINES DERM PROCEDURE ORDERABLES Fin al Result * Lesion biopsy (07/08/2024 8:13 AM EDT) Narrative Antonette Antonio MA - 07/08/2024 8:13 AM EDT Type of biopsy: punch Informed consent: discussed and consent obtained Informed consent comment: The risks and benefits were discussed. Risks include, but are not limited to, bleeding, infection, scarring, pain, & nerve damage. An opportunity to ask questions prior to the procedure was permitted and questions were answered. Patient was prepped and draped in usual sterile fashion: Area cleansed with alcohol. Anesthesia: the lesion was anesthetized in a standard fashion Anesthetic: 1% lidocaine w/ epinephrine 1-100,000 buffered w/ 8.4% NaHCO3 Punch biopsy size: A biopsy by punch method was performed using a dermal punch. Suture type: nylon Suture type comment: Hemostasis was achieved with suture. Hemostasis achieved with: suture Outcome: patient tolerated procedure well Post-procedure details: sterile dressing applied and wound care instructions given Post-procedure details comment: Emphasized the need to contact clinic for any signs of infection, uncontrollable bleeding, or complications. Dressing type: bandage Additional details: Amount of lidocaine used: 1.0 cc Number of sutures used: 2 Specimen sent for: H&E Photo taken us Ester HINES [facility]ER[facility] PROCEDURE ORDERABLES Fin al Result * Dermatopathology exam (07/08/2024 12:00 AM EDT) SPECIMEN TYPE SPECIMEN: LEFT DORSAL HAND [facility] ICD10 Code L92.0 [facility] PROTOCOL P - PUNCH [facility] Final Diagnosis PALISADED GRANULOMATOUS DERMATITIS, CONSISTENT WITH GRANULOMA ANNULARE. [facility] Gross Text [facility] Microscopic Description This bisected punch-type specimen shows intradermal zones of collagen alteration with interstitial mucin deposits and focal nuclear debris. Such areas are surrounded by palisaded arrays of epithelioid histiocytes and lymphocytes. These changes extend to the edges of the tissue. [facility] CPT 78395*1 [facility] Skin Topography unknown / Unknown 07/08/2024 8:13 AM EDT Comment:Differential Diagnos is: GA vs other Check Margins: No Ester HINES LAB PATHOLOGY ORDERABLES Kristy l Result Performing Organization Address [facility]/ZIP Co de Phone Number [facility] * Pap Smear (02/14/2024 12:00 AM EST) Swab Cervical swab / Unknown Vijay Medley DO LAB CYTOLOGY ORDERABLES Final Re sult Performing Organization Address [facility] Co de Phone Number EXTERNAL LAB * Bilateral screening mammogram (01/31/2022 12:00 PM EST) Anatomical Region Laterality Modality Breast Bilateral Mammography Narrative 01/31/2022 12:00 PM EST PERFORMED AT [facility] LOCATION:[id number] Procedure Note CONVERSION, GENERIC - 09/08/2022 PERFORMED AT [facility] LOCATION:[id number] Vijay Medley DO IMG BI PROCEDURES Final Result from Last 3 Months or Most Recently Relevant to Health Maintenance Insurance [employer] Care Teams Aerodynamics Professor Relationship Specialty Start Date End Date Negra Condon MD PCP - General Family Medicine 02/08/23 David Mayo MD Referring Physician Neurology 05/23/23 Leonor Cordova PA Physician Stained Glass Painter Neurology 05/21/24
--- OUTSIDE RECORDS SUMMARY | 2024-09-15 12:26 | XMS_ITS | Clinical Summary ---
Author Organization [facility] Address [address] [place], [place] [id number] Care Team Providers Care Executive Administrator Name Role Phone David Mayo MD Primary Care Provider [phone] Allergies Active Allergy Reactions Criticality Noted Date Comments Interferon Beta-1a GI Upset,Other: See Comments 02/22/2016 hypokalemia Clarithromycin Vomiting 08/22/2012 Meperidine (Pf) Vomiting 08/22/2012 Morphine Intolerance 08/22/2012 Medications ALPRAZOLAM 1 mg tablet 08/20/2012 Active METOPROLOL SUCCINATE XL, LONG ACTING, 100 mg Tb24 08/08/2012 Active PROMETHAZINE 25 mg tablet 08/20/2012 Active TEMAZEPAM 30 mg cap 08/20/2012 Active CA CIT/MGOX/VIT D3/ROMA/MIN AA (CALCIUM-VIT [id number] ) [id number] [id number]-mcg cap Take by mouth. Active metFORMIN (GLUCOPHAGE) 1,000 mg tablet Take 1,000 mg by mouth daily with breakfast. Active dimethyl fumarate (TECFIDERA) 240 mg cpDR Take by mouth twice daily. Active baclofen (LIORESAL) 10 mg tablet Take 10 mg by mouth three times daily. Active tiZANidine HCl (ZANAFLEX) 4 mg capsule Take 4 mg by mouth three times daily. Active IBUPROFEN (MOTRIN ORAL) Take by mouth. Active Active Problems Problem Noted Date Diagnosed Date DDD (degenerative disc disease), cervical 2015 Multiple sclerosis 12/02/2012 Leukocytosis 08/12/2012 Obesity Kidney stone Inappropriate sinus tachycardia Hypothyroid Hypertension High cholesterol Depression Anxiety Former smoker Diabetes Diabetes mellitus Family History Medical History Relation Comments Arthritis Father Cancer Father prostate Heart Failure Father Hypertension Father Hypertension Mother Stroke Mother early 50s Diabetes Sister Multiple Sclerosis No Family History Relation Status Comments Father Mother Sister Social History [...] Industry Job Start Date Job End Date [employer] Not on file Not on file Not on file Last Filed Vital Signs Vital Sign Reading Time Taken Comments Blood Pressure 163/85 02/22/2016 1:16 PM EST Pulse 89 02/22/2016 1:16 PM EST Temperature - - Respiratory Rate 20 02/22/2016 1:16 PM EST Oxygen Saturation - - Inhaled Oxygen Concentration - - Weight 90.3 kg (199 lb) 02/22/2016 1:16 PM EST Height 157.5 cm (5' 2 ) 02/22/2016 1:16 PM EST Body Mass Index 36.4 02/22/2016 1:16 PM EST Plan of Treatment Health Maintenance Due Date Last Done Comments Anxiety Screening 09/04/1995 Depression Screening 09/04/1995 HIV Screening 09/04/1995 Hepatitis C Screening 09/04/1995 DTaP,Tdap,Td Vaccine (1 - Tdap) 1996 Hepatitis B Vaccine (1 of 3 - 19+ 3-dose series) 09/03 Cervical Cancer Screening [address] Colonography 2022 Cologuard (FIT-DNA) 2022 Colonoscopy 2022 Colorectal Cancer Screening 2022 Diabetes Screening 2022 Fecal Occult Blood 2022 Lipid Screening 2022 Sigmoidoscopy 2022 Covid-19 Vaccine ( - season) 2023 Influenza Vaccine (#1) 2024 Care Teams Executive Administrator Relationship Specialty Start Date End Date David Mayo MD PCP - General Neurology 01/20/11
--- OUTSIDE RECORDS SUMMARY | 2024-09-15 12:26 | XMS_ITS | Encounter Summary ---
Author Organization [facility] Address [address] [place] [address] Care Team Providers Care Utility Inspector Name Role Phone Negra Condon MD Primary Care Provider [phone] David Mayo MD Unavailable [phone] Leonor Cordova Unavailable Encounter Details Date Type Department Care Team (Late Contact Info) Description 09/28/2023 Clinisync Result Encounter [facility] External Department Unsolicited Yaneli Elizalde PA [address] [place] [id number] Social History Tobacco Use Types Packs/Day Years [...] Upcoming Encounters Date Type Department Care Team ([facility] Contact Info) Description 11/14/2024 12:20 PM EDT Office Visit [facility] [address] [place] [phone] Ester Desai PA [address] [place] [address] 03/25/2025 2:00 PM EST Procedure Visit [facility] [address] [place] [phone] Vijay Medley, DO [address] [place] [address] 09/14/2025 3:20 PM EDT Office Visit [facility] [address] [place] [address] Ester Desai PA [address] [place] [address] documented as of this encounter Procedures Procedure Name Priority Date/Time Associated Diagnosis Comments MRI BRAIN W/ + W/O CONTRAST 09/28/2023 4:36 PM EDT documented in this encounter Results * MRI BRAIN W/ + W/O CONTRAST (09/28/2023 4:36 PM EDT) Anatomical Region Laterality Modality Other 09/28/2023 4:36 PM EDT Narrative 10/03/2023 10:51 AM EDT Exam Date/Time: 09/28/2023 19:30 EDT [...] imaging of the head was performed before andafter intravenous administration of approximately 6.5 mL of Vueway gadoliniumcontrast. FINDINGS: Acute Change: There is no evidence of restricted diffusion to suggest anacute infarct. Hemorrhage: No evidence of intracranial hemorrhage. Mass Lesion/ Mass Effect: No evidence of an intracranial mass orextra-axial fluid collection. No significant mass effect. There is no abnormal enhancementidentified. Chronic Change: Predominantly periventricular supratentorial white matterlesions consistent with multiple sclerosis plaques, not significantly changed from09/29/2022. Parenchyma: Mild cerebral volume loss, unchanged. Ventricles: Normal caliber and morphology. Skull Base: Hypothalamic and pituitary region are grossly normal.Craniocervical junction is normal. No significant marrow replacement process. Vasculature: Major intracranial arterial structures, and dural venoussinuses show typical flow void, suggesting patency. Other: Paranasal sinuses and mastoid air cells are essentially clear. Theorbits are unremarkable. The extracranial soft tissues are [...] on filedocumented in this encounter Care Teams Utility Inspector Relationship Specialty Start Date End Date Negra Condon MD PCP - General Family Medicine 02/08/23 David Mayo MD Referring Physician Neurology 05/23/23 Leonor Cordova PA Physician Manager Food Safety Neurology 05/21/24 documented as of this encounter
[2024-09-17 14:08] LABS: Pap IG (Image Guided) Note (.)
== END 2024-09-15 12:23 | disposition home or self-care (01) ==
LOC: LAB 12:22
PROVIDERS: PCP Family Medicine; Visit Provider Obstetrics & Gynecology
DX: Z01.42 Encounter for cervical smear to confirm findings of recent normal smear following initial abnormal smear (principal); R87.610 Atypical squamous cells of undetermined significance on cytologic smear of cervix (ASC-US); R87.810 Cervical high risk human papillomavirus (HPV) DNA test positive
CPT/HCPCS: 88175